=== PATIENT | female | born 1955 | race Caucasian/White ===

== ENCOUNTER 2016-06-07 20:05 | Emergency (ER) | payer MEDICAID ==
[~2016-06-07] VITALS: Ht 162.6 cm; Wt 102.1 kg
[~2016-06-07 20:05] MED LIST: ALBU2.5V4 INH; ALPR.5T PO; ALPR0.5T3; AMBIEN PO; AMOX500C2; AMOX500C2 PO; ASPI-587 PO; ATOR10TA66 PO; ATOR20TA66 PO; AZTH250C PO; CARV3.122 PO; CEFU500T5 PO; CLON0.5T3 PO; DOXY100C2 PO; ESZO3TAB38 PO; FURO40TA4 PO; GLAUCOMA EYE DROPS; GLYB5TAB3 PO; GLYB5TAB6 PO; HYDR-2890 PO; HYDR-34; HYDR28CR10 TP; INSU100I14; INSU100V6 SQ; LCT30U PO; LIPITOR; LTN005OP2 OU; LUNESTA PO; METF-380 PO; MTF500T; OXC5T PO; OXYC30TA76 PO; PANT40TA PO; POTA10TA PO; PROP20TA5 PO; RIFA550T PO; SPIR100T37 GT; STEROID CREAM; Spironolactone PO; ZLP10T; ZLP10T PO; ZOLP10TA5 PO
--- OUTSIDE RECORDS SUMMARY | 2016-06-07 20:11 | XMS REPORT | Continuity of Care Document ---
Author Author [facility] Organization [facility] Address Unknown Phone Unavailable Care Team Providers Care Brimming Machine Operator Name Role Phone Maria Del RosarioUmer ramirez PCP [phone] Source Comments Some departments are not documenting in the electronic medical record. If you do not see the information that you expected, contact Release of Information in the Health Information Management department at [phone] for further assistance in locating additional records.[facility] Active Allergies and Adverse Reactions Allergen Noted Date Severity Reactions Comments Maura 01/07/2013 SEE COMMENTS Pt reports hand and arm turn black at iv site Current Medications Prescription Sig. Disp. Refills Start End Date Status Date doxycycline (VIBRAMYCIN) Take 1 Tab by mouth twice 14 Tab 0 02/05/20 Active 100 mg tablet daily. 13 clonazePAM (KLONOPIN) 0.5 Take 0.5 mg by mouth Active mg tablet twice daily. zolpidem (AMBIEN) 10 mg Take 10 mg by mouth at Active tablet bedtime as needed for Sleep. glyBURIDE (DIABETA) 5 mg Take 5 mg by mouth daily Active tablet with breakfast. oxyCODONE (ROXICODONE) 5 Take 5 mg by mouth every Active mg tablet 4 hours as needed for Pain carvedilol (COREG) 3.125 Take 3.125 mg by mouth Active mg tablet twice daily with meals. pantoprazole DR Take 40 mg by mouth Active (PROTONIX) 40 mg tablet daily. lactulose 10 gram/15 mL Take 20 g by mouth three Active oral solution times daily. spironolactone Take 1.5 Tabs by mouth 135 Tab 3 02/23/20 Active (ALDACTONE) 100 mg tablet daily. 15 rifaximin (XIFAXAN) 550 Take 1 Tab by mouth twice 60 Tab 11 03/23/20 Active mg tab daily. 16 Active Problems Problem Noted Date Pulmonary hypertension (HCC) 01/25/2015 Overview: 07/19/13-Echo ([facility]): EF 60%. Normal wall motion. Moderate aortic valve sclerosis without significant aortic stenosis. Estimated pulmonary artery pressure=35 mmHg. Mild mitral and tricuspid regurgitation. 11/23/14-Echo: Normal LV function. LV appears normal in size. Mild mitral regurgitation. Moderate tricuspid regurgitation. PA pressures of 55 mmHg. Mild aortic stenosis, peak gradient was 20 mmHg. 11/24/14-Left Heart Cath([facility]): Normal LV function with mild inferior hypokinesis. Mild proximal circumflex disease. LAD and right coronaries filled relatively normal. 12/10/14-Echo([facility]): EF 60%. Diastolic dysfunction. LA 4.4 cm. Calcified aortic valve with no significant aortic valve stenosis. Mild mitral regurgitation. Moderate tricuspid regurgitation. Pulmonary hypertension with estimated pulmonary artery pressure of 50 mmHg. NSTEMI (non-ST elevated myocardial infarction) ([facility]) 01/25/2015 Overview: 11/23/14-Admitted to [facility] for chest pain. Elevated troponin of 43. Episodes of NSVT. Treated with Amiodarone during hospitalization. NSVT (nonsustained ventricular tachycardia) ([facility]) 01/25/2015 Overview: In setting of NSTEMI, 11/2014. Morbid obesity ([facility]) 01/26/2013 Thrombocytopenia ([facility]) 01/26/2013 Cellulitis 01/25/2013 End stage liver disease (HCC) ITP (idiopathic thrombocytopenic purpura) Resolved Problems Problem Noted Date Resolved Date Ventricular tachycardia (HCC) 01/25/2015 01/25/2015 Most Recent Encounters Date Type Specialty Providers Description 04/10/2016 Telephone Transplant Surgery Linh Gusman APRN Appointment Question 04/09/2016 Orders Only Transplant Surgery Pari Nunez RN 04/09/2016 Telephone Transplant Surgery Linh Gusman APRN Patient Reminder Call - Called pt to confirm jedt urszula/ Chaya on 04/15/16 @ 1:00pm, nalm. Social History Tobacco Use Types Packs/Day Years Used Date Current Every Day Smoker Cigarettes 0.5 30 Smokeless Tobacco: Never Used Alcohol Use Drinks/Week oz/Week Comments No Last Filed Vital Signs Vital Sign Reading Time Taken Blood Pressure 106/59 02/04/2013 3:58 PM CDT Pulse 54 02/04/2013 3:58 PM CDT Temperature 36.6 C (97.9 F) 02/04/2013 3:58 PM CDT Respiratory Rate - - Height 1.6 m (5' 3") 01/25/2013 3:33 PM CDT Weight 145.559 kg (320 lb 14.4 02/04/2013 5:00 AM CDT oz) Body Mass Index 56.86 02/04/2013 5:00 AM CDT Oxygen Saturation 92% 02/04/2013 3:58 PM CDT Plan of Care Health Maintenance Due Date Last Done Comments Physical (Comprehensive) 1964 Exam Pertussis Vaccine 1968 Tetanus Vaccine 1974 Cervical Cancer Screening 1978 Breast Cancer Screening 1997 Colorectal Cancer 2007 Screening Influenza Vaccine 01/18/2016 Hepatitis C Screening Completed 01/04/2015, 01/25/2013 Results from Last 3 Months Not on file
[2016-06-07] MEDS ORDERED: TRAZ-28 PO (20:37)
[2016-06-07] MEDS ORDERED: SPIR100T PO (20:37)
[2016-06-07] MEDS ORDERED: OXYC5TAB71 PO (20:37)
--- NOTE | 2016-06-07 20:57 | ED General ---
General Chief Complaint: General Problems/Pain Stated Complaint: R SIDE FACIAL SWELLING/PAIN Nursing Triage Note: Pt c/o swelling to R jaw w/ pain radiating down neck. Pt has saw PCP in office twice for this c/o and reports pain is increasing. Pt was prescribed antibiotics w/ no relief. Nursing Sepsis Screen: No Definite Risk Source of Information: Patient Exam Limitations: No Limitations History of Present Illness Time Seen by Provider: 20:57 Initial Comments 60 yo patient presents to the ED with c/o rt jaw swelling, rt lower dental pain , and rt ear pain. Patient was seen by Dr. Montgomery and was given 2 different antibiotics w/o improvement. Denies fevers, throat swelling, or tongue swelling. Timing/Duration: Other (1-2 wks.) Modifying Factors: worse with Other (palpation) Allergies and Home Medications Allergies Coded Allergies: levofloxacin (Verified Allergy, Unknown, 12/08/14) Home Medications Albuterol Sulfate 0.83 Mg/Ml Solution #150 3 ML INH TID PRN PRN SHORTNESS OF BREATH (Reported) Cephalexin 500 Mg Capsule #14 500 MG PO BID Prescribed by: UMA EGAN on 06/07/162311 Clindamycin HCl 300 Mg Capsule #28 300 MG PO QID Prescribed by: UMA EGAN on 06/07/162311 Clonazepam 0.5 Mg Tablet #30 0.5 MG PO BID (Reported) Fluconazole 100 Mg Tablet #2 150 MG PO UD Prescribed by: UMA EGAN on 06/07/162311 Furosemide 40 Mg Tablet 40 MG PO PRN (Reported) Hydrocortisone/Oatmeal/Aloe/E 28.4 Gm Cream.gm. 0Days 28.4 GM TP BID Prescribed by: DIMITRY MURO on 07/18/13 1143 Lactulose 10 Gm/15 Ml Syrp 30Days 20 GM PO 5XD Prescribed by: MITCHEL PAZ on 12/20/14 1202 Nystatin 100,000 Unit/1 Ml Oral.susp #200 5 ML PO QID Prescribed by: UMA EGAN on 06/07/162311 Oxycodone HCl 5 Mg Tablet 7.5 MG PO Q4H (Reported) Oxycodone HCl 10 Mg Tablet #20 10 MG PO Q4H PRN PRN PAIN Prescribed by: UMA EGAN on 1/20/17 2312 Pantoprazole Sodium 40 Mg Tablet.dr #30 40 MG PO DAILY (Reported) Rifaximin 550 Mg Tablet 30Days 550 MG PO BID Prescribed by: MITCHEL PAZ on 12/20/14 1202 Spironolactone 100 Mg Tablet 100 MG PO DAILY (Reported) Trazodone HCl 50 Mg Tablet 50 MG PO HS (Reported) Constitutional: No chills, No dizziness, No fever, No malaise EENTM: dental problems (rt lower dental pain) ear pain mouth pain (rt lower jaw) mouth swelling (rt lower jaw) see HPINo blurred vision, No ear discharge, No eye pain, No hearing loss, No nose congestion, No tearing, No throat pain, No throat swelling Respiratory: No cough, No short of breath, No stridor, No wheezing Cardiovascular: no symptoms reported Gastrointestinal: no symptoms reported Musculoskeletal: No neck pain Skin: no symptoms reported Psychiatric/Neurological: Denies Headache Immunological/Allergic: no symptoms reported All Other Systems Reviewed Negative Unless Noted: Yes (Negative excepted noted.) Past Xmvbtxe-Jjqhza-Yujkxn Hx Patient Social History Alcohol Use: Denies Use Recreational Drug Use: No Smoking Status: Current Everyday Smoker Type Used: Cigarettes Recent Foreign Travel: No Contact w/Someone Who Travel: No Recent Infectious Disease Expo: No Recent Hopitalizations: No Physical Abuse Screen: No Sexual Abuse: No Immunizations Up To Date PED Vaccines UTD: No Date of Pneumonia Vaccine: Feb 16, 2013 Date of Influenza Vaccine: Mar 19, 2013 Seasonal Allergies Seasonal Allergies: No Surgeries HX Surgeries: Yes (I&D OF ABSCESSES, HERNIA, HEART CATH) Surgeries: Coronary Stent Respiratory Hx Respiratory Disorders: No Cardiovascular Hx Cardiac Disorders: Yes Cardiac Disorders: Hypertension Neurological Hx Neurological Disorders: Yes Reproductive System Hx Reproductive Disorders: No Sexually Transmitted Disease: No 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 Genitourinary Hx Genitourinary Disorders: Yes Genitourinary Disorders: UTI-Chronic Gastrointestinal Hx Gastrointestinal Disorders: Yes (CHRONIC ABDOMINAL PAIN ) Gastrointestinal Disorders: Abdominal Hernia, Gastroesophageal Reflux, Liver Disease/Jaundice, Pancreatitis, Hiatal Hernia, Cirrhosis Musculoskeletal Hx Musculoskeletal Disorders: Yes (chronic lower edema, right greater than left ) Musculoskeletal Disorders: Osteoporosis, Fibromyalgia, Chronic Back Pain Endocrine Hx Endocrine Disorders: Yes Endocrine Disorders: Diabetes, Non-Insulin dep HEENT HX ENT Disorders: No Cancer Hx Cancer: No Psychosocial Hx Psychiatric Problems: Yes Behavioral Health Disorders: Anxiety, Depression Integumentary HX Skin/Integumentary Disorder: Yes (ABSCESSES. CELLULITIS-LEGS. CHRONIC LEG SORES) Blood Transfusions Hx Blood Disorders: Yes (ITP, NEUTROPENIA) Reviewed Nursing Assessment Reviewed/Agree w Nursing PMH: Yes Family Medical History Significant Family History: No Pertinent Family Hx Physical Exam Vital Signs Capillary Refill : Less Than 3 Seconds General Appearance: No Apparent Distress WD/WN HEENT: PERRL/EOMI TMs Normal Pharynx Normal Other (rt parotid swelling with tenderness. no evidence of gum swelling.) Neck: Full Range of Motion Normal Inspection Non Tender Supple Respiratory: Lungs Clear Normal Breath Sounds No Respiratory Distress Cardiovascular: Regular Rate, Rhythm No Murmur Neurologic/Psychiatric: Alert Oriented x3 Normal Mood/Affect Skin: Warm/Dry Jaundice ((patient reports she has cirrhosis)) Progress/Results/Core Measures Results/Orders My Orders Vital Signs/I&O Blood Pressure Mean: 96 Diagnostic Imaging Diagonstic Imaging: CT Plain Films/CT/US/NM/MRI: facial bones Comments FINDINGS: Examination of the soft tissues is limited as is the bone algorithm technique and no contrast was administered. However, there is a diffuse area of soft tissue prominence in the region of the right parotid gland. Within the right parotid gland there is an area of hyperdensity, peripherally, with central hypodensity. Overall, the area measures approximately 2.7 x 2.8 x 2.9 cm. The surrounding parotid gland is diffusely enlarged and heterogeneous in appearance. There is a smaller low-density area within the soft tissues overlying the right masseter muscle. This area measures 13 mm. It has fluidlike density. Multiple prominent lymph nodes are seen throughout the right neck more inferiorly. The visualized osseous structures demonstrate no acute abnormality. The visualized sinuses demonstrate mucosal thickening with no acute abnormality seen. Visualized mastoid air cells are clear. There are several prominent lymph nodes within the right submandibular region also noted. IMPRESSION: 1. Nonspecific diffuse soft tissue prominence in the right aspect of the neck, predominantly involving the parotid gland which is diffusely enlarged. It contains an internal peripherally hyperdense lesion which is centrally hypodense. This is difficult to characterize given the lack of contrast. It could represent a centrally necrotic mass or lymph node. An abscess would be considered most likely if there are symptoms of infection. Clinical correlation with symptoms recommended and if clinically warranted, CT imaging with contrast would provide further characterization. 2. Enlarged lymph nodes within the right aspect of the neck, as described in the body. This could be reactive or due to an inflammatory etiology. A metastatic process is not excluded and followup recommended to assure resolution. 3. Fluid like collection more anteriorly located in the right aspect of the face, just anterior to the parotid gland, possibly a small seroma or even early abscess formation with a necrotic lymph node also possible. Dictated by: Dictated on workstation # [id number] Reviewed: Reviewed by Me (radiology report reviewed by me) Departure Communication Progress Notes Patient case discussed with Dr. Roberson. Dr. Keyes accepted patient to her medical service for IV antibiotics, however patient refused admission. Patient states she wants to be discharged to home with outpatient treatment. I Have advised patient that the CT scan does show questionable abscess formation. All risks, benefits, possible consultations associated with leaving AGAINST MEDICAL ADVICE discussed with the patient. All questions were answered at the time of visit. Patient voices understanding and continues to refuse admission to [facility]. Dr. Yu notified of patients refusal for admission. Impression Impression: Primary Impression: Parotitis Additional Impression: abnormal ct face Disposition: AGAINST MEDICAL ADVICE Condition: Against Medical Advice Departure-Patient Inst. Decision time for Depature: 23:05 Referrals: LYNDON MENDEZ MD, RICHARD A DO (PCP/Family) Primary Care Physician RUTHY MALAGON DDS Patient Instructions: ABSCESS, Parotitis Add. Discharge Instructions: All discharge instructions reviewed with patient and/or family. Voiced understanding. Medications as instructed. Ice packs or heating pads as needed for pain and swelling. Drink plenty of fluids. Uses sour candies such as lemon drops. Return to the emergency department on Friday for a wound recheck. Follow-up with Dr. Mendez, Dr. Malagon, and Dr. Dr. Montgomery as an outpatient early this week. Call first thing Friday morning for appointment times. Return immediately to the emergency department for worsened pain, swelling, redness, fever, difficulty swallowing, difficulty breathing, vomiting, or any other concerns. Scripts Oxycodone HCl 10 Mg [id number] Mg PO Q4H PRN PAIN #20 TAB Ref 0 Prov:UMA EGAN 06/07/16 Nystatin 100,000 Unit/1 Ml Oral.susp5 Ml PO QID #200 ML Ref 0 Prov:UMA EGAN 06/07/16 Fluconazole (Diflucan)100 Mg [id number] Mg PO UD #2 TAB Ref 1 Prov:UMA EGAN 06/07/16 Cephalexin 500 Mg [id number] Mg PO BID #14 CAP Ref 0 Prov:UMA EGAN 06/07/16 Clindamycin HCl (Cleocin HCl)300 Mg [id number] Mg PO QID #28 CAP Ref 0 Prov:UMA EGAN 06/07/16 UMA EGAN Jun 07, 2016 20:57
[2016-06-07] MEDS ORDERED: morphine INJ 10 MG/ML 1ML (SYR OR VIAL) IM STA (21:07)
--- NOTE | 2016-06-07 21:58 | Diagnostic Imaging Report ---
INDICATION: Right jaw swelling with pain radiating down the neck. Recently prescribed antibiotics but symptoms are worsening. BB placed at the site of concern. EXAMINATION: CT maxillofacial, 06/07/2016. FINDINGS: Examination of the soft tissues is limited as is the bone algorithm technique and no contrast was administered. However, there is a diffuse area of soft tissue prominence in the region of the right parotid gland. Within the right parotid gland there is an area of hyperdensity, peripherally, with central hypodensity. Overall, the area measures approximately 2.7 x 2.8 x 2.9 cm. The surrounding parotid gland is diffusely enlarged and heterogeneous in appearance. There is a smaller low-density area within the soft tissues overlying the right masseter muscle. This area measures 13 mm. It has fluidlike density. Multiple prominent lymph nodes are seen throughout the right neck more inferiorly. The visualized osseous structures demonstrate no acute abnormality. The visualized sinuses demonstrate mucosal thickening with no acute abnormality seen. Visualized mastoid air cells are clear. There are several prominent lymph nodes within the right submandibular region also noted. IMPRESSION: 1. Nonspecific diffuse soft tissue prominence in the right aspect of the neck, predominantly involving the parotid gland which is diffusely enlarged. It contains an internal peripherally hyperdense lesion which is centrally hypodense. This is difficult to characterize given the lack of contrast. It could represent a centrally necrotic mass or lymph node. An abscess would be considered most likely if there are symptoms of infection. Clinical correlation with symptoms recommended and if clinically warranted, CT imaging with contrast would provide further characterization. 2. Enlarged lymph nodes within the right aspect of the neck, as described in the body. This could be reactive or due to an inflammatory etiology. A metastatic process is not excluded and followup recommended to assure resolution. 3. Fluid like collection more anteriorly located in the right aspect of the face, just anterior to the parotid gland, possibly a small seroma or even early abscess formation with a necrotic lymph node also possible. Dictated by: Dictated on workstation # [id number]
[2016-06-07] MEDS ORDERED: HYDROmorphone (DILAUDID) 2 MG/ML VIAL IM STA (22:02)
[2016-06-07] MEDS ORDERED: OXYC10TA7 PO (23:12)
[2016-06-07] MEDS ORDERED: FLUC100T PO (23:12)
[2016-06-07] MEDS ORDERED: CEPH500C PO (23:12)
[2016-06-07] MEDS ORDERED: CLIN300C3 PO (23:12)
[2016-06-07] MEDS ORDERED: NYST1000 PO (23:12)
[2016-06-07] MEDS ORDERED: CEPHALEXIN 250 MG (KEFLEX) CAP PO ONE (23:15)
[2016-06-07] MEDS ORDERED: CLINDAMYCIN 150 MG (CLEOCIN) CAP PO ONE (23:15)
[2016-06-07 23:22] VITALS: BP 150/81
== END 2016-06-07 23:23 | disposition left against medical advice (07) ==
LOC: EDUNIT# 20:05 → ER 20:06
DX: K11.21 Acute sialoadenitis (principal); R59.0 Localized enlarged lymph nodes; I10 Essential (primary) hypertension; F17.210 Nicotine dependence, cigarettes, uncomplicated; Z79.899 Other long term (current) drug therapy; Z95.5 Presence of coronary angioplasty implant and graft
CPT/HCPCS: 70486; 96372

== ENCOUNTER → 2016-06-24 | Outpatient (CLI) | payer MEDICAID ==
[~2016-06-24] MED LIST changes: +BUSP5TAB59 PO; +CEPH500C PO; +CLIN300C3 PO; +CLOT15CR5 TP; +FLUC100T PO; +FLUC100T6 PO; +HYDR25CA PO; +LACT10SO PO; +LACT20SO2 PO; +LATA2.5D5 OU; +NYST1000 PO; +OXYC10TA7 PO; +OXYC5TAB71 PO; +PANT40TA3 PO; +SPIR100T PO; +SPIR100T2 PO; +TRAZ-28 PO; +TRAZ100T92 PO
--- OUTSIDE RECORDS SUMMARY | 2016-06-24 09:03 | XMS REPORT | Continuity of Care Document ---
Author Author [facility] Organization [facility] Address Unknown Phone Unavailable Care Team Providers Care Washing Machine Assembler Name Role Phone Maria Del RosarioUmer ramirez PCP [phone] Source Comments Some departments are not documenting in the electronic medical record. If you do not see the information that you expected, contact Release of Information in the Health Information Management department at [phone] for further assistance in locating additional records.[facility] Active Allergies and Adverse Reactions Allergen Noted [...] peak gradient was 20 mmHg. 11/24/14-Left Heart Cath([facility]): Normal LV function with mild inferior hypokinesis. Mild proximal circumflex disease. LAD and right coronaries filled relatively normal. 12/10/14-Echo([facility]): EF 60%. Diastolic dysfunction. LA 4.4 cm. Calcified aortic valve with no significant aortic valve stenosis. Mild mitral regurgitation. Moderate tricuspid regurgitation. Pulmonary hypertension with estimated pulmonary artery pressure of 50 mmHg. NSTEMI (non-ST elevated myocardial infarction) ([facility]) 01/25/2015 Overview: 11/23/14-Admitted to [facility] for chest pain. Elevated troponin of 43. Episodes of NSVT. Treated with Amiodarone during hospitalization. NSVT (nonsustained ventricular tachycardia) ([facility]) 01/25/2015 Overview: In setting of NSTEMI, 11/2014. Morbid obesity ([facility]) 01/26/2013 Thrombocytopenia ([facility]) 01/26/2013 Cellulitis 01/25/2013 End stage liver disease [...]
[2016-06-24 09:45] LABS: ALBUMIN 2.7 G/DL (3.2-4.5); BILIRUBIN,TOTAL 1.7 MG/DL (0.1-1.0); CALCIUM 8.5 MG/DL (8.5-10.1); CREATININE SERUM 1.45 MG/DL (0.60-1.30); POTASSIUM 4.6 MMOL/L (3.6-5.0); TOTAL PROTEIN 6.2 G/DL (6.4-8.2)
[2016-06-24 16:13] LABS: BASOPHILS % (AUTO) 0 % (0-10); EOSINOPHILS # (AUTO) 0.1 10^3/uL (0.0-0.3); EOSINOPHILS % (AUTO) 2 % (0-10); LYMPHOCYTES # (AUTO) 0.8 X 10^3 (1.0-4.0); LYMPHOCYTES % (AUTO) 21 % (12-44); MEAN CORPUSCULAR HEMOGLOBIN 35 PG (25-34); MEAN CORPUSCULAR HGB CONC 34 G/DL (32-36); MEAN CORPUSCULAR VOLUME 101 FL (80-99); MONOCYTES # (AUTO) 0.3 X 10^3 (0.0-1.0); MONOCYTES % (AUTO) 9 % (0-12); NEUTROPHILS # (AUTO) 2.5 X 10^3 (1.8-7.8); NEUTROPHILS % (AUTO) 68 % (42-75); PLATELET COUNT 44 10^3/uL (130-400); RED BLOOD COUNT 3.56 10^6/uL (4.35-5.85); RED CELL DISTRIBUTION WIDTH 15.1 % (10.0-14.5); WHITE BLOOD COUNT 3.7 10^3/uL (4.3-11.0)
[2016-06-24 16:24] LABS: CHOLESTEROL 137 MG/DL (< 200); DIRECT LDL 89 MG/DL (1-129); TRIGLYCERIDES 89 MG/DL (<150); VLDL CHOLESTEROL 18 MG/DL (5-40)
== END ==
LOC: LAB 08:55
PROVIDERS: ATTEND Family Medicine
DX: K11.3 Abscess of salivary gland (principal); K74.60 Unspecified cirrhosis of liver; E11.9 Type 2 diabetes mellitus without complications; D69.6 Thrombocytopenia, unspecified
CPT/HCPCS: 36415; 80053; 80061; 83036; 85025

== ENCOUNTER → 2016-06-29 | Outpatient (CLI) | payer MEDICAID ==
--- OUTSIDE RECORDS SUMMARY | 2016-06-29 09:56 | XMS REPORT | Continuity of Care Document ---
Author Author [facility] Organization [facility] Address Unknown Phone Unavailable Care Team Providers Care Director Public Service Name Role Phone Maria Del RosarioUmer ramirez PCP [phone] Source Comments Some departments are not documenting in the electronic medical record. If you do not see the information that you expected, contact Release of Information in the Health Information Management department at [phone] for further assistance in locating additional records.[facility] Active Allergies and Adverse Reactions [...] peak gradient was 20 mmHg. 11/24/14-Left Heart Cath([facility]): Normal LV function with mild inferior hypokinesis. Mild proximal circumflex disease. LAD and right coronaries filled relatively normal. 12/10/14-Echo([facility]): EF 60%. Diastolic dysfunction. LA 4.4 cm. Calcified aortic valve with no significant aortic valve stenosis. Mild mitral regurgitation. Moderate tricuspid regurgitation. Pulmonary hypertension with estimated pulmonary artery pressure of 50 mmHg. NSTEMI (non-ST elevated myocardial infarction) ([facility] 01/25/2015 Overview: 11/23/14-Admitted to [facility] for chest pain. Elevated troponin of 43. Episodes of NSVT. Treated with Amiodarone during hospitalization. NSVT (nonsustained ventricular tachycardia) ([facility]) 01/25/2015 Overview: In setting of NSTEMI, 11/2014. Morbid obesity ([facility]) 01/26/2013 Thrombocytopenia ([facility]) 01/26/2013 Cellulitis 01/25/2013 End stage liver disease [...]
== END ==
LOC: RAD 09:51
PROVIDERS: ATTEND Family Medicine
DX: K74.60 Unspecified cirrhosis of liver (principal)

== ENCOUNTER → 2016-07-08 | Outpatient (CLI) | payer MEDICAID ==
[~2016-07-08] MED LIST changes: +GADOXETATE 2.5 MMOL/10 ML (EOVIST) IV ONE
--- OUTSIDE RECORDS SUMMARY | 2016-07-08 08:34 | XMS REPORT | Continuity of Care Document ---
Author Author [facility] Organization [facility] Address Unknown Phone Unavailable Care Team Providers Care Brick Carrier Name Role Phone Maria Del RosarioUmer ramirez PCP [phone] Source Comments Some departments are not documenting in the electronic medical record. If you do not see the information that you expected, contact Release of Information in the Health Information Management department at [phone] for further assistance in locating additional records.[facility] Active Allergies and Adverse Reactions [...] peak gradient was 20 mmHg. 11/24/14-Left Heart Cath([facility]): Normal LV function with mild inferior hypokinesis. Mild proximal circumflex disease. LAD and right coronaries filled relatively normal. 12/10/14-Echo([facility]): EF 60%. Diastolic dysfunction. LA 4.4 cm. Calcified aortic valve with no significant aortic valve stenosis. Mild mitral regurgitation. Moderate tricuspid regurgitation. Pulmonary hypertension with estimated pulmonary artery pressure of 50 mmHg. NSTEMI (non-ST elevated myocardial infarction) ([facility] 01/25/2015 Overview: 11/23/14-Admitted to [facility] for chest pain. Elevated troponin of 43. Episodes of NSVT. Treated with Amiodarone during hospitalization. NSVT (nonsustained ventricular tachycardia) ([facility]) 01/25/2015 Overview: In setting of NSTEMI, 11/2014. Morbid obesity ([facility]) 01/26/2013 Thrombocytopenia ([facility]) 01/26/2013 Cellulitis 01/25/2013 End stage [...]
--- NOTE | 2016-07-08 13:48 | Diagnostic Imaging Report ---
PROCEDURE: MR imaging abdomen with and without contrast. TECHNIQUE: Multiplanar, multisequence MR imaging of the abdomen was performed with and without contrast. INDICATION: Liver lesions. Study compared 07/21/2015. There are at least three discrete parenchymal lesions in the liver. A nodule within the posterior sector of the right hepatic lobe near its caudal tip has a diameter of 2.6 cm. It is vaguely hyperintense on preinjection T1 images and presents as an area of relative decreased attenuation on the delayed post injection Eovist-phased acquisitions. Similar signal intensity and enhancement are associated with a peripheral nodule more cephalad in the right hepatic lobe posteriorly and laterally measuring 2.3 cm in diameter. A third lesion is in the left lobe of the dome anteriorly measuring 2 cm. Its most conspicuous prior to contrast were its heterogeneously T1 hyperintense and subtly vaguely elevated T2 signal intensity. This may reflect elements of intralesional hemorrhage in the interim. That lesion on the delayed acquisitions following Eovist shows relative central hypointensity with a peripheral rim of T1 signal that is preserved. The comparison MRI was limited by patient pain and incomplete status without contrast. When the findings today are correlated with the CT of June 2015, they each appear to have increased in size measuring long- axes of 1.8 cm, 2.3 cm, and 1.8 cm respectively. Splenomegaly and perisplenic dilated venous collaterals are redemonstrated. There is no adrenal mass. The pancreas normal. There is no biliary ductal dilatation. Nodularity at the liver surface owing to cirrhosis is an unchanged finding. There is paraesophageal vascular collaterals and perigastric collaterals. Minute ascites adjacent to the right hepatic lobe noted as well as along the margins of the hepatic dome. There is no perisplenic free fluid evident. Aorta is nonaneurysmal. IMPRESSION: Cirrhotic-appearing liver redemonstrated. Small perihepatic ascites with stable splenomegaly and vascular collaterals presumptively owing to portal venous hypertension. At least three discrete liver nodules are present, and when a prior CT reviewed retrospectively, each is believed to be at least mildly increased in size. Given the change, consider lesional sampling which could be performed with CT guidance. The right hepatic lobe nodule posteroinferiorly would likely provide a good target site. Trace ascites. No other change. Dictated by: Dictated on workstation # [id number]
== END ==
LOC: RAD 08:31
PROVIDERS: ATTEND Family Medicine
DX: K76.9 Liver disease, unspecified (principal); K74.60 Unspecified cirrhosis of liver
CPT/HCPCS: 74183

== ENCOUNTER → 2016-07-16 | Outpatient (CLI) | payer MEDICAID ==
[~2016-07-16] MED LIST changes: -GADOXETATE 2.5 MMOL/10 ML (EOVIST) IV ONE
[2016-07-16 12:53] LABS: BASOPHILS % (AUTO) 1 % (0-10); EOSINOPHILS # (AUTO) 0.1 10^3/uL (0.0-0.3); EOSINOPHILS % (AUTO) 3 % (0-10); LYMPHOCYTES # (AUTO) 0.8 X 10^3 (1.0-4.0); LYMPHOCYTES % (AUTO) 20 % (12-44); MEAN CORPUSCULAR HEMOGLOBIN 34 PG (25-34); MEAN CORPUSCULAR HGB CONC 34 G/DL (32-36); MEAN CORPUSCULAR VOLUME 101 FL (80-99); MEAN PLATELET VOLUME 11.8 FL (7.4-10.4); MONOCYTES # (AUTO) 0.3 X 10^3 (0.0-1.0); MONOCYTES % (AUTO) 8 % (0-12); NEUTROPHILS # (AUTO) 2.8 X 10^3 (1.8-7.8); NEUTROPHILS % (AUTO) 69 % (42-75); PLATELET COUNT 45 10^3/uL (130-400); RED BLOOD COUNT 4.01 10^6/uL (4.35-5.85); RED CELL DISTRIBUTION WIDTH 14.6 % (10.0-14.5); WHITE BLOOD COUNT 4.1 10^3/uL (4.3-11.0)
[2016-07-16 13:20] LABS: ALBUMIN 2.7 G/DL (3.2-4.5); BILIRUBIN,TOTAL 1.8 MG/DL (0.1-1.0); CALCIUM 9.2 MG/DL (8.5-10.1); CREATININE SERUM 1.41 MG/DL (0.60-1.30); POTASSIUM 4.9 MMOL/L (3.6-5.0); TOTAL PROTEIN 6.3 G/DL (6.4-8.2)
== END ==
LOC: LAB 12:33
PROVIDERS: ATTEND Family Medicine
DX: K74.60 Unspecified cirrhosis of liver (principal); N28.9 Disorder of kidney and ureter, unspecified; D69.6 Thrombocytopenia, unspecified
CPT/HCPCS: 36415; 80053; 85025

== ENCOUNTER → 2016-07-18 | Outpatient (CLI) | payer MEDICAID ==
--- OUTSIDE RECORDS SUMMARY | 2016-07-18 13:10 | XMS REPORT | Continuity of Care Document ---
Author Author [facility] Organization [facility] Address Unknown Phone Unavailable Care Team Providers Care Packing Room Inspector Name Role Phone Maria Del RosarioUmer ramirez PCP [phone] Source Comments Some departments are not documenting in the electronic medical record. If you do not see the information that you expected, contact Release of Information in the Health Information Management department at [phone] for further assistance in locating additional records.[facility] Active Allergies and Adverse Reactions Allergen [...] Active Problems Problem Noted Date Pulmonary hypertension ([facility]) 01/25/2015 Overview: 07/19/13-Echo ([facility]): EF 60%. [...] mmHg. NSTEMI (non-ST elevated myocardial infarction) ([facility]) 01/25/2015 Overview: 11/23/14-Admitted to [facility] for chest pain. Elevated troponin of 43. Episodes of NSVT. Treated with Amiodarone during hospitalization. NSVT (nonsustained ventricular tachycardia) ([facility]) 01/25/2015 Overview: In setting of NSTEMI, 11/2014. Morbid obesity ([facility]) 01/26/2013 Thrombocytopenia ([facility]) 01/26/2013 Cellulitis 01/25/2013 End stage liver disease ([facility]) ITP (idiopathic thrombocytopenic purpura) Resolved Problems Problem Noted Date Resolved Date Ventricular tachycardia ([facility]) 01/25/2015 01/25/2015 Social History Tobacco Use Types Packs/Day Years [...] 1997 Colorectal Cancer 2007 Screening Influenza Vaccine 01/17/2017 Hepatitis C Screening Completed 01/04/2015, 01/25/2013 Results from Last 3 Months Not on file
[2016-07-18 13:28] LABS: MEAN PLATELET VOLUME 10.6 FL (7.4-10.4); RED BLOOD COUNT 4.1 10^6/uL (4.35-5.85); RED CELL DISTRIBUTION WIDTH 14.7 % (10.0-14.5); WHITE BLOOD COUNT 4.5 10^3/uL (4.3-11.0)
[2016-07-18 13:55] LABS: CREATININE SERUM 1.44 MG/DL (0.60-1.30)
--- NOTE | 2016-07-18 14:48 | Diagnostic Imaging Report ---
PROCEDURE: CT neck soft tissue without contrast. TECHNIQUE: Multiple contiguous axial images were obtained through the neck without the use of intravenous contrast. INDICATION: Followup of right parotid mass. COMPARISON: Comparison with 06/07/2016. FINDINGS: The soft tissue mass described on the previous exam within the majority of the right parotid gland involving both the deep and superficial lobes is again noted. This has increased slightly in size and has a slightly more irregular appearance now with mild spiculation. There is loss of tissue planes noted posteriorly and medially. There is cervical lymphadenopathy noted along the anterior lymph nodes immediately adjacent to and beneath the enlarged parotid. The parapharyngeal tissue planes superior to the parotid appear intact. The mass does extend anteriorly and inferiorly with loss of tissue plane along the geomorphology teacher muscle on the right. This overall measures approximately 4.5 x 4.1 cm transversely and 6 cm superior to inferior. The submandibular glands appear normal. The left parotid gland is normal. The nasopharynx and oropharynx shows normal tissue planes. There is noted a hypodense lesion in the left lobe of the thyroid measuring just over 1 cm. No destructive bony lesions are seen. IMPRESSION: 1. Masslike lesion is seen within the right parotid gland which does appear to have increased in size since the previous study now measuring approximately 4.5 x 4.1 x 6 cm. There is loss of adjacent tissue planes as described. There is also cervical chain adenopathy. 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 The differential would include nuchal epidermoid carcinoma, adenocystic carcinoma, non-Hodgkin's lymphoma. Biopsy is recommended. Dictated by: Dictated on workstation # [id number]
== END ==
LOC: RAD 13:06
PROVIDERS: ATTEND Otolaryngology Otolaryngology/Facial Plastic Surgery
DX: R22.1 Localized swelling, mass and lump, neck (principal)
CPT/HCPCS: 36415; 70490; 82565; 84520; 85027; 88305

== ENCOUNTER 2016-07-25 09:26 | Outpatient (CLI) | payer MEDICAID ==
[~2016-07-25] VITALS: Ht 162.6 cm; Wt 102.5 kg
[~2016-07-25 09:26] MED LIST changes: -BUSP5TAB59 PO; -CLOT15CR5 TP; -FLUC100T6 PO; -HYDR25CA PO; -LACT10SO PO; -LACT20SO2 PO; -LATA2.5D5 OU; -PANT40TA3 PO; -SPIR100T2 PO; -TRAZ100T92 PO
--- OUTSIDE RECORDS SUMMARY | 2016-07-25 09:30 | XMS REPORT | Continuity of Care Document ---
Author Author [facility] Organization [facility] Address Unknown Phone Unavailable Care Team Providers Care Charcoal Burner [employer]ive Kiln Name Role Phone Maria Del RosarioUmer ramirez PCP [phone] Source Comments Some departments are not documenting in the electronic medical record. If you do not see the information that you expected, contact Release of Information in the Health Information Management department at [phone] for further assistance in locating additional records.[facility] Active Allergies and Adverse Reactions Allergen [...] Problems Problem Noted Date Pulmonary hypertension ([facility]) 01/25/2015 Overview: 07/19/13-Echo ([facility]): EF 60%. Normal wall motion. Moderate aortic valve sclerosis without significant aortic stenosis. Estimated pulmonary artery pressure=35 mmHg. Mild mitral and tricuspid regurgitation. 11/23/14-Echo: Normal LV function. LV appears normal in size. Mild mitral regurgitation. Moderate tricuspid regurgitation. PA pressures of 55 mmHg. Mild aortic stenosis, peak gradient was 20 mmHg. 11/24/14-Left Heart Cath([facility]): Normal LV function with mild inferior hypokinesis. Mild proximal circumflex disease. LAD and right coronaries filled relatively normal. 12/10/14-Echo([facility]): EF 60%. Diastolic dysfunction. LA 4.4 cm. Calcified aortic valve with no significant aortic valve stenosis. Mild mitral regurgitation. Moderate tricuspid regurgitation. Pulmonary hypertension with estimated pulmonary artery pressure of 50 mmHg. NSTEMI (non-ST elevated myocardial infarction) ([facility]) 01/25/2015 Overview: 11/23/14-Admitted to [facility] for chest pain. Elevated troponin of 43. Episodes of NSVT. Treated with Amiodarone during hospitalization. NSVT (nonsustained ventricular tachycardia) ([facility]) 01/25/2015 Overview: In setting of NSTEMI, 11/2014. Morbid obesity ([facility]) 01/26/2013 Thrombocytopenia ([facility]) 01/26/2013 Cellulitis 01/25/2013 End stage liver disease ([facility]) ITP (idiopathic thrombocytopenic purpura) Resolved Problems Problem Noted Date Resolved Date Ventricular tachycardia ([facility]) 01/25/2015 01/25/2015 Social History Tobacco Use Types [...]
[2016-07-25] MEDS ORDERED: HYDR25CA PO (09:53)
[2016-07-25 09:58] VITALS: BP 142/65
[2016-07-25 10:33] LABS: BASOPHILS % (AUTO) 1 % (0-10); EOSINOPHILS # (AUTO) 0.2 10^3/uL (0.0-0.3); EOSINOPHILS % (AUTO) 4 % (0-10); LYMPHOCYTES # (AUTO) 0.9 X 10^3 (1.0-4.0); LYMPHOCYTES % (AUTO) 22 % (12-44); MEAN CORPUSCULAR HEMOGLOBIN 34 PG (25-34); MEAN CORPUSCULAR HGB CONC 33 G/DL (32-36); MEAN CORPUSCULAR VOLUME 101 FL (80-99); MONOCYTES # (AUTO) 0.4 X 10^3 (0.0-1.0); MONOCYTES % (AUTO) 10 % (0-12); NEUTROPHILS # (AUTO) 2.4 X 10^3 (1.8-7.8); NEUTROPHILS % (AUTO) 63 % (42-75); PLATELET COUNT 50 10^3/uL (130-400); RED BLOOD COUNT 4.09 10^6/uL (4.35-5.85); RED CELL DISTRIBUTION WIDTH 14.9 % (10.0-14.5); WHITE BLOOD COUNT 3.9 10^3/uL (4.3-11.0)
[2016-07-25 10:53] LABS: CALCIUM 8.6 MG/DL (8.5-10.1); CREATININE SERUM 1.6 MG/DL (0.60-1.30); POTASSIUM 4.6 MMOL/L (3.6-5.0)
--- NOTE | 2016-07-25 10:59 | Diagnostic Imaging Report ---
INDICATION: Preop evaluation and drainage around the right parotid abscess. FINDINGS: Frontal and lateral views of the chest demonstrate the lungs to be clear. The heart, mediastinum and pulmonary vascularity are normal. Mild degenerative changes are seen in the lumbar spine and left shoulder. IMPRESSION: There are no acute findings. Dictated by: Dictated on workstation # [id number]
--- NOTE | 2016-07-26 14:48 | Progress Note-Pre Operative ---
Pre-Operative Progress Note H&P Reviewed The H&P was reviewed, patient examined and no changes noted. Date H&P Reviewed: Jul 26, 2016 Time H&P Reviewed: 14:15 Pre-Operative Diagnosis: Right Parotid Abscess LYNDON KRAUSE MD Jul 26, 2016 2:48 pm
--- NOTE | 2016-07-27 06:12 | Progress Note-Standard ---
Standard Progress Note Progress Notes/Assess & Plan Progress/Assessment & Plan ENT-Rk Abscess drained on friday-dressing intact with mild to mod drainage diet as tolerated continue IV antibiotics prelim culture results will be out later today Final Diagnosis Right Parotid Abscess LYNDON KRAUSE MD Jul 27, 2016 6:12 am
== END 2016-07-25 15:00 | disposition home or self-care (01) ==
LOC: PREOP 09:26
PROVIDERS: ATTEND Otolaryngology Otolaryngology/Facial Plastic Surgery
DX: Z01.818 Encounter for other preprocedural examination (principal); Z01.812 Encounter for preprocedural laboratory examination; Z11.2 Encounter for screening for other bacterial diseases; K11.3 Abscess of salivary gland
CPT/HCPCS: 36415; 71020; 80048; 85025; 87081; 93005

== ENCOUNTER 2016-07-26 06:10 | Outpatient (RCR) | payer MEDICAID ==
[~2016-07-26] VITALS: Ht 165.1 cm; Wt 99.8 kg
[~2016-07-26 06:10] MED LIST changes: +HYDR25CA PO
--- OUTSIDE RECORDS SUMMARY | 2016-07-26 08:26 | XMS REPORT | Continuity of Care Document ---
Author Author [facility] Organization [facility] Address Unknown Phone Unavailable Care Team Providers Care Education Faculty Member Name Role Phone Maria Del RosarioUmer ramirez PCP [phone] Source Comments Some departments are not documenting in the electronic medical record. If you do not see the information that you expected, contact Release of Information in the Health Information Management department at [phone] for further assistance in locating additional records.[facility] Active Allergies and Adverse Reactions Allergen [...] Active Problems Problem Noted Date Pulmonary hypertension ([facility]) 01/25/2015 Overview: 07/19/13-Echo ([facility]): EF 60%. Normal wall motion. Moderate aortic valve sclerosis without significant aortic stenosis. Estimated pulmonary artery pressure=35 mmHg. Mild mitral and tricuspid regurgitation. 11/23/14-Echo: Normal LV function. LV appears normal in size. Mild mitral regurgitation. Moderate tricuspid regurgitation. PA pressures of 55 mmHg. Mild aortic stenosis, peak gradient was 20 mmHg. 11/24/14-Left Heart Cath([facility]): Normal LV function with mild inferior hypokinesis. Mild proximal circumflex disease. LAD and right coronaries filled relatively normal. 12/10/14-Echo([facility]): EF 60%. Diastolic dysfunction. LA 4.4 cm. Calcified aortic valve with no significant aortic valve stenosis. Mild mitral regurgitation. Moderate tricuspid regurgitation. Pulmonary hypertension with estimated pulmonary artery pressure of 50 mmHg. NSTEMI (non-ST elevated myocardial infarction) ([facility]) 01/25/2015 Overview: 11/23/14-Admitted to [facility] for chest pain. Elevated troponin of 43. Episodes of NSVT. Treated with Amiodarone during hospitalization. NSVT (nonsustained ventricular tachycardia) ([facility]) 01/25/2015 Overview: In setting of NSTEMI, 11/2014. Morbid obesity ([facility]) 01/26/2013 Thrombocytopenia ([facility]) 01/26/2013 Cellulitis 01/25/2013 End stage liver disease ([facility]) ITP (idiopathic thrombocytopenic purpura) Resolved Problems Problem Noted Date Resolved Date Ventricular tachycardia ([facility]) 01/25/2015 01/25/2015 Social History Tobacco Use Types [...]
--- OUTSIDE RECORDS SUMMARY | 2016-07-26 08:26 | XMS REPORT | Continuity of Care Document ---
Author Author [facility] Organization [facility] Address Unknown Phone Unavailable Care Team Providers Care Veneer Taper Name Role Phone Maria Del RosarioUmer ramirez PCP [phone] Source Comments Some departments are not documenting in the electronic medical record. If you do not see the information that you expected, contact Release of Information in the Health Information Management department at [phone] for further assistance in locating additional records.[facility] Active Allergies and Adverse Reactions [...] Active Problems Problem Noted Date Pulmonary hypertension ([facility]) 01/25/2015 Overview: 07/19/13-Echo ([facility]): EF 60%. Normal wall motion. Moderate aortic valve sclerosis without significant aortic stenosis. Estimated pulmonary artery pressure=35 mmHg. Mild mitral and tricuspid regurgitation. 11/23/14-Echo: Normal LV function. LV appears normal in size. Mild mitral regurgitation. Moderate tricuspid regurgitation. PA pressures of 55 mmHg. Mild aortic stenosis, peak gradient was 20 mmHg. 11/24/14-Left Heart Cath([facility]): Normal LV function with mild inferior hypokinesis. Mild proximal circumflex disease. LAD and right coronaries filled relatively normal. 12/10/14-Echo([facility]): EF 60%. Diastolic dysfunction. LA 4.4 cm. Calcified aortic valve with no significant aortic valve stenosis. Mild mitral regurgitation. Moderate tricuspid regurgitation. Pulmonary hypertension with estimated pulmonary artery pressure of 50 mmHg. NSTEMI (non-ST elevated myocardial infarction) ([facility]) 01/25/2015 Overview: 11/23/14-Admitted to [facility] for chest pain. Elevated troponin of 43. Episodes of NSVT. Treated with Amiodarone during hospitalization. NSVT (nonsustained ventricular tachycardia) ([facility]) 01/25/2015 Overview: In setting of NSTEMI, 11/2014. Morbid obesity ([facility]) 01/26/2013 Thrombocytopenia ([facility]) 01/26/2013 Cellulitis 01/25/2013 End stage liver disease ([facility]) ITP (idiopathic thrombocytopenic purpura) Resolved Problems Problem Noted Date Resolved Date Ventricular tachycardia ([facility]) 01/25/2015 01/25/2015 Social History Tobacco Use Types [...]
[2016-07-26 09:08] VITALS: BP 0/0
[2016-07-26] MEDS ORDERED: VANCOMYCIN INJECTION 2,000 MG in NS IV 500 ML 500 ML IV NR (09:38)
[2016-07-26 16:25] VITALS: BP 146/63
[2016-07-26] MEDS ORDERED: FUROSEMIDE 40 MG (LASIX) TAB PO PRN (19:00)
[2016-07-26] MEDS ORDERED: NON-FORMULARY MEDICATION 1 EA EA (Oxycodone HCl 10 MG) PO PRN (19:00)
[2016-07-26 20:34] VITALS: BP 145/66
[2016-07-26] MEDS ORDERED: RIFAXIMIN 550 MG PO SCH (21:00)
[2016-07-26] MEDS: traZODone 50 MG (DESYREL) TAB PO SCH (21:00)
[2016-07-26] MEDS: LACTULOSE SYRUP 10GM/15ML (ENULOSE) 30ML UDC PO SCH (21:07)
[2016-07-27] VITALS: BP 144/67
[2016-07-27 04:00] VITALS: BP 135/63
[2016-07-27] MEDS: PANTOPRAZOLE 40 MG (PROTONIX) TAB PO SCH (06:49)
[2016-07-27] MEDS: LACTULOSE SYRUP 10GM/15ML (ENULOSE) 30ML UDC PO SCH ×5 (06:49→20:59)
[2016-07-27] MEDS: SPIRONOLACTONE 100 MG (ALDACTONE) TABLET PO SCH (09:13)
[2016-07-27] MEDS: hydrOXYzine (VISTARIL) 25 MG CAP PO SCH (09:13)
[2016-07-27] MEDS: VANCOMYCIN INJECTION 1,500 MG in NS IV 500 ML 500 ML IV SCH (11:05)
[2016-07-27 12:00] VITALS: BP 153/67
[2016-07-27 16:00] VITALS: BP 134/61
[2016-07-27 20:45] VITALS: BP 147/64
[2016-07-27] MEDS: traZODone 50 MG (DESYREL) TAB PO SCH (21:30)
[2016-07-28] VITALS: BP 143/66
[2016-07-28 04:00] VITALS: BP 140/65
[2016-07-28] MEDS: LACTULOSE SYRUP 10GM/15ML (ENULOSE) 30ML UDC PO SCH ×2 (07:00→09:00)
[2016-07-28 08:00] VITALS: BP 149/64
[2016-07-28] MEDS: PANTOPRAZOLE 40 MG (PROTONIX) TAB PO SCH (08:34)
[2016-07-28] MEDS: SPIRONOLACTONE 100 MG (ALDACTONE) TABLET PO SCH (08:35)
[2016-07-28] MEDS: hydrOXYzine (VISTARIL) 25 MG CAP PO SCH (08:35)
[2016-07-28] MEDS ORDERED: TROUGH ORDER-PHARMACY XX NR (09:00)
[2016-07-28] MEDS: VANCOMYCIN INJECTION 1,500 MG in NS IV 500 ML 500 ML IV SCH (10:34)
[2016-07-28 12:51] VITALS: BP 149/64
== END 2016-07-28 12:41 | disposition home or self-care (01) ==
LOC: SDC 06:10 → 4TH 16:37 → SDC 07-28 12:41
PROVIDERS: ATTEND Nurse Practitioner Family
DX: K11.3 Abscess of salivary gland (principal)
CPT/HCPCS: 36415; 80202

== ENCOUNTER 2016-08-12 13:41 | Outpatient (RCR) | payer MEDICAID ==
--- OUTSIDE RECORDS SUMMARY | 2016-07-29 07:52 | XMS REPORT | Continuity of Care Document ---
Author Author [facility] Organization [facility] Address Unknown Phone Unavailable Care Team Providers Care Edi Developer Name Role Phone Maria Del RosarioUmer ramirez PCP [phone] Source Comments Some departments are not documenting in the electronic medical record. If you do not see the information that you expected, contact Release of Information in the Health Information Management department at [phone] for further assistance in locating additional records.[facility] [...] Active Problems Problem Noted Date Pulmonary hypertension ([facility]) 01/25/2015 Overview: 07/19/13-Echo ([facility]): EF 60%. Normal wall motion. Moderate aortic valve sclerosis without significant aortic stenosis. Estimated pulmonary artery pressure=35 mmHg. Mild mitral and tricuspid regurgitation. 11/23/14-Echo: Normal LV function. LV appears normal in size. Mild mitral regurgitation. Moderate tricuspid regurgitation. PA pressures of 55 mmHg. Mild aortic stenosis, peak gradient was 20 mmHg. 11/24/14-Left Heart Cath([facility]): Normal LV function with mild inferior hypokinesis. Mild proximal circumflex disease. LAD and right coronaries filled relatively normal. 12/10/14-Echo([facility]): EF 60%. Diastolic dysfunction. LA 4.4 cm. Calcified aortic valve with no significant aortic valve stenosis. Mild mitral regurgitation. Moderate tricuspid regurgitation. Pulmonary hypertension with estimated pulmonary artery pressure of 50 mmHg. NSTEMI (non-ST elevated myocardial infarction) ([facility]) 01/25/2015 Overview: 11/23/14-Admitted to [facility] for chest pain. Elevated troponin of 43. Episodes of NSVT. Treated with Amiodarone during hospitalization. NSVT (nonsustained ventricular tachycardia) ([facility]) 01/25/2015 Overview: In setting of NSTEMI, 11/2014. Morbid obesity ([facility]) 01/26/2013 Thrombocytopenia ([facility]) 01/26/2013 Cellulitis 01/25/2013 End stage liver disease ([facility]) ITP (idiopathic thrombocytopenic purpura) Resolved Problems Problem Noted Date Resolved Date Ventricular tachycardia ([facility]) 01/25/2015 01/25/2015 Social History Tobacco [...]
[2016-07-29] MEDS: VANCOMYCIN 1500 MG/NS 500 ML IVPB IV SCH ×2 (08:33)
[2016-07-29 08:51] VITALS: BP 166/78
--- NOTE | 2016-07-30 08:53 | Physician Query-Final Dx ---
BRIDGETTE REA 07/30/16 0853: Clinic Account Progress/Dx Physician Query: Please give a diagnosis for the Vancomycin treatment thank you Date of Service Jul 29, 2016 at 07:48 LYNDON KRAUSE MD 07/30/16 1821: Clinic Account Progress/Dx DIAGNOSIS: Diagnosis Right Parotid Abscess BRIDGETTE REA Jul 30, 2016 08:53 LYNDON KRAUSE MD Jul 30, 2016 18:21
[2016-07-30] MEDS: VANCOMYCIN 1500 MG/NS 500 ML IVPB IV SCH ×2 (10:33)
[2016-07-30 12:46] VITALS: BP 152/70
[2016-07-31] MEDS: VANCOMYCIN 1500 MG/NS 500 ML IVPB IV SCH ×2 (10:37)
[2016-07-31 11:23] VITALS: BP 141/86
[2016-08-01] MEDS: VANCOMYCIN 1500 MG/NS 500 ML IVPB IV SCH ×2 (09:56)
[2016-08-01 10:01] VITALS: BP 138/56
[2016-08-01 11:58] VITALS: BP 138/56
[2016-08-02] MEDS: VANCOMYCIN 1500 MG/NS 500 ML IVPB IV SCH ×2 (10:10)
[2016-08-02 12:20] VITALS: BP 157/76
[2016-08-03 10:55] VITALS: BP 138/90
[2016-08-03] MEDS: VANCOMYCIN 1500 MG/NS 500 ML IVPB IV SCH ×2 (10:55)
[2016-08-04] MEDS: VANCOMYCIN 1500 MG/NS 500 ML IVPB IV SCH ×2 (12:50)
[2016-08-04 12:51] VITALS: BP 148/88
[2016-08-06 16:00] VITALS: BP 137/77
[~2016-08-12] VITALS: Ht 162.6 cm; Wt 102.5 kg
[2016-08-12 14:01] VITALS: BP 156/80
[2016-09-15] MEDS ORDERED: CLOT15CR5 TP (20:17)
[2016-09-15] MEDS ORDERED: BUSP5TAB59 PO (20:17)
[2016-09-15] MEDS ORDERED: FLUC100T6 PO (20:17)
[2016-09-16] MEDS ORDERED: OXYC10TA7 PO (11:02)
[2016-09-16] MEDS ORDERED: LACT10SO PO (11:02)
[2016-09-16] MEDS ORDERED: FURO40TA4 PO (11:02)
[2016-09-16] MEDS ORDERED: SPIR100T2 PO (11:02)
[2016-09-16] MEDS ORDERED: LATA2.5D5 OU (11:02)
[2016-09-16] MEDS ORDERED: TRAZ100T92 PO (11:02)
[2016-09-16] MEDS ORDERED: PANT40TA3 PO (11:02)
[2016-09-16] MEDS ORDERED: RIFA550T PO (11:02)
[2016-09-19] MEDS ORDERED: LACT20SO2 PO ×2 (18:53→18:55)
[2016-10-13] MEDS ORDERED: DULO30CA48 PO (17:31)
[2016-10-13] MEDS ORDERED: METF500T4 PO (17:31)
[2016-10-13] MEDS ORDERED: CLIN300C3 PO (19:33)
[2016-10-18] MEDS ORDERED: CHOL20002 PO (22:30)
[2016-10-21] MEDS ORDERED: NYST15PO2 TP (12:17)
[2016-10-21] MEDS ORDERED: ERGO50006 PO (12:17)
[2016-10-21] MEDS ORDERED: HYDR-3781 PO (12:17)
[2016-10-21] MEDS ORDERED: CLIN300C11 PO (12:17)
[2016-10-21] MEDS ORDERED: LACT10SO PO (12:17)
== END 2016-10-27 | disposition home or self-care (01) ==
LOC: 4TH RCR 13:41
PROVIDERS: ATTEND Otolaryngology Otolaryngology/Facial Plastic Surgery
DX: K11.3 Abscess of salivary gland (principal)
CPT/HCPCS: 96365; 96366; 99211

== ENCOUNTER 2016-09-15 20:00 | Inpatient (IN) | payer MEDICAID ==
[~2016-09-15] VITALS: Ht 167.6 cm; Wt 99.3 kg
[2016-09-15] MEDS ORDERED: FLUC100T6 PO (20:17)
[2016-09-15] MEDS ORDERED: BUSP5TAB59 PO (20:17)
[2016-09-15] MEDS ORDERED: CLOT15CR5 TP (20:17)
[2016-09-15] MEDS ORDERED: NS (IVPB) 250 ML IV ONE (20:22)
[2016-09-15 20:33] LABS: BASOPHILS % (AUTO) 1 % (0-10); EOSINOPHILS # (AUTO) 0.1 10^3/uL (0.0-0.3); EOSINOPHILS % (AUTO) 1 % (0-10); INR 1.5 (0.8-1.4); LYMPHOCYTES % (AUTO) 25 % (12-44); MEAN CORPUSCULAR HEMOGLOBIN 33 PG (25-34); MEAN CORPUSCULAR HGB CONC 33 G/DL (32-36); MEAN CORPUSCULAR VOLUME 100 FL (80-99); MONOCYTES # (AUTO) 0.4 X 10^3 (0.0-1.0); MONOCYTES % (AUTO) 9 % (0-12); NEUTROPHILS # (AUTO) 2.6 X 10^3 (1.8-7.8); NEUTROPHILS % (AUTO) 64 % (42-75); PROTHROMBIN TIME PATIENT 18.1 SEC (12.2-14.7); RED BLOOD COUNT 4.26 10^6/uL (4.35-5.85); WHITE BLOOD COUNT 4.2 10^3/uL (4.3-11.0)
[2016-09-15 20:34] LABS: PLATELET COUNT 35 10^3/uL (130-400)
[2016-09-15 20:42] LABS: BILIRUBIN,URINE NEGATIVE (NEGATIVE); KETONES,URINE NEGATIVE (NEGATIVE); LEUKOCYTE ESTERASE ,URINE 1+ (NEGATIVE); NITRITE,URINE NEGATIVE (NEGATIVE); PH,URINE 8 (5-9); PROTEIN,URINE NEGATIVE (NEGATIVE); UROBILINOGEN,URINE NORMAL (NORMAL)
[2016-09-15 20:49] LABS: ALANINE AMINOTRANSFERASE 34 U/L (0-55); ALBUMIN 2.7 G/DL (3.2-4.5); AMYLASE 120 U/L (25-125); ANION GAP 10 MMOL/L (5-14); ASPARTATE AMINO TRANSFERASE 54 U/L (5-34); BILIRUBIN,TOTAL 2.2 MG/DL (0.1-1.0); BLOOD UREA NITROGEN 44 MG/DL (7-18); BUN/CREATININE RATIO 23; CALCIUM 8.9 MG/DL (8.5-10.1); CARBON DIOXIDE 18 MMOL/L (21-32); CHLORIDE 111 MMOL/L (98-107); CREATINE KINASE 81 U/L (29-168); CREATININE SERUM 1.91 MG/DL (0.60-1.30); GFR ESTIMATED 27; GLUCOSE 145 MG/DL (70-105); MAGNESIUM 1.4 MG/DL (1.8-2.4); POTASSIUM 5.1 MMOL/L (3.6-5.0); SODIUM 139 MMOL/L (135-145); TOTAL PROTEIN 6.3 G/DL (6.4-8.2)
[2016-09-15 20:54] LABS: ACETAMINOPHEN < 10 UG/ML (10-30)
[2016-09-15 20:55] LABS: AMMONIA 90 UMOL/L (11-32)
[2016-09-15 20:56] LABS: ALCOHOL < 10 MG/DL (<10); TROPONIN I < 0.30 NG/ML (<0.30)
[2016-09-15 20:59] LABS: ABG BASE EXCESS -4.7 MMOL/L (-2.5-2.5); ABG HCO3 19 MMOL/L (23-27); ABG OXYGEN SATURATION 99 % (94-100); ABG PCO2 26 MMHG (35-45); ABG PH 7.47 (7.37-7.43); ABG PO2 98 MMHG (79-93); ABG TCO2 19.4 MMOL/L (21.0-31.0)
[2016-09-15 21:00] LABS: ALLENS TEST POSITIVE; PATIENT TEMP 97.3
--- NOTE | 2016-09-15 21:17 | Diagnostic Imaging Report ---
INDICATION: Unresponsive, decreased level of consciousness.. TECHNIQUE: Single view chest 900 p.m. CORRELATION STUDY: 07/26/2016 FINDINGS: Given positioning, heart size, mediastinum, and vasculature appearing unremarkable. There is what appears to be likely chronic type change about the lung parenchyma. No infiltrate. IMPRESSION: 1. Chronic type change about the lung parenchyma. Negative for acute abnormality. Dictated by: Dictated on workstation # [id number]
[2016-09-15] MEDS ORDERED: NS IV 1000 ML 1,000 ML IV ONE (21:20)
--- NOTE | 2016-09-15 21:25 | Diagnostic Imaging Report ---
PROCEDURE: CT head without contrast. TECHNIQUE: Multiple contiguous axial images were obtained through the brain without the use of intravenous contrast. INDICATION: Unresponsive, decreased level of consciousness. CORRELATION STUDY: 12/08/2014 FINDINGS: Ventricles and sulci demonstrate mild atrophic changes. Scattered areas of decreased attenuation likely owing to small vessel ischemic disease. No definitive evidence for edema. No midline shift or mass effect. No acute intracranial hemorrhage. Bony calvarium intact. The visualized paranasal sinuses and mastoid air cells relatively clear. Examination compromised by patient motion artifact. IMPRESSION: No definite evidence for acute intracranial abnormality. Generalized atrophic changes are present. Dictated by: Dictated on workstation # [id number]
[2016-09-15] MEDS ORDERED: SODIUM BICARB 8.4% 50 MEQ/50 ML (ABBOTT) SYR IV ONE (21:30)
[2016-09-15 22:10] VITALS: BP 163/73
[2016-09-15] MEDS ORDERED: D5 1/2 NS 1000 ML IV SOLUTION 1,000 ML IV ONE (22:21)
[2016-09-15 22:30] VITALS: BP 160/69
[2016-09-15 22:45] VITALS: BP 164/73
[2016-09-15 23:00] VITALS: BP 146/67
[2016-09-15 23:15] VITALS: BP 146/65
[2016-09-15] MEDS ORDERED: ONDANSETRON 4 MG/2 ML (SDV) Z0FRAN IV PRN (23:15)
[2016-09-16] VITALS (22 sets, daily range): BP systolic 133–168; BP diastolic 57–97
[2016-09-16] MEDS ORDERED: LACTULOSE SYRUP 10GM/15ML (ENULOSE) 30ML UDC ONE ×3 (00:30→04:49)
[2016-09-16] MEDS: inSUlin (REGULAR) HUMAN 1 UNIT/0.01 ML (CHARGE PER UNIT) SC SCH ×4 (00:36→22:08)
[2016-09-16] MEDS: D5 1/2 NS 1000 ML IV SOLUTION 1,000 ML IV SCH ×4 (00:37→18:57)
[2016-09-16 03:39] LABS: BASOPHILS % (AUTO) 0 % (0-10); EOSINOPHILS # (AUTO) 0.1 10^3/uL (0.0-0.3); EOSINOPHILS % (AUTO) 2 % (0-10); LYMPHOCYTES # (AUTO) 0.9 X 10^3 (1.0-4.0); LYMPHOCYTES % (AUTO) 27 % (12-44); MEAN CORPUSCULAR HEMOGLOBIN 33 PG (25-34); MEAN CORPUSCULAR HGB CONC 34 G/DL (32-36); MEAN CORPUSCULAR VOLUME 98 FL (80-99); MONOCYTES # (AUTO) 0.3 X 10^3 (0.0-1.0); MONOCYTES % (AUTO) 10 % (0-12); NEUTROPHILS # (AUTO) 1.9 X 10^3 (1.8-7.8); NEUTROPHILS % (AUTO) 60 % (42-75); RED BLOOD COUNT 3.81 10^6/uL (4.35-5.85); RED CELL DISTRIBUTION WIDTH 14.8 % (10.0-14.5); WHITE BLOOD COUNT 3.2 10^3/uL (4.3-11.0)
[2016-09-16 03:42] LABS: PLATELET COUNT 27 10^3/uL (130-400)
--- NOTE | 2016-09-16 03:42 | ED General ---
General Chief Complaint: Unresponsive Stated Complaint: HEPATIC ENCEPHALOPOTHY; END STAVE LIVER FAILURE Nursing Triage Note: Patient brought in by EMS due to patients family reporting she was unresponsive. Nursing Sepsis Screen: No Definite Risk Source of Information: Old Records (MOST PMH IS FROM OLD RECORDS, IS LIMITED HISTORIAN), Spouse (LIMITED HISTORIAN) Exam Limitations: Other (PT SEMI-OBTUNDED--UNABLE TO ANSWER ANY QUESTIONS OR FOLLOW ANY COMMANDS) History of Present Illness Time Seen by Provider: 20:22 Initial Comments PT ARRIVES VIA EMS FROM HOME REPORTS THAT PT HAS BEEN ASLEEP ALL DAY TODAY HE STATES YESTERDAY SHE WAS SLEEPY AND WALKING AND LEANING SIDEWAYS YESTERDAY HE STATES SHE BRIEFLY WOKE UP THIS MORNING AND WAS VOMITING, THEN SHE SLEPT ALL DAY. HE STATES TONIGHT FAMILY CHECKED ON HER AND "SHE WOULDN'T WAKE UP FOR SUPPER" AT 1800 TONIGHT, AND SHE HAS BEEN JERKING ALOT. PT WITH KNOWN END STAGE LIVER FAILURE AND IS SUPPOSED TO BE TAKING LACTULOSE, BUT STATES SHE HASN'T TAKEN IT FOR A COUPLE OF DAYS NO OTHER RELEVANT INFORMATION IS OBTAINABLE FROM . PCP: DR. AMOS Allergies and Home Medications Allergies Coded Allergies: levofloxacin (Verified Allergy, Unknown, 07/25/16) Home Medications Buspirone HCl 5 Mg Tablet, #30 (Reported) Clotrimazole 15 Gm Cream..g., #15 (Reported) Fluconazole 100 Mg Tablet, #7 (Reported) Furosemide 40 Mg Tablet, 40 MG PO PRN, (Reported) Hydroxyzine Pamoate 25 Mg Capsule, 25 MG PO DAILY, (Reported) Lactulose 10 Gm/15 Ml Syrp, 20 GM PO 5XD for 30 Days Prescribed by: MITCHEL PAZ on 12/20/14 1202 Oxycodone HCl 10 Mg Tablet, 10 MG PO Q4H PRN for PAIN, #20 Ref 0 Prescribed by: UMA EGAN on 06/07/16 2312 Pantoprazole Sodium 40 Mg Tablet.dr, 40 MG PO DAILY, #30 (Reported) Rifaximin 550 Mg Tablet, 550 MG PO BID for 30 Days Prescribed by: MITCHEL PAZ on 12/20/14 1202 Spironolactone 100 Mg Tablet, 100 MG PO DAILY, (Reported) Trazodone HCl 50 Mg Tablet, 50 MG PO HS, (Reported) Constitutional: see HPI, weight loss (PT HAS LOST 150 LBS--"NOT EATING" AND SLEEPING ALOT ALL THE TIME) Psychiatric/Neurological: See HPI Past Krhoozj-Nblscl-Ionhxp Hx Patient Social History Alcohol Use: Past History (HISTORY OF ALCOHOL ABUUSE IN THE PAST, BUT NOT "FOR YEARS" PER ON 09/15/16) Recreational Drug Use: Yes (HISTORY OF PERCOCET ABUSE) Smoking Status: Current Everyday Smoker (2 PPD) Type Used: Cigarettes 2nd Hand Smoke Exposure: Yes Recent Foreign Travel: No Contact w/Someone Who Travel: No Recent Infectious Disease Expo: No Recent Hopitalizations: No Physical Abuse Screen: No Sexual Abuse: No Immunizations Up To Date PED Vaccines UTD: No Date of Pneumonia Vaccine: Feb 16, 2013 Date of Influenza Vaccine: Mar 19, 2013 Seasonal Allergies Seasonal Allergies: No Surgeries HX Surgeries: Yes (MULJTIPLE I&D OF ABSCESSES -MOST RECENTLY TO RIGHT PAROTID AREA--07/26/16; HERNIA REPAIRS; X 2) Surgeries: Abdominal, Adenoidectomy, Section, Gallbladder, Tonsillectomy Respiratory Hx Respiratory Disorders: Yes (PULMONARY EDEMA) Respiratory Disorders: Pneumonia Cardiovascular Hx Cardiac Disorders: Yes Cardiac Disorders: Chronic Edema/Swelling, Coronary Artery Disease, High Cholesterol, Hypertension Neurological Hx Neurological Disorders: Yes Neurological Disorders: Headaches /Migraines, Neuropathy Reproductive System Hx Reproductive Disorders: No Sexually Transmitted Disease: No HIV/AIDS: 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 Genitourinary Hx Genitourinary Disorders: Yes (CHRONIC RENAL FAILURE/INSUFFICIENCY) Genitourinary Disorders: Renal Failure, UTI-Chronic Gastrointestinal Hx Gastrointestinal Disorders: Yes (CHRONIC ABDOMINAL PAIN; END STAGE LIVER FAILURE--DUE TO EXCESSIVE USE OF ACETOMINOPHEN + ALCOHOL ABUSE ) Gastrointestinal Disorders: Abdominal Hernia, Gastroesophageal Reflux, Liver Disease/Jaundice, Pancreatitis, Hiatal Hernia, Cirrhosis Musculoskeletal Hx Musculoskeletal Disorders: Yes Musculoskeletal Disorders: Degenerate Disk Disease, Osteoporosis, Arthritis, Fibromyalgia, Chronic Back Pain Endocrine Hx Endocrine Disorders: Yes (MORBID OBESITY. WAS ON DIABETIC MEDICATIONS, BUT IS NOT CURRENTLY TAKING ANY AFTER 150 LB WEIGHT LOSS--PER ON 09/15/16) Endocrine Disorders: Diabetes, Non-Insulin dep HEENT HX ENT Disorders: Yes (GLASSES; RIGHT PAROTID GLAND ABSCESS 07/2016; SINUSITIS) HEENT Disorders: Glaucoma Loss of Vision: Bilateral Hearing Impairment: Denies Cancer Hx Cancer: No Psychosocial Hx Psychiatric Problems: Yes Behavioral Health Disorders: Anxiety, Depression Integumentary HX Skin/Integumentary Disorder: Yes (MRSA--MULTIPLE ABSCESSES AND I&D'S; CELLULITIS-LEGS. CHRONIC LEG SORES) Blood Transfusions Hx Blood Disorders: Yes (ITP, NEUTROPENIA) Adverse Reaction to a Blood Tr: No (HAD HAD PLATELETS WITH NO REACTION) Family Medical History Significant Family History: No Pertinent Family Hx Family Medial History: Arthritis Coronary thrombosis Diabetes mellitus Glaucoma Headache disorder Physical Exam Vital Signs Vital Sign - Last 12Hours 09/15/16 09/15/16 09/16/16 20:04 22:10 00:00 Temp 97.5 Pulse 99 Resp 18 B/P (MAP) 151/94 Pulse Ox 98 O2 Delivery Room Air O2 Flow Rate 2.00 Capillary Refill : Less Than 3 Seconds General Appearance: Obese, Other (PT SEMI-OBTUNDED--DOES VERBALIZE "I'M COLD" AND REPEATEDLY STATES/MUMBLES "QUIT" AND FIGHTS CATHETER PLACEMENT, OTHERWISE IS NOT TALKING. MOSTLY KEEPS EYES CLOSED AND DOES NOT FOLLOW ANY COMMANDS. ) HEENT: PERRL/EOMI, Other (DRY ORAL MUCOSA, THRUSH PRESENT) Neck: Supple Respiratory: Normal Breath Sounds, No Accessory Muscle Use, No Respiratory Distress Cardiovascular: Regular Rate, Rhythm, No Murmur Gastrointestinal: Soft Extremity: Pedal Edema (1+BILATERALLY) Neurologic/Psychiatric: Other ([id number] RESPONSE NOTED ABOVE-- ONLY VERBALIZATION IS WITH CATHETER ATTEMPTS, AND SPEECH IS SLOW/MUMBLED AND SOMEWHAT SLURRED, DOES NOT FOLLOW ANY COMMANDS, BUT DOES MOVE ALL EXTREMITIES WHEN FIGHTING CATHTER PLACEMENT AND REQU[address] FREQUENT JERKING/SHAKING/TREMORS TO VARIOUS PARTS OF BODY--NOT TONIC-CLONIC ACTIVITY OR SYMMETRIC ) Skin: Warm/Dry, Ecchymosis (EXTENSIVE BRUISING TO MOST OF BODY OF VARIOUS AGES- -NEARLY ALL APPEAR TO BE OLD), Other (SALLOW) Progress/Results/Core Measures Results/Orders Lab Results Laboratory Tests Test 09/15/16 20:10 09/15/16 20:30 09/15/16 20:50 09/15/16 20:53 Range/Units White Blood Count 4.2 L 4.3-11.0 10^3/uL Red Blood Count 4.26 L 4.35-5.85 10^6/uL Hemoglobin 14.1 11.5-16.0 G/DL Hematocrit 43 35-52 % Mean Corpuscular Volume 100 H 80-99 FL Mean Corpuscular Hemoglobin 33 25-34 PG Mean Corpuscular Hemoglobin Concent 33 32-36 G/DL Red Cell Distribution Width 15.0 H 10.0-14.5 % Platelet Count 35 *L 130-400 10^3/uL Mean Platelet Volume 7.4-10.4 FL Neutrophils (%) (Auto) 64 42-75 % Lymphocytes (%) (Auto) 25 12-44 % Monocytes (%) (Auto) 9 0-12 % Eosinophils (%) (Auto) 1 0-10 % Basophils (%) (Auto) 1 0-10 % Neutrophils # (Auto) 2.6 1.8-7.8 X 10^3 Lymphocytes # (Auto) 1.0 1.0-4.0 X 10^3 Monocytes # (Auto) 0.4 0.0-1.0 X 10^3 Eosinophils # (Auto) 0.1 0.0-0.3 10^3/uL Basophils # (Auto) 0.0 0.0-0.1 10^3/uL Prothrombin Time 18.1 H 12.2-14.7 SEC INR Comment 1.5 H 0.8-1.4 Activated Partial Thromboplast Time 30 24-35 SEC Sodium Level 139 135-145 MMOL/L Potassium Level 5.1 H 3.6-5.0 MMOL/L Chloride Level 111 H 98-107 MMOL/L Carbon Dioxide Level 18 L 21-32 MMOL/L Anion Gap 10 5-14 MMOL/L Blood Urea Nitrogen 44 H 7-18 MG/DL Creatinine 1.91 H 0.60-1.30 MG/DL Estimat Glomerular Filtration Rate 27 BUN/Creatinine Ratio 23 Glucose Level 145 H 70-105 MG/DL Calcium Level 8.9 8.5-10.1 MG/DL Magnesium Level 1.4 L 1.8-2.4 MG/DL Total Bilirubin 2.2 H 0.1-1.0 MG/DL Aspartate Amino Transf (AST/SGOT) 54 H 5-34 U/L Alanine Aminotransferase (ALT/SGPT) 34 0-55 U/L Alkaline Phosphatase 82 40-136 U/L Ammonia 90 H 11-32 UMOL/L Total Creatine Kinase 81 29-168 U/L Creatine Kinase MB 2.4 <6.6 NG/ML Troponin I < 0.30 <0.30 NG/ML Total Protein 6.3 L 6.4-8.2 G/DL Albumin 2.7 L 3.2-4.5 G/DL Amylase Level 120 25-125 U/L TSH [place] Testing 0.84 0.35-4.94 UIU/ML Acetaminophen Level < 10 L 10-30 UG/ML Serum Alcohol < 10 <10 MG/DL Urine Color YELLOW Urine Clarity SLIGHTLY CLOUDY Urine pH 8 5-9 Urine Specific [place] 1.010 L 1.016-1.022 Urine Protein NEGATIVE NEGATIVE Urine Glucose (UA) NEGATIVE NEGATIVE Urine Ketones NEGATIVE NEGATIVE Urine Nitrite NEGATIVE NEGATIVE Urine Bilirubin NEGATIVE NEGATIVE Urine Urobilinogen NORMAL NORMAL MG/DL Urine Leukocyte Esterase 1+ H NEGATIVE Urine RBC (Auto) 3+ H NEGATIVE Urine RBC 2-5 H /HPF Urine WBC 2-5 /HPF Urine Squamous Epithelial Cells 2-5 /HPF Urine Crystals NONE /LPF Urine Bacteria TRACE /HPF Urine Casts NONE /LPF Urine Mucus NEGATIVE /LPF Urine Culture Indicated NO Urine Opiates Screen NEGATIVE NEGATIVE Urine Oxycodone Screen POSITIVE H NEGATIVE Urine Methadone Screen NEGATIVE NEGATIVE Urine Propoxyphene Screen NEGATIVE NEGATIVE Urine Barbiturates Screen NEGATIVE NEGATIVE Ur Tricyclic Antidepressants Screen NEGATIVE NEGATIVE Urine Phencyclidine Screen NEGATIVE NEGATIVE Urine Amphetamines Screen NEGATIVE NEGATIVE Urine Methamphetamines Screen NEGATIVE NEGATIVE Urine Benzodiazepines Screen NEGATIVE NEGATIVE Urine Cocaine Screen NEGATIVE NEGATIVE Urine Cannabinoids Screen NEGATIVE NEGATIVE Blood Gas Puncture Site LEFT RADIAL Blood Gas Patient Temperature 97.3 Arterial Blood pH 7.47 H 7.37-7.43 Arterial Blood Partial Pressure CO2 26 L 35-45 MMHG Arterial Blood Partial Pressure O2 98 H 79-93 MMHG Arterial Blood HCO3 19 L 23-27 MMOL/L Arterial Blood Total CO2 19.4 L 21.0-31.0 MMOL/L Arterial Blood Oxygen Saturation 99 94-100 % Arterial Blood Base Excess -4.7 L -2.5-2.5 MMOL/L Igor Test POSITIVE Blood Gas Ventilator Setting NO Blood Gas Inspired Oxygen N/A Lactic Acid Level 2.12 *H 0.50-2.00 MMOL/L Test 09/15/16 22:45 09/16/16 00:10 09/16/16 03:33 Range/Units Lactic Acid Level 2.95 *H 0.50-2.00 MMOL/L Glucometer 151 H 70-110 MG/DL White Blood Count 3.2 L 4.3-11.0 10^3/uL Red Blood Count 3.81 L 4.35-5.85 10^6/uL Hemoglobin 12.7 11.5-16.0 G/DL Hematocrit 37 35-52 % Mean Corpuscular Volume 98 80-99 FL Mean Corpuscular Hemoglobin 33 25-34 PG Mean Corpuscular Hemoglobin Concent 34 32-36 G/DL Red Cell Distribution Width 14.8 H 10.0-14.5 % Platelet Count 27 *L 130-400 10^3/uL Mean Platelet Volume 7.4-10.4 FL Neutrophils (%) (Auto) 60 42-75 % Lymphocytes (%) (Auto) 27 12-44 % Monocytes (%) (Auto) 10 0-12 % Eosinophils (%) (Auto) 2 0-10 % Basophils (%) (Auto) 0 0-10 % Neutrophils # (Auto) 1.9 1.8-7.8 X 10^3 Lymphocytes # (Auto) 0.9 L 1.0-4.0 X 10^3 Monocytes # (Auto) 0.3 0.0-1.0 X 10^3 Eosinophils # (Auto) 0.1 0.0-0.3 10^3/uL Basophils # (Auto) 0.0 0.0-0.1 10^3/uL Sodium Level 141 135-145 MMOL/L Potassium Level 4.1 3.6-5.0 MMOL/L Chloride Level 113 H 98-107 MMOL/L Carbon Dioxide Level 21 21-32 MMOL/L Anion Gap 7 5-14 MMOL/L Blood Urea Nitrogen 39 H 7-18 MG/DL Creatinine 1.62 H 0.60-1.30 MG/DL Estimat Glomerular Filtration Rate 33 BUN/Creatinine Ratio 24 Glucose Level 200 H 70-105 MG/DL Calcium Level 8.0 L 8.5-10.1 MG/DL Phosphorus Level 2.4 2.3-4.7 MG/DL Magnesium Level 1.2 L 1.8-2.4 MG/DL Total Bilirubin 2.0 H 0.1-1.0 MG/DL Aspartate Amino Transf (AST/SGOT) 41 H 5-34 U/L Alanine Aminotransferase (ALT/SGPT) 28 0-55 U/L Alkaline Phosphatase 63 40-136 U/L Ammonia 112 H 11-32 UMOL/L Total Protein 5.0 L 6.4-8.2 G/DL Albumin 2.2 L 3.2-4.5 G/DL My Orders Orders - TOMCATRACHITO Munoz DO Saline Lock/Iv-Start (09/15/16 20:22) Monitor-Rhythm Ecg Trace Only (09/15/16 20:22) Ct Head Wo (09/15/16 20:22) Acetaminophen (09/15/16 20:22) Alcohol (09/15/16 20:22) Ammonia (09/15/16 20:22) Amylase (09/15/16 20:22) Arterial Blood Gas (09/15/16 20:22) Cbc With Automated Diff (09/15/16 20:22) Comprehensive Metabolic Panel (09/15/16 20:22) Creatine Kinase (09/15/16 20:22) Creatine Kinase Mb (09/15/16 20:22) Drug Screen Stat (Urine) (09/15/16 20:22) Lactic Acid Analyzer (09/15/16 20:22) Magnesium (09/15/16 20:22) Protime With Inr (09/15/16 20:22) Partial Thromboplastin Time (09/15/16 20:22) Thyroid Analyzer (09/15/16 20:22) Troponin I (09/15/16 20:22) Ua Culture If Indicated (09/15/16 20:22) Chest 1 View, Ap/Pa Only (09/15/16 20:22) Catheter(Urinary) Insert & Ass 03,15 (09/15/16 20:22) Saline Lock/Iv-Start (09/15/16 20:22) Ns (Ivpb) (Sodium Chloride 0.9%) (09/15/16 20:22) Accucheck Stat ONCE (09/15/16 20:22) Sodium Bicarbonate 8.4% Syr (Sodium Bica (09/15/16 21:30) Saline Lock/Iv-Start (09/15/16 21:20) Ns Iv 1000 Ml (Sodium Chloride 0.9%) (09/15/16 21:20) Medications Given in ED Current Medications Medications Dose Ordered Sig/[place] Route Start Time Stop Time Status Last Admin Dose Admin Sodium Bicarbonate 100 meq ONCE ONCE IV 4/30/17 21:30 09/15/16 23:00 DC 09/15/16 21:41 100 MEQ Sodium Chloride 250 ml @ 0 mls/hr Q0M ONCE IV 09/15/16 20:22 09/15/16 20:26 DC 09/15/16 20:56 0 MLS/HR Sodium Chloride 1,000 ml @ 0 mls/hr Q0M ONCE IV 09/15/16 21:20 09/15/16 23:00 DC 09/15/16 21:41 0 MLS/HR Vital Signs/I&O Vital Sign - Last 12Hours 09/15/16 09/15/16 09/15/16 09/15/16 20:04 22:01 22:10 22:23 Temp 97.5 97.7 Pulse 99 84 94 94 Resp 18 18 21 B/P (MAP) 151/94 163/73 Pulse Ox 98 99 100 O2 Delivery Room Air 09/15/16 09/15/16 09/15/16 09/15/16 22:30 22:45 23:00 23:15 Pulse 90 86 77 82 Resp 7 11 8 18 B/P (MAP) 160/69 164/73 146/67 146/65 Pulse Ox 97 99 93 91 O2 Delivery Room Air Room Air Room Air Room Air 09/16/16 09/16/16 09/16/16 09/16/16 00:00 00:30 01:00 01:00 Pulse 82 80 78 78 Resp 18 13 21 B/P (MAP) 149/77 147/97 168/66 Pulse Ox 98 90 94 O2 Delivery Nasal Cannula Nasal Cannula Nasal Cannula O2 Flow Rate 2.00 2.00 2.00 09/16/16 09/16/16 09/16/16 01:30 02:00 03:00 Pulse 82 77 70 Resp 16 8 16 B/P (MAP) 138/60 136/59 133/58 Pulse Ox 89 89 91 O2 Delivery Nasal Cannula Nasal Cannula Nasal Cannula O2 Flow Rate 2.00 2.00 2.00 Blood Pressure Mean: 83 Point of Care Testing Finger Stick Blood Glucose: 151 Blood Glucose Action Taken: taken at 0000 Progress Note : Progress Note NO DETERIORATION IN PT'S CONDITION DURING ER STAY Diagnostic Imaging Comments CT HEAD--NO ACUTE PROCESS CXR--NO ACUTE PROCESS PER RADIOLOGIST REPORTS @ 2135 Reviewed: Reviewed by Me Departure Communication Progress Notes 2135--SPOKE WITH DR. MATHEW, ACCEPTS PT FOR ADMIT Impression Impression: Primary Impression: Hepatic encephalopathy Additional Impressions: End stage liver disease Dehydration Acute on chronic renal failure Chronic idiopathic thrombocytopenia Hypomagnesemia Hyperkalemia Non-compliance Disposition: ADMITTED INPATIENT Condition: Stable/Unchanged Decision to Admit Reason: Admit from ER (General) Decision to Admit/Date: Sep 15, 2016 Time/Decision to Admit Time: 21:35 Departure-Patient Inst. Referrals: AGUSTINA AMOS DO (PCP) Primary Care Physician CATRACHITO SANTOS DO September 16, 2016 03:42
[2016-09-16 03:59] LABS: ALBUMIN 2.2 G/DL (3.2-4.5); CREATININE SERUM 1.62 MG/DL (0.60-1.30); MAGNESIUM 1.2 MG/DL (1.8-2.4); PHOSPHORUS 2.4 MG/DL (2.3-4.7); POTASSIUM 4.1 MMOL/L (3.6-5.0)
[2016-09-16] MEDS: KCL 20 MEQ TAB (K-DUR) PO SCH (05:38)
[2016-09-16] MEDS: POTASSIUM CL 10MEQ/50ML IVPB 50 ML IV SCH (05:38)
[2016-09-16] MEDS: MAGNESIUM 1 GM/100 ML IVPB 100 ML IV SCH ×7 (05:40→11:55)
[2016-09-16] MEDS ORDERED: MAGNESIUM 1 GM/D5W 100 ML IVPB IV SCH (05:45)
--- NOTE | 2016-09-16 07:56 | History & Physicial ---
History of Present Illness History of Present Illness Reason for visit/HPI hepatic encephalopathy, end-stage liver disease. Patient arrived by EMS from home. states sleeping all day. According to the patient stopped taking the lactulose last few days. Patient also stopped taking fluids. Patient dehydrated. Patient's kidneys are not working much. Patient has acute on chronic renal failure. Hypomagnesemia. Hyperlipidemia. Noncompliance. Diabetes Date of Admission Sep 15, 2016 at 21:35 I consulted on this patient on 09/16/16 07:51 Attending Physician Umer Amos DO Admitting Physician Umer Amos DO Consult Allergies and Home Medications Allergies Coded Allergies: levofloxacin (Verified Allergy, Unknown, 07/25/16) Home Medications Buspirone HCl 5 Mg Tablet, #30 (Reported) Clotrimazole 15 Gm Cream..g., #15 (Reported) Fluconazole 100 Mg Tablet, #7 (Reported) Furosemide 40 Mg Tablet, 40 MG PO PRN, (Reported) Hydroxyzine Pamoate 25 Mg Capsule, 25 MG PO DAILY, (Reported) Lactulose 10 Gm/15 Ml Syrp, 20 GM PO 5XD for 30 Days Prescribed by: MITCHEL PAZ on 12/20/14 1202 Oxycodone HCl 10 Mg Tablet, 10 MG PO Q4H PRN for PAIN, #20 Ref 0 Prescribed by: UMA EGAN on 06/07/16 2312 Pantoprazole Sodium 40 Mg Tablet.dr, 40 MG PO DAILY, #30 (Reported) Rifaximin 550 Mg Tablet, 550 MG PO BID for 30 Days Prescribed by: MITCHEL PAZ on 12/20/14 1202 Spironolactone 100 Mg Tablet, 100 MG PO DAILY, (Reported) Trazodone HCl 50 Mg Tablet, 50 MG PO HS, (Reported) Past Asghiax-Kvhemj-Tjufel Hx Patient Social History Marrital Status: Employed/Student: unemployed Alcohol Use: Past History (HISTORY OF ALCOHOL ABUUSE IN THE PAST, BUT NOT "FOR YEARS" PER ON 09/15/16) Recreational Drug Use: Yes (HISTORY OF PERCOCET ABUSE) Smoking Status: Current Everyday Smoker (2 PPD) Type Used: Cigarettes 2nd Hand Smoke Exposure: Yes Physical Abuse Screen: No Sexual Abuse: No Recent Foreign Travel: No Contact w/other who traveled: No Recent Hopitalizations: No Recent Infectious Disease Expo: No Immunizations Up To Date Date of Pneumonia Vaccine: Feb 16, 2013 Date of Influenza Vaccine: Mar 19, 2013 Seasonal Allergies Seasonal Allergies: No Surgeries HX Surgeries: Yes (MULJTIPLE I&D OF ABSCESSES -MOST RECENTLY TO RIGHT PAROTID AREA--07/26/16; HERNIA REPAIRS; X 2) Surgeries: Abdominal, Adenoidectomy, Section, Gallbladder, Tonsillectomy Respiratory Hx Respiratory Disorders: Yes (PULMONARY EDEMA) Cardiovascular Hx Cardiovascular Disorders: Yes Cardiac Disorders: Chronic Edema/Swelling, Coronary Artery Disease, High Cholesterol, Hypertension Neurological Hx Neurological Disorders: Yes Neurological Disorders: Headaches /Migraines, Neuropathy Reproductive System Hx Reproductive Disorders: No Sexually Transmitted Disease: No HIV/AIDS: 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 Genitourinary Hx Genitourinary Disorders: Yes (CHRONIC RENAL FAILURE/INSUFFICIENCY) Genitourinary Disorders: Renal Failure, UTI-Chronic Gastrointestinal Hx Gastrointestinal Disorders: Yes (CHRONIC ABDOMINAL PAIN; END STAGE LIVER FAILURE--DUE TO EXCESSIVE USE OF ACETOMINOPHEN + ALCOHOL ABUSE ) Gastrointestinal Disorders: Abdominal Hernia, Gastroesophageal Reflux, Liver Disease/Jaundice, Pancreatitis, Hiatal Hernia, Cirrhosis Musculoskeletal Hx Musculoskeletal Disorders: Yes Musculoskeletal Disorders: Degenerate Disk Disease, Osteoporosis, Arthritis, Fibromyalgia, Chronic Back Pain Endocrine Hx Endocrine Disorders: Yes (MORBID OBESITY. WAS ON DIABETIC MEDICATIONS, BUT IS NOT CURRENTLY TAKING ANY AFTER 150 LB WEIGHT LOSS--PER ON 09/15/16) Endocrine Disorders: Diabetes, Non-Insulin dep HEENT HX ENT Disorders: Yes (GLASSES; RIGHT PAROTID GLAND ABSCESS 07/2016; SINUSITIS) HEENT Disorders: Glaucoma Loss of Vision: Bilateral Hearing Impairment: Denies Cancer Hx Cancer: No Psychosocial Hx Psychiatric Problems: Yes Behavioral Health Disorders: Anxiety, Depression Integumentary HX Skin/Integumentary Disorder: Yes (MRSA--MULTIPLE ABSCESSES AND I&D'S; CELLULITIS-LEGS. CHRONIC LEG SORES) Blood Transfusions Hx Blood Disorders: Yes (ITP, NEUTROPENIA) Adverse Reaction to a Blood Tr: No (HAD HAD PLATELETS WITH NO REACTION) Family Medical History Significant Family History: No Pertinent Family Hx Family Hx: Arthritis Coronary thrombosis Diabetes mellitus Glaucoma Headache disorder Constitutional: malaise, weakness EENTM: no symptoms reported Respiratory: no symptoms reported Cardiovascular: no symptoms reported Gastrointestinal: no symptoms reported Genitourinary: no symptoms reported Physical Exam Vital Signs Vital Sign - Last 12Hours 09/15/16 09/15/16 09/16/16 20:04 22:10 00:00 Temp 97.5 Pulse 99 Resp 18 B/P (MAP) 151/94 Pulse Ox 98 O2 Delivery Room Air O2 Flow Rate 2.00 Capillary Refill : Less Than 3 Seconds General Appearance: No Apparent Distress, WD/WN Eyes: Bilateral Eye Normal Inspection HEENT: Normal ENT Inspection Neck: Normal Inspection Respiratory: Chest Non Tender, Lungs Clear, Normal Breath Sounds, No Accessory Muscle Use, No Respiratory Distress Cardiovascular: Regular Rate, Rhythm, No Murmur Gastrointestinal: Normal Bowel Sounds, Non Tender, Soft Assessment/Plan Assessment and Plan hepatic encephalopathy. End-stage liver disease. Renal insufficiency. Diabetes. Hypomagnesemia. Hyperlipidemia. Noncompliance. Elevated serum ammonia level. Patient becoming more awake. Thrombocytopenia. Leukopenia. Problems: Clinical Quality Measures DVT/VTE Risk/Contraindication: Risk Factor Score Per Nursin RFS Level Per Nursing on Admit: 4+=Very High UMER AMOS DO September 16, 2016 07:56
[2016-09-16] MEDS ORDERED: CATHETER FLUSH 10 ML SYR IV PRN (08:00)
[2016-09-16] MEDS: LACTULOSE SYRUP 10GM/15ML (ENULOSE) 30ML UDC PO SCH ×6 (08:10→21:36)
--- NOTE | 2016-09-16 08:12 | Pulmonary Consultation ---
History of Present Illness History of Present Illness Date of Consultation 09/16/16 08:07 Date of Admission History of Present Illness 61yo with hx of endstage liver disease and hepatic encephalopathy, and CKD presented via EMS secondary to worsening lethargy. PT also has hx of noncompliance and stopped stating lactulose a few days ago. Pt has had poor appetite and appeared to be dehydrated upon admission. I am consulted for ICU management. Allergies and Home Medications Allergies Coded Allergies: levofloxacin (Verified Allergy, Unknown, 07/25/16) Home Medications Buspirone HCl 5 Mg Tablet, #30 (Reported) Clotrimazole 15 Gm Cream..g., #15 (Reported) Fluconazole 100 Mg Tablet, #7 (Reported) Furosemide 40 Mg Tablet, 40 MG PO PRN, (Reported) Hydroxyzine Pamoate 25 Mg Capsule, 25 MG PO DAILY, (Reported) Lactulose 10 Gm/15 Ml Syrp, 20 GM PO 5XD for 30 Days Prescribed by: MITCHEL PAZ on 12/20/14 1202 Oxycodone HCl 10 Mg Tablet, 10 MG PO Q4H PRN for PAIN, #20 Ref 0 Prescribed by: UMA EGAN on 06/07/16 2312 Pantoprazole Sodium 40 Mg Tablet.dr, 40 MG PO DAILY, #30 (Reported) Rifaximin 550 Mg Tablet, 550 MG PO BID for 30 Days Prescribed by: MITCHEL PAZ on 12/20/14 1202 Spironolactone 100 Mg Tablet, 100 MG PO DAILY, (Reported) Trazodone HCl 50 Mg Tablet, 50 MG PO HS, (Reported) Past Bscvtik-Zxbaum-Juivza Hx Patient Social History Alcohol Use: Past History (HISTORY OF ALCOHOL ABUUSE IN THE PAST, BUT NOT "FOR YEARS" PER ON 09/15/16) Recreational Drug Use: Yes (HISTORY OF PERCOCET ABUSE) Smoking Status: Current Everyday Smoker (2 PPD) Type Used: Cigarettes 2nd Hand Smoke Exposure: Yes Recent Foreign Travel: No Contact w/Someone Who Travel: No Recent Infectious Disease Expo: No Recent Hopitalizations: No Physical Abuse Screen: No Sexual Abuse: No Immunizations Up To Date PED Vaccines UTD: No Date of Pneumonia Vaccine: Feb 16, 2013 Date of Influenza Vaccine: Mar 19, 2013 Seasonal Allergies Seasonal Allergies: No Surgeries HX Surgeries: Yes (MULJTIPLE I&D OF ABSCESSES -MOST RECENTLY TO RIGHT PAROTID AREA--07/26/16; HERNIA REPAIRS; X 2) Surgeries: Abdominal, Adenoidectomy, Section, Gallbladder, Tonsillectomy Respiratory Hx Respiratory Disorders: Yes (PULMONARY EDEMA) Respiratory Disorders: Pneumonia Cardiovascular Hx Cardiac Disorders: Yes Cardiac Disorders: Chronic Edema/Swelling, Coronary Artery Disease, High Cholesterol, Hypertension Neurological Hx Neurological Disorders: Yes Neurological Disorders: Headaches /Migraines, Neuropathy Reproductive System Hx Reproductive Disorders: No Sexually Transmitted Disease: No HIV/AIDS: No [employer] History: Menopausal Genitourinary Hx Genitourinary Disorders: Yes (CHRONIC RENAL FAILURE/INSUFFICIENCY) Genitourinary Disorders: Renal Failure, UTI-Chronic Gastrointestinal Hx Gastrointestinal Disorders: Yes (CHRONIC ABDOMINAL PAIN; END STAGE LIVER FAILURE--DUE TO EXCESSIVE USE OF ACETOMINOPHEN + ALCOHOL ABUSE ) Gastrointestinal Disorders: Abdominal Hernia, Gastroesophageal Reflux, Liver Disease/Jaundice, Pancreatitis, Hiatal Hernia, Cirrhosis Musculoskeletal Hx Musculoskeletal Disorders: Yes Musculoskeletal Disorders: Degenerate Disk Disease, Osteoporosis, Arthritis, Fibromyalgia, Chronic Back Pain Endocrine Hx Endocrine Disorders: Yes (MORBID OBESITY. WAS ON DIABETIC MEDICATIONS, BUT IS NOT CURRENTLY TAKING ANY AFTER 150 LB WEIGHT LOSS--PER ON 09/15/16) Endocrine Disorders: Diabetes, Non-Insulin dep HEENT HX ENT Disorders: Yes (GLASSES; RIGHT PAROTID GLAND ABSCESS 07/2016; SINUSITIS) HEENT Disorders: Glaucoma Loss of Vision: Bilateral Hearing Impairment: Denies Cancer Hx Cancer: No Psychosocial Hx Psychiatric Problems: Yes Behavioral Health Disorders: Anxiety, Depression Integumentary HX Skin/Integumentary Disorder: Yes (MRSA--MULTIPLE ABSCESSES AND I&D'S; CELLULITIS-LEGS. CHRONIC LEG SORES) Blood Transfusions Hx Blood Disorders: Yes (ITP, NEUTROPENIA) Adverse Reaction to a Blood Tr: No (HAD HAD PLATELETS WITH NO REACTION) Family Medical History Significant Family History: No Pertinent Family Hx Family Medial History: Arthritis Coronary thrombosis Diabetes mellitus Glaucoma Headache disorder Exam Exam Vital Signs Date Time Temp Pulse Resp B/P (MAP) Pulse Ox O2 Delivery O2 Flow Rate FiO2 09/16/16 06:00 80 14 152/75 92 Nasal Cannula 2.00 09/16/16 05:00 69 16 149/62 91 Nasal Cannula 2.00 09/16/16 04:00 77 9 150/67 97 Nasal Cannula 2.00 09/16/16 03:00 70 16 133/58 91 Nasal Cannula 2.00 09/16/16 02:00 77 8 136/59 89 Nasal Cannula 2.00 09/16/16 01:30 82 16 138/60 89 Nasal Cannula 2.00 09/16/16 01:00 78 09/16/16 01:00 78 21 168/66 94 Nasal Cannula 2.00 09/16/16 00:30 80 13 147/97 90 Nasal Cannula 2.00 09/16/16 00:00 82 18 149/77 98 Nasal Cannula 2.00 09/15/16 23:15 82 18 146/65 91 Room Air 09/15/16 23:00 77 8 146/67 93 Room Air 09/15/16 22:45 86 11 164/73 99 Room Air 09/15/16 22:30 90 7 160/69 97 Room Air 09/15/16 22:23 94 09/15/16 22:10 97.7 94 21 163/73 100 Room Air 09/15/16 22:01 84 18 99 09/15/16 20:04 97.5 99 18 151/94 98 I & O 09/16/16 07:00 Intake Total 1410 ml Output Total 260 ml Balance 1150 ml General Appearance: No Apparent Distress, WD/WN HEENT: Normal ENT Inspection Neck: Normal Inspection Respiratory: Chest Non Tender, Lungs Clear, Normal Breath Sounds, No Accessory Muscle Use, No Respiratory Distress Cardiovascular: Regular Rate, Rhythm, No Murmur Capillary Refill: Less Than 3 Seconds Extremity: Pedal Edema (1+BILATERALLY) Neurologic/Psychiatric: Other (LHGA-[id number]-[id number] RESPONSE NOTED ABOVE-- ONLY VERBALIZATION IS WITH CATHETER ATTEMPTS, AND SPEECH IS SLOW/MUMBLED AND SOMEWHAT SLURRED, DOES NOT FOLLOW ANY COMMANDS, BUT DOES MOVE ALL EXTREMITIES WHEN FIGHTING CATHTER PLACEMENT AND REQUIRED [address] CAT[address]TER. FREQUENT JERKING/SHAKING/TREMORS TO VARIOUS PARTS OF BODY--NOT TONIC-CLONIC ACTIVITY OR SYMMETRIC ) Skin: Warm/Dry, Ecchymosis (EXTENSIVE BRUISING TO MOST OF BODY OF VARIOUS AGES- -NEARLY ALL APPEAR TO BE OLD), Other (SALLOW) Results Lab Laboratory Tests 09/15/16 20:10 09/16/16 03:33 Assessment/Plan Assessment/Plan Hepatic encephalopathy with elevated ammonia level -lactulose Thrombocytopenia HX of ITP -monitor End stage liver disease dehydration with lactic acidosis -IVF D5 1/2 NS -repeat LA Acute on chronic renal disease -monitor Clinical Quality Measures DVT/VTE Risk/Contraindication: Risk Factor Score Per Nursin RFS Level Per Nursing on Admit: 4+=Very High Contraindications-Pharm: Other *list below* ASHWIN LOPEZ DO September 16, 2016 08:12
--- NOTE | 2016-09-16 09:28 | Diagnostic Imaging Report ---
EXAMINATION: Portable upright radiograph of the chest. INDICATION: Dyspnea. COMPARISON: 09/15/2016. FINDINGS: There is mild chronic appearing interstitial thickening seen in the lungs with no focal airspace opacity. The heart size is normal. No effusion or pneumothorax. The mediastinum and martha appear unremarkable. IMPRESSION: Chronic appearing interstitial thickening. No acute process. Dictated by: Dictated on workstation # [id number]
[2016-09-16] MEDS ORDERED: FURO40TA4 PO (11:02)
[2016-09-16] MEDS ORDERED: LATA2.5D5 OU (11:02)
[2016-09-16] MEDS ORDERED: RIFA550T PO (11:02)
[2016-09-16] MEDS ORDERED: LACT10SO PO (11:02)
[2016-09-16] MEDS ORDERED: SPIR100T2 PO (11:02)
[2016-09-16] MEDS ORDERED: TRAZ100T92 PO (11:02)
[2016-09-16] MEDS ORDERED: PANT40TA3 PO (11:02)
[2016-09-16] MEDS ORDERED: OXYC10TA7 PO (11:02)
[2016-09-16 18:00] LABS: MEAN CORPUSCULAR HEMOGLOBIN 34 PG (25-34); MEAN CORPUSCULAR HGB CONC 35 G/DL (32-36); MEAN CORPUSCULAR VOLUME 97 FL (80-99); RED BLOOD COUNT 4.11 10^6/uL (4.35-5.85); RED CELL DISTRIBUTION WIDTH 14.9 % (10.0-14.5); WHITE BLOOD COUNT 4.9 10^3/uL (4.3-11.0)
[2016-09-16 18:02] LABS: PLATELET COUNT 38 10^3/uL (130-400)
[2016-09-17] VITALS (8 sets, daily range): BP systolic 124–150; BP diastolic 57–77
[2016-09-17 04:49] LABS: BASOPHILS % (AUTO) 0 % (0-10); EOSINOPHILS # (AUTO) 0.2 10^3/uL (0.0-0.3); EOSINOPHILS % (AUTO) 4 % (0-10); LYMPHOCYTES # (AUTO) 1.2 X 10^3 (1.0-4.0); LYMPHOCYTES % (AUTO) 25 % (12-44); MEAN CORPUSCULAR HEMOGLOBIN 34 PG (25-34); MEAN CORPUSCULAR HGB CONC 34 G/DL (32-36); MEAN CORPUSCULAR VOLUME 98 FL (80-99); MONOCYTES # (AUTO) 0.5 X 10^3 (0.0-1.0); MONOCYTES % (AUTO) 10 % (0-12); NEUTROPHILS # (AUTO) 2.8 X 10^3 (1.8-7.8); NEUTROPHILS % (AUTO) 61 % (42-75); RED BLOOD COUNT 3.83 10^6/uL (4.35-5.85); RED CELL DISTRIBUTION WIDTH 14.7 % (10.0-14.5); WHITE BLOOD COUNT 4.6 10^3/uL (4.3-11.0)
[2016-09-17 04:52] LABS: PLATELET COUNT 33 10^3/uL (130-400)
[2016-09-17 05:06] LABS: CALCIUM 7.9 MG/DL (8.5-10.1); CREATININE SERUM 1.43 MG/DL (0.60-1.30); MAGNESIUM 1.8 MG/DL (1.8-2.4); POTASSIUM 3.8 MMOL/L (3.6-5.0)
[2016-09-17] MEDS: POTASSIUM CL 10MEQ/50ML IVPB 50 ML IV SCH (05:43)
[2016-09-17] MEDS: KCL 20 MEQ TAB (K-DUR) PO SCH (05:43)
[2016-09-17] MEDS: MAGNESIUM 1 GM/100 ML IVPB 100 ML IV SCH (05:43)
--- NOTE | 2016-09-17 07:25 | Pulmonary Progress Note ---
Subjective Subjective/Events-last exam Pt is doing much better and is more awake. Exam Exam Vital Signs Date Time Temp Pulse Resp B/P (MAP) Pulse Ox O2 Delivery O2 Flow Rate FiO2 09/17/16 06:00 70 12 100 Nasal Cannula 2.00 09/17/16 05:00 79 13 133/70 98 Nasal Cannula 2.00 09/17/16 04:06 97.0 09/17/16 04:00 84 14 136/65 98 Nasal Cannula 2.00 09/17/16 03:00 76 11 124/57 100 Nasal Cannula 2.00 09/17/16 02:00 80 17 Nasal Cannula 2.00 09/17/16 01:00 77 17 150/67 99 Nasal Cannula 2.00 09/17/16 01:00 77 09/17/16 00:46 98.2 09/17/16 00:00 77 13 139/68 99 Nasal Cannula 2.00 09/16/16 23:00 89 13 Nasal Cannula 2.00 09/16/16 22:00 73 16 145/69 100 Nasal Cannula 2.00 09/16/16 21:00 76 15 137/59 100 Nasal Cannula 2.00 09/16/16 20:30 98.1 09/16/16 20:00 80 19 100 Nasal Cannula 2.00 09/16/16 19:00 105 10 94 Nasal Cannula 2.00 09/16/16 19:00 105 09/16/16 18:00 76 12 164/83 98 Nasal Cannula 2.00 09/16/16 17:00 75 19 100 Nasal Cannula 2.00 09/16/16 16:00 82 12 157/78 98 Nasal Cannula 2.00 09/16/16 16:00 96.5 09/16/16 15:00 83 12 163/74 97 Nasal Cannula 2.00 09/16/16 14:00 74 18 157/70 92 Nasal Cannula 2.00 09/16/16 13:00 70 09/16/16 13:00 80 21 156/70 93 Nasal Cannula 2.00 09/16/16 12:00 79 17 153/71 94 Nasal Cannula 2.00 09/16/16 12:00 98.6 09/16/16 11:00 80 15 149/57 90 Nasal Cannula 2.00 09/16/16 10:00 78 17 151/62 94 Nasal Cannula 2.00 09/16/16 09:00 83 13 157/71 95 Nasal Cannula 2.00 09/16/16 08:00 97 09/16/16 08:00 83 20 156/65 96 Nasal Cannula 2.00 I & O 09/17/16 07:00 Intake Total 3620 ml Output Total 1060 ml Balance 2560 ml General Appearance: No Apparent Distress, WD/WN HEENT: Normal ENT Inspection Neck: Normal Inspection Respiratory: Chest Non Tender, Lungs Clear, Normal Breath Sounds, No Accessory Muscle Use, No Respiratory Distress Cardiovascular: Regular Rate, Rhythm, No Murmur Capillary Refill: Less Than 3 Seconds Extremity: Pedal Edema (1+BILATERALLY) Neurologic/Psychiatric: Other ([id number]-[id number] RESPONSE NOTED ABOVE-- ONLY VERBALIZATION IS WITH CATHETER ATTEMPTS, AND SPEECH IS SLOW/MUMBLED AND SOMEWHAT SLURRED, DOES NOT FOLLOW ANY COMMANDS, BUT DOES MOVE ALL EXTREMITIES WHEN FIGHTING CATHTER PLACEMENT AND REQUIRED [address]TER. FREQUENT JERKING/SHAKING/TREMORS TO VARIOUS PARTS OF BODY--NOT TONIC-CLONIC ACTIVITY OR SYMMETRIC ) Skin: Warm/Dry, Ecchymosis (EXTENSIVE BRUISING TO MOST OF BODY OF VARIOUS AGES- -NEARLY ALL APPEAR TO BE OLD), Other (SALLOW) Results Lab Laboratory Tests 09/15/16 20:10 09/16/16 03:33 09/16/16 17:42 09/17/16 04:35 Assessment/Plan Assessment/Plan Hepatic encephalopathy with elevated ammonia level -lactulose now Q6 Thrombocytopenia HX of ITP -monitor End stage liver disease dehydration with lactic acidosis -IVF D5 /2 NS -repeat LA Acute on chronic renal disease -monitor PT is much more awake and doing better, D/C Patel and transfer to [facility]. I am going to sign off. Please call with any questions or concerns. Clinical Quality Measures DVT/VTE Risk/Contraindication: Risk Factor Score Per Nursin RFS Level Per Nursing on Admit: 4+=Very High Contraindications-Pharm: Other *list below* ASHWIN LOPEZ DO September 17, 2016 07:25
[2016-09-17] MEDS: PANTOPRAZOLE 40 MG (PROTONIX) TAB PO SCH (07:29)
--- NOTE | 2016-09-17 07:37 | Progress Note (SOAP) ---
Subjective Subjective/Events-last exam patient is awake and alert. Patient feeling much better today. Spoke to patient about taking her lactulose. End-stage liver disease. Hepatic encephalopathy. Thrombocytopenia. Dehydration with lactic acidosis. Chronic renal insufficiency. Acute renal insufficiency. Patient happy this morning Objective Exam Vital Signs Date Time Temp Pulse Resp B/P (MAP) Pulse Ox O2 Delivery O2 Flow Rate FiO2 09/17/16 06:00 70 12 100 Nasal Cannula 2.00 09/17/16 05:00 79 13 133/70 98 Nasal Cannula 2.00 09/17/16 04:06 97.0 09/17/16 04:00 84 14 136/65 98 Nasal Cannula 2.00 09/17/16 03:00 76 11 124/57 100 Nasal Cannula 2.00 09/17/16 02:00 80 17 Nasal Cannula 2.00 09/17/16 01:00 77 17 150/67 99 Nasal Cannula 2.00 09/17/16 01:00 77 09/17/16 00:46 98.2 09/17/16 00:00 77 13 139/68 99 Nasal Cannula 2.00 09/16/16 23:00 89 13 Nasal Cannula 2.00 09/16/16 22:00 73 16 145/69 100 Nasal Cannula 2.00 09/16/16 21:00 76 15 137/59 100 Nasal Cannula 2.00 09/16/16 20:30 98.1 09/16/16 20:00 80 19 100 Nasal Cannula 2.00 09/16/16 19:00 105 10 94 Nasal Cannula 2.00 09/16/16 19:00 105 09/16/16 18:00 76 12 164/83 98 Nasal Cannula 2.00 09/16/16 17:00 75 19 100 Nasal Cannula 2.00 09/16/16 16:00 82 12 157/78 98 Nasal Cannula 2.00 09/16/16 16:00 96.5 09/16/16 15:00 83 12 163/74 97 Nasal Cannula 2.00 09/16/16 14:00 74 18 157/70 92 Nasal Cannula 2.00 09/16/16 13:00 70 09/16/16 13:00 80 21 156/70 93 Nasal Cannula 2.00 09/16/16 12:00 79 17 153/71 94 Nasal Cannula 2.00 09/16/16 12:00 98.6 09/16/16 11:00 80 15 149/57 90 Nasal Cannula 2.00 09/16/16 10:00 78 17 151/62 94 Nasal Cannula 2.00 09/16/16 09:00 83 13 157/71 95 Nasal Cannula 2.00 09/16/16 08:00 97 09/16/16 08:00 83 20 156/65 96 Nasal Cannula 2.00 I & O 09/17/16 07:00 Intake Total 3620 ml Output Total 1060 ml Balance 2560 ml Capillary Refill : Less Than 3 Seconds General Appearance: No Apparent Distress, WD/WN HEENT: Normal ENT Inspection Neck: Full Range of Motion, Normal Inspection Respiratory: Chest Non Tender, Lungs Clear, Normal Breath Sounds, No Accessory Muscle Use, No Respiratory Distress Cardiovascular: Regular Rate, Rhythm, No Murmur Gastrointestinal: non tender, soft Results Lab Laboratory Tests 09/16/16 17:42 09/17/16 04:35 Laboratory Tests 09/16/16 11:57: Glucometer 260H 09/16/16 12:00: Ammonia 56H 09/16/16 17:42: White Blood Count 4.9, Red Blood Count 4.11L, Hemoglobin 14.0, Hematocrit 40, Mean Corpuscular Volume 97, Mean Corpuscular Hemoglobin 34, Mean Corpuscular Hemoglobin Concent 35, Red Cell Distribution Width 14.9H, Platelet Count 38*L, Mean Platelet Volume 09/16/16 21:44: Glucometer 210H 09/17/16 04:35: White Blood Count 4.6, Red Blood Count 3.83L, Hemoglobin 12.9, Hematocrit 38, Mean Corpuscular Volume 98, Mean Corpuscular Hemoglobin 34, Mean Corpuscular Hemoglobin Concent 34, Red Cell Distribution Width 14.7H, Platelet Count 33*L, Mean Platelet Volume , Neutrophils (%) (Auto) 61, Lymphocytes (%) (Auto) 25, Monocytes (%) (Auto) 10, Eosinophils (%) (Auto) 4, Basophils (%) (Auto) 0, Neutrophils # (Auto) 2.8, Lymphocytes # (Auto) 1.2, Monocytes # (Auto) 0.5, Eosinophils # (Auto) 0.2, Basophils # (Auto) 0.0, Sodium Level 137, Potassium Level 3.8, Chloride Level 113H, Carbon Dioxide Level 18L, Anion Gap 6, Blood Urea Nitrogen 27H, Creatinine 1.43H, Estimat Glomerular Filtration Rate 38, BUN/ Creatinine Ratio 19, Glucose Level 231H, Lactic Acid Level 1.46, Calcium Level 7.9L, Phosphorus Level 2.0L, Magnesium Level 1.8, Ammonia 54H Assessment/Plan Assessment/Plan Assess & Plan/Chief Complaint hepatic encephalopathy. Elevated serum ammonia resolved. End-stage liver disease. Thrombocytopenia. Dehydration with lactic acidosis. Acute on chronic renal insufficiency. Noncompliance not intentional Clinical Quality Measures DVT/VTE Risk/Contraindication: Risk Factor Score Per Nursin RFS Level Per Nursing on Admit: 4+=Very High Contraindications-Pharm: Other *list below* AGUSTINA AMOS DO September 17, 2016 07:36
--- NOTE | 2016-09-17 08:51 | Diagnostic Imaging Report ---
Portable upright radiograph of the chest. INDICATION: Dyspnea. FINDINGS: The lungs are hyperinflated. Mild background chronic-appearing interstitial thickening is seen. The heart size is normal. No effusion or pneumothorax. The mediastinum and martha appear unremarkable. IMPRESSION: Hyperinflated clear lungs. Dictated by: Dictated on workstation # [id number]
[2016-09-17] MEDS: PATIENT MAY USE OWN MED,SINGLE MED PO SCH ×2 (09:00→22:10)
[2016-09-17] MEDS ORDERED: SPIRONOLACTONE 100 MG (ALDACTONE) TABLET PO SCH (09:00)
[2016-09-17] MEDS: busPIRone 5 MG (BUSPAR) TAB PO SCH (09:22)
[2016-09-17] MEDS: LACTULOSE SYRUP 10GM/15ML (ENULOSE) 30ML UDC PO SCH ×4 (09:22→22:12)
[2016-09-17] MEDS: hydrOXYzine (VISTARIL) 25 MG CAP PO SCH (09:22)
[2016-09-17] MEDS: fluCOnazole (DIFLUCAN) 100 MG TAB PO SCH (09:22)
[2016-09-17] MEDS: CLOTRIMAZOLE 1% CREAM (LOTRIMIN) 30 GM TOP SCH (09:24)
[2016-09-17] MEDS: inSUlin (REGULAR) HUMAN 1 UNIT/0.01 ML (CHARGE PER UNIT) SC SCH ×3 (09:29→22:12)
[2016-09-17] MEDS: ALPRAZolam 0.25 MG (XANAX) TAB PO PRN (15:19)
[2016-09-17] MEDS: D5 1/2 NS 1000 ML IV SOLUTION 1,000 ML IV SCH (17:40)
[2016-09-17] MEDS: traZODone 100 MG (DESYREL) TAB PO SCH (22:12)
[2016-09-18 04:10] VITALS: BP 130/57
[2016-09-18 04:53] LABS: BASOPHILS % (AUTO) 0 % (0-10); EOSINOPHILS # (AUTO) 0.2 10^3/uL (0.0-0.3); EOSINOPHILS % (AUTO) 5 % (0-10); LYMPHOCYTES # (AUTO) 1.2 X 10^3 (1.0-4.0); LYMPHOCYTES % (AUTO) 25 % (12-44); MEAN CORPUSCULAR HEMOGLOBIN 34 PG (25-34); MEAN CORPUSCULAR HGB CONC 35 G/DL (32-36); MEAN CORPUSCULAR VOLUME 97 FL (80-99); MONOCYTES # (AUTO) 0.6 X 10^3 (0.0-1.0); MONOCYTES % (AUTO) 12 % (0-12); NEUTROPHILS # (AUTO) 2.7 X 10^3 (1.8-7.8); NEUTROPHILS % (AUTO) 58 % (42-75); RED BLOOD COUNT 3.89 10^6/uL (4.35-5.85); RED CELL DISTRIBUTION WIDTH 14.5 % (10.0-14.5); WHITE BLOOD COUNT 4.7 10^3/uL (4.3-11.0)
[2016-09-18 05:01] LABS: INR 1.7 (0.8-1.4); PROTHROMBIN TIME PATIENT 19.7 SEC (12.2-14.7)
[2016-09-18 05:10] LABS: ALBUMIN 2.4 G/DL (3.2-4.5); BILIRUBIN,TOTAL 1.6 MG/DL (0.1-1.0); CALCIUM 8.1 MG/DL (8.5-10.1); CREATININE SERUM 1.53 MG/DL (0.60-1.30); MAGNESIUM 1.8 MG/DL (1.8-2.4); PHOSPHORUS 2.9 MG/DL (2.3-4.7); POTASSIUM 4.5 MMOL/L (3.6-5.0); TOTAL PROTEIN 5.4 G/DL (6.4-8.2)
[2016-09-18] MEDS: PANTOPRAZOLE 40 MG (PROTONIX) TAB PO SCH (06:27)
[2016-09-18] MEDS: ALPRAZolam 0.25 MG (XANAX) TAB PO PRN (06:27)
[2016-09-18] MEDS: inSUlin (REGULAR) HUMAN 1 UNIT/0.01 ML (CHARGE PER UNIT) SC SCH ×4 (06:32→22:19)
[2016-09-18 07:51] VITALS: BP 150/66
--- NOTE | 2016-09-18 08:02 | Progress Note (SOAP) ---
Subjective Subjective/Events-last exam end-stage liver disease. Cirrhosis. Hepatic encephalopathy. Renal insufficiency. Thrombocytopenia . Serum ammonia went up. Has renal insufficiency. Platelet count 27,000. Patient awake. Objective Exam Vital Signs Date Time Temp Pulse Resp B/P (MAP) Pulse Ox O2 Delivery O2 Flow Rate FiO2 09/18/16 07:51 99.2 81 20 150/66 99 Room Air 09/18/16 04:10 98.2 96 20 130/57 99 Room Air 09/18/16 00:54 99.1 94 22 96 Room Air 09/17/16 19:47 97.0 87 20 146/73 100 Room Air 09/17/16 16:02 97.3 66 20 149/66 98 Room Air 09/17/16 13:30 97.0 84 20 147/77 98 Room Air 09/17/16 13:00 75 I & O 09/18/16 07:00 Intake Total 970 ml Output Total 250 ml Balance 720 ml Capillary Refill : Less Than 3 Seconds General Appearance: No Apparent Distress HEENT: Normal ENT Inspection Neck: Full Range of Motion, Normal Inspection Respiratory: Chest Non Tender, No Accessory Muscle Use, No Respiratory Distress Cardiovascular: Regular Rate, Rhythm, No Murmur Gastrointestinal: non tender, soft Results Lab Laboratory Tests 09/17/16 09:20: Glucometer 226H 09/17/16 14:56: Glucometer 252H 09/17/16 21:07: Glucometer 356H 09/18/16 04:35: White Blood Count 4.7, Red Blood Count 3.89L, Hemoglobin 13.1, Hematocrit 38, Mean Corpuscular Volume 97, Mean Corpuscular Hemoglobin 34, Mean Corpuscular Hemoglobin Concent 35, Red Cell Distribution Width 14.5, Platelet Count 27*L, Mean Platelet Volume , Neutrophils (%) (Auto) 58, Lymphocytes (%) (Auto) 25, Monocytes (%) (Auto) 12, Eosinophils (%) (Auto) 5, Basophils (%) (Auto) 0, Neutrophils # (Auto) 2.7, Lymphocytes # (Auto) 1.2, Monocytes # (Auto) 0.6, Eosinophils # (Auto) 0.2, Basophils # (Auto) 0.0, Prothrombin Time 19.7H, INR Comment 1.7H, Sodium Level 137, Potassium Level 4.5, Chloride Level 112H, Carbon Dioxide Level 20L, Anion Gap 5, Blood Urea Nitrogen 26H, Creatinine 1.53H , Estimat Glomerular Filtration Rate 35, BUN/Creatinine Ratio 17, Glucose Level 195H, Calcium Level 8.1L, Phosphorus Level 2.9, Magnesium Level 1.8, Total Bilirubin 1.6H, Aspartate Amino Transf (AST/SGOT) 46H, Alanine Aminotransferase (ALT/SGPT) 34, Alkaline Phosphatase 121, Ammonia 67H, Total Protein 5.4L, Albumin 2.4L Microbiology 09/15/16 MRSA Screen - Final, Complete MRSA not isolated Assessment/Plan Assessment/Plan Assess & Plan/Chief Complaint hepatic encephalopathy. Elevated serum ammonia resolved. End-stage liver disease. Thrombocytopenia. Dehydration with lactic acidosis. Acute on chronic renal insufficiency. Noncompliance not intentional. . 10/02. Hepatic encephalopathy. Serum ammonia elevating. End-stage liver disease. Thrombocytopenia. Dehydration. Clinical Quality Measures DVT/VTE Risk/Contraindication: Risk Factor Score Per Nursin RFS Level Per Nursing on Admit: 4+=Very High Contraindications-Pharm: Other *list below* AGUSTINA AMOS DO September 18, 2016 08:02
[2016-09-18] MEDS: KCL 20 MEQ TAB (K-DUR) PO SCH (08:53)
[2016-09-18] MEDS: fluCOnazole (DIFLUCAN) 100 MG TAB PO SCH (09:03)
[2016-09-18] MEDS: hydrOXYzine (VISTARIL) 25 MG CAP PO SCH (09:03)
[2016-09-18] MEDS: busPIRone 5 MG (BUSPAR) TAB PO SCH (09:03)
[2016-09-18] MEDS: PATIENT MAY USE OWN MED,SINGLE MED PO SCH (09:09)
--- NOTE | 2016-09-18 09:35 | Diagnostic Imaging Report ---
EXAMINATION: Portable upright radiograph of the chest. INDICATION: Dyspnea. FINDINGS: The lungs are hyperinflated with no focal infiltrate. The heart size is at the upper limits of normal. No effusion or pneumothorax. The mediastinum and martha appear unremarkable. IMPRESSION: COPD. Dictated by: Dictated on workstation # [id number]
[2016-09-18] MEDS: LACTULOSE SYRUP 10GM/15ML (ENULOSE) 30ML UDC PO SCH ×4 (10:18→21:52)
[2016-09-18] MEDS: RIFAXIMIN 550 MG TABLET (XIFAXAN) PO SCH ×2 (10:19→21:52)
[2016-09-18 12:00] VITALS: BP 137/64
[2016-09-18] MEDS: CLOTRIMAZOLE 1% CREAM (LOTRIMIN) 30 GM TOP SCH (12:52)
[2016-09-18 16:59] VITALS: BP 124/60
[2016-09-18] MEDS: D5 1/2 NS 1000 ML IV SOLUTION 1,000 ML IV SCH (19:07)
[2016-09-18 20:47] VITALS: BP 150/66
[2016-09-18] MEDS: traZODone 100 MG (DESYREL) TAB PO SCH (21:52)
[2016-09-19] VITALS: BP 164/71
[2016-09-19 04:15] LABS: PLATELET COUNT 27 10^3/uL (130-400)
[2016-09-19 05:57] LABS: BASOPHILS % (AUTO) 1 % (0-10); EOSINOPHILS # (AUTO) 0.2 10^3/uL (0.0-0.3); EOSINOPHILS % (AUTO) 6 % (0-10); LYMPHOCYTES % (AUTO) 28 % (12-44); MEAN CORPUSCULAR HEMOGLOBIN 33 PG (25-34); MEAN CORPUSCULAR HGB CONC 34 G/DL (32-36); MEAN CORPUSCULAR VOLUME 98 FL (80-99); MONOCYTES # (AUTO) 0.4 X 10^3 (0.0-1.0); MONOCYTES % (AUTO) 10 % (0-12); NEUTROPHILS # (AUTO) 2.1 X 10^3 (1.8-7.8); NEUTROPHILS % (AUTO) 56 % (42-75); RED CELL DISTRIBUTION WIDTH 14.4 % (10.0-14.5); WHITE BLOOD COUNT 3.7 10^3/uL (4.3-11.0)
[2016-09-19 06:02] LABS: PLATELET COUNT 26 10^3/uL (130-400)
[2016-09-19 06:04] LABS: INR 1.7 (0.8-1.4); PROTHROMBIN TIME PATIENT 19.3 SEC (12.2-14.7)
[2016-09-19 06:22] LABS: MAGNESIUM 1.5 MG/DL (1.8-2.4); PHOSPHORUS 3.1 MG/DL (2.3-4.7)
[2016-09-19 06:24] LABS: ALBUMIN 2.3 G/DL (3.2-4.5); BILIRUBIN,TOTAL 1.5 MG/DL (0.1-1.0); CALCIUM 8.2 MG/DL (8.5-10.1); CREATININE SERUM 1.5 MG/DL (0.60-1.30); POTASSIUM 4.7 MMOL/L (3.6-5.0); TOTAL PROTEIN 5.1 G/DL (6.4-8.2)
[2016-09-19] MEDS: inSUlin (REGULAR) HUMAN 1 UNIT/0.01 ML (CHARGE PER UNIT) SC SCH ×3 (06:30→16:53)
[2016-09-19] MEDS: ALPRAZolam 0.25 MG (XANAX) TAB PO PRN (06:37)
[2016-09-19] MEDS: PANTOPRAZOLE 40 MG (PROTONIX) TAB PO SCH (06:37)
[2016-09-19] MEDS: LACTULOSE SYRUP 10GM/15ML (ENULOSE) 30ML UDC PO SCH ×3 (06:38→16:06)
[2016-09-19 08:00] VITALS: BP 117/45
[2016-09-19] MEDS ORDERED: MAGNESIUM 1 GM/100 ML IVPB 100 ML IV SCH (08:00)
--- NOTE | 2016-09-19 08:26 | Diagnostic Imaging Report ---
CLINICAL INDICATION: Patient with dyspnea. EXAM: Portable chest x-ray upright view. COMPARISONS: Chest x-ray dated 09/18/2016. FINDINGS: Lungs/pleura: Stable hyperinflated lungs. Lungs are clear. There is no pneumothorax. There is no pleural effusion. Mediastinum: Unremarkable. Pulmonary vasculature: Unremarkable. Heart: Unremarkable. Bones/extrathoracic soft tissue: There are hypertrophic spurs seen throughout the thoracic spine. IMPRESSION: Stable chest x-ray exam with hyperinflated lungs. Otherwise, there is no interval radiographic evidence of acute cardiopulmonary process. Dictated by: Dictated on workstation # [id number]
[2016-09-19] MEDS: busPIRone 5 MG (BUSPAR) TAB PO SCH (08:36)
[2016-09-19] MEDS: hydrOXYzine (VISTARIL) 25 MG CAP PO SCH (08:36)
[2016-09-19] MEDS: fluCOnazole (DIFLUCAN) 100 MG TAB PO SCH (08:36)
[2016-09-19] MEDS: RIFAXIMIN 550 MG TABLET (XIFAXAN) PO SCH (08:37)
[2016-09-19] MEDS: CLOTRIMAZOLE 1% CREAM (LOTRIMIN) 30 GM TOP SCH (08:37)
[2016-09-19] MEDS ORDERED: PATIENT MAY USE OWN MED,SINGLE MED PO SCH (09:00)
[2016-09-19] MEDS: D5 1/2 NS 1000 ML IV SOLUTION 1,000 ML IV SCH (11:43)
[2016-09-19 12:00] VITALS: BP 90/55
[2016-09-19 16:27] VITALS: BP 147/68
[2016-09-19] MEDS ORDERED: LACT20SO2 PO ×2 (18:53→18:55)
[2016-09-19 19:45] VITALS: BP 144/84
--- NOTE | 2016-09-20 07:34 | CONSULTATION REPORT ---
DATE OF SERVICE: 09/19/2016 Patient is admitted to room 408. IMPRESSION: 1. A 61-year-old female admitted to the hospital because of mental status changes due to hepatic encephalopathy. 2. History of cirrhosis of liver with portal hypertension, varices and splenomegaly. 3. Thrombocytopenia due to splenomegaly. Previous bone marrow examination several years ago at [place] showed mild dysplastic changes which raised the question of an evolving myelodysplastic syndrome. 4. Acute on chronic renal failure most likely due to dehydration, currently improved. 5. Three hepatic lesions by previous MRI, rule out hepatocellular carcinoma. RECOMMENDATIONS: 1. The patient does not need platelet transfusion at the current time as the platelet count is at an appropriate level and there is no clinical evidence of bleeding. Most likely reason for the thrombocytopenia is the splenomegaly. If she is developing pancytopenia or peripheral blood features consistent with dysplasia, she may need a repeat bone marrow examination to rule out evolving myelodysplastic syndrome. 2. Continue lactulose as needed to have 3 to 4 loose stools daily to prevent hepatic encephalopathy. 3. The patient needs a repeat MRI of the liver to follow the hepatic lesions. I will also order an alpha feta protein level as the previous alpha feta protein level was normal. 4. The patient has an appointment with hepatology services at [facility] in mid September 2016 and was advised to keep this appointment. 5. Her renal function has improved with hydration and continue this cautiously and monitor renal function serially. 6. I have not scheduled her a followup appointment with me, but will be happy to see her in the future if I could be of help. BRIEF HISTORY: The patient is a 61-year-old female admitted with mental status changes secondary to hepatic encephalopathy. She has a long standing history of cirrhosis with portal hypertension and splenomegaly as well as thrombocytopenia due to this. She has been evaluated by the hepatology service at [facility] and is following there on an annual basis. She has previous episodes of hepatic encephalopathy and has been on lactulose, but was not taking adequate or recommended dose recently before the current episode of hepatic encephalopathy. Today, she is awake and oriented and answering questions appropriately. She denied any episodes of bleeding, but has tendency to bruise easy. The platelet counts have been lower than usual and hematology consultation was requested for further recommendations. PAST MEDICAL HISTORY: Significant for hypertension for a long time. She has a history of coronary artery disease requiring a stent placement in the past. She has diabetes mellitus type 2. She has chronic aches and pains which was thought to be due to fibromyalgia versus osteoporosis versus other. She gives a previous history of gastroesophageal reflux and pancreatitis. She has a history of cirrhosis with portal hypertension and jaundice in the past. The etiology for the cirrhosis was felt to be prolonged use of acetaminophen. She denied any history of hepatitis. She also has anxiety and depression. She has had cellulitis with abscess formation in her extremities in the past. SOCIAL HISTORY: The patient is and lives near [place], [place]. She has 2 children, a son who is in his early 40s and a daughter who is in her late 20s. She denied any tobacco, alcohol or other recreational drug use. She has smoked in the past, but is not smoking regularly now. MEDICATIONS AND ALLERGIES: Reviewed in the EMR. FAMILY HISTORY: Unremarkable and noncontributory. PHYSICAL EXAMINATION: GENERAL: Today, showed an elderly female, moderately obese, anxious, awake and answering questions appropriately. VITAL SIGNS: Her temperature was 98.9, pulse rate of 80, respirations 20, blood pressure 147/68, pulse oximetry 96% on room air. HEENT: Normocephalic, extraocular muscles intact, conjunctivae pink, oral mucosa moist without lesions. NECK: Supple with no JVD. Healed scar on the right upper neck. CHEST: Symmetrical. LUNGS: Slightly diminished breath sounds bilaterally without wheezes or rales. CARDIOVASCULAR: Regular in rate and rhythm with a grade II early systolic murmur. ABDOMEN: Obese, soft, nontender, with no hepatomegaly palpable, spleen was palpable just below the costal margin on deep palpation. EXTREMITIES: Showed 1+ edema with a few areas of ecchymosis on all 4 extremities. No petechiae noted. NEUROLOGIC: Showed motor strength of 4/5 bilaterally with no focal motor deficits noted. CBC done today showed a WBC count of 3.7, hemoglobin 11.8 and platelet count of 26,000 with neutrophil count of 2.1 and lymphocyte of 1.0. At the time of admission on 09/15/2016, her platelet count was 35,000 and has ranged between 26,000 to 38,000 during the current hospitalization. Previously, the platelet count has been in the 40,000 to 50,000 range. Chemistry panel done today showed normal electrolytes except chloride elevated at 113 and CO2 level of 19. BUN was 29 and creatinine 1.5 with a GFR of 36 mL per minute. Nonfasting glucose was 162. Total bilirubin was elevated at 1.5 and AST at 47. Albumin was 2.3. Serum ammonia level was 69 today and was 112 on 09/16/2016. UA done at the time of admission from the Emergency Room was unremarkable with no evidence of bacteriuria or infection. Chest x-ray done at the time of admission showed chronic changes of the lung parenchyma and was negative for any acute abnormality. CT scan of the head done at the time of admission from Emergency Room showed no definite evidence for acute intracranial abnormality, generalized atrophic changes are present. MRI of the abdomen done on 07/08/2016 showed cirrhotic appearing liver, small perihepatic ascites with stable splenomegaly and vascular collaterals due to portal venous hypertension. Three discreet liver nodules are present, the largest one in the posterior section of the right hepatic lobe near its caudal tip with a diameter of 2.6 cm. A second nodule cephalad in the right hepatic lobe posteriorly and laterally measuring 2.3 cm. Third lesion in the left lobe of the dome anteriorly measuring 2 cm. These 3 lesions were felt to have increased mildly in size when compared to a previous scan from 07/21/2015. A CT guided biopsy was recommended. Thank you for allowing me to participate in this patient's care. Job ID: [id number] DocumentID: [id number] Dictated Date: 09/19/2016 18:04:44 Nutrition Tech Date: 09/20/2016 07:33:58 Dictated By: FAITH PEREZ MD [facility]
--- NOTE | 2016-09-25 06:25 | Discharge Summary ---
Diagnosis/Chief Complaint Date of Admission Sep 15, 2016 at 21:35 Date of Discharge September 19, 2016 at 19:45 Discharge Date: September 19, 2016 Admission Diagnosis Admission Diagnosis hepatic encephalopathy. End-stage liver disease. Renal insufficiency. Diabetes. Hypomagnesemia. Hyperlipidemia. Noncompliance. Elevated serum ammonia level. Patient becoming more awake. Thrombocytopenia. Leukopenia. Discharge Diagnosis nonresponsive due to hepatic encephalopathy. Elevated serum ammonia. Noncompliance. Dehydration. Thrombocytopenia. Hypomagnesemia. Renal insufficiency. Hyperkalemia. Leukopenia. Acute kidney failure. Anxiety disorder. Coronary artery disease. Diabetes Reason Hospital Visit hepatic encephalopathy, end-stage liver disease. Patient arrived by EMS from home. states sleeping all day. According to the patient stopped taking the lactulose last few days. Patient also stopped taking fluids. Patient dehydrated. Patient's kidneys are not working much. Patient has acute on chronic renal failure. Hypomagnesemia. Hyperlipidemia. Noncompliance. Diabetes Discharge Summary Consultations hematology. Pulmonology. Discharge Physical Examination Allergies: Coded Allergies: levofloxacin (Verified Allergy, Unknown, 07/25/16) Vitals & I&Os Vital Signs Date Time Temp Pulse Resp B/P (MAP) Pulse Ox O2 Delivery O2 Flow Rate FiO2 09/19/16 19:45 93 18 144/84 98 09/19/16 16:27 98.9 Room Air Hospital Course patient did okay in hospital. Renal insufficiency improved. Serum ammonia went down. Patient alert and responsive. Labs (last 24 hrs) Laboratory Tests 09/15/16 20:10: White Blood Count 4.2L, Red Blood Count 4.26L, Hemoglobin 14.1, Hematocrit 43, Mean Corpuscular Volume 100H, Mean Corpuscular Hemoglobin 33, Mean Corpuscular Hemoglobin Concent 33, Red Cell Distribution Width 15.0H, Platelet Count 35*L, Mean Platelet Volume , Neutrophils (%) (Auto) 64, Lymphocytes (%) (Auto) 25, Monocytes (%) (Auto) 9, Eosinophils (%) (Auto) 1, Basophils (%) (Auto) 1, Neutrophils # (Auto) 2.6, Lymphocytes # (Auto) 1.0, Monocytes # (Auto) 0.4, Eosinophils # (Auto) 0.1, Basophils # (Auto) 0.0, Prothrombin Time 18.1H, INR Comment 1.5H, Activated Partial Thromboplast Time 30, Sodium Level 139, Potassium Level 5.1H, Chloride Level 111H, Carbon Dioxide Level 18L, Anion Gap 10, Blood Urea Nitrogen 44H, Creatinine 1.91H, Estimat Glomerular Filtration Rate 27, BUN/Creatinine Ratio 23, Glucose Level 145H, Calcium Level 8.9, Magnesium Level 1.4L, Total Bilirubin 2.2H, Aspartate Amino Transf (AST/SGOT) 54H, Alanine Aminotransferase (ALT/SGPT) 34, Alkaline Phosphatase 82, Ammonia 90H, Total Creatine Kinase 81, Creatine Kinase MB 2.4, Troponin I < 0.30, Total Protein 6.3L, Albumin 2.7L, Amylase Level 120, TSH [place] Testing 0.84, Acetaminophen Level < 10L, Serum Alcohol < 10 09/15/16 20:30: Urine Color YELLOW, Urine Clarity SLIGHTLY CLOUDY, Urine pH 8, Urine Specific [place] 1.010L, Urine Protein NEGATIVE, Urine Glucose (UA) NEGATIVE, Urine Ketones NEGATIVE, Urine Nitrite NEGATIVE, Urine Bilirubin NEGATIVE, Urine Urobilinogen NORMAL, Urine Leukocyte Esterase 1+H, Urine RBC (Auto) 3+H, Urine RBC 2-5H, Urine WBC 2-5, Urine Squamous Epithelial Cells 2-5, Urine Crystals NONE, Urine Bacteria TRACE, Urine Casts NONE, Urine Mucus NEGATIVE, Urine Culture Indicated NO, Urine Opiates Screen NEGATIVE, Urine Oxycodone Screen POSITIVEH, Urine Methadone Screen NEGATIVE, Urine Propoxyphene Screen NEGATIVE, Urine Barbiturates Screen NEGATIVE, Ur Tricyclic Antidepressants Screen NEGATIVE , Urine Phencyclidine Screen NEGATIVE, Urine Amphetamines Screen NEGATIVE, Urine Methamphetamines Screen NEGATIVE, Urine Benzodiazepines Screen NEGATIVE, Urine Cocaine Screen NEGATIVE, Urine Cannabinoids Screen NEGATIVE 09/15/16 20:50: Blood Gas Puncture Site LEFT RADIAL, Blood Gas Patient Temperature 97.3, Arterial Blood pH 7.47H, Arterial Blood Partial Pressure CO2 26L, Arterial Blood Partial Pressure O2 98H, Arterial Blood HCO3 19L, Arterial Blood Total CO2 19.4L, Arterial Blood Oxygen Saturation 99, Arterial Blood Base Excess -4.7L , Igor Test POSITIVE, Blood Gas Ventilator Setting NO, Blood Gas Inspired Oxygen N/A 09/15/16 20:53: Lactic Acid Level 2.12*H 09/15/16 22:45: Lactic Acid Level 2.95*H 09/16/16 00:10: Glucometer 151H 09/16/16 03:33: White Blood Count 3.2L, Red Blood Count 3.81L, Hemoglobin 12.7, Hematocrit 37, Mean Corpuscular Volume 98, Mean Corpuscular Hemoglobin 33, Mean Corpuscular Hemoglobin Concent 34, Red Cell Distribution Width 14.8H, Platelet Count 27*L, Mean Platelet Volume , Neutrophils (%) (Auto) 60, Lymphocytes (%) (Auto) 27, Monocytes (%) (Auto) 10, Eosinophils (%) (Auto) 2, Basophils (%) (Auto) 0, Neutrophils # (Auto) 1.9, Lymphocytes # (Auto) 0.9L, Monocytes # (Auto) 0.3, Eosinophils # (Auto) 0.1, Basophils # (Auto) 0.0, Sodium Level 141, Potassium Level 4.1, Chloride Level 113H, Carbon Dioxide Level 21, Anion Gap 7, Blood Urea Nitrogen 39H, Creatinine 1.62H, Estimat Glomerular Filtration Rate 33, BUN/ Creatinine Ratio 24, Glucose Level 200H, Calcium Level 8.0L, Phosphorus Level 2.4, Magnesium Level 1.2L, Total Bilirubin 2.0H, Aspartate Amino Transf (AST/ SGOT) 41H, Alanine Aminotransferase (ALT/SGPT) 28, Alkaline Phosphatase 63, Ammonia 112H, Total Protein 5.0L, Albumin 2.2L 09/16/16 11:57: Glucometer 260H 09/16/16 12:00: Ammonia 56H 09/16/16 17:42: White Blood Count 4.9, Red Blood Count 4.11L, Hemoglobin 14.0, Hematocrit 40, Mean Corpuscular Volume 97, Mean Corpuscular Hemoglobin 34, Mean Corpuscular Hemoglobin Concent 35, Red Cell Distribution Width 14.9H, Platelet Count 38*L, Mean Platelet Volume 09/16/16 21:44: Glucometer 210H 09/17/16 04:35: Ammonia 54H, White Blood Count 4.6, Red Blood Count 3.83L, Hemoglobin 12.9, Hematocrit 38, Mean Corpuscular Volume 98, Mean Corpuscular Hemoglobin 34, Mean Corpuscular Hemoglobin Concent 34, Red Cell Distribution Width 14.7H, Platelet Count 33*L, Mean Platelet Volume , Neutrophils (%) (Auto) 61, Lymphocytes (%) ( Auto) 25, Monocytes (%) (Auto) 10, Eosinophils (%) (Auto) 4, Basophils (%) (Auto ) 0, Neutrophils # (Auto) 2.8, Lymphocytes # (Auto) 1.2, Monocytes # (Auto) 0.5 , Eosinophils # (Auto) 0.2, Basophils # (Auto) 0.0, Sodium Level 137, Potassium Level 3.8, Chloride Level 113H, Carbon Dioxide Level 18L, Anion Gap 6, Blood Urea Nitrogen 27H, Creatinine 1.43H, Estimat Glomerular Filtration Rate 38, BUN/ Creatinine Ratio 19, Glucose Level 231H, Lactic Acid Level 1.46, Calcium Level 7.9L, Phosphorus Level 2.0L, Magnesium Level 1.8 09/17/16 09:20: Glucometer 226H 09/17/16 14:56: Glucometer 252H 09/17/16 21:07: Glucometer 356H 09/18/16 04:35: White Blood Count 4.7, Red Blood Count 3.89L, Hemoglobin 13.1, Hematocrit 38, Mean Corpuscular Volume 97, Mean Corpuscular Hemoglobin 34, Mean Corpuscular Hemoglobin Concent 35, Red Cell Distribution Width 14.5, Platelet Count 27*L, Mean Platelet Volume , Neutrophils (%) (Auto) 58, Lymphocytes (%) (Auto) 25, Monocytes (%) (Auto) 12, Eosinophils (%) (Auto) 5, Basophils (%) (Auto) 0, Neutrophils # (Auto) 2.7, Lymphocytes # (Auto) 1.2, Monocytes # (Auto) 0.6, Eosinophils # (Auto) 0.2, Basophils # (Auto) 0.0, Prothrombin Time 19.7H, INR Comment 1.7H, Sodium Level 137, Potassium Level 4.5, Chloride Level 112H, Carbon Dioxide Level 20L, Anion Gap 5, Blood Urea Nitrogen 26H, Creatinine 1.53H , Estimat Glomerular Filtration Rate 35, BUN/Creatinine Ratio 17, Glucose Level 195H, Calcium Level 8.1L, Phosphorus Level 2.9, Magnesium Level 1.8, Total Bilirubin 1.6H, Aspartate Amino Transf (AST/SGOT) 46H, Alanine Aminotransferase (ALT/SGPT) 34, Alkaline Phosphatase 121, Ammonia 67H, Total Protein 5.4L, Albumin 2.4L 09/18/16 10:00: Glucometer 236H 09/18/16 16:02: Glucometer 236H 09/18/16 22:04: Glucometer 205H 09/19/16 05:45: White Blood Count 3.7L, Red Blood Count 3.60L, Hemoglobin 11.8, Hematocrit 35, Mean Corpuscular Volume 98, Mean Corpuscular Hemoglobin 33, Mean Corpuscular Hemoglobin Concent 34, Red Cell Distribution Width 14.4, Platelet Count 26*L, Mean Platelet Volume , Neutrophils (%) (Auto) 56, Lymphocytes (%) (Auto) 28, Monocytes (%) (Auto) 10, Eosinophils (%) (Auto) 6, Basophils (%) (Auto) 1, Neutrophils # (Auto) 2.1, Lymphocytes # (Auto) 1.0, Monocytes # (Auto) 0.4, Eosinophils # (Auto) 0.2, Basophils # (Auto) 0.0, Prothrombin Time 19.3H, INR Comment 1.7H, Sodium Level 136, Potassium Level 4.7, Chloride Level 113H, Carbon Dioxide Level 19L, Anion Gap 4L, Blood Urea Nitrogen 29H, Creatinine 1.50H, Estimat Glomerular Filtration Rate 36, BUN/Creatinine Ratio 19, Glucose Level 162H, Calcium Level 8.2L, Phosphorus Level 3.1, Magnesium Level 1.5L, Total Bilirubin 1.5H, Aspartate Amino Transf (AST/SGOT) 47H, Alanine Aminotransferase (ALT/SGPT) 33, Alkaline Phosphatase 108, Ammonia 69H, Total Protein 5.1L, Albumin 2.3L 09/19/16 09:48: Glucometer 226H 09/19/16 15:50: Glucometer 235H Microbiology 09/15/16 MRSA Screen - Final, Complete MRSA not isolated Laboratory Tests 09/15/16 20:10 09/16/16 03:33 09/16/16 17:42 09/17/16 04:35 09/18/16 04:35 09/19/16 05:45 Pending Labs Microbiology Date/Time Source Procedure Growth Status 09/15/16 20:20 Nasal MRSA Screen - Final MRSA not isolated Complete Laboratory Tests 09/15/16 20:10: White Blood Count 4.2, Red Blood Count 4.26, Hemoglobin 14.1, Hematocrit 43, Mean Corpuscular Volume 100, Mean Corpuscular Hemoglobin 33, Mean Corpuscular Hemoglobin Concent 33, Red Cell Distribution Width 15.0, Platelet Count 35, Mean Platelet Volume , Neutrophils (%) (Auto) 64, Lymphocytes (%) (Auto) 25, Monocytes (%) (Auto) 9, Eosinophils (%) (Auto) 1, Basophils (%) (Auto) 1, Neutrophils # (Auto) 2.6, Lymphocytes # (Auto) 1.0, Monocytes # (Auto) 0.4, Eosinophils # (Auto) 0.1, Basophils # (Auto) 0.0, Prothrombin Time 18.1, INR Comment 1.5, Activated Partial Thromboplast Time 30, Sodium Level 139, Potassium Level 5.1, Chloride Level 111, Carbon Dioxide Level 18, Anion Gap 10, Blood Urea Nitrogen 44, Creatinine 1.91, Estimat Glomerular Filtration Rate 27, BUN/Creatinine Ratio 23, Glucose Level 145, Calcium Level 8.9, Magnesium Level 1.4, Total Bilirubin 2.2, Aspartate Amino Transf (AST/SGOT) 54, Alanine Aminotransferase (ALT/SGPT) 34, Alkaline Phosphatase 82, Ammonia 90, Total Creatine Kinase 81, Creatine Kinase MB 2.4, Troponin I < 0.30, Total Protein 6.3 , Albumin 2.7, Amylase Level 120, TSH [place] Testing 0.84, Acetaminophen Level < 10, Serum Alcohol < 10 09/15/16 20:30: Urine Color YELLOW, Urine Clarity SLIGHTLY CLOUDY, Urine pH 8, Urine Specific [place] 1.010, Urine Protein NEGATIVE, Urine Glucose (UA) NEGATIVE, Urine Ketones NEGATIVE, Urine Nitrite NEGATIVE, Urine Bilirubin NEGATIVE, Urine Urobilinogen NORMAL, Urine Leukocyte Esterase 1+, Urine RBC (Auto) 3+, Urine RBC 2-5, Urine WBC 2-5, Urine Squamous Epithelial Cells 2-5, Urine Crystals NONE , Urine Bacteria TRACE, Urine Casts NONE, Urine Mucus NEGATIVE, Urine Culture Indicated NO, Urine Opiates Screen NEGATIVE, Urine Oxycodone Screen POSITIVE, Urine Methadone Screen NEGATIVE, Urine Propoxyphene Screen NEGATIVE, Urine Barbiturates Screen NEGATIVE, Ur Tricyclic Antidepressants Screen NEGATIVE, Urine Phencyclidine Screen NEGATIVE, Urine Amphetamines Screen NEGATIVE, Urine Methamphetamines Screen NEGATIVE, Urine Benzodiazepines Screen NEGATIVE, Urine Cocaine Screen NEGATIVE, Urine Cannabinoids Screen NEGATIVE 09/15/16 20:50: Blood Gas Puncture Site LEFT RADIAL, Blood Gas Patient Temperature 97.3, Arterial Blood pH 7.47, Arterial Blood Partial Pressure CO2 26, Arterial Blood Partial Pressure O2 98, Arterial Blood HCO3 19, Arterial Blood Total CO2 19.4, Arterial Blood Oxygen Saturation 99, Arterial Blood Base Excess -4.7, Igor Test POSITIVE, Blood Gas Ventilator Setting NO, Blood Gas Inspired Oxygen N/A 09/15/16 20:53: Lactic Acid Level 2.12 09/15/16 22:45: Lactic Acid Level 2.95 09/16/16 00:10: Glucometer 151 09/16/16 03:33: White Blood Count 3.2, Red Blood Count 3.81, Hemoglobin 12.7, Hematocrit 37, Mean Corpuscular Volume 98, Mean Corpuscular Hemoglobin 33, Mean Corpuscular Hemoglobin Concent 34, Red Cell Distribution Width 14.8, Platelet Count 27, Mean Platelet Volume , Neutrophils (%) (Auto) 60, Lymphocytes (%) (Auto) 27, Monocytes (%) (Auto) 10, Eosinophils (%) (Auto) 2, Basophils (%) (Auto) 0, Neutrophils # (Auto) 1.9, Lymphocytes # (Auto) 0.9, Monocytes # (Auto) 0.3, Eosinophils # (Auto) 0.1, Basophils # (Auto) 0.0, Sodium Level 141, Potassium Level 4.1, Chloride Level 113, Carbon Dioxide Level 21, Anion Gap 7, Blood Urea Nitrogen 39, Creatinine 1.62, Estimat Glomerular Filtration Rate 33, BUN/ Creatinine Ratio 24, Glucose Level 200, Calcium Level 8.0, Phosphorus Level 2.4 , Magnesium Level 1.2, Total Bilirubin 2.0, Aspartate Amino Transf (AST/SGOT) 41 , Alanine Aminotransferase (ALT/SGPT) 28, Alkaline Phosphatase 63, Ammonia 112, Total Protein 5.0, Albumin 2.2 09/16/16 11:57: Glucometer 260 09/16/16 12:00: Ammonia 56 09/16/16 17:42: White Blood Count 4.9, Red Blood Count 4.11, Hemoglobin 14.0, Hematocrit 40, Mean Corpuscular Volume 97, Mean Corpuscular Hemoglobin 34, Mean Corpuscular Hemoglobin Concent 35, Red Cell Distribution Width 14.9, Platelet Count 38, Mean Platelet Volume 09/16/16 21:44: Glucometer 210 09/17/16 04:35: Ammonia 54, White Blood Count 4.6, Red Blood Count 3.83, Hemoglobin 12.9, Hematocrit 38, Mean Corpuscular Volume 98, Mean Corpuscular Hemoglobin 34, Mean Corpuscular Hemoglobin Concent 34, Red Cell Distribution Width 14.7, Platelet Count 33, Mean Platelet Volume , Neutrophils (%) (Auto) 61, Lymphocytes (%) ( Auto) 25, Monocytes (%) (Auto) 10, Eosinophils (%) (Auto) 4, Basophils (%) (Auto ) 0, Neutrophils # (Auto) 2.8, Lymphocytes # (Auto) 1.2, Monocytes # (Auto) 0.5 , Eosinophils # (Auto) 0.2, Basophils # (Auto) 0.0, Sodium Level 137, Potassium Level 3.8, Chloride Level 113, Carbon Dioxide Level 18, Anion Gap 6, Blood Urea Nitrogen 27, Creatinine 1.43, Estimat Glomerular Filtration Rate 38, BUN/ Creatinine Ratio 19, Glucose Level 231, Lactic Acid Level 1.46, Calcium Level 7.9, Phosphorus Level 2.0, Magnesium Level 1.8 09/17/16 09:20: Glucometer 226 09/17/16 14:56: Glucometer 252 09/17/16 21:07: Glucometer 356 09/18/16 04:35: White Blood Count 4.7, Red Blood Count 3.89, Hemoglobin 13.1, Hematocrit 38, Mean Corpuscular Volume 97, Mean Corpuscular Hemoglobin 34, Mean Corpuscular Hemoglobin Concent 35, Red Cell Distribution Width 14.5, Platelet Count 27, Mean Platelet Volume , Neutrophils (%) (Auto) 58, Lymphocytes (%) (Auto) 25, Monocytes (%) (Auto) 12, Eosinophils (%) (Auto) 5, Basophils (%) (Auto) 0, Neutrophils # (Auto) 2.7, Lymphocytes # (Auto) 1.2, Monocytes # (Auto) 0.6, Eosinophils # (Auto) 0.2, Basophils # (Auto) 0.0, Prothrombin Time 19.7, INR Comment 1.7, Sodium Level 137, Potassium Level 4.5, Chloride Level 112, Carbon Dioxide Level 20, Anion Gap 5, Blood Urea Nitrogen 26, Creatinine 1.53, Estimat Glomerular Filtration Rate 35, BUN/Creatinine Ratio 17, Glucose Level 195, Calcium Level 8.1, Phosphorus Level 2.9, Magnesium Level 1.8, Total Bilirubin 1.6, Aspartate Amino Transf (AST/SGOT) 46, Alanine Aminotransferase (ALT/SGPT) 34, Alkaline Phosphatase 121, Ammonia 67, Total Protein 5.4, Albumin 2.4 09/18/16 10:00: Glucometer 236 09/18/16 16:02: Glucometer 236 09/18/16 22:04: Glucometer 205 09/19/16 05:45: White Blood Count 3.7, Red Blood Count 3.60, Hemoglobin 11.8, Hematocrit 35, Mean Corpuscular Volume 98, Mean Corpuscular Hemoglobin 33, Mean Corpuscular Hemoglobin Concent 34, Red Cell Distribution Width 14.4, Platelet Count 26, Mean Platelet Volume , Neutrophils (%) (Auto) 56, Lymphocytes (%) (Auto) 28, Monocytes (%) (Auto) 10, Eosinophils (%) (Auto) 6, Basophils (%) (Auto) 1, Neutrophils # (Auto) 2.1, Lymphocytes # (Auto) 1.0, Monocytes # (Auto) 0.4, Eosinophils # (Auto) 0.2, Basophils # (Auto) 0.0, Prothrombin Time 19.3, INR Comment 1.7, Sodium Level 136, Potassium Level 4.7, Chloride Level 113, Carbon Dioxide Level 19, Anion Gap 4, Blood Urea Nitrogen 29, Creatinine 1.50, Estimat Glomerular Filtration Rate 36, BUN/Creatinine Ratio 19, Glucose Level 162, Calcium Level 8.2, Phosphorus Level 3.1, Magnesium Level 1.5, Total Bilirubin 1.5, Aspartate Amino Transf (AST/SGOT) 47, Alanine Aminotransferase (ALT/SGPT) 33, Alkaline Phosphatase 108, Ammonia 69, Total Protein 5.1, Albumin 2.3 09/19/16 09:48: Glucometer 226 09/19/16 15:50: Glucometer 235 Radiology Reviewed CAT scan of the head nothing acute. Chest x-ray nothing acute Discussion & Recommendations patient has appointment at [facility] with hepatology. Patient states this time she will keep her appointment. Patient states she will become compliant Discharge Home Medications: Active Scripts Active Lactulose 20 Gm/30 Ml Solution 30 Gm PO Q6H 10 Days Reported Trazodone HCl 100 Mg Tablet 100 Mg PO HS Furosemide 40 Mg Tablet 40 Mg PO DAILY Pantoprazole Sodium 40 Mg Tablet.dr 40 Mg PO DAILY Latanoprost 2.5 Ml Drops 1 Drop OU DAILY Oxycodone HCl 10 Mg Tablet 10 Mg PO TID PRN Xifaxan (Rifaximin) 550 Mg Tablet 550 Mg PO BID Clotrimazole 15 Gm Cream..g. TP DAILY PRN TO USE ON LIPS FOR YEAST Buspirone HCl 5 Mg Tablet 5 Mg PO BID Vistaril (Hydroxyzine Pamoate) 25 Mg Capsule 25 Mg PO DAILY Instructions to patient/family Please see electonic discharge instructions given to patient. Clinical Quality Measures DVT/VTE Risk/Contraindication: Risk Factor Score Per Nursin RFS Level Per Nursing on Admit: 4+=Very High Contraindications-Pharm: Other *list below* AGUSTINA AMOS DO September 25, 2016 06:25
== END 2016-09-19 19:45 | disposition home or self-care (01) | DRG 442 ==
LOC: EDUNIT# 20:00 → ER 20:01 → ICU 21:35 → 4TH 09-17 13:28
PROVIDERS: ADMIT Family Medicine; ATTEND Family Medicine
DX: K72.90 Hepatic failure, unspecified without coma (principal); E86.0 Dehydration; N17.9 Acute kidney failure, unspecified; E87.2 Acidosis; N18.9 Chronic kidney disease, unspecified; E83.42 Hypomagnesemia; E78.5 Hyperlipidemia, unspecified; E11.9 Type 2 diabetes mellitus without complications; K74.60 Unspecified cirrhosis of liver; Z91.19 Patient's noncompliance with other medical treatment and regimen; I25.10 Atherosclerotic heart disease of native coronary artery without angina pectoris; E78.00 Pure hypercholesterolemia, unspecified; I12.9 Hypertensive chronic kidney disease with stage 1 through stage 4 chronic kidney disease, or unspecified chronic kidney disease; F41.9 Anxiety disorder, unspecified; F32.9 Major depressive disorder, single episode, unspecified; D69.6 Thrombocytopenia, unspecified; D72.819 Decreased white blood cell count, unspecified; Z91.14 Patient's other noncompliance with medication regimen; Z87.891 Personal history of nicotine dependence; Z95.5 Presence of coronary angioplasty implant and graft
CPT/HCPCS: 36415; 51702; 70450; 71010; 80048; 80053; 80306; 80320; 80329; 81000; 82140; 82150; 82550; 82553; 82805; 82962; 83605; 83735; 84100; 84443; 84484; 85025; 85027; 85610; 85730; 87081; 93041; 96361; 96374

== ENCOUNTER → 2016-09-26 | Outpatient (CLI) | payer MEDICAID ==
[~2016-09-26] MED LIST changes: +BUSP5TAB59 PO; +CLOT15CR5 TP; +FLUC100T6 PO; +LACT10SO PO; +LACT20SO2 PO; +LATA2.5D5 OU; +PANT40TA3 PO; +SPIR100T2 PO; +TRAZ100T92 PO
[2016-09-26 18:58] LABS: MEAN CORPUSCULAR HEMOGLOBIN 33 PG (25-34); MEAN CORPUSCULAR HGB CONC 34 G/DL (32-36); MEAN CORPUSCULAR VOLUME 99 FL (80-99); RED BLOOD COUNT 3.76 10^6/uL (4.35-5.85); WHITE BLOOD COUNT 5.5 10^3/uL (4.3-11.0)
[2016-09-26 19:02] LABS: INR 1.9 (0.8-1.4); PROTHROMBIN TIME PATIENT 21.6 SEC (12.2-14.7)
[2016-09-26 19:03] LABS: PLATELET COUNT 24 10^3/uL (130-400)
[2016-09-26 19:08] LABS: ALBUMIN 2.4 G/DL (3.2-4.5); BILIRUBIN,TOTAL 1.7 MG/DL (0.1-1.0); CALCIUM 8.6 MG/DL (8.5-10.1); CREATININE SERUM 2.43 MG/DL (0.60-1.30); POTASSIUM 4.6 MMOL/L (3.6-5.0); TOTAL PROTEIN 5.4 G/DL (6.4-8.2)
== END ==
LOC: LAB 18:31
PROVIDERS: ATTEND Family Medicine
DX: K74.60 Unspecified cirrhosis of liver (principal); N28.9 Disorder of kidney and ureter, unspecified
CPT/HCPCS: 36415; 80053; 82140; 85027; 85610

== ENCOUNTER 2016-10-13 17:18 | Emergency (ER) | payer MEDICAID ==
[~2016-10-13] VITALS: Ht 165.1 cm; Wt 90.7 kg
[2016-10-13] MEDS ORDERED: DULO30CA48 (17:31)
[2016-10-13] MEDS ORDERED: METF500T4 (17:31)
--- NOTE | 2016-10-13 17:47 | ED General ---
General Chief Complaint: Lower Extremity Stated Complaint: L LEG PAIN Nursing Triage Note: C/O LEFT LOWER EXT. PAIN/SWELLING X 3 DAYS. PAIN WORSE TODAY. NO INJURY. Nursing Sepsis Screen: No Definite Risk Source of Information: Patient Exam Limitations: No Limitations History of Present Illness Time Seen by Provider: 17:47 Initial Comments 61-year-old female patient presents to the emergency department complains of left lower extremity pain and swelling for 3 days. Patient states she is concerned about having a blood clot. Denies any fever, known injury, shortness of air, chest pain. Patient is scheduled for November 04 for esophageal varices banding [facility]. Timing/Duration: 3-4 Days Modifying Factors: worse with Other (no improvement with home oxycodone. Last oxycodone dose was early this a.m.) Allergies and Home Medications Allergies Coded Allergies: levofloxacin (Verified Allergy, Unknown, 07/25/16) Home Medications Buspirone HCl 5 Mg Tablet, 5 MG PO BID, (Reported) Clindamycin HCl 300 Mg Capsule, 300 MG PO QID, #40 Ref 0 Prescribed by: UMA EGAN on 10/13/16 193 Clotrimazole 15 Gm Cream..g., TP DAILY PRN for RASH, (Reported) TO USE ON LIPS FOR YEAST Duloxetine HCl 30 Mg Capsule., #14 (Reported) Furosemide 40 Mg Tablet, 40 MG PO DAILY, (Reported) Hydroxyzine Pamoate 25 Mg Capsule, 25 MG PO DAILY, (Reported) Lactulose 20 Gm/30 Ml Solution, 30 GM PO Q6H for 10 Days Prescribed by: MILEY GONZALEZ on 09/19/16 1855 Latanoprost 2.5 Ml Drops, 1 DROP OU DAILY, (Reported) Metformin HCl 500 Mg Tablet, #60 (Reported) Oxycodone HCl 10 Mg Tablet, 10 MG PO TID PRN for PAIN-SEVERE, (Reported) Pantoprazole Sodium 40 Mg Tablet.dr, 40 MG PO DAILY, (Reported) Rifaximin 550 Mg Tablet, 550 MG PO BID, (Reported) Trazodone HCl 100 Mg Tablet, 100 MG PO HS, (Reported) Constitutional: No chills, No fever, No malaise Respiratory: No cough, No short of breath Cardiovascular: No chest pain, edema (chronic left lower extremity edema), No palpitations, No syncope Gastrointestinal: no symptoms reported Genitourinary: no symptoms reported Musculoskeletal: see HPI Skin: change in color (increased erythema and discoloration left distal leg ( patient states this is "normal" for her)) Psychiatric/Neurological: No Symptoms Reported All Other Systems Reviewed Negative Unless Noted: Yes (Negative excepted noted.) Past Vclsymc-Dxfwfj-Yetevb Hx Patient Social History Alcohol Use: Denies Use Recreational Drug Use: No Smoking Status: Current Someday Smoker Type Used: Cigarettes 2nd Hand Smoke Exposure: Yes Recent Foreign Travel: No Contact w/Someone Who Travel: No Recent Infectious Disease Expo: No Recent Hopitalizations: Yes Immunizations Up To Date Tetanus Booster (TDap): Unknown PED Vaccines UTD: No Date of Pneumonia Vaccine: Feb 16, 2013 Date of Influenza Vaccine: Mar 19, 2013 Seasonal Allergies Seasonal Allergies: No Surgeries HX Surgeries: Yes Surgeries: Abdominal, Adenoidectomy, Section, Gallbladder, Tonsillectomy Respiratory Hx Respiratory Disorders: Yes (PULMONARY EDEMA) Respiratory Disorders: Pneumonia Cardiovascular Hx Cardiac Disorders: Yes Cardiac Disorders: Chronic Edema/Swelling, Coronary Artery Disease, High Cholesterol, Hypertension Neurological Hx Neurological Disorders: Yes Neurological Disorders: Headaches /Migraines, Neuropathy Reproductive System Hx Reproductive Disorders: No Sexually Transmitted Disease: No HIV/AIDS: 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 Genitourinary Hx Genitourinary Disorders: Yes (CHRONIC RENAL FAILURE/INSUFFICIENCY) Genitourinary Disorders: Renal Failure, UTI-Chronic Gastrointestinal Hx Gastrointestinal Disorders: Yes Gastrointestinal Disorders: Abdominal Hernia, Gastroesophageal Reflux, Liver Disease/Jaundice, Pancreatitis, Hiatal Hernia, Cirrhosis Musculoskeletal Hx Musculoskeletal Disorders: Yes Musculoskeletal Disorders: Degenerate Disk Disease, Osteoporosis, Arthritis, Fibromyalgia, Chronic Back Pain Endocrine Hx Endocrine Disorders: Yes Endocrine Disorders: Diabetes, Non-Insulin dep HEENT HX ENT Disorders: Yes (GLASSES; RIGHT PAROTID GLAND ABSCESS 07/2016; SINUSITIS) HEENT Disorders: Glaucoma Loss of Vision: Bilateral Hearing Impairment: Denies Cancer Hx Cancer: No Psychosocial Hx Psychiatric Problems: Yes Behavioral Health Disorders: Anxiety, Depression Integumentary HX Skin/Integumentary Disorder: Yes (MRSA--MULTIPLE ABSCESSES AND I&D'S; CELLULITIS-LEGS. CHRONIC LEG SORES) Blood Transfusions Hx Blood Disorders: Yes (ITP, NEUTROPENIA) Adverse Reaction to a Blood Tr: No (HAD HAD PLATELETS WITH NO REACTION) Reviewed Nursing Assessment Reviewed/Agree w Nursing PMH: Yes Family Medical History Significant Family History: No Pertinent Family Hx Family Medial History: Arthritis Coronary thrombosis Diabetes mellitus Glaucoma Headache disorder Physical Exam Vital Signs Vital Sign - Last 12Hours 10/13/16 17:32 Temp 98.8 Pulse 121 Resp 18 B/P (MAP) 129/68 Pulse Ox 95 O2 Delivery Room Air Capillary Refill : Less Than 3 Seconds General Appearance: No Apparent Distress, WD/WN Respiratory: Lungs Clear, Normal Breath Sounds, No Respiratory Distress Cardiovascular: Regular Rate, Rhythm, No Murmur, Normal Peripheral Pulses ( bilateral posterior tibialis and dorsalis pedis 2+) Gastrointestinal: Non Tender, Soft, No Distended Back: Normal Inspection Extremity: Normal Capillary Refill, Normal Range of Motion, No Calf Tenderness , Inflammation (left distal leg), Pedal Edema (trace edema right lower extremity. 2+ pedal edema left lower extremity to the level of the tibial tuberosity. Venous stasis changes in the distal lt leg with increased warmth.) Neurologic/Psychiatric: Alert, Oriented x3, Normal Mood/Affect Skin: Other (trace edema right lower extremity. 2+ pedal edema left lower extremity to the level of the tibial tuberosity. Venous stasis changes in the distal lt leg with increased warmth.) Progress/Results/Core Measures Results/Orders My Orders Orders - UMA EGAN Us Venous Lower Ext Lt (10/13/16 17:40) Tibia/Fibula, Left, 2 Views (10/13/16 18:37) Foot, Left, 3 Views (10/13/16 18:37) Oxycodone Immediate Rel Tablet (Oxyir Ta (10/13/16 18:45) Rx-Clindamycin Capsule (Rx-Cleocin Capsu (10/13/16 19:34) Medications Given in ED Current Medications Medications Dose Ordered Sig/[place]esa Route Start Time Stop Time Status Last Admin Dose Admin Oxycodone HCl 10 mg ONCE ONCE PO 10/13/16 18:45 10/13/16 18:46 DC 10/13/16 18:50 10 MG Vital Signs/I&O Vital Sign - Last 12Hours 10/13/16 17:32 Temp 98.8 Pulse 121 Resp 18 B/P (MAP) 129/68 Pulse Ox 95 O2 Delivery Room Air Blood Pressure Mean: 88 Diagnostic Imaging Diagonstic Imaging: Ultrasound Plain Films/CT/US/NM/MRI: leg Comments FINDINGS: Exam demonstrates no evidence of a DVT or a fluid collection. The deep femoral vein was not imaged due to patient's pain and difficulty of positioning. IMPRESSION: There is no evidence of a DVT. The profunda femoral vein was not imaged. Dictated by: Dictated on workstation # [id number] Reviewed: Reviewed by Me (radiology report reviewed by me) Diagonstic Imaging: Xray Plain Films/CT/US/NM/MRI: leg Comments FINDINGS: Two views of the left tibia and fibula demonstrate normal ossification. No fracture is present. Mild vascular calcifications are seen. There is subcutaneous soft tissue edema. IMPRESSION: There is mild subcutaneous soft tissue edema. Dictated by: Dictated on workstation # [id number] Reviewed: Reviewed by Me (radiology report reviewed by me) Comments FINDINGS: Three views of the left foot demonstrate a plantar spur. Mild degenerative changes of the interphalangeal joints are again identified. No fracture or subluxation is present. IMPRESSION: Stable degenerative changes of the left foot. Dictated by: Dictated on workstation # [id number] Reviewed: Reviewed by Me (radiology report reviewed by me) Departure Communication Progress Notes Diagnostic findings discussed with the patient. Plan for discharge home with follow-up as an outpatient with Dr. Amos on Friday or Friday. Patient instructed to contact his office first thing Friday for appointment time. All return precautions were discussed with the patient as described in the discharge instructions of this report. Patient voices understanding and agrees with the treatment plan. Impression Impression: Primary Impression: Cellulitis of left lower extremity Additional Impression: Pedal edema Disposition: 01 HOME, SELF-CARE Condition: Improved Departure-Patient Inst. Decision time for Depature: 19:31 Referrals: AGUSTINA AMOS DO (PCP/Family) Primary Care Physician Patient Instructions: Cellulitis (Skin Infection), Adult (DC) Add. Discharge Instructions: All discharge instructions reviewed with patient and/or family. Voiced understanding. Medications as instructed. Continue usual home medications. Elevate the left lower extremity as much as possible at home. Contact your surgeon at for same Friday. Follow-up with Dr. Dr. Amos Friday or Friday for recheck, call first thing Friday. Return to the emergency department immediately for worsened swelling, discoloration, redness, fever, open wound, there, chest pain, or any other concerns. Scripts Clindamycin HCl (Cleocin HCl) 300 Mg Capsule 300 MG PO QID, #40 CAP 0 Refills Prov: UMA EGAN 10/13/16 Copy Copies To 1: AGUSTINA AMOS GRETCHEN L PA October 13, 2016 17:47
--- NOTE | 2016-10-13 18:40 | Diagnostic Imaging Report ---
INDICATION: Left lower extremity pain. FINDINGS: Exam demonstrates no evidence of a DVT or a fluid collection. The deep femoral vein was not imaged due to patient's pain and difficulty of positioning. IMPRESSION: There is no evidence of a DVT. The profunda femoral vein was not imaged. Dictated by: Dictated on workstation # [id number]
--- NOTE | 2016-10-13 18:59 | Diagnostic Imaging Report ---
INDICATION: Left lower extremity pain and swelling for three days, worse today. No known injury. COMPARISON STUDIES: None. FINDINGS: Two views of the left tibia and fibula demonstrate normal ossification. No fracture is present. Mild vascular calcifications are seen. There is subcutaneous soft tissue edema. IMPRESSION: There is mild subcutaneous soft tissue edema. Dictated by: Dictated on workstation # [id number]
--- NOTE | 2016-10-13 18:59 | Diagnostic Imaging Report ---
INDICATION: Left lower extremity pain and swelling for three days, pain worse today. COMPARISON STUDIES: Left foot dated 04/15/16. FINDINGS: Three views of the left foot demonstrate a plantar spur. Mild degenerative changes of the interphalangeal joints are again identified. No fracture or subluxation is present. IMPRESSION: Stable degenerative changes of the left foot. Dictated by: Dictated on workstation # [id number]
[2016-10-13] MEDS ORDERED: CLIN300C3 PO (19:33)
[2016-10-13] MEDS ORDERED: RX-CLINDAMYCIN 150 MG (CLEOCIN) CAP PPK#4 PO STA (19:34)
[2016-10-13 19:47] VITALS: BP 118/72
== END 2016-10-13 19:47 | disposition home or self-care (01) ==
LOC: EDUNIT# 17:18 → ER 17:20
DX: L03.116 Cellulitis of left lower limb (principal); R60.0 Localized edema; M77.32 Calcaneal spur, left foot; M19.072 Primary osteoarthritis, left ankle and foot; I10 Essential (primary) hypertension; I25.10 Atherosclerotic heart disease of native coronary artery without angina pectoris; F17.210 Nicotine dependence, cigarettes, uncomplicated; Z79.84 Long term (current) use of oral hypoglycemic drugs; Z79.899 Other long term (current) drug therapy
CPT/HCPCS: 73590; 73630; 99285

== ENCOUNTER 2016-10-18 18:04 | Inpatient (IN) | payer MEDICAID ==
[~2016-10-18] VITALS: Ht 165.1 cm; Wt 116.1 kg
[~2016-10-18 18:04] MED LIST changes: +DULO30CA48 PO; +METF500T4 PO
--- NOTE | 2016-10-18 18:13 | ED GI ---
General Stated Complaint: N/V Source of Information: Patient, EMS, Family, RN Notes Reviewed Exam Limitations: No Limitations History of Present Illness Time Seen By Provider: 18:02 Initial Comments Patient presents via EMS c/ c/o nausea and vomiting x 2. Reported poor po intake for the last 4 days. Patient has a complicated PMH including DM, liver failure, and chronic renal insufficiency. Seen here on 10/13 c/ Dx of LLE cellulitis and was started on Cleocin @ that time. Daughter wonders if the meds are making her sick. EMS reports low grade fever @ this time. Timing/Duration: 3-4 Days Severity/Quality: Moderate, Other (patient c/ chronic abdominal pain) Location: Generalized Abdomen Radiation: No Radiation Activities at Onset: None Modifying Factors: Worsens With Vomiting Associated Symptoms: Fever/Chills (???), Fatigue, Nausea/Vomiting (Nausea for last several days; vomiting x 2 today), Weakness Allergies and Home Medications Allergies Coded Allergies: levofloxacin (Verified Allergy, Unknown, 07/25/16) Home Medications Buspirone HCl 5 Mg Tablet, 5 MG PO BID, (Reported) Clindamycin HCl 300 Mg Capsule, 300 MG PO QID, #40 Ref 0 Prescribed by: UMA EGAN on 10/13/16 1933 Clotrimazole 15 Gm Cream..g., TP DAILY PRN for RASH, (Reported) TO USE ON LIPS FOR YEAST Duloxetine HCl 30 Mg Capsule., #14 (Reported) Furosemide 40 Mg Tablet, 40 MG PO DAILY, (Reported) Hydroxyzine Pamoate 25 Mg Capsule, 25 MG PO DAILY, (Reported) Lactulose 20 Gm/30 Ml Solution, 30 GM PO Q6H for 10 Days Prescribed by: MILEY GONZALEZ on 09/19/16 1855 Latanoprost 2.5 Ml Drops, 1 DROP OU DAILY, (Reported) Metformin HCl 500 Mg Tablet, #60 (Reported) Oxycodone HCl 10 Mg Tablet, 10 MG PO TID PRN for PAIN-SEVERE, (Reported) Pantoprazole Sodium 40 Mg Tablet.dr, 40 MG PO DAILY, (Reported) Rifaximin 550 Mg Tablet, 550 MG PO BID, (Reported) Trazodone HCl 100 Mg Tablet, 100 MG PO HS, (Reported) Review of Systems Constitutional: see HPI, fever (?), weakness Gastrointestinal: See HPI, Abdominal Pain, Nausea, Poor Appetite, Poor Fluid Intake, Vomiting All Other Systems Reviewed Negative Unless Noted: Yes (Negative excepted noted.) Past Cgajdzs-Oojmbs-Tgerxh Hx Patient Social History Type Used: Cigarettes 2nd Hand Smoke Exposure: Yes Recent Hopitalizations: Yes Immunizations Up To Date Tetanus Booster (TDap): Unknown PED Vaccines UTD: No Date of Pneumonia Vaccine: Feb 16, 2013 Date of Influenza Vaccine: Mar 19, 2013 Seasonal Allergies Seasonal Allergies: No Surgeries HX Surgeries: Yes Surgeries: Abdominal, Adenoidectomy, Section, Gallbladder, Tonsillectomy Respiratory Hx Respiratory Disorders: Yes (PULMONARY EDEMA) Respiratory Disorders: Pneumonia Cardiovascular Hx Cardiac Disorders: Yes Cardiac Disorders: Chronic Edema/Swelling, Coronary Artery Disease, High Cholesterol, Hypertension Neurological Hx Neurological Disorders: Yes Neurological Disorders: Headaches /Migraines, Neuropathy Reproductive System Hx Reproductive Disorders: No Sexually Transmitted Disease: No 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/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 Genitourinary Hx Genitourinary Disorders: Yes (CHRONIC RENAL FAILURE/INSUFFICIENCY) Genitourinary Disorders: Renal Failure, UTI-Chronic Gastrointestinal Hx Gastrointestinal Disorders: Yes Gastrointestinal Disorders: Abdominal Hernia, Gastroesophageal Reflux, Liver Disease/Jaundice, Pancreatitis, Hiatal Hernia, Cirrhosis Musculoskeletal Hx Musculoskeletal Disorders: Yes Musculoskeletal Disorders: Degenerate Disk Disease, Osteoporosis, Arthritis, Fibromyalgia, Chronic Back Pain Endocrine Hx Endocrine Disorders: Yes Endocrine Disorders: Diabetes, Non-Insulin dep HEENT HX ENT Disorders: Yes (GLASSES; RIGHT PAROTID GLAND ABSCESS 07/2016; SINUSITIS) HEENT Disorders: Glaucoma Loss of Vision: Bilateral Hearing Impairment: Denies Cancer Hx Cancer: No Psychosocial Hx Psychiatric Problems: Yes Behavioral Health Disorders: Anxiety, Depression Integumentary HX Skin/Integumentary Disorder: Yes (MRSA--MULTIPLE ABSCESSES AND I&D'S; CELLULITIS-LEGS. CHRONIC LEG SORES) Blood Transfusions Hx Blood Disorders: Yes (ITP, NEUTROPENIA) Adverse Reaction to a Blood Tr: No (HAD HAD PLATELETS WITH NO REACTION) Family Medical History Significant Family History: No Pertinent Family Hx Family Medial History: Arthritis Coronary thrombosis Diabetes mellitus Glaucoma Headache disorder Physical Exam Vital Signs VS - Last 72 Hours, by Label 10/18/16 18:18 Temp 98.8 Pulse 112 Resp 18 B/P (MAP) 143/94 Pulse Ox 98 Capillary Refill : General Appearance: WD/WN, no apparent distress, obese HEENT: other (oral pharynx does appear dry) Neck: normal inspection Respiratory: lungs clear, no respiratory distress Cardiovascular: regular rate, rhythm, tachycardia Gastrointestinal: soft, No rebound, tenderness (epigastric and suprapubic primarily) Rectal: deferred Extremities: swelling (BLE), other (LLE is red and slightly warm) Neurologic/Psychiatric: alert, oriented x 3, other (mood seems kind of labile; started crying for no apparent reason shortly p/ arrival.) Skin: warm/dry, other (LLE is red; (+) brawny edematous changes present as well ) Focused Exam Lactic Acid Level Laboratory Tests Test 10/18/16 18:15 Lactic Acid Level 4.44 MMOL/L (0.50-2.00) *H Progress/Results/Core Measures Results/Orders Lab Results Laboratory Tests Test 10/18/16 18:15 10/18/16 19:24 Range/Units White Blood Count 9.7 4.3-11.0 10^3/uL Red Blood Count 3.98 L 4.35-5.85 10^6/uL Hemoglobin 13.3 11.5-16.0 G/DL Hematocrit 39 35-52 % Mean Corpuscular Volume 97 80-99 FL Mean Corpuscular Hemoglobin 33 25-34 PG Mean Corpuscular Hemoglobin Concent 35 32-36 G/DL Red Cell Distribution Width 17.4 H 10.0-14.5 % Platelet Count 87 L 130-400 10^3/uL Mean Platelet Volume 7.4-10.4 FL Neutrophils (%) (Auto) 76 H 42-75 % Lymphocytes (%) (Auto) 11 L 12-44 % Monocytes (%) (Auto) 10 0-12 % Eosinophils (%) (Auto) 2 0-10 % Basophils (%) (Auto) 1 0-10 % Neutrophils # (Auto) 7.4 1.8-7.8 X 10^3 Lymphocytes # (Auto) 1.1 1.0-4.0 X 10^3 Monocytes # (Auto) 1.0 0.0-1.0 X 10^3 Eosinophils # (Auto) 0.2 0.0-0.3 10^3/uL Basophils # (Auto) 0.1 0.0-0.1 10^3/uL Sodium Level 135 135-145 MMOL/L Potassium Level 3.6 3.6-5.0 MMOL/L Chloride Level 102 98-107 MMOL/L Carbon Dioxide Level 17 L 21-32 MMOL/L Anion Gap 16 H 5-14 MMOL/L Blood Urea Nitrogen 74 H 7-18 MG/DL Creatinine 2.35 H 0.60-1.30 MG/DL Estimat Glomerular Filtration Rate 21 BUN/Creatinine Ratio 31 Glucose Level 239 H 70-105 MG/DL Lactic Acid Level 4.44 *H 0.50-2.00 MMOL/L Calcium Level 9.3 8.5-10.1 MG/DL Magnesium Level 1.8 1.8-2.4 MG/DL Total Bilirubin 2.9 H 0.1-1.0 MG/DL Aspartate Amino Transf (AST/SGOT) 48 H 5-34 U/L Alanine Aminotransferase (ALT/SGPT) 36 0-55 U/L Alkaline Phosphatase 117 40-136 U/L Ammonia 63 H 11-32 UMOL/L Troponin I < 0.30 <0.30 NG/ML Total Protein 6.5 6.4-8.2 G/DL Albumin 2.3 L 3.2-4.5 G/DL Lipase 80 H 8-78 U/L Urine Color YELLOW Urine Clarity SLIGHTLY CLOUDY Urine pH 5 5-9 Urine Specific [place] 1.015 L 1.016-1.022 Urine Protein NEGATIVE NEGATIVE Urine Glucose (UA) NEGATIVE NEGATIVE Urine Ketones NEGATIVE NEGATIVE Urine Nitrite POSITIVE H NEGATIVE Urine Bilirubin NEGATIVE NEGATIVE Urine Urobilinogen NORMAL NORMAL MG/DL Urine Leukocyte Esterase 1+ H NEGATIVE Urine RBC (Auto) 4+ H NEGATIVE Urine RBC 2-5 H /HPF Urine WBC 5-10 H /HPF Urine Squamous Epithelial Cells 2-5 /HPF Urine Crystals NONE /LPF Urine Bacteria LARGE H /HPF Urine Casts NONE /LPF Urine Mucus NEGATIVE /LPF Urine Culture Indicated YES Urine Opiates Screen NEGATIVE NEGATIVE Urine Oxycodone Screen POSITIVE H NEGATIVE Urine Methadone Screen NEGATIVE NEGATIVE Urine Propoxyphene Screen NEGATIVE NEGATIVE Urine Barbiturates Screen NEGATIVE NEGATIVE Ur Tricyclic Antidepressants Screen NEGATIVE NEGATIVE Urine Phencyclidine Screen NEGATIVE NEGATIVE Urine Amphetamines Screen NEGATIVE NEGATIVE Urine Methamphetamines Screen NEGATIVE NEGATIVE Urine Benzodiazepines Screen NEGATIVE NEGATIVE Urine Cocaine Screen NEGATIVE NEGATIVE Urine Cannabinoids Screen NEGATIVE NEGATIVE My Orders Orders - DARRELL FALK DO Saline Lock/Iv-Start (10/18/16 18:09) Ekg Tracing (10/18/16 18:09) Ammonia (10/18/16 18:09) Cbc With Automated Diff (10/18/16 18:09) Comprehensive Metabolic Panel (10/18/16 18:09) Lactic Acid Analyzer (10/18/16 18:09) Lipase (10/18/16 18:09) Magnesium (10/18/16 18:09) Troponin I (10/18/16 18:09) Ua Culture If Indicated (10/18/16 18:09) Blood Culture (10/18/16 18:09) Drug Screen Stat (Urine) (10/18/16 18:09) Chest 1 View, Ap/Pa Only (10/18/16 18:12) Famotidine Injection (Pepcid Injection) (10/18/16 18:30) Ondansetron Injection (Zofran Injectio (10/18/16 18:30) Saline Lock/Iv-Start (10/18/16 18:40) Ns Iv 1000 Ml (Sodium Chloride 0.9%) (10/18/16 18:40) Piperacillin Sodium/Tazobactam (Zosyn Vi (10/18/16 19:30) Nursing Communication (Patient (10/18/16 19:21) Urine Culture (10/18/16 19:24) Fentanyl Injection (Sublimaze Injection (10/18/16 20:08) Medications Given in ED Current Medications Medications Dose Ordered Sig/[place]esa Route Start Time Stop Time Status Last Admin Dose Admin Famotidine 20 mg ONCE ONCE IVP 10/18/16 18:30 10/18/16 18:31 DC 10/18/16 18:40 20 MG Ondansetron HCl 4 mg ONCE ONCE IVP 10/18/16 18:30 10/18/16 18:31 DC 10/18/16 18:40 4 MG Piperacillin Sod/ Tazobactam Sod 4.5 gm/Sodium Chloride 100 ml @ 200 mls/hr ONCE ONCE IV 10/18/16 19:30 10/18/16 19:59 DC 10/18/16 19:33 200 MLS/HR Sodium Chloride 1,000 ml @ 250 mls/hr Q4H ONCE IV 10/18/16 18:40 10/18/16 22:39 10/18/16 18:52 250 MLS/HR Vital Signs/I&O Vital Sign - Last 12Hours 10/18/16 18:18 Temp 98.8 Pulse 112 Resp 18 B/P (MAP) 143/94 Pulse Ox 98 ECG Initial ECG Impression Date: Oct 18, 2016 Initial ECG Impression Time: 18:24 Initial ECG Rate: 109 Initial ECG Rhythm: S.Tach Initial ECG Comparisson: Unchanged Comment probable RICKY; incomplete RBBB Diagnostic Imaging Diagonstic Imaging: Xray Plain Films/CT/US/NM/MRI: chest Reviewed: Other (nothing acute per readiologist) Departure Communication Time/Spoke to Admitting Phy: 20:35 Impression Impression: Primary Impression: Elevated lactic acid level Additional Impressions: UTI (urinary tract infection) Cellulitis of left leg Acute on chronic renal insufficiency NIDDM Elevated serum ammonia Dehydration Chronic pain Disposition: ADMITTED INPATIENT Condition: Stable Decision to Admit Reason: Admit from ER (General) Decision to Admit/Date: Oct 18, 2016 Time/Decision to Admit Time: 20:20 Departure-Patient Inst. Referrals: AGUSTINA AMOS DO (PCP/Family) Primary Care Physician DARRELL FALK DO Oct 18, 2016 18:13
[2016-10-18 18:26] LABS: BASOPHILS # (AUTO) 0.1 10^3/uL (0.0-0.1); BASOPHILS % (AUTO) 1 % (0-10); EOSINOPHILS # (AUTO) 0.2 10^3/uL (0.0-0.3); EOSINOPHILS % (AUTO) 2 % (0-10); LYMPHOCYTES # (AUTO) 1.1 X 10^3 (1.0-4.0); LYMPHOCYTES % (AUTO) 11 % (12-44); MEAN CORPUSCULAR HEMOGLOBIN 33 PG (25-34); MEAN CORPUSCULAR HGB CONC 35 G/DL (32-36); MEAN CORPUSCULAR VOLUME 97 FL (80-99); MONOCYTES % (AUTO) 10 % (0-12); NEUTROPHILS # (AUTO) 7.4 X 10^3 (1.8-7.8); NEUTROPHILS % (AUTO) 76 % (42-75); PLATELET COUNT 87 10^3/uL (130-400); RED BLOOD COUNT 3.98 10^6/uL (4.35-5.85); RED CELL DISTRIBUTION WIDTH 17.4 % (10.0-14.5); WHITE BLOOD COUNT 9.7 10^3/uL (4.3-11.0)
[2016-10-18] MEDS ORDERED: ONDANSETRON 4 MG/2 ML (SDV) Z0FRAN IVP ONE (18:30)
[2016-10-18] MEDS ORDERED: FAMOTIDINE 20MG/2ML IV (PEPCID) IVP ONE (18:30)
[2016-10-18] MEDS ORDERED: NS IV 1000 ML 1,000 ML IV ONE (18:40)
[2016-10-18 18:49] LABS: ALANINE AMINOTRANSFERASE 36 U/L (0-55); ALBUMIN 2.3 G/DL (3.2-4.5); AMMONIA 63 UMOL/L (11-32); ANION GAP 16 MMOL/L (5-14); ASPARTATE AMINO TRANSFERASE 48 U/L (5-34); BILIRUBIN,TOTAL 2.9 MG/DL (0.1-1.0); BLOOD UREA NITROGEN 74 MG/DL (7-18); BUN/CREATININE RATIO 31; CALCIUM 9.3 MG/DL (8.5-10.1); CARBON DIOXIDE 17 MMOL/L (21-32); CHLORIDE 102 MMOL/L (98-107); CREATININE SERUM 2.35 MG/DL (0.60-1.30); GFR ESTIMATED 21; GLUCOSE 239 MG/DL (70-105); LIPASE 80 U/L (8-78); MAGNESIUM 1.8 MG/DL (1.8-2.4); POTASSIUM 3.6 MMOL/L (3.6-5.0); SODIUM 135 MMOL/L (135-145); TOTAL PROTEIN 6.5 G/DL (6.4-8.2)
--- NOTE | 2016-10-18 18:52 | Diagnostic Imaging Report ---
INDICATION: Loss of appetite COMPARISON STUDY: Chest from 09/19/16. FINDINGS: Portable view of the chest demonstrates the lungs to be clear. The heart, mediastinum, and pulmonary vascularity are normal. Minimal calcifications are seen within the aorta. Mild degenerative changes are present in the glenohumeral joints. IMPRESSION: There are no acute findings. Dictated by: Dictated on workstation # [id number]
[2016-10-18 18:55] LABS: TROPONIN I < 0.30 NG/ML (<0.30)
[2016-10-18] MEDS ORDERED: PIPERACILLIN SODIUM/TAZOBACTAM 4.5 GM in NS (IVPB) 100 ML IV ONE (19:30)
[2016-10-18 19:32] LABS: BILIRUBIN,URINE NEGATIVE (NEGATIVE); KETONES,URINE NEGATIVE (NEGATIVE); LEUKOCYTE ESTERASE ,URINE 1+ (NEGATIVE); NITRITE,URINE POSITIVE (NEGATIVE); PH,URINE 5 (5-9); PROTEIN,URINE NEGATIVE (NEGATIVE); UROBILINOGEN,URINE NORMAL (NORMAL)
[2016-10-18] MEDS ORDERED: fentaNYL INJECTION 100 MCG/2 ML AMP IVP STA (20:08)
[2016-10-18] MEDS: NS IV 1000 ML 1,000 ML IV SCH (21:37)
[2016-10-18 21:40] VITALS: BP 144/84
[2016-10-18] MEDS ORDERED: ONDANSETRON 4 MG/2 ML (SDV) Z0FRAN IV PRN (21:45)
[2016-10-18] MEDS: LACTULOSE SYRUP 10GM/15ML (ENULOSE) 30ML UDC PO SCH (21:59)
[2016-10-18] MEDS ORDERED: CHOL20002 PO (22:30)
[2016-10-18] MEDS ORDERED: NON-FORMULARY MEDICATION 1 EA EA (Oxycodone HCl 10 MG) PO PRN (22:45)
[2016-10-18] MEDS ORDERED: inSUlin (REGULAR) HUMAN 1 UNIT/0.01 ML (CHARGE PER UNIT) ONE (23:54)
[2016-10-18] MEDS: inSUlin (REGULAR) HUMAN 1 UNIT/0.01 ML (CHARGE PER UNIT) SC SCH (23:59)
[2016-10-19] VITALS (7 sets, daily range): BP systolic 133–156; BP diastolic 60–82
[2016-10-19] MEDS: fentaNYL INJECTION 100 MCG/2 ML AMP IVP PRN ×2 (01:37→16:18)
[2016-10-19] MEDS: PIPERACILLIN/TAZOBACTAM 4.5 GM/NS100 ML IVPB IV SCH ×6 (01:37→17:51)
[2016-10-19] MEDS: NS IV 1000 ML 1,000 ML IV SCH ×3 (04:12→16:00)
[2016-10-19] MEDS: LACTULOSE SYRUP 10GM/15ML (ENULOSE) 30ML UDC PO SCH ×4 (04:12→21:26)
[2016-10-19 05:37] LABS: BASOPHILS % (AUTO) 0 % (0-10); EOSINOPHILS # (AUTO) 0.2 10^3/uL (0.0-0.3); EOSINOPHILS % (AUTO) 2 % (0-10); LYMPHOCYTES # (AUTO) 0.9 X 10^3 (1.0-4.0); LYMPHOCYTES % (AUTO) 10 % (12-44); MEAN CORPUSCULAR HEMOGLOBIN 33 PG (25-34); MEAN CORPUSCULAR HGB CONC 34 G/DL (32-36); MEAN CORPUSCULAR VOLUME 98 FL (80-99); MONOCYTES % (AUTO) 11 % (0-12); NEUTROPHILS # (AUTO) 6.6 X 10^3 (1.8-7.8); NEUTROPHILS % (AUTO) 77 % (42-75); PLATELET COUNT 51 10^3/uL (130-400); RED BLOOD COUNT 3.68 10^6/uL (4.35-5.85); RED CELL DISTRIBUTION WIDTH 17.3 % (10.0-14.5); WHITE BLOOD COUNT 8.6 10^3/uL (4.3-11.0)
[2016-10-19 06:03] LABS: ALBUMIN 2.2 G/DL (3.2-4.5); BILIRUBIN,TOTAL 2.7 MG/DL (0.1-1.0); CALCIUM 8.6 MG/DL (8.5-10.1); CREATININE SERUM 2.22 MG/DL (0.60-1.30); POTASSIUM 3.3 MMOL/L (3.6-5.0)
[2016-10-19] MEDS: inSUlin (REGULAR) HUMAN 1 UNIT/0.01 ML (CHARGE PER UNIT) SC SCH ×4 (06:04→21:25)
--- NOTE | 2016-10-19 08:54 | History & Physicial ---
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 SHE PRESENTED TO THE HOSPITAL YESTERDAY EVENING WITH WEAKNESS, LEG PAIN, CONFUSION. SHE HAD BEEN SEEN IN THE EMERGENCY DEPARTMENT EARLIER IN THE WEEK WITH CELLULITIS OF HER LEFT LEG (RECURRENT), AND WAS GIVEN A SCRIPT FOR AN ANTIBIOTIC. HER DAUGHTER REPORTS THAT SHE HAS BEEN GIVING HER MOM THE MEDICATION DIRECTED, BUT HER SYMPTOMS HAVE NOT IMPROVED AND HER MOM HAS NOT BEEN EATING OR DRINKING WELL OVER THE WEEK. SHE REPORTS THAT HER MOM HAS ONLY BEEN TAKING HER PAIN MEDICATION, METFORMIN, AND ANTIBIOTIC DUE TO HER POOR OVERALL INTAKE. BOBY REPORTS THAT SHE JUST FEELS FATIGUED, HAS PAIN IN HER LEG, AND DISCOMFORT WITH URINATION. FAMILY AND PATIENT WANT HER TO BE A FULL CODE. Date of Admission Oct 18, 2016 at 20:36 I consulted on this patient on 10/19/16 08:54 Attending Physician Umer Amos DO Admitting Physician KATHY MATHEW MD Consult Allergies and Home Medications Allergies Coded Allergies: levofloxacin (Verified Allergy, Unknown, 07/25/16) Home Medications Buspirone HCl 5 Mg Tablet, 5 MG PO BID, (Reported) Cholecalciferol (Vitamin D3) 2,000 Unit Capsule, 2,000 UNIT PO DAILY, #30 ( Reported) Clindamycin HCl 300 Mg Capsule, 300 MG PO QID, #40 Ref 0 Prescribed by: UMA EGAN on 10/13/16 1933 Clotrimazole 15 Gm Cream..g., TP DAILY PRN for RASH, (Reported) TO USE ON LIPS FOR YEAST Duloxetine HCl 30 Mg Capsule.dr, 30 MG PO DAILY, #14 (Reported) Hydroxyzine Pamoate 25 Mg Capsule, 25 MG PO DAILY, (Reported) Lactulose 20 Gm/30 Ml Solution, 30 GM PO Q6H for 10 Days Prescribed by: MILEY GONZALEZ on 09/19/16 185 Latanoprost 2.5 Ml Drops, 1 DROP OU DAILY, (Reported) Metformin HCl 500 Mg Tablet, 500 MG PO BIDAC, #60 (Reported) take on tablet before breakfast and on tablet before evening meal Oxycodone HCl 10 Mg Tablet, 10 MG PO TID PRN for PAIN-SEVERE, (Reported) Pantoprazole Sodium 40 Mg Tablet.dr, 40 MG PO DAILY, (Reported) Rifaximin 550 Mg Tablet, 550 MG PO BID, (Reported) Trazodone HCl 100 Mg Tablet, 100 MG PO HS, (Reported) Past Hneoakw-Cuzeqj-Xoxzws Hx Patient Social History Marrital Status: Living Status: LIVES AT HOME WITH HER DAUGHTER. Employed/Student: unemployed Alcohol Use: Denies Use Recreational Drug Use: No Smoking Status: Current Everyday Smoker Type Used: Cigarettes 2nd Hand Smoke Exposure: Yes Physical Abuse Screen: No Sexual Abuse: No Recent Foreign Travel: No Contact w/other who traveled: No Recent Hopitalizations: Yes Recent Infectious Disease Expo: No Immunizations Up To Date Tetanus Booster (TDap): Unknown Date of Pneumonia Vaccine: Feb 16, 2013 Date of Influenza Vaccine: Mar 19, 2013 Seasonal Allergies Seasonal Allergies: No Surgeries HX Surgeries: Yes Surgeries: Abdominal, Adenoidectomy, Section, Gallbladder, Tonsillectomy Respiratory Hx Respiratory Disorders: Yes (PULMONARY EDEMA) Cardiovascular Hx Cardiovascular Disorders: Yes Cardiac Disorders: Chronic Edema/Swelling, Coronary Artery Disease, High Cholesterol, Hypertension Neurological Hx Neurological Disorders: Yes Neurological Disorders: Headaches /Migraines, Neuropathy Reproductive System Hx Reproductive Disorders: No Sexually Transmitted Disease: No HIV/AIDS: No 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 Genitourinary Hx Genitourinary Disorders: Yes (CHRONIC RENAL FAILURE/INSUFFICIENCY) Genitourinary Disorders: Renal Failure, UTI-Chronic Gastrointestinal Hx Gastrointestinal Disorders: Yes Gastrointestinal Disorders: Abdominal Hernia, Gastroesophageal Reflux, Liver Disease/Jaundice, Pancreatitis, Hiatal Hernia, Cirrhosis Musculoskeletal Hx Musculoskeletal Disorders: Yes Musculoskeletal Disorders: Degenerate Disk Disease, Osteoporosis, Arthritis, Fibromyalgia, Chronic Back Pain Endocrine Hx Endocrine Disorders: Yes Endocrine Disorders: Diabetes, Non-Insulin dep HEENT HX ENT Disorders: Yes (GLASSES; RIGHT PAROTID GLAND ABSCESS 07/2016; SINUSITIS) HEENT Disorders: Glaucoma Loss of Vision: Bilateral Hearing Impairment: Hard of Hearing Cancer Hx Cancer: No Psychosocial Hx Psychiatric Problems: Yes Behavioral Health Disorders: Anxiety, Depression Integumentary HX Skin/Integumentary Disorder: Yes (MRSA--MULTIPLE ABSCESSES AND I&D'S; CELLULITIS-LEGS. CHRONIC LEG SORES) Blood Transfusions Hx Blood Disorders: Yes (ITP, NEUTROPENIA) Adverse Reaction to a Blood Tr: No (HAD HAD PLATELETS WITH NO REACTION) Reviewed Nursing Assessment Reviewed/Agree w Nursing PMH: Yes Family Medical History Significant Family History: Heart Disease, Diabetes, Hypertension Family Hx: Arthritis Coronary thrombosis Diabetes mellitus Glaucoma Headache disorder Constitutional: No chills, No fever, malaise, weakness EENTM: No mouth pain, No throat pain, No vision loss Respiratory: No cough, dyspnea on exertion, short of breath Cardiovascular: No chest pain, edema, No palpitations Gastrointestinal: No abdominal pain, No constipation, No diarrhea, loss of appetite (DECREASED APPETITE OVER THE PAST WEEK), No nausea, No vomiting Genitourinary: frequency Musculoskeletal: No back pain, muscle weakness Skin: change in color (LEFT LEG FROM ANKLE TO MID CALF - ERYTHEMA, EDEMA, TENDER TO TOUCH), No rash Psychiatric/Neurological: Anxiety, Weakness All Other Systems Reviewed Negative Unless Noted: Yes Physical Exam Vital Signs Vital Sign - Last 12Hours 10/18/16 18:18 Temp 98.8 Pulse 112 Resp 18 B/P (MAP) 143/94 Pulse Ox 98 Capillary Refill : Less Than 3 Seconds General Appearance: No Apparent Distress, WD/WN Eyes: Bilateral Eye EOMI, Bilateral Eye Normal Inspection, Bilateral Eye PERRL Neck: Supple Respiratory: Chest Non Tender, Lungs Clear, Normal Breath Sounds, No Accessory Muscle Use Cardiovascular: Regular Rate, Rhythm Gastrointestinal: Normal Bowel Sounds, No Organomegaly, Non Tender, Soft Rectal: Deferred Back: Normal Inspection, No Vertebral Tenderness Extremity: Inflammation (LEFT LEG FROM ANKLE TO MID CALF), Pedal Edema Neurologic/Psychiatric: Alert, Oriented x3, Normal Mood/Affect Skin: Erythema (LEFT LEG FROM ANKLE TO CALF) Assessment/Plan Assessment and Plan E COLI URINARY TRACT INFECTION ACUTE ON CHRONIC RENAL FAILURE CELLULITIS LEFT LOWER LEG DEHYDRATION LACTIC ACIDOSIS ELEVATED LIVER ENZYMES CHRONIC THROMBOCYTOPENIA CHRONIC HEPATIC FAILURE HYPERBILIRUBINEMIA DIABETES MELLITUS CHRONIC PAIN SYNDROME CIRRHOSIS PORTAL HYPERTENSION ESOPHAGEAL VARIES SPLENOMEGALY HEPATIC LESIONS (CURRENTLY WAITING FURTHER WORK-UP AT ) E COLI URINARY TRACT INFECTION WITH ELEVATED LACTIC ACID - THIS PICTURE IS DIFFICULT DUE TO HER LIVER FAILURE CAUSING ELEVATED LACTIC ACID - SHE MAY HAVE MILD SEPSIS - THEREFORE SEPSIS PROTOCOL WAS INITIATED - CONTINUE WITH CURRENT ANTIBIOTIC OF ZOSYN, MONITOR SYMPTOMS, WAIT FOR CULTURE REPORT. ACUTE ON CHRONIC RENAL FAILURE - HYDRATION, MONITOR LABS CELLULITIS LEFT LOWER LEG - ON ZOSYN, CONTINUE CURRENT TREATMENT. DEHYDRATION - HYDRATE, PUSH ORAL FLUIDS, MONITOR LABS. ELEVATED LIVER ENZYMES - CHRONIC - WITH CHRONIC CIRRHOSIS AND PORTAL HYPERTENSION - GIVE FLUIDS, MONITOR LABS. CHRONIC THROMBOCYTOPENIA - NOT AT A POINT WHERE SHE WILL NEED TRANSFUSION OF PLATELETS AT THIS POINT, NO CURRENT BLEEDING, HGB STABLE, MONITOR SYMPTOMS, PT CANNOT BE ON LOVENOX DUE TO HER PLATELET COUNT. DIABETES MELLITUS - HOLD METFORMIN - WOULD NOT RESTART DUE TO HER RENAL STATUS. I HAVE ORDERED SLIDING SCALE INSULIN. CHRONIC PAIN SYNDROME - CONTINUE HOME MEDICATIONS Problems: Admission Diagnosis E COLI URINARY TRACT INFECTION ACUTE ON CHRONIC RENAL FAILURE CELLULITIS LEFT LOWER LEG DEHYDRATION LACTIC ACIDOSIS ELEVATED LIVER ENZYMES CHRONIC THROMBOCYTOPENIA CHRONIC HEPATIC FAILURE HYPERBILIRUBINEMIA DIABETES MELLITUS CHRONIC PAIN SYNDROME CIRRHOSIS PORTAL HYPERTENSION ESOPHAGEAL VARIES SPLENOMEGALY HEPATIC LESIONS (CURRENTLY WAITING FURTHER WORK-UP AT ) Clinical Quality Measures DVT/VTE Risk/Contraindication: Risk Factor Score Per Nursin RFS Level Per Nursing on Admit: 4+=Very High KATHY MATHEW MD Oct 19, 2016 08:54
[2016-10-19] MEDS: hydrOXYzine (VISTARIL) 25 MG CAP PO SCH (10:58)
[2016-10-19] MEDS: LACTOBACILLUS Acidoph/Bulgar (LACTINEX/FLORANEX) TAB PO SCH ×2 (11:02→15:59)
[2016-10-19] MEDS ORDERED: FUROSEMIDE 40 MG/4 ML INJ (LASIX) IVP ONE (19:45)
[2016-10-19] MEDS: RIFAXIMIN 550 MG TABLET (XIFAXAN) PO SCH (21:18)
[2016-10-19] MEDS: traZODone 100 MG (DESYREL) TAB PO SCH (21:18)
[2016-10-19] MEDS: busPIRone 5 MG (BUSPAR) TAB PO SCH (21:18)
[2016-10-20] MEDS: NS IV 1000 ML 1,000 ML IV SCH ×4 (01:57→21:46)
[2016-10-20] MEDS: PIPERACILLIN/TAZOBACTAM 4.5 GM/NS100 ML IVPB IV SCH ×6 (01:58→17:37)
[2016-10-20] MEDS: LACTULOSE SYRUP 10GM/15ML (ENULOSE) 30ML UDC PO SCH ×4 (03:24→22:27)
[2016-10-20 04:00] VITALS: BP 149/65
[2016-10-20] MEDS: inSUlin (REGULAR) HUMAN 1 UNIT/0.01 ML (CHARGE PER UNIT) SC SCH ×4 (05:41→21:08)
[2016-10-20 05:53] LABS: MEAN CORPUSCULAR HEMOGLOBIN 34 PG (25-34); MEAN CORPUSCULAR HGB CONC 34 G/DL (32-36); MEAN CORPUSCULAR VOLUME 98 FL (80-99); PLATELET COUNT 47 10^3/uL (130-400); RED BLOOD COUNT 3.61 10^6/uL (4.35-5.85); RED CELL DISTRIBUTION WIDTH 17.5 % (10.0-14.5); WHITE BLOOD COUNT 6.7 10^3/uL (4.3-11.0)
[2016-10-20 06:17] LABS: ALBUMIN 2.1 G/DL (3.2-4.5); BILIRUBIN,TOTAL 2.8 MG/DL (0.1-1.0); CALCIUM 8.5 MG/DL (8.5-10.1); POTASSIUM 3.1 MMOL/L (3.6-5.0)
[2016-10-20] MEDS: LACTOBACILLUS Acidoph/Bulgar (LACTINEX/FLORANEX) TAB PO SCH ×3 (06:45→16:25)
[2016-10-20 08:00] VITALS: BP 152/82
--- NOTE | 2016-10-20 08:33 | Progress Note (SOAP) ---
Subjective Date Seen by Provider: Oct 20, 2016 Time Seen by Provider: 08:50 Subjective/Events-last exam PT REPORTS THAT SHE IS FEELING A LITTLE BIT BETTER. SHE HAS BEEN HAVING WEAKNESS, BUT IT HAS IMPROVED SINCE YESTERDAY. THE PATIENT REPORTS THAT SHE HAS SOME PAIN. FAMILY REPORTS THAT SHE IS A LITTLE LESS WEAK TODAY. Review of Systems General: No Chills, Fatigue, Malaise HEENT: No Head Aches, No Eye Pain Pulmonary: No Dyspnea, No Cough Cardiovascular: No: Chest Pain Gastrointestinal: No: Abdominal Pain, Nausea Genitourinary: No Dysuria Neurological: Confusion, Weakness Objective Exam Vital Signs Date Time Temp Pulse Resp B/P (MAP) Pulse Ox O2 Delivery O2 Flow Rate FiO2 10/20/16 07:00 91 10/20/16 04:00 99.6 99 22 149/65 96 10/20/16 01:00 95 10/19/16 23:50 98.4 96 22 133/60 92 10/19/16 20:00 97.5 97 20 133/66 94 10/19/16 19:00 93 10/19/16 16:00 97.5 97 20 147/82 96 10/19/16 13:00 95 10/19/16 12:00 97.2 83 18 148/67 93 I & O 10/20/16 07:00 Intake Total 540 ml Output Total 800 ml Balance -260 ml Capillary Refill : Less Than 3 Seconds General Appearance: WD/WN, Mild Distress HEENT: PERRL/EOMI, Pharynx Normal Neck: Full Range of Motion, Supple Respiratory: Chest Non Tender, Lungs Clear, Normal Breath Sounds Cardiovascular: Regular Rate, Rhythm Gastrointestinal: normal bowel sounds, non tender, soft, no organomegaly, no pulsatile mass Extremity: Pedal Edema Neurologic/Psychiatric: Other (WEAKNESS - GROGGY) Skin: Erythema (LEFT LEG AT ANKLE) Results Lab Laboratory Tests 10/19/16 10:40: Glucometer 186H 10/19/16 15:40: Glucometer 225H 10/19/16 21:02: Glucometer 208H 10/20/16 04:50: White Blood Count 6.7, Red Blood Count 3.61L, Hemoglobin 12.1, Hematocrit 35, Mean Corpuscular Volume 98, Mean Corpuscular Hemoglobin 34, Mean Corpuscular Hemoglobin Concent 34, Red Cell Distribution Width 17.5H, Platelet Count 47L, Mean Platelet Volume , Sodium Level 138, Potassium Level 3.1L, Chloride Level 109H, Carbon Dioxide Level 19L, Anion Gap 10, Blood Urea Nitrogen 63H, Creatinine 2.00H, Estimat Glomerular Filtration Rate 26, BUN/Creatinine Ratio 32 , Glucose Level 180H, Calcium Level 8.5, Total Bilirubin 2.8H, Aspartate Amino Transf (AST/SGOT) 42H, Alanine Aminotransferase (ALT/SGPT) 34, Alkaline Phosphatase 98, Total Protein 6.0L, Albumin 2.1L 10/20/16 05:03: Glucometer 179H Microbiology 10/18/16 Blood Culture - Preliminary, Resulted No growth 10/18/16 Urine Culture - Preliminary, Resulted Escherichia Coli Gram Negative Christian Assessment/Plan Assessment/Plan Assess & Plan/Chief Complaint E COLI URINARY TRACT INFECTION ACUTE ON CHRONIC RENAL FAILURE CELLULITIS LEFT LOWER LEG DEHYDRATION LACTIC ACIDOSIS ELEVATED LIVER ENZYMES CHRONIC THROMBOCYTOPENIA CHRONIC HEPATIC FAILURE HYPERBILIRUBINEMIA DIABETES MELLITUS CHRONIC PAIN SYNDROME CIRRHOSIS PORTAL HYPERTENSION ESOPHAGEAL VARIES SPLENOMEGALY HEPATIC LESIONS (CURRENTLY WAITING FURTHER WORK-UP AT ) E COLI URINARY TRACT INFECTION WITH ELEVATED LACTIC ACID - THIS PICTURE IS DIFFICULT DUE TO HER LIVER FAILURE CAUSING ELEVATED LACTIC ACID - SHE MAY HAVE MILD SEPSIS - THEREFORE SEPSIS PROTOCOL WAS INITIATED - CONTINUE WITH CURRENT ANTIBIOTIC OF ZOSYN, MONITOR SYMPTOMS. ACUTE ON CHRONIC RENAL FAILURE - HYDRATION, MONITOR LABS CELLULITIS LEFT LOWER LEG - ON ZOSYN, CONTINUE CURRENT TREATMENT. DEHYDRATION - HYDRATE, PUSH ORAL FLUIDS, MONITOR LABS. ELEVATED LIVER ENZYMES - CHRONIC - WITH CHRONIC CIRRHOSIS AND PORTAL HYPERTENSION - GIVE FLUIDS, MONITOR LABS. CHRONIC THROMBOCYTOPENIA - NOT AT A POINT WHERE SHE WILL NEED TRANSFUSION OF PLATELETS AT THIS POINT, NO CURRENT BLEEDING, HGB STABLE, MONITOR SYMPTOMS, PT CANNOT BE ON LOVENOX DUE TO HER PLATELET COUNT. DIABETES MELLITUS - HOLD METFORMIN - WOULD NOT RESTART DUE TO HER RENAL STATUS. I HAVE ORDERED SLIDING SCALE INSULIN. CHRONIC PAIN SYNDROME - CONTINUE HOME MEDICATIONS Clinical Quality Measures DVT/VTE Risk/Contraindication: Risk Factor Score Per Nursin RFS Level Per Nursing on Admit: 4+=Very High Contraindications-Pharm: Other *list below* Other: PT HAS LOW PLATELETS KATHY MATHEW MD Oct 20, 2016 08:33
[2016-10-20] MEDS: busPIRone 5 MG (BUSPAR) TAB PO SCH ×2 (09:31→21:08)
[2016-10-20] MEDS: VITAMIN D3 1,000 UNITS (CHOLECALCIFEROL) TABLET PO SCH (09:31)
[2016-10-20] MEDS: RIFAXIMIN 550 MG TABLET (XIFAXAN) PO SCH ×2 (09:31→21:09)
[2016-10-20] MEDS: DULoxetine 30 MG (CYMBALTA) CAP PO SCH (09:31)
[2016-10-20] MEDS: PANTOPRAZOLE 40 MG (PROTONIX) TAB PO SCH (09:32)
[2016-10-20] MEDS: hydrOXYzine (VISTARIL) 25 MG CAP PO SCH (09:32)
[2016-10-20 12:00] VITALS: BP 149/82
[2016-10-20 15:54] VITALS: BP 146/81
[2016-10-20 19:48] VITALS: BP 139/78
[2016-10-20] MEDS: traZODone 100 MG (DESYREL) TAB PO SCH (21:09)
[2016-10-21 00:05] VITALS: BP 138/76
[2016-10-21] MEDS: PIPERACILLIN/TAZOBACTAM 4.5 GM/NS100 ML IVPB IV SCH ×2 (02:24)
[2016-10-21] MEDS: NS IV 1000 ML 1,000 ML IV SCH ×2 (03:21→07:48)
[2016-10-21] MEDS: fentaNYL INJECTION 100 MCG/2 ML AMP IVP PRN (03:57)
[2016-10-21 04:00] VITALS: BP 142/66
[2016-10-21] MEDS: LACTULOSE SYRUP 10GM/15ML (ENULOSE) 30ML UDC PO SCH ×4 (04:00→20:57)
[2016-10-21 05:07] LABS: MEAN CORPUSCULAR HEMOGLOBIN 33 PG (25-34); MEAN CORPUSCULAR HGB CONC 33 G/DL (32-36); MEAN CORPUSCULAR VOLUME 99 FL (80-99); PLATELET COUNT 45 10^3/uL (130-400); RED BLOOD COUNT 3.55 10^6/uL (4.35-5.85); RED CELL DISTRIBUTION WIDTH 17.8 % (10.0-14.5)
[2016-10-21 05:29] LABS: BILIRUBIN,TOTAL 2.5 MG/DL (0.1-1.0); CALCIUM 8.2 MG/DL (8.5-10.1); CREATININE SERUM 1.73 MG/DL (0.60-1.30); POTASSIUM 3.1 MMOL/L (3.6-5.0); TOTAL PROTEIN 5.8 G/DL (6.4-8.2)
[2016-10-21] MEDS: inSUlin (REGULAR) HUMAN 1 UNIT/0.01 ML (CHARGE PER UNIT) SC SCH ×4 (06:04→21:46)
[2016-10-21] MEDS: LACTOBACILLUS Acidoph/Bulgar (LACTINEX/FLORANEX) TAB PO SCH ×3 (06:04→16:23)
[2016-10-21 08:00] VITALS: BP 140/77
--- NOTE | 2016-10-21 08:04 | Progress Note (SOAP) ---
Subjective Time Seen by Provider: 07:55 Subjective/Events-last exam increase lactic acid. UTI. Cellulitis of left leg. Nausea and vomiting poor oral inta. Cirrhosis. History of liver failure. Chronic renal insufficiency. diabetes. Chronic thrombocytopenia. Acute renal insufficiency. Nausea and vomiting. Inability to take fluids and food. Patient fragile. Daughter states patient not doing . Abdomen distended feels like ascites Objective Exam Vital Signs Date Time Temp Pulse Resp B/P (MAP) Pulse Ox O2 Delivery O2 Flow Rate FiO2 10/21/16 04:00 98.9 94 18 142/66 94 10/21/16 01:00 92 10/21/16 00:05 98.7 95 20 138/76 91 10/20/16 19:48 97.8 93 20 139/78 95 10/20/16 19:00 96 10/20/16 15:54 97.8 94 16 146/81 95 10/20/16 13:00 103 10/20/16 12:00 98.0 94 16 149/82 94 10/20/16 08:00 98.7 98 20 152/82 95 I & O 10/21/16 07:00 Intake Total 3000 ml Output Total 1200 ml Balance 1800 ml Capillary Refill : Less Than 3 Seconds General Appearance: WD/WN, Other (Lethargic) HEENT: Normal ENT Inspection Neck: Full Range of Motion, Normal Inspection Respiratory: Chest Non Tender, Normal Breath Sounds, No Accessory Muscle Use, No Respiratory Distress Cardiovascular: Regular Rate, Rhythm, Other (murmur) Gastrointestinal: soft, distended Results Lab Laboratory Tests 10/21/16 04:42 Laboratory Tests 10/20/16 11:35: Glucometer 238H 10/20/16 15:32: Glucometer 209H 10/20/16 20:48: Glucometer 204H 10/21/16 04:42: White Blood Count 6.0, Red Blood Count 3.55L, Hemoglobin 11.6, Hematocrit 35, Mean Corpuscular Volume 99, Mean Corpuscular Hemoglobin 33, Mean Corpuscular Hemoglobin Concent 33, Red Cell Distribution Width 17.8H, Platelet Count 45L, Mean Platelet Volume , Sodium Level 142, Potassium Level 3.1L, Chloride Level 113H, Carbon Dioxide Level 18L, Anion Gap 11, Blood Urea Nitrogen 51H, Creatinine 1.73H, Estimat Glomerular Filtration Rate 30, BUN/Creatinine Ratio 29 , Glucose Level 196H, Calcium Level 8.2L, Total Bilirubin 2.5H, Aspartate Amino Transf (AST/SGOT) 42H, Alanine Aminotransferase (ALT/SGPT) 37, Alkaline Phosphatase 93, Total Protein 5.8L, Albumin 2.0L Microbiology 10/18/16 Blood Culture - Preliminary, Resulted No growth 10/18/16 Urine Culture - Final, Complete Escherichia Coli Staph, Coag Neg (Music Internship) Assessment/Plan Assessment/Plan Assess & Plan/Chief Complaint patient fragile. Nausea and vomiting. Elevated lactic acid. Cirrhosis. Chronic thrombocytopenia. UTI. Ascites. Hypokalemia. Cellulitis of left leg Clinical Quality Measures DVT/VTE Risk/Contraindication: Risk Factor Score Per Nursin RFS Level Per Nursing on Admit: 4+=Very High Contraindications-Pharm: Other *list below* Other: PT HAS LOW PLATELETS AGUSTINA AMOS DO Oct 21, 2016 08:04
[2016-10-21] MEDS: DULoxetine 30 MG (CYMBALTA) CAP PO SCH (09:17)
[2016-10-21] MEDS: VITAMIN D3 1,000 UNITS (CHOLECALCIFEROL) TABLET PO SCH (09:17)
[2016-10-21] MEDS: RIFAXIMIN 550 MG TABLET (XIFAXAN) PO SCH ×2 (09:17→20:57)
[2016-10-21] MEDS: PANTOPRAZOLE 40 MG (PROTONIX) TAB PO SCH (09:17)
[2016-10-21] MEDS: busPIRone 5 MG (BUSPAR) TAB PO SCH ×2 (09:17→20:57)
[2016-10-21] MEDS: POTASSIUM CL 10MEQ/50ML IVPB 50 ML IV SCH ×4 (09:18→16:25)
--- NOTE | 2016-10-21 09:33 | Diagnostic Imaging Report ---
INDICATION: Ascites, elevated lactic acid. EXAMINATION: KUB at 9:13 AM There are zoey in the right upper quadrant presumably from cholecystectomy. Bowel gas pattern is normal. There are no pathologic masses or calcifications. IMPRESSION: No acute abnormalities in the abdomen. Dictated by: Dictated on workstation # [id number]
[2016-10-21] MEDS: hydrOXYzine (VISTARIL) 25 MG CAP PO SCH (10:08)
[2016-10-21 12:00] VITALS: BP_SYST 136; BP_SYST 144; BP_DIAS 76; BP_DIAS 82
[2016-10-21] MEDS ORDERED: LACT10SO PO (12:17)
[2016-10-21] MEDS ORDERED: CLIN300C11 PO (12:17)
[2016-10-21] MEDS ORDERED: ERGO50006 PO (12:17)
[2016-10-21] MEDS ORDERED: HYDR-3781 PO (12:17)
[2016-10-21] MEDS ORDERED: NYST15PO2 TP (12:17)
[2016-10-21 15:50] VITALS: BP 124/89
[2016-10-21 20:25] VITALS: BP 145/71
[2016-10-21] MEDS: traZODone 100 MG (DESYREL) TAB PO SCH (20:56)
[2016-10-22] VITALS (7 sets, daily range): BP systolic 130–158; BP diastolic 66–90
[2016-10-22] MEDS: LACTULOSE SYRUP 10GM/15ML (ENULOSE) 30ML UDC PO SCH ×5 (04:14→21:53)
[2016-10-22] MEDS: inSUlin (REGULAR) HUMAN 1 UNIT/0.01 ML (CHARGE PER UNIT) SC SCH ×4 (06:26→21:53)
[2016-10-22] MEDS: LACTOBACILLUS Acidoph/Bulgar (LACTINEX/FLORANEX) TAB PO SCH ×3 (06:27→15:16)
[2016-10-22 06:56] LABS: MEAN CORPUSCULAR HEMOGLOBIN 33 PG (25-34); MEAN CORPUSCULAR HGB CONC 33 G/DL (32-36); MEAN CORPUSCULAR VOLUME 100 FL (80-99); PLATELET COUNT 41 10^3/uL (130-400); RED BLOOD COUNT 3.71 10^6/uL (4.35-5.85); RED CELL DISTRIBUTION WIDTH 18.3 % (10.0-14.5)
[2016-10-22 07:09] LABS: ALBUMIN 1.9 G/DL (3.2-4.5); BILIRUBIN,TOTAL 2.1 MG/DL (0.1-1.0); CALCIUM 8.2 MG/DL (8.5-10.1); CREATININE SERUM 1.49 MG/DL (0.60-1.30); POTASSIUM 3.5 MMOL/L (3.6-5.0)
--- NOTE | 2016-10-22 08:32 | Progress Note (SOAP) ---
Subjective Time Seen by Provider: 08:15 Subjective/Events-last exam patient stronger today. Patient's Blood tests look better today. Cirrhosis. infection. Renal insufficiency. Thrombocytopenia. GFR improving. infection sensitive to Rocephin. Since patient is improving family wants to keep patient here instead of [facility]. This option was offered to the family Objective Exam Vital Signs Date Time Temp Pulse Resp B/P (MAP) Pulse Ox O2 Delivery O2 Flow Rate FiO2 10/22/16 07:00 103 10/22/16 03:50 98.6 102 20 139/74 92 10/22/16 01:00 103 10/22/16 00:00 98.4 99 20 155/66 92 10/21/16 20:25 98.4 102 20 145/71 93 10/21/16 19:00 89 10/21/16 15:50 98.9 92 18 124/89 95 10/21/16 13:00 92 10/21/16 12:00 97.7 94 18 136/76 99 I & O 10/22/16 07:00 Intake Total 1940 ml Output Total 1125 ml Balance 815 ml Capillary Refill : Less Than 3 Seconds General Appearance: No Apparent Distress, WD/WN HEENT: Normal ENT Inspection Neck: Full Range of Motion, Normal Inspection Respiratory: Chest Non Tender, No Accessory Muscle Use, No Respiratory Distress Cardiovascular: No Murmur Gastrointestinal: non tender, soft Results Lab Laboratory Tests 10/22/16 06:35 Laboratory Tests 10/21/16 08:40: Lactic Acid Level 1.54, Ammonia 69H 10/21/16 10:54: Glucometer 195H 10/21/16 15:48: Glucometer 184H 10/21/16 21:14: Glucometer 204H 10/22/16 05:43: Glucometer 209H 10/22/16 06:35: White Blood Count 9.0, Red Blood Count 3.71L, Hemoglobin 12.3, Hematocrit 37, Mean Corpuscular Volume 100H, Mean Corpuscular Hemoglobin 33, Mean Corpuscular Hemoglobin Concent 33, Red Cell Distribution Width 18.3H, Platelet Count 41L, Mean Platelet Volume , Sodium Level 140, Potassium Level 3.5L, Chloride Level 114H, Carbon Dioxide Level 18L, Anion Gap 8, Blood Urea Nitrogen 40H, Creatinine 1.49H, Estimat Glomerular Filtration Rate 36, BUN/Creatinine Ratio 27 , Glucose Level 231H, Lactic Acid Level 1.64, Calcium Level 8.2L, Total Bilirubin 2.1H, Aspartate Amino Transf (AST/SGOT) 41H, Alanine Aminotransferase (ALT/SGPT) 35, Alkaline Phosphatase 102, Ammonia 84H, Total Protein 6.0L, Albumin 1.9L Microbiology 10/18/16 Blood Culture - Preliminary, Resulted No growth 10/18/16 Urine Culture - Final, Complete Escherichia Coli Staph, Coag Neg (Car 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 Nausea and vomiting. Elevated lactic acid. Cirrhosis. Chronic thrombocytopenia. UTI. Ascites. Hypokalemia. Cellulitis of leg. . 10/22/16. Patient looks better today. Patient is taking more fluids. Patient more alert. Platelet count 41,000. gFR improving. Family offered to transfer mother to [facility]. Since patient improving family wants to wait Clinical Quality Measures DVT/VTE Risk/Contraindication: Risk Factor Score Per Nursin RFS Level Per Nursing on Admit: 4+=Very High Contraindications-Pharm: Other *list below* Other: PT HAS LOW PLATELETS AGUSTINA AMOS DO Oct 22, 2016 08:32
[2016-10-22] MEDS: PANTOPRAZOLE 40 MG (PROTONIX) TAB PO SCH (10:25)
[2016-10-22] MEDS: VITAMIN D3 1,000 UNITS (CHOLECALCIFEROL) TABLET PO SCH (10:25)
[2016-10-22] MEDS: RIFAXIMIN 550 MG TABLET (XIFAXAN) PO SCH ×2 (10:27→21:53)
[2016-10-22] MEDS: NS IV 1000 ML 1,000 ML IV SCH (10:30)
[2016-10-23 03:00] VITALS: BP 151/85
[2016-10-23 06:27] LABS: MEAN CORPUSCULAR HEMOGLOBIN 33 PG (25-34); MEAN CORPUSCULAR HGB CONC 33 G/DL (32-36); MEAN CORPUSCULAR VOLUME 100 FL (80-99); PLATELET COUNT 46 10^3/uL (130-400); RED BLOOD COUNT 3.51 10^6/uL (4.35-5.85); RED CELL DISTRIBUTION WIDTH 18.2 % (10.0-14.5)
[2016-10-23 06:47] LABS: ALBUMIN 1.8 G/DL (3.2-4.5); BILIRUBIN,TOTAL 1.8 MG/DL (0.1-1.0); CREATININE SERUM 1.25 MG/DL (0.60-1.30); POTASSIUM 3.4 MMOL/L (3.6-5.0); TOTAL PROTEIN 5.7 G/DL (6.4-8.2)
[2016-10-23] MEDS: inSUlin (REGULAR) HUMAN 1 UNIT/0.01 ML (CHARGE PER UNIT) SC SCH ×4 (06:52→21:43)
[2016-10-23] MEDS: LACTOBACILLUS Acidoph/Bulgar (LACTINEX/FLORANEX) TAB PO SCH ×3 (06:55→18:08)
[2016-10-23] MEDS: NS IV 1000 ML 1,000 ML IV SCH (06:55)
[2016-10-23] MEDS: LACTULOSE SYRUP 10GM/15ML (ENULOSE) 30ML UDC PO SCH ×5 (06:57→21:43)
[2016-10-23] MEDS ORDERED: KCL 10 MEQ TAB (MICRO K) PO NR (07:30)
--- NOTE | 2016-10-23 07:40 | Progress Note (SOAP) ---
Subjective Time Seen by Provider: 07:20 Subjective/Events-last exam INCREASE LACTIC ACID. cIRRHOSIS. hYPERKALEMIA. eLEVATED SERUM AMMONIA. Patient more alert. Patient ate better yesterday. Thrombocytopenia. Platelet count 46,000 increased. Potassium 3.4. Patient states she's feeling better and ate yesterday. Patient to start physical therapy Objective Exam Vital Signs Date Time Temp Pulse Resp B/P (MAP) Pulse Ox O2 Delivery O2 Flow Rate FiO2 10/23/16 03:00 98.7 97 18 151/85 96 10/23/16 01:00 97 10/22/16 23:55 98.3 102 16 130/82 95 10/22/16 20:00 97.1 101 18 150/83 96 10/22/16 20:00 96 10/22/16 19:00 93 10/22/16 16:00 96.4 93 18 143/83 97 10/22/16 13:00 99 10/22/16 12:00 97.6 102 20 158/90 98 10/22/16 08:00 96 10/22/16 08:00 98.3 97 16 157/83 95 I & O 10/23/16 07:00 Intake Total 1120 ml Output Total 900 ml Balance 220 ml Capillary Refill : Less Than 3 Seconds General Appearance: No Apparent Distress, WD/WN HEENT: Normal ENT Inspection Neck: Full Range of Motion, Normal Inspection Respiratory: Chest Non Tender, Lungs Clear, No Accessory Muscle Use, No Respiratory Distress Cardiovascular: Regular Rate, Rhythm, No Murmur Gastrointestinal: non tender, soft Results Lab Laboratory Tests 10/23/16 06:18 Laboratory Tests 10/22/16 11:03: Glucometer 208H 10/22/16 15:44: Glucometer 212H 10/22/16 20:53: Glucometer 210H 10/23/16 06:18: White Blood Count 10.0, Red Blood Count 3.51L, Hemoglobin 11.7, Hematocrit 35, Mean Corpuscular Volume 100H, Mean Corpuscular Hemoglobin 33, Mean Corpuscular Hemoglobin Concent 33, Red Cell Distribution Width 18.2H, Platelet Count 46L, Mean Platelet Volume , Sodium Level 139, Potassium Level 3.4L, Chloride Level 114H, Carbon Dioxide Level 17L, Anion Gap 8, Blood Urea Nitrogen 35H, Creatinine 1.25, Estimat Glomerular Filtration Rate 44, BUN/Creatinine Ratio 28 , Glucose Level 196H, Calcium Level 8.0L, Total Bilirubin 1.8H, Aspartate Amino Transf (AST/SGOT) 37H, Alanine Aminotransferase (ALT/SGPT) 33, Alkaline Phosphatase 92, Ammonia 81H, Total Protein 5.7L, Albumin 1.8L Microbiology 10/18/16 Blood Culture - Preliminary, Resulted No growth 10/18/16 Urine Culture - Final, Complete Escherichia Coli Staph, Coag Neg (Rv Repairer) Assessment/Plan Assessment/Plan Assess & Plan/Chief Complaint patient fragile. Nausea and vomiting. Elevated lactic acid. Cirrhosis. Chronic thrombocytopenia. UTI. Ascites. Hypokalemia. Cellulitis of leg. . 10/22/16. Patient looks better today. Patient is taking more fluids. Patient more alert. Platelet count 41,000. gFR improving. Family offered to transfer mother to [facility]. Since patient improving family wants to wait. . 10/23/16. Patient feeling better today. patient awake yesterday. GFR improving. Platelet count went to 46,0. Serum ammonia 81 came down a little. Patient has diarrhea. Patient to work in progress. Patient to start physical therapy. infection. Cirrhosis. Thrombocytopenia. More alert Clinical Quality Measures DVT/VTE Risk/Contraindication: Risk Factor Score Per Nursin RFS Level Per Nursing on Admit: 4+=Very High Contraindications-Pharm: Other *list below* Other: PT HAS LOW PLATELETS AGUSTINA AMOS DO Oct 23, 2016 07:40
[2016-10-23 08:00] VITALS: BP_SYST 143; BP_SYST 144; BP_DIAS 82; BP_DIAS 83
[2016-10-23] MEDS: VITAMIN D3 1,000 UNITS (CHOLECALCIFEROL) TABLET PO SCH (09:08)
[2016-10-23] MEDS: FUROSEMIDE 40 MG (LASIX) TAB PO SCH (09:08)
[2016-10-23] MEDS: RIFAXIMIN 550 MG TABLET (XIFAXAN) PO SCH ×2 (09:08→21:43)
[2016-10-23] MEDS: PANTOPRAZOLE 40 MG (PROTONIX) TAB PO SCH (09:09)
--- NOTE | 2016-10-23 11:19 | Physical Therapy Progress Note ---
Therapy Progress Note Date Seen by Provider: Oct 23, 2016 Time Seen by Provider: 11:15 Chart reviewed and evaluation attempted but patient refused. Apparently she just got through with bed changing, getting cleaned up, etc with nursing and was in too much pain and states she would attempt to work with PT this afternoon. MALENA LACY PT Oct 23, 2016 11:19
[2016-10-23 12:00] VITALS: BP 140/81
--- NOTE | 2016-10-23 14:35 | Occ Therapy Progress Note ---
Therapy Progress Note Date Seen by Provider: Oct 23, 2016 Time Seen by Provider: 12:55 Order received for OT eval and treat. Chart review completed. Attempted evaluation at 1355. Pt in bed, declined to participate in therapy at this time secondary to reports of 10/10 LE pain. Pt states she has just finished repositioning with assistance from nursing and wants to rest at this time. Education provided regarding role and purpose of OT. Pt states understanding, but continues to decline. Pt agreeable to attempt tomorrow. Will attempt 10/24/16. KENN ZABALA OT Oct 23, 2016 14:34
--- NOTE | 2016-10-23 15:21 | Physical Therapy Progress Note ---
Therapy Progress Note Date Seen by Provider: Oct 23, 2016 Time Seen by Provider: 15:16 Patient refused PT again this afternoon. Checked with patient the first time and she said she wanted to have the nurse aids come and help her because she says "I shit everywhere". Checked back later and patient refused due to 10/10 pain in her back, left hip and leg. Will try again tomorrow. MALENA LACY PT Oct 23, 2016 15:21
[2016-10-23 15:55] VITALS: BP 134/81
[2016-10-23 19:23] VITALS: BP 155/83
[2016-10-24] VITALS: BP 148/85
[2016-10-24 04:21] VITALS: BP 150/82
[2016-10-24 05:13] LABS: BASOPHILS % (AUTO) 0 % (0-10); EOSINOPHILS # (AUTO) 0.3 10^3/uL (0.0-0.3); EOSINOPHILS % (AUTO) 2 % (0-10); LYMPHOCYTES # (AUTO) 1.1 X 10^3 (1.0-4.0); LYMPHOCYTES % (AUTO) 9 % (12-44); MEAN CORPUSCULAR HEMOGLOBIN 34 PG (25-34); MEAN CORPUSCULAR HGB CONC 34 G/DL (32-36); MEAN CORPUSCULAR VOLUME 100 FL (80-99); MEAN PLATELET VOLUME 11.6 FL (7.4-10.4); MONOCYTES # (AUTO) 0.8 X 10^3 (0.0-1.0); MONOCYTES % (AUTO) 7 % (0-12); NEUTROPHILS # (AUTO) 9.8 X 10^3 (1.8-7.8); NEUTROPHILS % (AUTO) 81 % (42-75); PLATELET COUNT 47 10^3/uL (130-400); RED BLOOD COUNT 3.52 10^6/uL (4.35-5.85); RED CELL DISTRIBUTION WIDTH 18.1 % (10.0-14.5); WHITE BLOOD COUNT 12.1 10^3/uL (4.3-11.0)
[2016-10-24 05:32] LABS: ALBUMIN 1.8 G/DL (3.2-4.5); BILIRUBIN,TOTAL 1.9 MG/DL (0.1-1.0); CALCIUM 8.1 MG/DL (8.5-10.1); CREATININE SERUM 1.17 MG/DL (0.60-1.30); MAGNESIUM 1.4 MG/DL (1.8-2.4); POTASSIUM 3.6 MMOL/L (3.6-5.0); TOTAL PROTEIN 5.8 G/DL (6.4-8.2)
[2016-10-24] MEDS: inSUlin (REGULAR) HUMAN 1 UNIT/0.01 ML (CHARGE PER UNIT) SC SCH ×4 (06:29→21:28)
[2016-10-24] MEDS: NS IV 1000 ML 1,000 ML IV SCH ×2 (06:32→19:03)
[2016-10-24] MEDS: LACTULOSE SYRUP 10GM/15ML (ENULOSE) 30ML UDC PO SCH ×4 (06:32→16:56)
[2016-10-24] MEDS: LACTOBACILLUS Acidoph/Bulgar (LACTINEX/FLORANEX) TAB PO SCH ×3 (06:32→16:55)
--- NOTE | 2016-10-24 07:41 | Progress Note (SOAP) ---
Subjective Time Seen by Provider: 07:20 Subjective/Events-last exam cirrhosis. Increase lactic acid. UTI. Platelet count 47,000. GFR better at 47. Magnesium 1.4. Serum ammonia 67 coming down Patient not out of bed yet to walk. Patient states she's feeling much better Objective Exam Vital Signs Date Time Temp Pulse Resp B/P (MAP) Pulse Ox O2 Delivery O2 Flow Rate FiO2 10/24/16 04:21 98.6 102 19 150/82 99 10/24/16 00:00 98.6 105 19 148/85 99 10/23/16 20:00 96 10/23/16 19:23 99.0 102 22 155/83 98 10/23/16 15:55 98.6 103 22 134/81 97 10/23/16 12:00 97.8 103 16 140/81 96 10/23/16 08:00 98.9 99 20 144/82 100 I & O 10/24/16 07:00 Intake Total 1070 ml Output Total 600 ml Balance 470 ml Capillary Refill : Less Than 3 Seconds General Appearance: No Apparent Distress, WD/WN HEENT: Normal ENT Inspection Neck: Full Range of Motion Respiratory: Chest Non Tender, Lungs Clear, Normal Breath Sounds, No Accessory Muscle Use, No Respiratory Distress Cardiovascular: Regular Rate, Rhythm, No Murmur Gastrointestinal: non tender, soft Results Lab Laboratory Tests 10/24/16 04:42 Laboratory Tests 10/23/16 11:12: Glucometer 216H 10/23/16 16:13: Glucometer 254H 10/23/16 20:47: Glucometer 222H 10/24/16 04:42: White Blood Count 12.1H, Red Blood Count 3.52L, Hemoglobin 11.8, Hematocrit 35, Mean Corpuscular Volume 100H, Mean Corpuscular Hemoglobin 34, Mean Corpuscular Hemoglobin Concent 34, Red Cell Distribution Width 18.1H, Platelet Count 47L, Mean Platelet Volume 11.6H, Neutrophils (%) (Auto) 81H, Lymphocytes (%) (Auto) 9L, Monocytes (%) (Auto) 7, Eosinophils (%) (Auto) 2, Basophils (%) (Auto) 0, Neutrophils # (Auto) 9.8H, Lymphocytes # (Auto) 1.1, Monocytes # (Auto) 0.8, Eosinophils # (Auto) 0.3, Basophils # (Auto) 0.0, Sodium Level 139, Potassium Level 3.6, Chloride Level 114H, Carbon Dioxide Level 19L, Anion Gap 6, Blood Urea Nitrogen 31H, Creatinine 1.17, Estimat Glomerular Filtration Rate 47, BUN/ Creatinine Ratio 26, Glucose Level 189H, Calcium Level 8.1L, Magnesium Level 1.4L, Total Bilirubin 1.9H, Aspartate Amino Transf (AST/SGOT) 40H, Alanine Aminotransferase (ALT/SGPT) 32, Alkaline Phosphatase 97, Ammonia 67H, Total Protein 5.8L, Albumin 1.8L Microbiology 10/18/16 Blood Culture - Preliminary, Resulted No growth 10/18/16 Urine Culture - Final, Complete Escherichia Coli Staph, Coag Neg (Patient Care Representative) Assessment/Plan Assessment/Plan Assess & Plan/Chief Complaint patient fragile. Nausea and vomiting. Elevated lactic acid. Cirrhosis. Chronic thrombocytopenia. UTI. Ascites. Hypokalemia. Cellulitis of leg. . 10/22/16. Patient looks better today. Patient is taking more fluids. Patient more alert. Platelet count 41,000. gFR improving. Family offered to transfer mother to [facility]. Since patient improving family wants to wait. . 10/23/16. Patient feeling better today. patient awake yesterday. GFR improving. Platelet count went to 46,0. Serum ammonia 81 came down a little. Patient has diarrhea. Patient to work in progress. Patient to start physical therapy. infection. Cirrhosis. Thrombocytopenia. More alert. . 10/24/16. Renal insufficiency. Confusion better. Cirrhosis. Thrombocytopenia stable. infection. Elevated lactic acid resolved. See if patient can walk today get and get out of bed Clinical Quality Measures DVT/VTE Risk/Contraindication: Risk Factor Score Per Nursin RFS Level Per Nursing on Admit: 4+=Very High Contraindications-Pharm: Other *list below* Other: PT HAS LOW PLATELETS AGUSTINA AMOS DO Oct 24, 2016 07:41
[2016-10-24 08:00] VITALS: BP 156/82
[2016-10-24 08:17] LABS: BILIRUBIN,URINE NEGATIVE (NEGATIVE); KETONES,URINE NEGATIVE (NEGATIVE); LEUKOCYTE ESTERASE ,URINE 3+ (NEGATIVE); NITRITE,URINE NEGATIVE (NEGATIVE); PH,URINE 6 (5-9); PROTEIN,URINE 2+ (NEGATIVE); UROBILINOGEN,URINE NORMAL (NORMAL)
[2016-10-24 08:28] LABS: SQUAMOUS EPITHELIAL CELL,UR RARE /HPF; WBC,URINE 50-100 /HPF; YEAST,URINE MODERATE /HPF
[2016-10-24] MEDS: RIFAXIMIN 550 MG TABLET (XIFAXAN) PO SCH ×2 (09:32→21:29)
[2016-10-24] MEDS: VITAMIN D3 1,000 UNITS (CHOLECALCIFEROL) TABLET PO SCH (09:33)
[2016-10-24] MEDS: FUROSEMIDE 40 MG (LASIX) TAB PO SCH (09:33)
[2016-10-24] MEDS: PANTOPRAZOLE 40 MG (PROTONIX) TAB PO SCH (09:33)
[2016-10-24] MEDS: MAGNESIUM 1 GM/100 ML IVPB 100 ML IV SCH ×3 (09:33→15:32)
--- NOTE | 2016-10-24 11:30 | Physical Therapy Evaluation ---
PT Evaluation-General Medical Diagnosis Admission Date Oct 18, 2016 at 20:36 Medical Diagnosis: UTI/elevated lactic acid Onset Date: Oct 18, 2016 Therapy Diagnosis Therapy Diagnosis: generalized weakness/ debility Height/Weight Height (Feet): 5 Height (Inches): 5.00 Weight (Pounds): 239 Weight (Ounces): 8.0 Precautions Precautions/Isolations: Fall Prevention, Standard Precautions Weight Bear Status Weight Bearing Restriction: Weight Bearing/Tolerated Location Restriction: LE Bilateral Referral Physician: Valentina Reason for Referral: Evaluation/Treatment Medical History Pertinent Medical History: Arthritis, CAD, GERD, HTN, Neuropathy, Renal Insufficiency Additional Medical History cirrhosis; liver disease Current History multiple abscesses, cellulitis left LE; chronic leg sores Reviewed History: Yes Social History Home: Single Level Current Living Status: Children Prior/[facility] FIM Prior Level of Function Functional [place] Measure 0=Not Assessed/NA 4=Minimal Assistance 1=Total Assistance 5=Supervision or Setup 2=Maximal Assistance 6=Modified [place] 3=Moderate Assistance 7=Complete [place] Bed Mobility: 7 Transfers (B,C,W/C) (FIM): 7 Gait: 7 per patient report, was independent PLOF PT Evaluation-Current Subjective Patient is very tearful due to left LE pain from cellulitis and is very vocal with response of increasing activity. Reluctantly agrees. Pain Numeric Pain Scale: 10-Worst Possible Pain Location: Left Location Body Site: Calf Pain Description: Burning, Chronic, Sharp Objective Patient Orientation: Normal For Age Problem Solving: Fair Attachments: Patel Catheter, IV ROM/Strength ROM Lower Extremities bilateral LE WFL Strenght Lower Extremities bilateral LE WFL (no formal testing due to patient refusal to allow PT to touch LE's) Integumentary/Posture Integumentary refer to nursing notes Bladder Incontinence: Patel Cath Posture WNL Neuromuscular (Tone, Coordination, Reflexes) grossly intact Sensory Vision: Functional Hearing: Functional Sensation Right Lower Extremit: Intact Sensation Left Lower Extremity: Intact Transfers Functional [place] Measure 0=Not Assessed/NA 4=Minimal Assistance 1=Total Assistance 5=Supervision or Setup 2=Maximal Assistance 6=Modified [place] 3=Moderate Assistance 7=Complete [place] Transfers (B, C, W/C) (FIM): 4 Scootin Rollin Supine to/from Sit: 4 Sit to/from Stand: 5 patient yells and cries when asked to stand and transfer to chair Gait Mode of Locomotion: Walk Anticipated Mode of Locomotion: Walk Gait (FIM): 1 Distance (FIM): 1=up to 49 ft Distance: 5' Gait Level of Assist: 4 Gait Persons Needed: 1 Gait Assistive Device: FWW Comments/Gait Description much encouragement required to perform this task Balance Sitting Static: Normal Sitting Dynamic: Normal Standing Static: Normal Standing Dynamic: Normal Assessment/Needs 61 y.o. female, will benefit from skilled PT to address functional strength and mobility to improve current LOF and to safely return to home with family at maximum LOF. Patient self limits activity due to left LE pain from cellulitis. Rehab Potential: Fair Post Rehab Potential-Barriers: compliance PT Eligibility And Occupancy Interviewer Goals Eligibility And Occupancy Interviewer Goals PT Eligibility And Occupancy Interviewer Goals Time Frame: Oct 31, 2016 Transfers (B,C,W/C) (FIM): 5 Gait (FIM): 2 Gait distance (FIM): 9=275-56 ft Distance: 50' Gait Level of Assist: 5 Gait Assistive Device: FWW PT Plan Problem List Problem List: Activity Tolerance, Functional Strength, Safety, Balance, Gait, Transfer, Bed Mobility Treatment/Plan Treatment Plan: Continue Plan of Care Treatment Plan: Bed Mobility, Education, Functional Activity Renetta, Functional Strength, Gait, Safety, Therapeutic Exercise, Transfers Treatment Duration: Oct 31, 2016 # of days/week 6 Visits Per Week: 6 Pt/Family Agrees w/Plan: Yes Safety Risks/Education Patient Education: Safety Issues Teaching Recipient: Patient, Family Teaching Methods: Discussion Response to Teaching: Reinforcement Needed Discharge Recommendations Therapy D/C Recommendations: Home w/ Family Support Time/GCodes Time In: 1002 Time Out: 1017 Total Billed Treatment Time: 15 Total Billed Treatment 1 visit EVLow 15 min ELLE SQUIRES PT Oct 24, 2016 11:30
[2016-10-24] MEDS ORDERED: MAGNESIUM 1 GM/100 ML IVPB 200 ML IV ONE (12:20)
--- NOTE | 2016-10-24 14:30 | Occ Therapy Progress Note ---
Therapy Progress Note OT attempted evaluation, as pt. declined yesterday. Family in room. States that pt. has been up in chair, but that her left leg swelled and that she went back to bed. They would like pt. to sleep now. OT asked to see pt's leg, as family reports that it is very swollen. OT able to lift blankets without pt. waking, as family is adament that she sleep. Noted that left LE is swollen, and tight, with increased shine due to severe swelling. Noted large red area around ankle, but no wounds on foot area. OT speaks with family for quite a bit. Educate them on positioning her, as well as making sure that no pressure areas form from being in one place too long. They verbalize understanding and seem very involved in her care. They do request having a wheelchair in room in case pt. would like to go outside with them and nursing permission later on. OT obtained a reclining wheelchair with left leg extension from rehab unit. Educated family on how to use it. Let family know that if pt. wakes and does want to go outside, that this OT would be happy to come back and get her up into chair, as long as nursing informs. Family verbalizes understanding, but states that for now, they would like her to rest, as she has been up quite a bit today, and now has increased swelling. [id number] 1, visit no charge BEVERLY GRANT OT Oct 24, 2016 14:30
[2016-10-24 15:15] VITALS: BP 138/76
[2016-10-24] MEDS ORDERED: LACTULOSE SYRUP 10GM/15ML (ENULOSE) 30ML UDC PO SCH (21:00)
[2016-10-25 00:20] VITALS: BP 153/83
[2016-10-25] MEDS: inSUlin (REGULAR) HUMAN 1 UNIT/0.01 ML (CHARGE PER UNIT) SC SCH ×4 (06:01→21:46)
[2016-10-25] MEDS: LACTOBACILLUS Acidoph/Bulgar (LACTINEX/FLORANEX) TAB PO SCH ×3 (06:04→18:00)
[2016-10-25 06:38] LABS: MEAN CORPUSCULAR HEMOGLOBIN 33 PG (25-34); MEAN CORPUSCULAR HGB CONC 33 G/DL (32-36); MEAN CORPUSCULAR VOLUME 99 FL (80-99); PLATELET COUNT 45 10^3/uL (130-400); RED BLOOD COUNT 3.45 10^6/uL (4.35-5.85); WHITE BLOOD COUNT 11.2 10^3/uL (4.3-11.0)
[2016-10-25 07:06] LABS: ALBUMIN 1.6 G/DL (3.2-4.5); BILIRUBIN,TOTAL 2.1 MG/DL (0.1-1.0); CALCIUM 8.1 MG/DL (8.5-10.1); CREATININE SERUM 1.29 MG/DL (0.60-1.30); POTASSIUM 3.8 MMOL/L (3.6-5.0); TOTAL PROTEIN 5.6 G/DL (6.4-8.2)
--- NOTE | 2016-10-25 07:45 | Progress Note (SOAP) ---
Subjective Time Seen by Provider: 07:25 Subjective/Events-last exam patient feeling better and doing better Cellulitis of left leg is worse after patient dangled her legs. DC Rocephin and put on clindamycin IV. Cirrhosis. Thrombocytopenia. Increase lactic acid. UTI Objective Exam Vital Signs Date Time Temp Pulse Resp B/P (MAP) Pulse Ox O2 Delivery O2 Flow Rate FiO2 10/25/16 00:20 98.3 101 22 153/83 97 10/24/16 15:15 98.2 110 18 138/76 99 10/24/16 08:00 98.6 101 18 156/82 98 I & O 10/25/16 07:00 Intake Total 577 ml Output Total 525 ml Balance 52 ml Capillary Refill : Less Than 3 Seconds General Appearance: No Apparent Distress, WD/WN HEENT: Other (Thrush in mouth) Neck: Full Range of Motion, Normal Inspection Respiratory: Chest Non Tender, Lungs Clear, Normal Breath Sounds, No Accessory Muscle Use, No Respiratory Distress Cardiovascular: Regular Rate, Rhythm, No Murmur Gastrointestinal: non tender, soft Extremity: Other (Left leg cellulitis causing pain when walks) Results Lab Laboratory Tests 10/24/16 10:59: Glucometer 195H 10/24/16 16:12: Glucometer 263H 10/24/16 21:27: Glucometer 230H 10/25/16 05:58: Glucometer 186H 10/25/16 06:30: White Blood Count 11.2H, Red Blood Count 3.45L, Hemoglobin 11.4L, Hematocrit 34L , Mean Corpuscular Volume 99, Mean Corpuscular Hemoglobin 33, Mean Corpuscular Hemoglobin Concent 33, Red Cell Distribution Width 18.0H, Platelet Count 45L, Mean Platelet Volume , Sodium Level 135, Potassium Level 3.8, Chloride Level 111H, Carbon Dioxide Level 17L, Anion Gap 7, Blood Urea Nitrogen 30H, Creatinine 1.29, Estimat Glomerular Filtration Rate 42, BUN/Creatinine Ratio 23 , Glucose Level 203H, Calcium Level 8.1L, Total Bilirubin 2.1H, Aspartate Amino Transf (AST/SGOT) 41H, Alanine Aminotransferase (ALT/SGPT) 31, Alkaline Phosphatase 98, Ammonia 68H, Total Protein 5.6L, Albumin 1.6L Microbiology 10/18/16 Blood Culture - Preliminary, Resulted No growth 10/18/16 Urine Culture - Final, Complete Escherichia Coli Staph, Coag Neg (Roof Cement And Paint Maker Helper) Assessment/Plan Assessment/Plan Assess & Plan/Chief Complaint patient fragile. Nausea and vomiting. Elevated lactic acid. Cirrhosis. Chronic thrombocytopenia. UTI. Ascites. Hypokalemia. Cellulitis of leg. . 10/22/16. Patient looks better today. Patient is taking more fluids. Patient more alert. Platelet count 41,000. gFR improving. Family offered to transfer mother to [facility]. Since patient improving family wants to wait. . 10/23/16. Patient feeling better today. patient awake yesterday. GFR improving. Platelet count went to 46,0. Serum ammonia 81 came down a little. Patient has diarrhea. Patient to work in progress. Patient to start physical therapy. infection. Cirrhosis. Thrombocytopenia. More alert. . 10/24/16. Renal insufficiency. Confusion better. Cirrhosis. Thrombocytopenia stable. infection. Elevated lactic acid resolved. See if patient can walk today get and get out of bed. . 10/25/16. Cirrhosis. Cellulitis of left leg. Thrush in the mouth. Thrombocytopenia. Elevated lactic acid. Patient overall improving except for cellulitis of the left leg Clinical Quality Measures DVT/VTE Risk/Contraindication: Risk Factor Score Per Nursin RFS Level Per Nursing on Admit: 4+=Very High Contraindications-Pharm: Other *list below* Other: PT HAS LOW PLATELETS AGUSTINA AMOS DO Oct 25, 2016 07:45
[2016-10-25 08:00] VITALS: BP 134/79
[2016-10-25] MEDS: PANTOPRAZOLE 40 MG (PROTONIX) TAB PO SCH (08:27)
[2016-10-25] MEDS: FUROSEMIDE 40 MG (LASIX) TAB PO SCH (08:27)
[2016-10-25] MEDS: CLINDAMYCIN INJECTION 600 MG in NS (IVPB) 50 ML IV SCH ×2 (08:27→18:05)
[2016-10-25] MEDS: RIFAXIMIN 550 MG TABLET (XIFAXAN) PO SCH ×2 (08:27→20:19)
[2016-10-25] MEDS: LACTULOSE SYRUP 10GM/15ML (ENULOSE) 30ML UDC PO SCH ×3 (08:27→20:19)
[2016-10-25] MEDS: VITAMIN D3 1,000 UNITS (CHOLECALCIFEROL) TABLET PO SCH (08:30)
--- NOTE | 2016-10-25 09:55 | Physical Therapy Daily Note ---
PT Daily Note-Current Subjective Patient is in bed and lethargic. Agrees to exercise only. Pain Numeric Pain Scale: 10-Worst Possible Pain Location: Right Location Body Site: Calf Pain Description: Pressure, Sharp Mental Status Patient Orientation: Mumbles, Listless Attachments: IV Transfers Functional [place] Measure 0=Not Assessed/NA 4=Minimal Assistance 1=Total Assistance 5=Supervision or Setup 2=Maximal Assistance 6=Modified [place] 3=Moderate Assistance 7=Complete IndependenceIRFPAI Quality Coding Scale 6 Independent with activity with or without an assistive device 5 Patient requires set up or clean up by helper. Patient completes activity by themselves 4 Supervision or touching assist (CGA). [place] provide cues , steadying assist 3 The helper provides less than half the effort to complete the activity 2 The helper provides more than half the effort to complete the activity 1 Dependent. The helper does all the effort to complete an activity 7 Patient refused to complete or attempt activity 9 The patient did not perform the activity before the current illness or injury 88 Not attempted due to Medical conditions or safety concerns Transfers (B, C, W/C) (FIM): 2 Scootin Rollin patient declined OOB and on commode for toilet use. Bed murcia placed under patient. Exercises Supine Ex: Ankle pumps, Quad Set, Heel Slides Supine Reps: 10 Assessment Patient tolerates minimal activity and does not allow PT to touch right LE. Patient's family told patient, in front of PT, that she is not to walk and she is to stay in bed. PT consulted with physician which reports patient is to get up to commode and ambulate as tolerated. PT Facilities Custodian Goals Facilities Custodian Goals PT Intermediate Goals Time Frame: Oct 31, 2016 Transfers (B,C,W/C) (FIM): 5 Gait (FIM): 2 Gait distance (FIM): 4=422-53 ft Distance: 50' Gait Level of Assist: 5 Gait Assistive Device: FWW PT Plan Treatment/Plan Treatment Plan: Continue Plan of Care Treatment Plan: Bed Mobility, Education, Functional Activity Renetta, Functional Strength, Gait, Safety, Therapeutic Exercise, Transfers Treatment Duration: Oct 31, 2016 Visits Per Week: 6 Time/GCodes Time In: 910 Time Out: 920 Total Billed Treatment Time: 10 Total Billed Treatment 1 visit EX 10 min ELLE SQUIRES PT Oct 25, 2016 09:55
--- NOTE | 2016-10-25 11:24 | Occupational Therapy Eval ---
OT Evaluation-General/PLF Medical Diagnosis Admission Date Oct 18, 2016 at 20:36 Medical Diagnosis: UTI/elevated lactic acid Onset Date: Oct 18, 2016 Therapy Diagnosis Therapy Diagnosis: Weakness s/p cellulitis in left LE Height/Weight Height (Feet): 5 Height (Inches): 5.00 Weight (Pounds): 245 Weight (Ounces): 0.5 Precautions Precautions/Isolations: Fall Prevention, Standard Precautions Safety Interventions: None Weight Bear Status Weight Bearing Restriction: Weight Bearing/Tolerated Location Restriction: LE Bilateral Referral Physician: Valentina Referral Reason: Activity Tolerance, Self Care, Evaluation/Treatment, Strengthening/ROM Medical History Pertinent Medical History: Arthritis, CAD, GERD, HTN, Neuropathy, Renal Insufficiency Additional Medical History New cellulitis left leg, pulmonary edema, CAD, neuropathy, abdominal hernia, liver disease, fibromyalgia, anxiety. Current History Pt. has current bought with left LE cellulitis that is painful. Came to hospital with UTI. Reviewed History: Yes Social History Home: Single Level Current Living Status: Spouse Entry Into Home: Stairs With Railing Steps Into Home: 3 Steps Inside Home: 0 ADL-Prior Level of Function ADL PLOF Comments Pt. was ambulating through house "slowly" but without walker. Required assistance at times for ADLs due to long standing medical problems. DME/Equipment: Bedside Commode, Shower DME/Equipment Comments Pt. has a walker but states that she doesn't use it. OT Current Status Subjective Pt. does not state a pain level, but reports pain when OT gently touches her left LE. Cries throughout treatment. Appearance Pt. in bed. Alert. Declines getting out of bed, but OT encourages her to sit on the side. Family in room and state that the DrNitin has been in the room, and "does not want her to walk." Mental Status/Objective Patient Orientation: Person Attachments: IV Current Dentures/Partials: Yes Hand Dominance: Right Upper Extremity ROM Pt. is able to flex bilateral shoulders to approximately 90 degrees. Upper Extremity Strength 2+/5 bilateral UE. ADL-Treatment Functional [place] Measure 0=Not Assessed/NA 4=Minimal Assistance 1=Total Assistance 5=Supervision or Setup 2=Maximal Assistance 6=Modified [place] 3=Moderate Assistance 7=Complete IndependenceIRFPAI Quality Coding Scale 6 Independent with activity with or without an assistive device 5 Patient requires set up or clean up by helper. Patient completes activity by themselves 4 Supervision or touching assist (CGA). [place] provide cues , steadying assist 3 The helper provides less than half the effort to complete the activity 2 The helper provides more than half the effort to complete the activity 1 Dependent. The helper does all the effort to complete an activity 7 Patient refused to complete or attempt activity 9 The patient did not perform the activity before the current illness or injury 88 Not attempted due to Medical conditions or safety concerns Upper Body Dressing (FIM): 3 (Pt. requests to put on her own nightgown on side of bed. Nursing unhooks IV and pt. is able to put hands in and pull down with mod assist needed. OT has to reposition gown while laying down.) Transfers (B, C, W/C) (FIM): 1 (Pt. requires max x 2 for supine-sit, and to scoot to EOB. Dependent to lay down and for bed mobility. Pt. reports severe pain and tenderness in left LE, and does not want to use it.) Other Treatments Pt. requires encouragement. Tearful and anxious throughout treatment. Once sitting, refuses to attempt to stand. Left LE shows less swelling and decreased redness from yesterday. Education OT Patient Education: Correct positioning, Instructions to caregiver, Modified ADL techniques, Progress toward Goal/Update tx plan, Purpose of tx/functional activities, Reviewed precautions, Rehab process, Transfer techniques Teaching Recipient: Patient, Family Teaching Methods: Demonstration, Discussion Response to Teaching: Verbalize Understanding, Return Demonstration OT Short Term Goals Short Term Goals Time Frame: Nov 08, 2016 Eating(FIM): 5 Grooming(FIM): 4 Bathing(FIM): 3 Upper Body Dressing(FIM): 4 Lower Body Dressing(FIM): 3 Toileting(FIM): 3 Transfers (B,C,W/C) (FIM): 3 Toilet/Commode Transfer(FIM): 3 Additional Short Term Goals: 1-Demonstrate ADL Tasks, 2-Verbalize Understanding , 3-ImproveStrength/Renetta 1=Demonstrate adherence to instructed precautions during ADL tasks. 2=Patient will verbalize/demonstrate understanding of assistive devices/ modifications for ADL. 3=Patient will improve strength/tolerance for activity to enable patient to perform ADL's. OT Sql Ssis Developer Goals Fdc Goals Time Frame: Nov 22, 2016 Eating (FIM): 6 Grooming(FIM): 5 Bathing(FIM): 5 Upper Body Dressing(FIM): 5 Lower Body Dressing(FIM): 5 Toileting(FIM): 5 Transfers (B,C,W/C) (FIM): 5 Toilet/Commode Transfer(FIM): 5 Additional Goals: 1-Demonstrate ADL Tasks, 2-Verbalize Understanding, 3- ImproveStrength/Renetta 1=Demonstrate adherence to instructed precautions during ADL tasks. 2=Patient will verbalize/demonstrate understanding of assistive devices/ modifications for ADL. 3=Patient will improve strength/tolerance for activity to enable patient to perform ADL's. OT Education/Plan Problem List/Assessment Assessment: Decreased Activ Tolerance, Decreased UE Strength, Dependent Transfers, Impaired Bed Mobility, Impaired Funct Balance, Impaired I ADL's, Impaired Self-Care Skills, Restricted Funct UE ROM Discharge Recommendations Plan/Recommendations: Continue POC Therapy D/C Recommendations: Acute Rehab Equpiment Recommendations-D/C: Bath Chair, Hip Kit Treatment Plan/Plan of Care Treatment,Training & Education: Yes Patient would benefit from OT for education, treatment and training to promote independence in ADL's, mobility, safety and/or upper extremity function for ADL' s. Plan of Care: ADL Retraining, Caregiver Training, Functional Mobility, UE Funct Exercise/Act Treatment Duration: Nov 22, 2016 Visits Per Week: 5-6 Rehab Potential: Fair Time/GCodes Start Time: 10:50 Stop Time: 11:15 Total Time Billed (hr/min): 25 Billed Treatment Time 1, EVhigh x 10minutes, FA x 15minutes BEVERLY GRANT OT Oct 25, 2016 11:24
[2016-10-25] MEDS: NYSTATIN ORAL SUSP 5 ML UDC PO SCH ×2 (12:30→18:40)
[2016-10-25 16:30] VITALS: BP 157/81
[2016-10-26] VITALS: BP 142/83
[2016-10-26] MEDS: CLINDAMYCIN INJECTION 600 MG in NS (IVPB) 50 ML IV SCH ×2 (00:19→08:12)
[2016-10-26] MEDS: NYSTATIN ORAL SUSP 5 ML UDC PO SCH ×4 (00:21→18:07)
[2016-10-26] MEDS: LACTOBACILLUS Acidoph/Bulgar (LACTINEX/FLORANEX) TAB PO SCH ×3 (05:26→16:19)
[2016-10-26] MEDS: NS IV 1000 ML 1,000 ML IV SCH (05:29)
[2016-10-26 05:43] LABS: BASOPHILS % (AUTO) 0 % (0-10); EOSINOPHILS # (AUTO) 0.3 10^3/uL (0.0-0.3); EOSINOPHILS % (AUTO) 3 % (0-10); LYMPHOCYTES # (AUTO) 0.9 X 10^3 (1.0-4.0); LYMPHOCYTES % (AUTO) 10 % (12-44); MEAN CORPUSCULAR HEMOGLOBIN 33 PG (25-34); MEAN CORPUSCULAR HGB CONC 33 G/DL (32-36); MEAN CORPUSCULAR VOLUME 99 FL (80-99); MONOCYTES # (AUTO) 0.7 X 10^3 (0.0-1.0); MONOCYTES % (AUTO) 8 % (0-12); NEUTROPHILS # (AUTO) 7.3 X 10^3 (1.8-7.8); NEUTROPHILS % (AUTO) 79 % (42-75); PLATELET COUNT 50 10^3/uL (130-400); RED BLOOD COUNT 3.38 10^6/uL (4.35-5.85); RED CELL DISTRIBUTION WIDTH 17.7 % (10.0-14.5); WHITE BLOOD COUNT 9.2 10^3/uL (4.3-11.0)
[2016-10-26 06:29] LABS: ALBUMIN 1.8 G/DL (3.2-4.5); BILIRUBIN,TOTAL 1.8 MG/DL (0.1-1.0); CALCIUM 8.2 MG/DL (8.5-10.1); CREATININE SERUM 1.26 MG/DL (0.60-1.30); POTASSIUM 3.5 MMOL/L (3.6-5.0); TOTAL PROTEIN 5.6 G/DL (6.4-8.2)
[2016-10-26] MEDS: inSUlin (REGULAR) HUMAN 1 UNIT/0.01 ML (CHARGE PER UNIT) SC SCH ×4 (06:36→22:01)
[2016-10-26 08:00] VITALS: BP 149/83
[2016-10-26] MEDS: LACTULOSE SYRUP 10GM/15ML (ENULOSE) 30ML UDC PO SCH ×3 (08:12→20:16)
[2016-10-26] MEDS: FUROSEMIDE 40 MG (LASIX) TAB PO SCH (08:13)
[2016-10-26] MEDS: PANTOPRAZOLE 40 MG (PROTONIX) TAB PO SCH (08:13)
[2016-10-26] MEDS: RIFAXIMIN 550 MG TABLET (XIFAXAN) PO SCH ×2 (08:13→20:16)
[2016-10-26] MEDS: VITAMIN D3 1,000 UNITS (CHOLECALCIFEROL) TABLET PO SCH (08:13)
--- NOTE | 2016-10-26 11:32 | Progress Note (SOAP) ---
Subjective Date Seen by Provider: Oct 26, 2016 Time Seen by Provider: 11:27 Subjective/Events-last exam F/U Cellulitis LLE, T2D c hyperglycemia; thrombocytopenia, cirrhosis, hypomagnesemia, hypokalemia. States LLE less tender with decreased redness and swelling. Review of Systems General: No Chills, No Night Sweats, No Fatigue, No Malaise, No Appetite, No Other HEENT: No Head Aches, No Visual Changes, No Eye Pain, No Ear Pain, No Dysphasia , No Sinus Congestion, No Post Nasal Drip, No Sore Throat, No Other Pulmonary: No Dyspnea, No Cough, No Pleuritic Chest Pain, No Other Cardiovascular: No: Chest Pain, Edema, Lt Headedness, Orthopnea, Other, Palpitations, Paroxysmal Noc. Dyspnea Gastrointestinal: No: Abdominal Pain, Constipation, Diarrhea, Hematochezia, Melena, Nausea, Other, Vomiting Genitourinary: No Dysuria, No Frequency, No Incontinence, No Hematuria, No Retention, No Other Musculoskeletal: leg pain (LLE) Neurological: No: Change in speech, Confusion, Incoordination, Numbness, Other , Seizures, Weakness Objective Exam Vital Signs Date Time Temp Pulse Resp B/P (MAP) Pulse Ox O2 Delivery O2 Flow Rate FiO2 10/26/16 08:00 97.8 84 16 149/83 96 Room Air 10/26/16 00:00 99.0 103 18 142/83 98 Room Air 10/25/16 20:15 Room Air 10/25/16 16:30 98.3 102 18 157/81 98 Room Air I & O 10/26/16 07:00 Intake Total 2122 ml Output Total 200 ml Balance 1922 ml Capillary Refill : Less Than 3 Seconds General Appearance: No Apparent Distress HEENT: PERRL/EOMI Neck: Normal Inspection, Supple Respiratory: Lungs Clear, No Respiratory Distress Cardiovascular: Regular Rate, Rhythm Peripheral Pulses: 2+ Dorsalis Pedis (R), 2+ Left Dors-Pedis (L) Gastrointestinal: normal bowel sounds, non tender, soft Extremity: Pedal Edema (4+), Swelling (erythema decreased per pen marking) Neurologic/Psychiatric: Alert, Oriented x3 Skin: Normal Color (exception LLE), Erythema (LLE) Results Lab Laboratory Tests 10/25/16 16:28: Glucometer 258H 10/25/16 21:22: Glucometer 269H 10/26/16 05:33: White Blood Count 9.2, Red Blood Count 3.38L, Hemoglobin 11.2L, Hematocrit 34L, Mean Corpuscular Volume 99, Mean Corpuscular Hemoglobin 33, Mean Corpuscular Hemoglobin Concent 33, Red Cell Distribution Width 17.7H, Platelet Count 50L, Mean Platelet Volume , Neutrophils (%) (Auto) 79H, Lymphocytes (%) (Auto) 10L, Monocytes (%) (Auto) 8, Eosinophils (%) (Auto) 3, Basophils (%) (Auto) 0, Neutrophils # (Auto) 7.3, Lymphocytes # (Auto) 0.9L, Monocytes # (Auto) 0.7, Eosinophils # (Auto) 0.3, Basophils # (Auto) 0.0, Sodium Level 137, Potassium Level 3.5L, Chloride Level 111H, Carbon Dioxide Level 18L, Anion Gap 8, Blood Urea Nitrogen 29H, Creatinine 1.26, Estimat Glomerular Filtration Rate 43, BUN/ Creatinine Ratio 23, Glucose Level 227H, Calcium Level 8.2L, Total Bilirubin 1.8H, Aspartate Amino Transf (AST/SGOT) 37H, Alanine Aminotransferase (ALT/SGPT ) 31, Alkaline Phosphatase 132, Ammonia 65H, Total Protein 5.6L, Albumin 1.8L 10/26/16 11:08: Glucometer 193H Microbiology 10/18/16 Blood Culture - Final, Complete No growth 10/24/16 Urine Culture - Preliminary, Resulted Assessment/Plan Assessment/Plan Assess & Plan/Chief Complaint 1) Cellulitis LLE increase clindamycin to 900mg TID 2) T2D c Hyperglycemia- Levemir 20units qd; continue insulin SS per protocol 3) Thrombocytopenia-monitor plt counts, increased today 4) Hypomagnesemia and hypokalemia-replaced and labs ordered in AM 5) Cirrhosis- continue lactulose Clinical Quality Measures DVT/VTE Risk/Contraindication: Risk Factor Score Per Nursin RFS Level Per Nursing on Admit: 4+=Very High Contraindications-Pharm: Other *list below* Other: PT HAS LOW PLATELETS SHREYA BECKER DO Oct 26, 2016 11:32
[2016-10-26] MEDS ORDERED: KCL 20 MEQ TAB (K-DUR) PO NR (11:37)
--- NOTE | 2016-10-26 12:41 | Physical Therapy Progress Note ---
Therapy Progress Note Pt refused PT on the grounds that she had just returned from a walk with a family member. CHERIE DUGGAN PT Oct 26, 2016 12:41
[2016-10-26] MEDS: CLINDAMYCIN INJECTION 900 MG in NS (IVPB) 50 ML IV SCH ×2 (15:14→22:07)
[2016-10-26 16:01] VITALS: BP 136/64
[2016-10-26] MEDS: MAGNESIUM OXIDE (MAG-OX)400 MG TAB PO SCH (18:07)
[2016-10-26] MEDS: inSUlin DETERMIR 1 UNIT/0.01 ML (LEVEMIR) CHARGE PER UNIT SQ SCH (22:01)
[2016-10-27] VITALS: BP 125/57
[2016-10-27] MEDS: NYSTATIN ORAL SUSP 5 ML UDC PO SCH ×5 (00:46→23:21)
[2016-10-27 05:34] LABS: BASOPHILS # (AUTO) 0.1 10^3/uL (0.0-0.1); BASOPHILS % (AUTO) 1 % (0-10); EOSINOPHILS # (AUTO) 0.3 10^3/uL (0.0-0.3); EOSINOPHILS % (AUTO) 3 % (0-10); LYMPHOCYTES # (AUTO) 1.2 X 10^3 (1.0-4.0); LYMPHOCYTES % (AUTO) 12 % (12-44); MEAN CORPUSCULAR HEMOGLOBIN 33 PG (25-34); MEAN CORPUSCULAR HGB CONC 34 G/DL (32-36); MEAN CORPUSCULAR VOLUME 99 FL (80-99); MONOCYTES # (AUTO) 0.9 X 10^3 (0.0-1.0); MONOCYTES % (AUTO) 10 % (0-12); NEUTROPHILS % (AUTO) 75 % (42-75); PLATELET COUNT 50 10^3/uL (130-400); RED BLOOD COUNT 3.37 10^6/uL (4.35-5.85); RED CELL DISTRIBUTION WIDTH 17.8 % (10.0-14.5); WHITE BLOOD COUNT 9.4 10^3/uL (4.3-11.0)
[2016-10-27] MEDS: LACTOBACILLUS Acidoph/Bulgar (LACTINEX/FLORANEX) TAB PO SCH ×3 (05:35→17:03)
[2016-10-27] MEDS: CLINDAMYCIN INJECTION 900 MG in NS (IVPB) 50 ML IV SCH ×3 (05:35→21:03)
[2016-10-27 05:57] LABS: BAND NEUTROPHILS 3 %; BASOPHILS % (MANUAL) 0 %; EOSINOPHILS % (MANUAL) 5 %; LYMPHOCYTES % (MANUAL) 11 %; METAMYELOCYTES % 1 %; NEUTROPHILS % (MANUAL) 76 %
[2016-10-27 05:58] LABS: ANISOCYTOSIS MODERATE; MICROCYTOSIS SLIGHT; POLYCHROMASIA SLIGHT; TEAR DROP CELLS SLIGHT
[2016-10-27 06:31] LABS: ALBUMIN 1.6 G/DL (3.2-4.5); BILIRUBIN,TOTAL 2.1 MG/DL (0.1-1.0); CALCIUM 8.2 MG/DL (8.5-10.1); CREATININE SERUM 1.14 MG/DL (0.60-1.30); MAGNESIUM 1.2 MG/DL (1.8-2.4); POTASSIUM 3.6 MMOL/L (3.6-5.0); TOTAL PROTEIN 5.4 G/DL (6.4-8.2)
[2016-10-27] MEDS: inSUlin (REGULAR) HUMAN 1 UNIT/0.01 ML (CHARGE PER UNIT) SC SCH ×4 (06:35→21:28)
[2016-10-27 08:00] VITALS: BP 115/65
[2016-10-27] MEDS: FUROSEMIDE 40 MG (LASIX) TAB PO SCH (08:36)
[2016-10-27] MEDS: VITAMIN D3 1,000 UNITS (CHOLECALCIFEROL) TABLET PO SCH (08:36)
[2016-10-27] MEDS: LACTULOSE SYRUP 10GM/15ML (ENULOSE) 30ML UDC PO SCH ×3 (08:36→20:15)
[2016-10-27] MEDS: NS IV 1000 ML 1,000 ML IV SCH (08:36)
[2016-10-27] MEDS: RIFAXIMIN 550 MG TABLET (XIFAXAN) PO SCH ×2 (08:37→20:15)
[2016-10-27] MEDS: MAGNESIUM OXIDE (MAG-OX)400 MG TAB PO SCH ×2 (08:37→17:04)
[2016-10-27] MEDS: PANTOPRAZOLE 40 MG (PROTONIX) TAB PO SCH (08:37)
[2016-10-27] MEDS ORDERED: IOHEXOL 350 MG/ML 100 ML (OMNIPAQUE 350) VIAL IV ONE (09:30)
[2016-10-27] MEDS ORDERED: NS 100 ML (IVPB) BAG IV ONE (09:30)
--- NOTE | 2016-10-27 11:31 | Progress Note (SOAP) ---
Subjective Date Seen by Provider: Oct 27, 2016 Time Seen by Provider: 11:27 Subjective/Events-last exam F/U Cellulitis LLE, T2D c hyperglycemia; thrombocytopenia, cirrhosis, hypomagnesemia, hypokalemia. States LLE less tender with decreased redness and swelling. No new complaints. Objective Exam Vital Signs Date Time Temp Pulse Resp B/P (MAP) Pulse Ox O2 Delivery O2 Flow Rate FiO2 10/27/16 08:00 99.3 80 20 115/65 97 Room Air 10/27/16 08:00 97 Room Air 10/27/16 00:00 99.4 78 18 125/57 97 Room Air 10/26/16 20:15 Room Air 10/26/16 16:01 98.2 89 16 136/64 98 Room Air I & O 10/27/16 07:00 Intake Total 1859 ml Output Total 525 ml Balance 1334 ml Capillary Refill : Less Than 3 Seconds General Appearance: No Apparent Distress Neck: Supple Respiratory: Lungs Clear Cardiovascular: Regular Rate, Rhythm Gastrointestinal: normal bowel sounds, non tender, soft Extremity: Non Tender, No Calf Tenderness, Pedal Edema (1) Neurologic/Psychiatric: Alert, Oriented x3 Skin: Erythema (to LLE from mid calf down to ankle lessened with less swelling and less tenderness on palpation) Results Lab Laboratory Tests 10/26/16 16:27: Glucometer 278H 10/26/16 21:00: Glucometer 265H 10/27/16 05:12: White Blood Count 9.4, Red Blood Count 3.37L, Hemoglobin 11.2L, Hematocrit 33L, Mean Corpuscular Volume 99, Mean Corpuscular Hemoglobin 33, Mean Corpuscular Hemoglobin Concent 34, Red Cell Distribution Width 17.8H, Platelet Count 50L, Mean Platelet Volume , Neutrophils (%) (Auto) 75, Lymphocytes (%) (Auto) 12, Monocytes (%) (Auto) 10, Eosinophils (%) (Auto) 3, Basophils (%) (Auto) 1, Neutrophils # (Auto) 7.0, Lymphocytes # (Auto) 1.2, Monocytes # (Auto) 0.9, Eosinophils # (Auto) 0.3, Basophils # (Auto) 0.1, Neutrophils % (Manual) 76, Lymphocytes % (Manual) 11, Monocytes % (Manual) 4, Eosinophils % (Manual) 5, Basophils % (Manual) 0, Metamyelocytes % 1, Band Neutrophils 3, Toxic Granulation 1+, Polychromasia SLIGHT, Anisocytosis MODERATE, Microcytosis SLIGHT , Macrocytosis MODERATE, Tear Drop Cells SLIGHT, Sodium Level 138, Potassium Level 3.6, Chloride Level 114H, Carbon Dioxide Level 18L, Anion Gap 6, Blood Urea Nitrogen 27H, Creatinine 1.14, Estimat Glomerular Filtration Rate 49, BUN/ Creatinine Ratio 24, Glucose Level 140H, Calcium Level 8.2L, Magnesium Level 1.2L, Total Bilirubin 2.1H, Aspartate Amino Transf (AST/SGOT) 44H, Alanine Aminotransferase (ALT/SGPT) 29, Alkaline Phosphatase 107, Total Protein 5.4L, Albumin 1.6L Microbiology 10/18/16 Blood Culture - Final, Complete No growth 10/24/16 Urine Culture - Preliminary, Resulted Yeast Species Assessment/Plan Assessment/Plan Assess & Plan/Chief Complaint 1) Cellulitis LLE --continue increased dose of clindamycin at 900mg TID 2) T2D c Hyperglycemia- Levemir 20units qd added yesterday and BS down to 140 this AM; continue insulin SS per protocol 3) Thrombocytopenia--monitor plt counts,stable 4) Hypomagnesemia and hypokalemia-replace potassium orally today and replace Magnesium in IV today and labs ordered in AM 5) Cirrhosis- continue lactulose Clinical Quality Measures DVT/VTE Risk/Contraindication: Risk Factor Score Per Nursin RFS Level Per Nursing on Admit: 4+=Very High Contraindications-Pharm: Other *list below* Other: PT HAS LOW PLATELETS SHREYA BECKER DO Oct 27, 2016 11:31
[2016-10-27] MEDS ORDERED: KCL 10 MEQ TAB (MICRO K) PO NR (11:49)
[2016-10-27] MEDS: MAGNESIUM 1 GM/100 ML IVPB 100 ML IV SCH ×4 (12:03→17:02)
--- NOTE | 2016-10-27 13:43 | Diagnostic Imaging Report ---
PROCEDURE: CT abdomen with and without contrast. TECHNIQUE: Multiple contiguous axial CT images of the abdomen were obtained prior to and after intravenous administration of iodinated contrast. INDICATION: Increased lactic acid bloating and abdominal pain Comparison made with prior examination from 06/23/15. FINDINGS: The heart size is normal. There is some minimal right basilar atelectasis and/or pneumonitis. Left lung base is clear. The liver is somewhat small and demonstrates a macronodular appearance. There is a complex mass in the right lobe of the liver which appears to demonstrate some enhancement. Possibility of underlying neoplasm cannot be excluded. There is no obvious biliary ductal dilatation. Gallbladder is surgically absent. There is splenomegaly. The pancreas and adrenal glands unremarkable. Kidneys are grossly normal in appearance. There is some atherosclerotic calcification of the aorta which is nonaneurysmal. Bowel gas pattern is nonspecific. There is no free air. There is diffuse subcutaneous edema compatible with anasarca. IMPRESSION: Macronodular cirrhotic appearance of liver with complex partially enhancing mass in the right lobe. Possibility of underlying neoplasm cannot be excluded. This could conceivably reflect regenerating nodule however is slightly more apparent than on the prior examination. Splenomegaly and ascites compatible with portal venous hypertension. Diffuse subcutaneous edema compatible with anasarca. Minimal right basilar atelectasis and/or pneumonitis. Dictated by: Dictated on workstation # [id number]
[2016-10-27] MEDS: ALBUMIN 25% 25 GM/100 ML 50 ML IV SCH ×2 (15:07→21:56)
[2016-10-27 15:46] VITALS: BP 137/79
[2016-10-27] MEDS: inSUlin DETERMIR 1 UNIT/0.01 ML (LEVEMIR) CHARGE PER UNIT SQ SCH (21:28)
[2016-10-27] MEDS: fentaNYL INJECTION 100 MCG/2 ML AMP IVP PRN (22:01)
[2016-10-28] VITALS: BP 125/61
[2016-10-28 05:19] LABS: BASOPHILS % (AUTO) 1 % (0-10); EOSINOPHILS # (AUTO) 0.2 10^3/uL (0.0-0.3); EOSINOPHILS % (AUTO) 3 % (0-10); LYMPHOCYTES % (AUTO) 14 % (12-44); MEAN CORPUSCULAR HEMOGLOBIN 33 PG (25-34); MEAN CORPUSCULAR HGB CONC 34 G/DL (32-36); MEAN CORPUSCULAR VOLUME 99 FL (80-99); MONOCYTES # (AUTO) 0.7 X 10^3 (0.0-1.0); MONOCYTES % (AUTO) 10 % (0-12); NEUTROPHILS # (AUTO) 5.2 X 10^3 (1.8-7.8); NEUTROPHILS % (AUTO) 73 % (42-75); PLATELET COUNT 66 10^3/uL (130-400); RED BLOOD COUNT 3.27 10^6/uL (4.35-5.85); RED CELL DISTRIBUTION WIDTH 17.9 % (10.0-14.5); WHITE BLOOD COUNT 7.1 10^3/uL (4.3-11.0)
[2016-10-28] MEDS: CLINDAMYCIN INJECTION 900 MG in NS (IVPB) 50 ML IV SCH ×3 (05:19→21:55)
[2016-10-28] MEDS: LACTOBACILLUS Acidoph/Bulgar (LACTINEX/FLORANEX) TAB PO SCH ×3 (05:25→18:41)
[2016-10-28] MEDS: KCL 10 MEQ TAB (MICRO K) PO SCH (05:25)
[2016-10-28] MEDS: NYSTATIN ORAL SUSP 5 ML UDC PO SCH ×4 (05:25→23:55)
[2016-10-28 05:50] LABS: ALBUMIN 2.1 G/DL (3.2-4.5); BILIRUBIN,TOTAL 1.9 MG/DL (0.1-1.0); CALCIUM 8.3 MG/DL (8.5-10.1); CREATININE SERUM 1.25 MG/DL (0.60-1.30); POTASSIUM 3.7 MMOL/L (3.6-5.0); TOTAL PROTEIN 5.7 G/DL (6.4-8.2)
[2016-10-28] MEDS: inSUlin (REGULAR) HUMAN 1 UNIT/0.01 ML (CHARGE PER UNIT) SC SCH ×4 (05:57→21:56)
[2016-10-28] MEDS: ALBUMIN 25% 25 GM/100 ML 50 ML IV SCH ×2 (06:18→13:38)
[2016-10-28 08:00] VITALS: BP 138/65
--- NOTE | 2016-10-28 08:43 | Progress Note (SOAP) ---
Subjective Time Seen by Provider: 08:40 Objective Exam Vital Signs Date Time Temp Pulse Resp B/P (MAP) Pulse Ox O2 Delivery O2 Flow Rate FiO2 10/28/16 00:00 98.6 76 20 125/61 98 Room Air 10/27/16 19:50 Room Air 10/27/16 15:46 98.4 82 20 137/79 99 Room Air I & O 10/28/16 07:00 Intake Total 2784 ml Output Total 800 ml Balance 1984 ml Capillary Refill : Less Than 3 Seconds General Appearance: No Apparent Distress, WD/WN HEENT: Normal ENT Inspection Neck: Normal Inspection Respiratory: Chest Non Tender, No Accessory Muscle Use, No Respiratory Distress Cardiovascular: Regular Rate, Rhythm Gastrointestinal: soft Results Lab Laboratory Tests 10/27/16 11:23: Glucometer 138H 10/27/16 16:17: Glucometer 234H 10/27/16 21:11: Glucometer 251H 10/28/16 04:50: White Blood Count 7.1, Red Blood Count 3.27L, Hemoglobin 10.9L, Hematocrit 32L, Mean Corpuscular Volume 99, Mean Corpuscular Hemoglobin 33, Mean Corpuscular Hemoglobin Concent 34, Red Cell Distribution Width 17.9H, Platelet Count 66L, Mean Platelet Volume , Neutrophils (%) (Auto) 73, Lymphocytes (%) (Auto) 14, Monocytes (%) (Auto) 10, Eosinophils (%) (Auto) 3, Basophils (%) (Auto) 1, Neutrophils # (Auto) 5.2, Lymphocytes # (Auto) 1.0, Monocytes # (Auto) 0.7, Eosinophils # (Auto) 0.2, Basophils # (Auto) 0.0, Sodium Level 137, Potassium Level 3.7, Chloride Level 113H, Carbon Dioxide Level 16L, Anion Gap 8, Blood Urea Nitrogen 26H, Creatinine 1.25, Estimat Glomerular Filtration Rate 44, BUN/ Creatinine Ratio 21, Glucose Level 161H, Calcium Level 8.3L, Magnesium Level 2.0 , Total Bilirubin 1.9H, Aspartate Amino Transf (AST/SGOT) 49H, Alanine Aminotransferase (ALT/SGPT) 29, Alkaline Phosphatase 125, Total Protein 5.7L, Albumin 2.1L Microbiology 10/18/16 Blood Culture - Final, Complete No growth 10/24/16 Urine Culture - Preliminary, Resulted Yeast Species Assessment/Plan Assessment/Plan Assess & Plan/Chief Complaint patient fragile. Nausea and vomiting. Elevated lactic acid. Cirrhosis. Chronic thrombocytopenia. UTI. Ascites. Hypokalemia. Cellulitis of leg. . 10/22/16. Patient looks better today. Patient is taking more fluids. Patient more alert. Platelet count 41,000. gFR improving. Family offered to transfer mother to [facility]. Since patient improving family wants to wait. . 10/23/16. Patient feeling better today. patient awake yesterday. GFR improving. Platelet count went to 46,0. Serum ammonia 81 came down a little. Patient has diarrhea. Patient to work in progress. Patient to start physical therapy. infection. Cirrhosis. Thrombocytopenia. More alert. . 10/24/16. Renal insufficiency. Confusion better. Cirrhosis. Thrombocytopenia stable. infection. Elevated lactic acid resolved. See if patient can walk today get and get out of bed. . 10/25/16. Cirrhosis. Cellulitis of left leg. Thrush in the mouth. Thrombocytopenia. Elevated lactic acid. Patient overall improving except for cellulitis of the left leg. . 10/28/16. Cirrhosis. Lesion right lobe of liver. Cellulitis of left leg. To get in touch with the [facility] liver specialist Clinical Quality Measures DVT/VTE Risk/Contraindication: Risk Factor Score Per Nursin RFS Level Per Nursing on Admit: 4+=Very High Contraindications-Pharm: Other *list below* Other: PT HAS LOW PLATELETS AGUSTINA AMOS DO Oct 28, 2016 08:43
[2016-10-28] MEDS: LACTULOSE SYRUP 10GM/15ML (ENULOSE) 30ML UDC PO SCH ×3 (08:54→21:55)
[2016-10-28] MEDS: MAGNESIUM OXIDE (MAG-OX)400 MG TAB PO SCH ×2 (08:54→18:41)
[2016-10-28] MEDS: RIFAXIMIN 550 MG TABLET (XIFAXAN) PO SCH ×2 (08:54→21:55)
[2016-10-28] MEDS: PANTOPRAZOLE 40 MG (PROTONIX) TAB PO SCH (08:54)
[2016-10-28] MEDS: FUROSEMIDE 40 MG (LASIX) TAB PO SCH (08:54)
[2016-10-28] MEDS: VITAMIN D3 1,000 UNITS (CHOLECALCIFEROL) TABLET PO SCH (08:55)
--- NOTE | 2016-10-28 11:13 | Occupational Ther Daily Note ---
OT Current Status-Daily Note Subjective Pt. states that she does not want to get up. However, does agree with encouragement. Appearance Pt. in bed. Left LE is propped on pillow with wound seeping on top. Noted drainage coming out of it. Mental Status/Objective Patient Orientation: Person Functional [place] Measure 0=Not Assessed/NA 4=Minimal Assistance 1=Total Assistance 5=Supervision or Setup 2=Maximal Assistance 6=Modified [place] 3=Moderate Assistance 7=Complete [place] ADL-Treatment Toileting (FIM): 1 (Pt. requests to urinate, but refuses to get to BSC. Rolls with max assist for bed murcia placement. Dependent with cleansing area as well.) Transfers (B, C, W/C) (FIM): 2 (Max assist needed to roll and transfer to side of bed. Max to scoot to side of bed.) Other Treatment Pt. agreed to transfer to side of bed. Sat on side of bed approximately 15 minutes. Noted that wound on left LE began to drain. Drainage purulent. OT placed towels under leg and allowed to drain. Nursing notified of drainage. Pt. able to hold self up on side of bed. Required dependent assist to transfer back to supine, and then for bed mobility. Pt. soiled sheets with drainage, so OT and tech assisted pt. to roll while bed was changed. Pt. requests bed murcia. Required increased time to urinate once it was placed. All needs were met in room and pt. was educated on importance of getting up and sitting on side of bed. Pt. verbalizes understanding. Education OT Patient Education: Correct positioning, Modified ADL techniques, Progress toward Goal/Update tx plan, Purpose of tx/functional activities, Reviewed precautions, Rehab process, Transfer techniques Teaching Recipient: Patient, Family Teaching Methods: Demonstration, Discussion Response to Teaching: Verbalize Understanding, Return Demonstration OT Short Term Goals Short Term Goals Time Frame: Nov 08, 2016 Eating(FIM): 5 Grooming(FIM): 4 Bathing(FIM): 3 Upper Body Dressing(FIM): 4 Lower Body Dressing(FIM): 3 Toileting(FIM): 3 Transfers (B,C,W/C) (FIM): 3 Toilet/Commode Transfer(FIM): 3 Additional Short Term Goals: 1-Demonstrate ADL Tasks, 2-Verbalize Understanding , 3-ImproveStrength/Renetta 1=Demonstrate adherence to instructed precautions during ADL tasks. 2=Patient will verbalize/demonstrate understanding of assistive devices/ modifications for ADL. 3=Patient will improve strength/tolerance for activity to enable patient to perform ADL's. OT Penitentiary Goals Penitentiary Goals Time Frame: Nov 22, 2016 Eating (FIM): 6 Grooming(FIM): 5 Bathing(FIM): 5 Upper Body Dressing(FIM): 5 Lower Body Dressing(FIM): 5 Toileting(FIM): 5 Transfers (B,C,W/C) (FIM): 5 Toilet/Commode Transfer(FIM): 5 Additional Goals: 1-Demonstrate ADL Tasks, 2-Verbalize Understanding, 3- ImproveStrength/Renetta 1=Demonstrate adherence to instructed precautions during ADL tasks. 2=Patient will verbalize/demonstrate understanding of assistive devices/ modifications for ADL. 3=Patient will improve strength/tolerance for activity to enable patient to perform ADL's. OT Education/Plan Problem List/Assessment Assessment: Decreased Activ Tolerance, Decreased Safety Aware, Decreased UE Strength, Dependent Transfers, Impaired Bed Mobility, Impaired Funct Balance, Impaired I ADL's, Impaired Self-Care Skills Discharge Recommendations Plan/Recommendations: Continue POC Therapy D/C Recommendations: 24 hr Supervision Treatment Plan/Plan of Care Treatment,Training & Education: Yes Patient would benefit from OT for education, treatment and training to promote independence in ADL's, mobility, safety and/or upper extremity function for ADL' s. Plan of Care: ADL Retraining, Caregiver Training, Functional Mobility, UE Funct Exercise/Act Treatment Duration: Nov 22, 2016 Visits Per Week: 5-6 Rehab Potential: Fair Time/GCodes Start Time: 09:30 Stop Time: 10:10 Total Time Billed (hr/min): 40 Billed Treatment Time 1, FA x 3 BEVERLY GRANT OT Oct 28, 2016 11:13
--- NOTE | 2016-10-28 13:41 | Physical Therapy Progress Note ---
Therapy Progress Note Patient declined PT this a.m. due to left LE pain. PT educated patient on importance of participating with therapy to decrease possible negative side effects, however, patient continued to decline PT. Will attempt in a.m. 1 ref ([id number]) ELLE SQUIRES PT Oct 28, 2016 13:41
[2016-10-28 16:07] VITALS: BP 128/60
[2016-10-28] MEDS: inSUlin DETERMIR 1 UNIT/0.01 ML (LEVEMIR) CHARGE PER UNIT SQ SCH (21:55)
[2016-10-29] VITALS: BP 151/72
[2016-10-29] MEDS: NYSTATIN ORAL SUSP 5 ML UDC PO SCH ×4 (05:47→23:56)
[2016-10-29] MEDS: LACTOBACILLUS Acidoph/Bulgar (LACTINEX/FLORANEX) TAB PO SCH ×3 (05:47→16:36)
[2016-10-29] MEDS: CLINDAMYCIN INJECTION 900 MG in NS (IVPB) 50 ML IV SCH ×3 (05:48→21:03)
[2016-10-29 05:52] LABS: MEAN CORPUSCULAR HEMOGLOBIN 34 PG (25-34); MEAN CORPUSCULAR HGB CONC 34 G/DL (32-36); MEAN CORPUSCULAR VOLUME 100 FL (80-99); RED BLOOD COUNT 3.11 10^6/uL (4.35-5.85); WHITE BLOOD COUNT 6.5 10^3/uL (4.3-11.0)
[2016-10-29 05:55] LABS: ALBUMIN 2.2 G/DL (3.2-4.5); BILIRUBIN,TOTAL 2.4 MG/DL (0.1-1.0); CALCIUM 8.4 MG/DL (8.5-10.1); CREATININE SERUM 1.19 MG/DL (0.60-1.30); POTASSIUM 3.6 MMOL/L (3.6-5.0); TOTAL PROTEIN 5.1 G/DL (6.4-8.2)
[2016-10-29 06:03] LABS: PLATELET COUNT 35 10^3/uL (130-400)
[2016-10-29] MEDS: inSUlin (REGULAR) HUMAN 1 UNIT/0.01 ML (CHARGE PER UNIT) SC SCH ×4 (06:11→21:03)
[2016-10-29] MEDS: KCL 10 MEQ TAB (MICRO K) PO SCH (06:14)
--- NOTE | 2016-10-29 07:37 | Progress Note (SOAP) ---
Subjective Time Seen by Provider: 07:10 Subjective/Events-last exam patient clinically feeling better. Patient is eating. Patient alert. Patient unable to walk due to pain in left leg. Left leg has cellulitis and draining Platelet count went down to 35,000 from 66,000. Patient put on Diflucan for Casi of urine. I will call hepatology today to see what they want me to do. I would like transfer Spoke to patient and daughter about this Objective Exam Vital Signs Date Time Temp Pulse Resp B/P (MAP) Pulse Ox O2 Delivery O2 Flow Rate FiO2 10/29/16 00:00 97.8 88 20 151/72 93 Room Air 10/28/16 20:00 Room Air 10/28/16 16:07 97.9 79 20 128/60 96 Room Air 10/28/16 08:00 98.2 80 20 138/65 97 Room Air I & O 10/29/16 07:00 Intake Total 1552 ml Output Total 250 ml Balance 1302 ml Capillary Refill : Less Than 3 Seconds General Appearance: No Apparent Distress, WD/WN HEENT: Normal ENT Inspection Neck: Full Range of Motion, Normal Inspection Respiratory: Chest Non Tender, Lungs Clear, Normal Breath Sounds, No Accessory Muscle Use, No Respiratory Distress Cardiovascular: Regular Rate, Rhythm, No Murmur Gastrointestinal: non tender, no organomegaly Extremity: Other (Cellulitis left leg) Results Lab Laboratory Tests 10/28/16 11:01: Glucometer 174H 10/28/16 16:16: Glucometer 190H 10/28/16 21:10: Glucometer 274H 10/29/16 05:15: White Blood Count 6.5, Red Blood Count 3.11L, Hemoglobin 10.7L, Hematocrit 31L, Mean Corpuscular Volume 100H, Mean Corpuscular Hemoglobin 34, Mean Corpuscular Hemoglobin Concent 34, Red Cell Distribution Width 18.0H, Platelet Count 35*L, Mean Platelet Volume , Sodium Level 139, Potassium Level 3.6, Chloride Level 113H, Carbon Dioxide Level 18L, Anion Gap 8, Blood Urea Nitrogen 26H, Creatinine 1.19, Estimat Glomerular Filtration Rate 46, BUN/Creatinine Ratio 22 , Glucose Level 156H, Calcium Level 8.4L, Total Bilirubin 2.4H, Aspartate Amino Transf (AST/SGOT) 32, Alanine Aminotransferase (ALT/SGPT) 25, Alkaline Phosphatase 109, Ammonia 49H, Total Protein 5.1L, Albumin 2.2L 10/29/16 06:09: Glucometer 143H Microbiology 10/18/16 Blood Culture - Final, Complete No growth 10/24/16 Urine Culture - Final, Complete Casi [place] Assessment/Plan Assessment/Plan Assess & Plan/Chief Complaint patient fragile. Nausea and vomiting. Elevated lactic acid. Cirrhosis. Chronic thrombocytopenia. UTI. Ascites. Hypokalemia. Cellulitis of leg. . 10/22/16. Patient looks better today. Patient is taking more fluids. Patient more alert. Platelet count 41,000. gFR improving. Family offered to transfer mother to [facility]. Since patient improving family wants to wait. . 10/23/16. Patient feeling better today. patient awake yesterday. GFR improving. Platelet count went to 46,0. Serum ammonia 81 came down a little. Patient has diarrhea. Patient to work in progress. Patient to start physical therapy. infection. Cirrhosis. Thrombocytopenia. More alert. . 10/24/16. Renal insufficiency. Confusion better. Cirrhosis. Thrombocytopenia stable. infection. Elevated lactic acid resolved. See if patient can walk today get and get out of bed. . 10/25/16. Cirrhosis. Cellulitis of left leg. Thrush in the mouth. Thrombocytopenia. Elevated lactic acid. Patient overall improving except for cellulitis of the left leg. . 10/28/16. Cirrhosis. Lesion right lobe of liver. Cellulitis of left leg. To get in touch with the [facility] liver specialist. . 10/29/16. Cirrhosis. Thrombocytopenia worse. Cellulitis of left leg Patient unable to walk. Lesion in right lobe of liver Casi of urine Clinical Quality Measures DVT/VTE Risk/Contraindication: Risk Factor Score Per Nursin RFS Level Per Nursing on Admit: 4+=Very High Contraindications-Pharm: Other *list below* Other: PT HAS LOW PLATELETS AGUSTINA AMOS DO Oct 29, 2016 07:37
[2016-10-29 08:00] VITALS: BP 130/60
--- NOTE | 2016-10-29 09:28 | Physical Therapy Daily Note ---
PT Daily Note-Current Subjective Patient states, "This hospital can kiss my ass." This was after PT request for patient to actively participate with therapy and perform OOB activity. Pain Numeric Pain Scale: 10-Worst Possible Pain Location: Left, Soft Tissue Location Body Site: Ankle Pain Description: Pressure, Burning, Sharp Mental Status Patient Orientation: Person, Time, Situation Transfers Functional [place] Measure 0=Not Assessed/NA 4=Minimal Assistance 1=Total Assistance 5=Supervision or Setup 2=Maximal Assistance 6=Modified [place] 3=Moderate Assistance 7=Complete IndependenceIRFPAI Quality Coding Scale 6 Independent with activity with or without an assistive device 5 Patient requires set up or clean up by helper. Patient completes activity by themselves 4 Supervision or touching assist (CGA). [place] provide cues , steadying assist 3 The helper provides less than half the effort to complete the activity 2 The helper provides more than half the effort to complete the activity 1 Dependent. The helper does all the effort to complete an activity 7 Patient refused to complete or attempt activity 9 The patient did not perform the activity before the current illness or injury 88 Not attempted due to Medical conditions or safety concerns Transfers (B, C, W/C) (FIM): 4 Scootin Rollin Supine to/from Sit: 4 Sit to/from Stand: 4 Patient declined up in chair and stood to allow RECORDAK OPERATOR to change bedding due to patient's left LE drainage. Patient is very tearful and hateful during treatment session. Weight Bearing Weight Bearing Restriction: Weight Bearing/Tolerated Location Restriction: LE Bilateral Exercises Seated Therapy Exercises: Ankle pumps, Long arc quads Seated Reps: 10 (2 sets) Assessment Current Status: Poor Progress Patient continues to self limit with activity. Exercises, bed mobility and transfers performed to increase strength and mobility to return to home. PT Short Term Goals Short Term Goals Transfers (B,C,W/C) (FIM): 3 PT Toby Maker Goals Prison Goals PT Toby Maker Goals Time Frame: Oct 31, 2016 Transfers (B,C,W/C) (FIM): 5 Gait (FIM): 2 Gait distance (FIM): 5=339-68 ft Distance: 50' Gait Level of Assist: 5 Gait Assistive Device: FWW PT Plan Treatment/Plan Treatment Plan: Continue Plan of Care Treatment Plan: Bed Mobility, Education, Functional Activity Renetta, Functional Strength, Gait, Safety, Therapeutic Exercise, Transfers Treatment Duration: Oct 31, 2016 Visits Per Week: 6 Safety Risks/Education Patient Education: Disease Process Teaching Recipient: Patient Teaching Methods: Discussion Response to Teaching: Reinforcement Needed Time/GCodes Time In: 815 Time Out: 840 Total Billed Treatment Time: 25 Total Billed Treatment 1 visit FA 15 min EX10 min ELLE SQUIRES PT Oct 29, 2016 09:28
[2016-10-29] MEDS: FUROSEMIDE 40 MG (LASIX) TAB PO SCH (09:35)
[2016-10-29] MEDS: fluCOnazole (DIFLUCAN) 100 MG TAB PO SCH (09:35)
[2016-10-29] MEDS: VITAMIN D3 1,000 UNITS (CHOLECALCIFEROL) TABLET PO SCH (09:35)
[2016-10-29] MEDS: MAGNESIUM OXIDE (MAG-OX)400 MG TAB PO SCH ×2 (09:35→16:36)
[2016-10-29] MEDS: LACTULOSE SYRUP 10GM/15ML (ENULOSE) 30ML UDC PO SCH ×3 (09:35→21:03)
[2016-10-29] MEDS: RIFAXIMIN 550 MG TABLET (XIFAXAN) PO SCH ×2 (09:35→21:03)
[2016-10-29] MEDS: PANTOPRAZOLE 40 MG (PROTONIX) TAB PO SCH (09:35)
[2016-10-29] MEDS: SPIRONOLACTONE 25 MG (ALDACTONE) TAB PO SCH (10:43)
[2016-10-29 15:30] VITALS: BP 126/65
--- NOTE | 2016-10-29 16:28 | Occupational Ther Daily Note ---
OT Current Status-Daily Note Subjective "I don't want to do much honey." Appearance Pt. in bed. Granddaughter feeding her soup. Nursing giving her medication. Mental Status/Objective Patient Orientation: Person Functional [place] Measure 0=Not Assessed/NA 4=Minimal Assistance 1=Total Assistance 5=Supervision or Setup 2=Maximal Assistance 6=Modified [place] 3=Moderate Assistance 7=Complete [place] Other Treatment Pt. declines all out of bed activity at this time, stating that she was up earlier and that her foot "just oozed." Pt. is issued theraband and hand sponge to increase overall strength with UE. Pt. completes 20 bilateral hand squeezes, and 2 exercises x 15 reps each with red theraband in different plains. Pt. is strongly educated on importance of keeping her hand and arm strength, as she will be using these more when getting up onto walker. pt. is also encouraged to do more for herself, such as feeding self, brushing her hair , and washing herself. Pt. states, "I have been doing that." Education OT Patient Education: Correct positioning, Exercise program, Modified ADL techniques Teaching Recipient: Patient, Family Teaching Methods: Demonstration, Discussion Response to Teaching: Verbalize Understanding, Return Demonstration OT Short Term Goals Short Term Goals Time Frame: Nov 08, 2016 Eating(FIM): 5 Grooming(FIM): 4 Bathing(FIM): 3 Upper Body Dressing(FIM): 4 Lower Body Dressing(FIM): 3 Toileting(FIM): 3 Transfers (B,C,W/C) (FIM): 3 Toilet/Commode Transfer(FIM): 3 Additional Short Term Goals: 1-Demonstrate ADL Tasks, 2-Verbalize Understanding , 3-ImproveStrength/Renetta 1=Demonstrate adherence to instructed precautions during ADL tasks. 2=Patient will verbalize/demonstrate understanding of assistive devices/ modifications for ADL. 3=Patient will improve strength/tolerance for activity to enable patient to perform ADL's. OT Care Home Goals Gear Shaver Set Up Operator Goals Time Frame: Nov 22, 2016 Eating (FIM): 6 Grooming(FIM): 5 Bathing(FIM): 5 Upper Body Dressing(FIM): 5 Lower Body Dressing(FIM): 5 Toileting(FIM): 5 Transfers (B,C,W/C) (FIM): 5 Toilet/Commode Transfer(FIM): 5 Additional Goals: 1-Demonstrate ADL Tasks, 2-Verbalize Understanding, 3- ImproveStrength/Renetta 1=Demonstrate adherence to instructed precautions during ADL tasks. 2=Patient will verbalize/demonstrate understanding of assistive devices/ modifications for ADL. 3=Patient will improve strength/tolerance for activity to enable patient to perform ADL's. OT Education/Plan Problem List/Assessment Assessment: Decreased Activ Tolerance, Decreased UE Strength, Dependent Transfers, Impaired Bed Mobility, Impaired Cognition, Impaired Funct Balance, Impaired I ADL's, Impaired Self-Care Skills, Restricted Funct UE ROM Discharge Recommendations Plan/Recommendations: Continue POC Therapy D/C Recommendations: 24 hr Supervision Treatment Plan/Plan of Care Treatment,Training & Education: Yes Patient would benefit from OT for education, treatment and training to promote independence in ADL's, mobility, safety and/or upper extremity function for ADL' s. Plan of Care: ADL Retraining, Caregiver Training, Functional Mobility, UE Funct Exercise/Act Treatment Duration: Nov 22, 2016 Visits Per Week: 5-6 Rehab Potential: Fair Time/GCodes Start Time: 13:25 Stop Time: 13:40 Total Time Billed (hr/min): 15 Billed Treatment Time 1, EX BEVERLY GRANT OT Oct 29, 2016 16:28
--- NOTE | 2016-10-29 18:27 | Wound Care Progress Note ---
Subjective Subjective Subjective/Events-last exam The patient is a 61-year-old female admitted 10 days ago with lactic acidosis, with persistent swelling and pain in her left calf. Venous Doppler evaluation on 10/13/16 demonstrated no evidence of DVT. The patient has multiple medical problems with advanced cirrhosis of the liver, esophageal varices, chronic renal failure, pulmonary edema and debility. Patient has a limited ability to walk. The patient complains of weeping from the calf when sitting or standing. There is right medial calf excoriation, but no open ulcer. Left calf is flattened by laying in bed for long periods of time. Past Medical History: Coronary artery disease, pulmonary edema, hypertension, chronic renal failure, current urinary tract infections, end-stage cirrhosis of the liver, with portal hypertension, with esophageal varices with bleeding, splenomegaly, thrombocytopenia, diabetes mellitus, history of multiple MRSA abscesses with drainage, fibromyalgia, migraine headaches, arthritis with debility. Family History: Positive for heart disease diabetes and hypertension. Social History: The patient is , lives with her daughter, and smokes. Review of Systems Date Seen by Provider: Oct 29, 2016 Time Seen by Provider: 18:15 General: Fatigue, Malaise HEENT: Head Aches Pulmonary: No Dyspnea Cardiovascular: No: Chest Pain Gastrointestinal: Abdominal Pain Musculoskeletal: leg pain Neurological: Weakness Skin: Age from legs when up. endocrine on insulin for diabetes. Objective Exam Last Set of Vital Signs Vital Signs Date Time Temp Pulse Resp B/P (MAP) Pulse Ox O2 Delivery O2 Flow Rate FiO2 10/29/16 15:30 98.2 72 20 126/65 99 Room Air Capillary Refill : Less Than 3 Seconds I&O Intake and Output 10/29/16 00:00 Intake Total 1438 ml Output Total 350 ml Balance 1088 ml Intake Oral 1282 ml IV Total 156 ml Output Urine Total 350 ml # Voids 7 # Bowel Movements 8 General: Alert, Oriented X3, Cooperative HEENT: Atraumatic Neck: No JVD Lungs: Clear to Auscultation, Normal Air Movement Heart: Regular Rate, No Murmurs Abdomen: Normal Bowel Sounds, Other (massive hepatosplenomegaly with the liver to handbreadths below the costal margin and tender.) Extremities: Other (massive edema of the lower extremities, left worse than right.) Skin: Other (hemosiderin staining of the left calf in a gaiter distribution, consistent with chronic venous insufficiency.) Neuro: Normal Speech Psych/Mental Status: Mental Status NL, Mood NL Other Physical Findings no pedal pulses palpable. No calf tenderness. Results Lab Laboratory Tests 10/28/16 21:10: Glucometer 274H 10/29/16 05:15: White Blood Count 6.5, Red Blood Count 3.11L, Hemoglobin 10.7L, Hematocrit 31L, Mean Corpuscular Volume 100H, Mean Corpuscular Hemoglobin 34, Mean Corpuscular Hemoglobin Concent 34, Red Cell Distribution Width 18.0H, Platelet Count 35*L, Mean Platelet Volume , Sodium Level 139, Potassium Level 3.6, Chloride Level 113H, Carbon Dioxide Level 18L, Anion Gap 8, Blood Urea Nitrogen 26H, Creatinine 1.19, Estimat Glomerular Filtration Rate 46, BUN/Creatinine Ratio 22 , Glucose Level 156H, Calcium Level 8.4L, Total Bilirubin 2.4H, Aspartate Amino Transf (AST/SGOT) 32, Alanine Aminotransferase (ALT/SGPT) 25, Alkaline Phosphatase 109, Ammonia 49H, Total Protein 5.1L, Albumin 2.2L 10/29/16 06:09: Glucometer 143H 10/29/16 10:54: Glucometer 155H 10/29/16 16:23: Glucometer 213H Microbiology 10/18/16 Blood Culture - Final, Complete No growth 10/24/16 Urine Culture - Final, Complete Casi Glabrata Assessment/Plan Assessment/Plan Assessment/Plan 1. Persistent swelling of the left leg, greater than right, in a setting of anasarca. 2. Cirrhosis with sequelae of hepatosplenomegaly, portal hypertension, esophageal varices, thrombocytopenia. 3. Coronary artery disease with history of pulmonary edema. 4. chronic renal failure Plan: Will order segmental arterial pressures to evaluate perfusion. This is adequate, in the face of a negative deep vein thrombosis screening test, we can begin compression to a cyst and removal of the edema. In the meantime, I plan to elevate the legs as tolerated from a pulmonary standpoint LYNDON PRESCOTT MD Oct 29, 2016 18:27
[2016-10-29] MEDS: inSUlin DETERMIR 1 UNIT/0.01 ML (LEVEMIR) CHARGE PER UNIT SQ SCH (21:04)
[2016-10-30 00:38] VITALS: BP 149/67
[2016-10-30] MEDS: fentaNYL INJECTION 100 MCG/2 ML AMP IVP PRN (02:07)
[2016-10-30] MEDS: inSUlin (REGULAR) HUMAN 1 UNIT/0.01 ML (CHARGE PER UNIT) SC SCH ×4 (05:16→21:01)
[2016-10-30 05:26] LABS: BASOPHILS # (AUTO) 0.1 10^3/uL (0.0-0.1); BASOPHILS % (AUTO) 1 % (0-10); EOSINOPHILS # (AUTO) 0.2 10^3/uL (0.0-0.3); EOSINOPHILS % (AUTO) 3 % (0-10); LYMPHOCYTES # (AUTO) 0.8 X 10^3 (1.0-4.0); LYMPHOCYTES % (AUTO) 12 % (12-44); MEAN CORPUSCULAR HEMOGLOBIN 33 PG (25-34); MEAN CORPUSCULAR HGB CONC 33 G/DL (32-36); MEAN CORPUSCULAR VOLUME 100 FL (80-99); MONOCYTES # (AUTO) 0.6 X 10^3 (0.0-1.0); MONOCYTES % (AUTO) 10 % (0-12); NEUTROPHILS % (AUTO) 75 % (42-75); RED BLOOD COUNT 3.19 10^6/uL (4.35-5.85); RED CELL DISTRIBUTION WIDTH 18.4 % (10.0-14.5); WHITE BLOOD COUNT 6.7 10^3/uL (4.3-11.0)
[2016-10-30 05:32] LABS: PLATELET COUNT 36 10^3/uL (130-400)
[2016-10-30 05:44] LABS: BILIRUBIN,TOTAL 2.1 MG/DL (0.1-1.0); CALCIUM 8.5 MG/DL (8.5-10.1); CREATININE SERUM 1.19 MG/DL (0.60-1.30); POTASSIUM 3.4 MMOL/L (3.6-5.0); TOTAL PROTEIN 5.5 GM/DL (6.4-8.2)
[2016-10-30] MEDS: NYSTATIN ORAL SUSP 5 ML UDC PO SCH ×4 (05:51→23:23)
[2016-10-30] MEDS: CLINDAMYCIN INJECTION 900 MG in NS (IVPB) 50 ML IV SCH ×3 (05:51→21:01)
[2016-10-30] MEDS: LACTOBACILLUS Acidoph/Bulgar (LACTINEX/FLORANEX) TAB PO SCH ×3 (05:51→17:23)
[2016-10-30] MEDS: KCL 10 MEQ TAB (MICRO K) PO SCH (06:24)
[2016-10-30] MEDS ORDERED: KCL 10 MEQ TAB (MICRO K) PO NR (07:45)
--- NOTE | 2016-10-30 07:52 | Progress Note (SOAP) ---
Subjective Time Seen by Provider: 07:45 Subjective/Events-last exam patient feeling better except for pain in left leg. I spoke to [facility] hepatology yesterday. They told me when patient is discharged they will see her as an outpatient Cirrhosis. Pain in left leg. Patient being seen by wound care. Culture and sensitivity not back y. Thrombocytopenia Objective Exam Vital Signs Date Time Temp Pulse Resp B/P (MAP) Pulse Ox O2 Delivery O2 Flow Rate FiO2 10/30/16 00:38 99.2 77 18 149/67 95 Room Air 10/29/16 20:00 Room Air 10/29/16 15:30 98.2 72 20 126/65 99 Room Air 10/29/16 08:30 Room Air 10/29/16 08:00 96.8 76 16 130/60 98 Room Air I & O 10/30/16 07:00 Intake Total 1380 ml Output Total 725 ml Balance 655 ml Capillary Refill : Less Than 3 Seconds General Appearance: No Apparent Distress, WD/WN HEENT: Normal ENT Inspection Neck: Full Range of Motion, Normal Inspection Respiratory: Chest Non Tender, No Accessory Muscle Use, No Respiratory Distress Cardiovascular: Regular Rate, Rhythm, No Murmur Gastrointestinal: non tender, soft Neurologic/Psychiatric: Other (Left leg cellulitis) Results Lab Laboratory Tests 10/30/16 05:13 Laboratory Tests 10/29/16 10:54: Glucometer 155H 10/29/16 16:23: Glucometer 213H 10/29/16 20:50: Glucometer 210H 10/30/16 05:12: Glucometer 159H 10/30/16 05:13: White Blood Count 6.7, Red Blood Count 3.19L, Hemoglobin 10.6L, Hematocrit 32L, Mean Corpuscular Volume 100H, Mean Corpuscular Hemoglobin 33, Mean Corpuscular Hemoglobin Concent 33, Red Cell Distribution Width 18.4H, Platelet Count 36*L, Mean Platelet Volume , Neutrophils (%) (Auto) 75, Lymphocytes (%) (Auto) 12, Monocytes (%) (Auto) 10, Eosinophils (%) (Auto) 3, Basophils (%) (Auto) 1, Neutrophils # (Auto) 5.0, Lymphocytes # (Auto) 0.8L, Monocytes # (Auto) 0.6, Eosinophils # (Auto) 0.2, Basophils # (Auto) 0.1, Sodium Level 140, Potassium Level 3.4L, Chloride Level 114H, Carbon Dioxide Level 19L, Anion Gap 7, Blood Urea Nitrogen 24H, Creatinine 1.19, Estimat Glomerular Filtration Rate 46, BUN/ Creatinine Ratio 20, Glucose Level 167H, Calcium Level 8.5, Total Bilirubin 2.1H , Aspartate Amino Transf (AST/SGOT) 34, Alanine Aminotransferase (ALT/SGPT) 24, Alkaline Phosphatase 94, Ammonia 42H, Total Protein 5.5L, Albumin 2.0L Microbiology 10/18/16 Blood Culture - Final, Complete No growth 10/24/16 Urine Culture - Final, Complete Casi Glabrata Assessment/Plan Assessment/Plan Assess & Plan/Chief Complaint patient fragile. Nausea and vomiting. Elevated lactic acid. Cirrhosis. Chronic thrombocytopenia. UTI. Ascites. Hypokalemia. Cellulitis of leg. . 10/22/16. Patient looks better today. Patient is taking more fluids. Patient more alert. Platelet count 41,000. gFR improving. Family offered to transfer mother to [facility]. Since patient improving family wants to wait. . 10/23/16. Patient feeling better today. patient awake yesterday. GFR improving. Platelet count went to 46,0. Serum ammonia 81 came down a little. Patient has diarrhea. Patient to work in progress. Patient to start physical therapy. infection. Cirrhosis. Thrombocytopenia. More alert. . 10/24/16. Renal insufficiency. Confusion better. Cirrhosis. Thrombocytopenia stable. infection. Elevated lactic acid resolved. See if patient can walk today get and get out of bed. . 10/25/16. Cirrhosis. Cellulitis of left leg. Thrush in the mouth. Thrombocytopenia. Elevated lactic acid. Patient overall improving except for cellulitis of the left leg. . 10/28/16. Cirrhosis. Lesion right lobe of liver. Cellulitis of left leg. To get in touch with the [facility] liver specialist. . 10/29/16. Cirrhosis. Thrombocytopenia worse. Cellulitis of left leg Patient unable to walk. Lesion in right lobe of liver Casi of urine. . 10/30/16. Cirrhosis. Lesion right liver. Thrombocytopenia. wants to see patient when she gets discharged Clinical Quality Measures DVT/VTE Risk/Contraindication: Risk Factor Score Per Nursin RFS Level Per Nursing on Admit: 4+=Very High Contraindications-Pharm: Other *list below* Other: PT HAS LOW PLATELETS AGUSTINA AMOS DO Oct 30, 2016 07:52
[2016-10-30 08:00] VITALS: BP 106/54
[2016-10-30] MEDS: RIFAXIMIN 550 MG TABLET (XIFAXAN) PO SCH ×2 (09:08→21:00)
[2016-10-30] MEDS: FUROSEMIDE 40 MG (LASIX) TAB PO SCH (09:08)
[2016-10-30] MEDS: PANTOPRAZOLE 40 MG (PROTONIX) TAB PO SCH (09:08)
[2016-10-30] MEDS: MAGNESIUM OXIDE (MAG-OX)400 MG TAB PO SCH ×2 (09:09→17:23)
[2016-10-30] MEDS: LACTULOSE SYRUP 10GM/15ML (ENULOSE) 30ML UDC PO SCH ×3 (09:09→21:00)
[2016-10-30] MEDS: VITAMIN D3 1,000 UNITS (CHOLECALCIFEROL) TABLET PO SCH (09:09)
[2016-10-30] MEDS: SPIRONOLACTONE 25 MG (ALDACTONE) TAB PO SCH (09:09)
[2016-10-30] MEDS: fluCOnazole (DIFLUCAN) 100 MG TAB PO SCH (09:09)
--- NOTE | 2016-10-30 11:58 | Occ Therapy Progress Note ---
Therapy Progress Note 1150 Pt seen in room, stating, "go away." Family reported she just finished with "some kind of test" and was resting in bed. Will attempt this afternoon. SHARON AYALA OT Oct 30, 2016 11:58
--- NOTE | 2016-10-30 12:20 | Diagnostic Imaging Report ---
EXAMINATION: Segmental lower extremity pressure assessment and ankle brachial index measurement. Post volume recording waveforms were Also obtained in the lower extremities. INDICATION: Peripheral arterial disease. FINDINGS: The systolic pressure in the right upper extremity is not occlusive and the left upper extremity is 150 mmHg. RIGHT Lower extremity systolic pressures are: In the mid thigh nonocclusive , in the upper calf nonocclusive, and at the ankle 132 DP, and 134 PT. . LEFT Lower extremity systolic pressures are: In the mid thigh nonocclusive , in the upper calf nonocclusive, and at the ankle nonocclusive DP, and nonocclusive PT. . The BOUCHRA on the right is 0.89, and on the left is could not be measured. Pulse volume recordings waveforms demonstrate severe dampening of the waveforms on the left and mild dampening on the right side. IMPRESSION: Inability to occlude multiple vessels as described, suggestive of atherosclerotic calcifications. There are severely diminished PVR waveforms at the left ankle. The BOUCHRA on the right side is 0.89. Dictated by: Dictated on workstation # [id number]
--- NOTE | 2016-10-30 13:53 | Physical Therapy Progress Note ---
Therapy Progress Note PT attempted to see pt for PT tx at 1110, pt in room having procedure so PT came back at 1140. Pt refused tx due to procedure sharply increased pain. PT talked to both pt and nurse to coordinate PT with afternoon pain med. Nurse reported pain to be given at 1300. PT will see a little later to give pain med time to work. 1 visit, no tx. MARLEE CHAVIS MARINE EQUIPMENT SALES ENGINEER Oct 30, 2016 13:53
--- NOTE | 2016-10-30 15:30 | Physical Therapy Daily Note ---
PT Daily Note-Current Subjective Pt laying Supine in bed upon arrival. Pt had just finished visiting with Amortization Schedule Clerk and did want to participate with any Therapy. PT visited with pt and family on benefits of PT and trying to get home but needing to get up and walk before going home. Pt agreed to PT. Pain Numeric Pain Scale: 10-Worst Possible Pain Location: Left Location Body Site: Hip Mental Status Patient Orientation: Person, Place, Situation Transfers Functional [place] Measure 0=Not Assessed/NA 4=Minimal Assistance 1=Total Assistance 5=Supervision or Setup 2=Maximal Assistance 6=Modified [place] 3=Moderate Assistance 7=Complete IndependenceIRFPAI Quality Coding Scale 6 Independent with activity with or without an assistive device 5 Patient requires set up or clean up by helper. Patient completes activity by themselves 4 Supervision or touching assist (CGA). [place] provide cues , steadying assist 3 The helper provides less than half the effort to complete the activity 2 The helper provides more than half the effort to complete the activity 1 Dependent. The helper does all the effort to complete an activity 7 Patient refused to complete or attempt activity 9 The patient did not perform the activity before the current illness or injury 88 Not attempted due to Medical conditions or safety concerns Transfers (B, C, W/C) (FIM): 3 Scootin Rollin Supine to/from Sit: 3 Exercises Seated Therapy Exercises: Ankle pumps, Long arc quads, Hip flexion, Kicking activity Seated Reps: 15 Treatments Pt and PT engaged in Pt ed over PT benefits, what it takes to get home, Dr order to walk and encouraged pt to not give up but get stronger to be able to go home. Pt transferred from Supine to EOB at Mod A. Pt then completed Sitting Ex as well as sitting at EOB for 15m. Nurse also completed wrap of blister that opened while sitting at EOB. Pt returned to Supine in bed at end of tx with all needs met. Assessment Current Status: Fair Progress Pt needs motivation to continue during tx and is Mod A with transfer. Pt reports will try to get stronger to get home. PT Short Term Goals Short Term Goals Transfers (B,C,W/C) (FIM): 3 PT Regional Sales Associate Goals Regional Sales Associate Goals PT Regional Sales Associate Goals Time Frame: Oct 31, 2016 Transfers (B,C,W/C) (FIM): 5 Gait (FIM): 2 Gait distance (FIM): 6=142-36 ft Distance: 50' Gait Level of Assist: 5 Gait Assistive Device: FWW PT Plan Problem List Problem List: Activity Tolerance, Functional Strength, Safety, Balance, Gait, Transfer, Bed Mobility Treatment/Plan Treatment Plan: Continue Plan of Care Treatment Plan: Bed Mobility, Education, Functional Activity Renetta, Functional Strength, Gait, Safety, Therapeutic Exercise, Transfers Treatment Duration: Oct 31, 2016 Visits Per Week: 6 Safety Risks/Education Patient Education: Transfer Techniques, Correct Positioning, Disease Process, Safety Issues Teaching Recipient: Patient, Family Teaching Methods: Discussion Response to Teaching: Verbalize Understanding Time/GCodes Time In: 1415 Time Out: 1455 Total Billed Treatment Time: 40 Total Billed Treatment visit, EX (15m) & FA x2 (30m) MARLEE CHAVIS BRASS RECLAIMER Oct 30, 2016 15:30
--- NOTE | 2016-10-30 15:31 | Occupational Ther Daily Note ---
OT Current Status-Daily Note Subjective Pt seen in room, agreeable to UE exercise in bed. Stated that she had just gotten back into bed from sitting EOB with PT. No pain mentioned. Appearance Alert, cooperative Mental Status/Objective Functional [place] Measure 0=Not Assessed/NA 4=Minimal Assistance 1=Total Assistance 5=Supervision or Setup 2=Maximal Assistance 6=Modified [place] 3=Moderate Assistance 7=Complete [place] Other Treatment Pt did 10 reps bilat UE squeezes with foam block. Also did 10 reps three different bila UE ex with red theraband, working on shoulders, elbows - muscles needed for pushing up to sit EOB ad to stand for transfers and ADLs. Pt educ on the different exercises and skilled cues provided to maintain correct movements. Pt encouraged to cont to do exercises on her own with theraband. Pt left up in bed, all needs met. Education OT Patient Education: Exercise program, Purpose of tx/functional activities Teaching Methods: Discussion Response to Teaching: Verbalize Understanding OT Short Term Goals Short Term Goals Time Frame: Nov 08, 2016 Eating(FIM): 5 Grooming(FIM): 4 Bathing(FIM): 3 Upper Body Dressing(FIM): 4 Lower Body Dressing(FIM): 3 Toileting(FIM): 3 Transfers (B,C,W/C) (FIM): 3 Toilet/Commode Transfer(FIM): 3 Additional Short Term Goals: 1-Demonstrate ADL Tasks, 2-Verbalize Understanding , 3-ImproveStrength/Renetta 1=Demonstrate adherence to instructed precautions during ADL tasks. 2=Patient will verbalize/demonstrate understanding of assistive devices/ modifications for ADL. 3=Patient will improve strength/tolerance for activity to enable patient to perform ADL's. OT Trucking Contractor Goals Prison Goals Time Frame: Nov 22, 2016 Eating (FIM): 6 Grooming(FIM): 5 Bathing(FIM): 5 Upper Body Dressing(FIM): 5 Lower Body Dressing(FIM): 5 Toileting(FIM): 5 Transfers (B,C,W/C) (FIM): 5 Toilet/Commode Transfer(FIM): 5 Additional Goals: 1-Demonstrate ADL Tasks, 2-Verbalize Understanding, 3- ImproveStrength/Renetta 1=Demonstrate adherence to instructed precautions during ADL tasks. 2=Patient will verbalize/demonstrate understanding of assistive devices/ modifications for ADL. 3=Patient will improve strength/tolerance for activity to enable patient to perform ADL's. OT Education/Plan Discharge Recommendations Plan/Recommendations: Continue POC Treatment Plan/Plan of Care Patient would benefit from OT for education, treatment and training to promote independence in ADL's, mobility, safety and/or upper extremity function for ADL' s. Plan of Care: ADL Retraining, Caregiver Training, Functional Mobility, UE Funct Exercise/Act Treatment Duration: Nov 22, 2016 Visits Per Week: 5-6 Rehab Potential: Fair Time/GCodes Start Time: 15:10 Stop Time: 15:23 Total Time Billed (hr/min): 13 Billed Treatment Time visit, 13 minutes exercise SHARON AYALA OT Oct 30, 2016 15:30
[2016-10-30 16:02] VITALS: BP 155/88
--- NOTE | 2016-10-30 16:15 | Wound Care Progress Note ---
Subjective Subjective Subjective/Events-last exam 61-year-old female with diabetes venous insufficiency liver failure and lymphedema. Has new ulceration of left medial calf running of lymphedema. There are no recent arterial studies. We [id number] one today, but the patient was unable to tolerate the cuff on the leg due to pain. Her arterial status in the left leg is indeterminate, preventing the use of compression dressings. Patient is unable to ambulate significantly. It is explained to the patient that all we have to treat her swelling in her leg at this time is elevation. She is encouraged to do this. Past Medical History: Coronary artery disease with congestive heart failure, liver failure, renal failure, diabetes mellitus, obesity. Review of Systems Date Seen by Provider: Oct 30, 2016 Time Seen by Provider: 16:10 General: Fatigue Pulmonary: No Dyspnea Cardiovascular: No: Chest Pain Skin: L leg wound has opened up. Objective Exam Last Set of Vital Signs Vital Signs Date Time Temp Pulse Resp B/P (MAP) Pulse Ox O2 Delivery O2 Flow Rate FiO2 10/30/16 08:30 Room Air 10/30/16 08:00 97.3 80 16 106/54 94 Capillary Refill : Less Than 3 Seconds I&O Intake and Output 10/30/16 00:00 Intake Total 1596 ml Output Total 725 ml Balance 871 ml Intake Oral 1540 ml IV Total 56 ml Output Urine Total 725 ml # Voids 4 # Bowel Movements 1 General: Other (drowsy.) HEENT: Atraumatic Lungs: Normal Air Movement Skin: Other (left leg dressed.) Results Lab Laboratory Tests 10/29/16 16:23: Glucometer 213H 10/29/16 20:50: Glucometer 210H 10/30/16 05:12: Glucometer 159H 10/30/16 05:13: White Blood Count 6.7, Red Blood Count 3.19L, Hemoglobin 10.6L, Hematocrit 32L, Mean Corpuscular Volume 100H, Mean Corpuscular Hemoglobin 33, Mean Corpuscular Hemoglobin Concent 33, Red Cell Distribution Width 18.4H, Platelet Count 36*L, Mean Platelet Volume , Neutrophils (%) (Auto) 75, Lymphocytes (%) (Auto) 12, Monocytes (%) (Auto) 10, Eosinophils (%) (Auto) 3, Basophils (%) (Auto) 1, Neutrophils # (Auto) 5.0, Lymphocytes # (Auto) 0.8L, Monocytes # (Auto) 0.6, Eosinophils # (Auto) 0.2, Basophils # (Auto) 0.1, Sodium Level 140, Potassium Level 3.4L, Chloride Level 114H, Carbon Dioxide Level 19L, Anion Gap 7, Blood Urea Nitrogen 24H, Creatinine 1.19, Estimat Glomerular Filtration Rate 46, BUN/ Creatinine Ratio 20, Glucose Level 167H, Calcium Level 8.5, Total Bilirubin 2.1H , Aspartate Amino Transf (AST/SGOT) 34, Alanine Aminotransferase (ALT/SGPT) 24, Alkaline Phosphatase 94, Ammonia 42H, Total Protein 5.5L, Albumin 2.0L 10/30/16 10:42: Glucometer 141H Microbiology 10/18/16 Blood Culture - Final, Complete No growth 10/24/16 Urine Culture - Final, Complete Casi Glabrata 10/29/16 Gram Stain - Final, Resulted 10/29/16 Wound Culture - Preliminary, Resulted Staph, Coag Neg (Knitting Machine Operator Helper) Probable E.coli Assessment/Plan Assessment/Plan Assessment/Plan 1. Ulcer left leg, calf, full-thickness without exposed support structures. 2. Is insufficiency, left leg with ulcer. 3. Edema. 4. Alterable significant comorbidities. Plan: Without interpretable arterial study of left leg, we will be unable to compress. Elevation is recommended, topical dressings are use, and the patient will be followed up in the clinic. LYNDON PRESCOTT MD Oct 30, 2016 16:15
[2016-10-30] MEDS: inSUlin DETERMIR 1 UNIT/0.01 ML (LEVEMIR) CHARGE PER UNIT SQ SCH (21:01)
[2016-10-31] VITALS: BP 140/82
[2016-10-31] MEDS: NYSTATIN ORAL SUSP 5 ML UDC PO SCH ×2 (04:55→13:04)
[2016-10-31] MEDS: LACTOBACILLUS Acidoph/Bulgar (LACTINEX/FLORANEX) TAB PO SCH ×2 (04:55→13:04)
[2016-10-31] MEDS: KCL 10 MEQ TAB (MICRO K) PO SCH (04:55)
[2016-10-31] MEDS: CLINDAMYCIN INJECTION 900 MG in NS (IVPB) 50 ML IV SCH (04:56)
[2016-10-31 05:00] LABS: MEAN CORPUSCULAR HEMOGLOBIN 34 PG (25-34); MEAN CORPUSCULAR HGB CONC 33 G/DL (32-36); MEAN CORPUSCULAR VOLUME 101 FL (80-99); RED BLOOD COUNT 3.19 10^6/uL (4.35-5.85); RED CELL DISTRIBUTION WIDTH 18.6 % (10.0-14.5); WHITE BLOOD COUNT 7.8 10^3/uL (4.3-11.0)
[2016-10-31] MEDS: inSUlin (REGULAR) HUMAN 1 UNIT/0.01 ML (CHARGE PER UNIT) SC SCH ×2 (05:00→12:52)
[2016-10-31 05:06] LABS: PLATELET COUNT 32 10^3/uL (130-400)
[2016-10-31 05:32] LABS: CALCIUM 8.4 MG/DL (8.5-10.1); CREATININE SERUM 1.15 MG/DL (0.60-1.30); ICTERUS 1.5 (0-1.9); POTASSIUM 3.8 MMOL/L (3.6-5.0); TOTAL PROTEIN 4.9 GM/DL (6.4-8.2)
--- NOTE | 2016-10-31 07:50 | Progress Note (SOAP) ---
Subjective Time Seen by Provider: 07:20 Subjective/Events-last exam patient feeling better today. Patient has appointment at this Friday. Patient ready to go home. Wound care wants to see patient in one week. Wound care states okay for patient to be discharged today area Cirrhosis. Renal insufficiency better. Thrombocytopenia. Cellulitis of leg improving. Diabetes Objective Exam Vital Signs Date Time Temp Pulse Resp B/P (MAP) Pulse Ox O2 Delivery O2 Flow Rate FiO2 10/31/16 00:00 97.4 86 19 140/82 97 Room Air 10/30/16 20:00 Room Air 10/30/16 16:02 97.1 78 22 155/88 97 Room Air 10/30/16 08:30 Room Air 10/30/16 08:00 97.3 80 16 106/54 94 Room Air I & O 10/31/16 07:00 Intake Total 2128 ml Output Total 100 ml Balance 2028 ml Capillary Refill : Less Than 3 Seconds General Appearance: No Apparent Distress, WD/WN HEENT: Normal ENT Inspection Neck: Full Range of Motion, Normal Inspection Results Lab Laboratory Tests 10/31/16 04:53 Laboratory Tests 10/30/16 10:42: Glucometer 141H 10/30/16 16:11: Glucometer 184H 10/30/16 20:26: Glucometer 206H 10/31/16 04:53: Glucometer 241H, White Blood Count 7.8, Red Blood Count 3.19L, Hemoglobin 10.7L , Hematocrit 32L, Mean Corpuscular Volume 101H, Mean Corpuscular Hemoglobin 34, Mean Corpuscular Hemoglobin Concent 33, Red Cell Distribution Width 18.6H, Platelet Count 32*L, Mean Platelet Volume , Sodium Level 138, Potassium Level 3.8, Chloride Level 114H, Carbon Dioxide Level 16L, Anion Gap 8, Blood Urea Nitrogen 23H, Creatinine 1.15, Estimat Glomerular Filtration Rate 48, BUN/ Creatinine Ratio 20, Glucose Level 257H, Calcium Level 8.4L, Total Bilirubin 2.0H, Aspartate Amino Transf (AST/SGOT) 35H, Alanine Aminotransferase (ALT/SGPT ) 24, Alkaline Phosphatase 123, Total Protein 4.9L, Albumin 2.0L Microbiology 10/18/16 Blood Culture - Final, Complete No growth 10/24/16 Urine Culture - Final, Complete Casi Glabrata 10/29/16 Gram Stain - Final, Resulted 10/29/16 Wound Culture - Preliminary, Resulted Staph, Coag Neg (Leaf Size Picker) Probable E.coli Assessment/Plan Assessment/Plan Assess & Plan/Chief Complaint patient fragile. Nausea and vomiting. Elevated lactic acid. Cirrhosis. Chronic thrombocytopenia. UTI. Ascites. Hypokalemia. Cellulitis of leg. . 10/22/16. Patient looks better today. Patient is taking more fluids. Patient more alert. Platelet count 41,000. gFR improving. Family offered to transfer mother to [facility]. Since patient improving family wants to wait. . 10/23/16. Patient feeling better today. patient awake yesterday. GFR improving. Platelet count went to 46,0. Serum ammonia 81 came down a little. Patient has diarrhea. Patient to work in progress. Patient to start physical therapy. infection. Cirrhosis. Thrombocytopenia. More alert. . 10/24/16. Renal insufficiency. Confusion better. Cirrhosis. Thrombocytopenia stable. infection. Elevated lactic acid resolved. See if patient can walk today get and get out of bed. . 10/25/16. Cirrhosis. Cellulitis of left leg. Thrush in the mouth. Thrombocytopenia. Elevated lactic acid. Patient overall improving except for cellulitis of the left leg. . 10/28/16. Cirrhosis. Lesion right lobe of liver. Cellulitis of left leg. To get in touch with the [facility] liver specialist. . 10/29/16. Cirrhosis. Thrombocytopenia worse. Cellulitis of left leg Patient unable to walk. Lesion in right lobe of liver Casi of urine. . 10/30/16. Cirrhosis. Lesion right liver. Thrombocytopenia. wants to see patient when she gets discharged. . 10/31/16. Cirrhosis. Lesion like liver Thrombocytopenia.. Plan to discharge today. To on Friday. To wound care in one week Clinical Quality Measures DVT/VTE Risk/Contraindication: Risk Factor Score Per Nursin RFS Level Per Nursing on Admit: 4+=Very High Contraindications-Pharm: Other *list below* Other: PT HAS LOW PLATELETS AGUSTINA AMOS DO Oct 31, 2016 7:50 am
[2016-10-31 08:00] VITALS: BP 140/60
[2016-10-31] MEDS: PANTOPRAZOLE 40 MG (PROTONIX) TAB PO SCH (08:05)
[2016-10-31] MEDS: LACTULOSE SYRUP 10GM/15ML (ENULOSE) 30ML UDC PO SCH ×2 (08:05→13:04)
[2016-10-31] MEDS: FUROSEMIDE 40 MG (LASIX) TAB PO SCH (08:05)
[2016-10-31] MEDS: MAGNESIUM OXIDE (MAG-OX)400 MG TAB PO SCH (08:05)
[2016-10-31] MEDS: fluCOnazole (DIFLUCAN) 100 MG TAB PO SCH (08:05)
[2016-10-31] MEDS: VITAMIN D3 1,000 UNITS (CHOLECALCIFEROL) TABLET PO SCH (08:06)
[2016-10-31] MEDS: RIFAXIMIN 550 MG TABLET (XIFAXAN) PO SCH (08:06)
[2016-10-31] MEDS ORDERED: SPIRONOLACTONE 25 MG (ALDACTONE) TAB PO SCH (09:00)
--- NOTE | 2016-10-31 09:55 | Physical Therapy Daily Note ---
PT Daily Note-Current Subjective Patient adamantly declined PT and OOB on commode and demanded a bed murcia. Patient states, "I'm going home and I'm not doing anything." Transfers Functional [place] Measure 0=Not Assessed/NA 4=Minimal Assistance 1=Total Assistance 5=Supervision or Setup 2=Maximal Assistance 6=Modified [place] 3=Moderate Assistance 7=Complete IndependenceIRFPAI Quality Coding Scale 6 Independent with activity with or without an assistive device 5 Patient requires set up or clean up by helper. Patient completes activity by themselves 4 Supervision or touching assist (CGA). Novelty provide cues , steadying assist 3 The helper provides less than half the effort to complete the activity 2 The helper provides more than half the effort to complete the activity 1 Dependent. The helper does all the effort to complete an activity 7 Patient refused to complete or attempt activity 9 The patient did not perform the activity before the current illness or injury 88 Not attempted due to Medical conditions or safety concerns Assessment PT attempted to encourage patient to participate with therapy, however, patient continued to decline and became agitated. PT educated patient on importance of increasing her activity level to prevent possible negative side effects, however , patient continued to decline treatment. Per RN, patient's daughter has been feeding her. Patient appears so self limit. DC at this time. PT Short Term Goals Short Term Goals Transfers (B,C,W/C) (FIM): 3 PT Information Security Goals Information Security Goals PT Information Security Goals Time Frame: Oct 31, 2016 Transfers (B,C,W/C) (FIM): 5 Gait (FIM): 2 Gait distance (FIM): 1=085-98 ft Distance: 50' Gait Level of Assist: 5 Gait Assistive Device: FWW PT Plan Treatment/Plan Treatment Plan: Discontinue PT Treatment Plan: Bed Mobility, Education, Functional Activity Renetta, Functional Strength, Gait, Safety, Therapeutic Exercise, Transfers Treatment Duration: Oct 31, 2016 Visits Per Week: 6 Time/GCodes Time In: 945 Time Out: 955 Total Billed Treatment Time: 5 Total Billed Treatment 1 visit ref ELLE SQUIRES PT Oct 31, 2016 09:55
[2016-10-31] MEDS ORDERED: FURO40TA4 PO (13:35)
[2016-10-31] MEDS ORDERED: POTA10TA6 PO (13:35)
[2016-10-31] MEDS ORDERED: CEFD300C3 PO (13:35)
[2016-10-31] MEDS ORDERED: SPIR25TA3 PO (13:35)
[2016-10-31] MEDS ORDERED: METF500T4 PO (13:38)
--- NOTE | 2016-10-31 13:55 | Occ Therapy Progress Note ---
Therapy Progress Note 1340 Pt declined OT, indicating that she was getting ready to go home and "I' ll do it there". Pt was up in w/c with family. DC OT. Goals not met SHARON AYALA OT Oct 31, 2016 13:55
[2016-10-31 14:13] VITALS: BP 140/60
--- OUTSIDE RECORDS SUMMARY | 2016-11-01 08:34 | XMS REPORT | Continuity of Care Document ---
Author Author [facility] Organization [facility] Address Unknown Phone Unavailable Care Team Providers Care Liquor Store Manager Name Role Phone Maria Del RosarioUmer ramirez PCP [phone] Source Comments Some departments are not documenting in the electronic medical record. If you do not see the information that you expected, contact Release of Information in the Health Information Management department at [phone] for further assistance in locating additional records.[facility] Active Allergies and Adverse Reactions Allergen Noted Date Severity Reactions Comments Maura 01/07/2013 SEE COMMENTS Pt reports hand and arm turn black at iv site Current Medications Prescription Sig. Disp. Refills Start End Date Status Date oxyCODONE (ROXICODONE) 5 Take 2 Tabs by mouth Active mg tablet every 4 hours as needed for Pain pantoprazole DR Take 40 mg by mouth Active (PROTONIX) 40 mg tablet daily. lactulose 10 gram/15 mL Take 20 g by mouth three Active oral solution times daily. rifAXIMin (XIFAXAN) 550 Take 1 Tab by mouth twice 60 Tab 0 08/16/19 Active mg tablet daily. Patient must come 17 in for office visit for refills of this medication duloxetine DR (CYMBALTA) Take 30 mg by mouth Active 30 mg capsule daily. traZODone (DESYREL) 50 mg Take 50 mg by mouth at Active tablet bedtime daily. busPIRone (BUSPAR) 5 mg Take 5 mg by mouth twice Active tablet daily. hydrOXYzine (ATARAX) 25 Take 25 mg by mouth twice Active mg tablet daily. Indications: ANXIETY ergocalciferol (VITAMIN Take 1 Cap by mouth every 4 Cap 2 10/02/19 12/19/19 Active D-2) 50,000 unit capsule 7 days for 12 doses. 17 17 Indications: VITAMIN D DEFICIENCY (HIGH DOSE THERAPY) cholecalciferol (VITAMIN Take 2 Tabs by mouth 90 Tab 10/02/19 Active D-3) 1,000 units tablet daily. Indications: 17 VITAMIN D DEFICIENCY nystatin (NYSTOP) 100,000 To affected areas 60 g 2 10/02/19 Active unit/g topical powder 17 Active Problems Problem Noted Date Secondary esophageal varices without bleeding (HCC) 09/30/2016 Bilateral lower extremity edema 09/30/2016 Ascites 09/30/2016 Anxiety and depression 09/30/2016 Skin candidiasis 09/30/2016 Insomnia due to medical condition 09/30/2016 Chronic pain syndrome 09/30/2016 Liver lesion 09/30/2016 Pulmonary hypertension (HCC) 01/25/2015 Overview: 07/19/13-Echo ([facility]): EF 60%. Normal wall motion. Moderate aortic valve sclerosis without significant aortic stenosis. Estimated pulmonary artery pressure=35 mmHg. Mild mitral and tricuspid regurgitation. 11/23/14-Echo: Normal LV function. LV appears normal in size. Mild mitral regurgitation. Moderate tricuspid regurgitation. PA pressures of 55 mmHg. Mild aortic stenosis, peak gradient was 20 mmHg. 11/24/14-Left Heart Cath([facility]): Normal LV function with mild inferior hypokinesis. Mild proximal circumflex disease. LAD and right coronaries filled relatively normal. 12/10/14-Echo([facility]): EF 60%. Diastolic dysfunction. LA 4.4 cm. Calcified aortic valve with no significant aortic valve stenosis. Mild mitral regurgitation. Moderate tricuspid regurgitation. Pulmonary hypertension with estimated pulmonary artery pressure of 50 mmHg. NSTEMI (non-ST elevated myocardial infarction) ([facility]) 01/25/2015 Overview: 11/23/14-Admitted to [facility] for chest pain. Elevated troponin of 43. Episodes of NSVT. Treated with Amiodarone during hospitalization. NSVT (nonsustained ventricular tachycardia) ([facility]) 01/25/2015 Overview: In setting of NSTEMI, 11/2014. Morbid obesity (HCC) 01/26/2013 Thrombocytopenia (HCC) 01/26/2013 Cellulitis 01/25/2013 End stage liver disease (HCC) ITP (idiopathic thrombocytopenic purpura) Resolved Problems Problem Noted Date Resolved Date Ventricular tachycardia (HCC) 01/25/2015 01/25/2015 Most Recent Encounters Date Type Specialty Providers Description 11/05/2016 Hospital Jesse Meek MD Screening for colorectal Encounter cancer 10/29/2016 Orders Only Transplant Surgery Pb, Meghna Liver lesion 10/29/2016 Telephone Transplant Surgery Pari Nunez RN Other 10/25/2016 Telephone Transplant Surgery Pari Nunez RN Other - imaging at OSH 10/25/2016 Telephone Transplant Surgery Pari Nunez RN Other - follow up 10/22/2016 Telephone Transplant Surgery Linh Gusman APRN Patient Reminder Call - Called pt to confirm appt urszula/ Chaya Naseem on 10/28/16 @ 1:00p.m., nalm. 10/21/2016 Documentation Transplant Surgery Jesse Meek MD 10/21/2016 Telephone Transplant Surgery Jesse Meek MD Worsening Symptoms 10/16/2016 Telephone Transplant Surgery Jesse Meek MD Other - Requesting Call back 10/10/2016 Ancillary Radiology Outpatient, Radiologist Diagnosis unknown Orders (Primary Dx) 10/09/2016 Documentation Transplant Surgery Linh Gusman APRN 10/07/2016 Telephone Transplant Surgery Linh Gusman APRN Results 10/07/2016 Documentation Transplant Surgery Sangita Hastings RN 10/07/2016 Telephone Transplant Surgery Pari Nunez RN Other - repeat imaging for HCC 10/07/2016 Documentation Hepatology Linh Gusman APRN 10/03/2016 Orders Only Transplant Surgery Pari Nunez RN Immunization due (Primary Dx) 10/01/2016 Telephone Transplant Surgery Pari Nunez RN Other - lab review 10/01/2016 Prep for Case Transplant Surgery Pari Nunez RN 09/30/2016 [facility] Linh Gusman APRN Nonalcoholic Encounter steatohepatitis (FRAZIER) 09/30/2016 Office Visit Transplant Surgery Linh Gusman APRN 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) (Primary Dx); Obesity (BMI 30-39.9); Hepatic encephalopathy (HCC); Secondary esophageal varices without bleeding (HCC); Bilateral lower extremity edema; Other ascites; Anxiety and depression; Liver lesion; Skin candidiasis; Insomnia due to medical condition; Chronic pain syndrome; Healthcare maintenance; Malnutrition (HCC); Vitamin D deficiency 09/30/2016 Surgery Jesse Meek MD Canceled ESOPHAGOGASTRODUODENOSCOP Y 09/30/2016 Hospital Jesse Meek MD EV (esophageal varices) Encounter (HCC) 09/30/2016 Prep for Case Transplant Surgery Pari Nunez RN 09/24/2016 Telephone Transplant Surgery Linh Gusman APRN Patient Reminder Call - Called pt to confirm appt w/ Chaya Naseem on 09/30/16 @ 2:00pm, nalm. 09/19/2016 Hospital Radiology Encounter 09/18/2016 Hospital Radiology Encounter 09/16/2016 Hospital Radiology Encounter 09/15/2016 Hospital Radiology Encounter 09/15/2016 Hospital Radiology Encounter 09/15/2016 Hospital Radiology Encounter 09/05/2016 Telephone Transplant Surgery Pari Nunez RN Error 09/05/2016 Orders Only Transplant Surgery Pari Nunez RN End stage liver disease (HCC) (Primary Dx) 08/15/2016 Telephone Transplant Surgery Pari Nunez RN Other - ov 08/15/2016 Orders Only Transplant Surgery Pari Nunez RN End stage liver disease (HCC) (Primary Dx) 08/13/2016 Refill Transplant Surgery Amy Hogue LPN 08/09/2016 Telephone Transplant Surgery Pari Nunez RN Other - med refilled 3.23 08/09/2016 Telephone Transplant Surgery Jesse Meek MD Medication Refill 08/07/2016 Ancillary Radiology Outpatient, Radiologist Diagnosis unknown Orders (Primary Dx) 08/07/2016 Documentation Transplant Surgery Linh Gusman APRN 08/06/2016 Telephone Transplant Surgery Pari Nunez RN Other - appointment Social History Tobacco Use Types Packs/Day Years Used Date Current Every Day Smoker Cigarettes 0.5 30 Smokeless Tobacco: Never Used Tobacco Cessation: Counseling Given: Yes Comments: Alcohol Use Drinks/Week oz/Week Comments No Last Filed Vital Signs Vital Sign Reading Time Taken Blood Pressure 144/74 09/30/2016 2:32 PM CDT Pulse 105 09/30/2016 2:32 PM CDT Temperature 37.2 C (98.9 F) 09/30/2016 2:32 PM CDT Respiratory Rate 20 09/30/2016 2:32 PM CDT Height 1.626 m (5' 4") 09/30/2016 2:32 PM CDT Weight 97.705 kg (215 lb 6.4 oz) 09/30/2016 2:32 PM CDT Body Mass Index 36.96 09/30/2016 2:32 PM CDT Oxygen Saturation 95% 09/30/2016 2:32 PM CDT Plan of Care Date Type Specialty Providers Description 11/05/2016 Surgery Jesse Meek MD COLONOSCOPY [address] [place] [address] [phone] (Fax) Health Maintenance Due Date Last Done Comments Physical (Comprehensive) 1964 Exam Pertussis Vaccine 1968 Tetanus Vaccine 1974 Cervical Cancer Screening 1978 Breast Cancer Screening 1997 Colorectal Cancer 2007 Screening Influenza Vaccine 01/17/2017 Hepatitis C Screening Completed 01/04/2015, 01/25/2013 Results from Last 3 Months * CT ABDOMEN WO/W CONTRAST (10/27/2016 10:21 AM) * HEPATITIS B SURFACE AB (09/30/2016 4:05 PM) Component Value Range Anti HBs <2.5Comment: mIU/ml Hepatitis B Surface Antibody Reference Ranges >12.0 Positive 8.0-12.0 Equivocal <8.0 Negative * HEPATITIS B SURFACE AG (09/30/2016 4:05 PM) Component Value Range HBsAg NEG * HEPATITIS A IGG (09/30/2016 4:05 PM) Component Value Range Hepatitis A IGG POS Note: Test type and methodology has changed. The [facility] lab has discontinued the test for Total Hep A Immunoglobulin. This test has been replaced with more specific testing. The tests for Hep A IgG and Hep A IgM are both now available and can be ordered. * 25-OH VITAMIN D (D2 + D3) (09/30/2016 4:05 PM) Component Value Range Vitamin D(25-OH)Total 16.4 (L) 30-80 NG/ML Specimen Blood * LIPID PROFILE (09/30/2016 4:05 PM) Component Value Range Cholesterol 119 <200 MG/DL Triglycerides 182 (H) <150 MG/DL HDL 13 (L) >40 MG/DL LDL 67 <100 MG/DL VLDL 36 MG/DL Non HDL Cholesterol 106Comment: MG/DL Calculated non-HDL Cholesterol (non-HDL-C) indirectly measures LDL-C, Lp(a), IDL-C, and VLDL-C. It is a surrogate marker for Apoprotein B. Non-HDL-C is a more accurate measure of atherogenic particle concentration than LDL-C in patients with hypertriglyceridemia (>200 mg/dL). This calculation is now recommended for evaluation and treatment of coronary heart disease according to the National Cholesterol Education Program Adult Treatment Protocol-III. See Ramirez et al. Am J. Cardiol. 2008, 101:6907-9555. The "goal" should be less than 130 mg/dL, but will vary according to risk factors. Specimen Blood * HEMOGLOBIN A1C (09/30/2016 4:05 PM) Component Value Range Hemoglobin A1C 7.0 (H)Comment: 4.0-6.0 % The ADA recommends that most patients with type 1 and type 2 diabetes maintain an A1c level <7%. Specimen Blood * ALPHA FETO PROTEIN (AFP) (09/30/2016 4:05 PM) Component Value Range Alpha Feto Protein 3.8 0.0-15.0 NG/ML Specimen Blood * PROTIME INR (PT) (09/30/2016 4:05 PM) Component Value Range INR 1.4 (H) 0.8-1.2 Specimen Blood * COMPREHENSIVE METABOLIC PANEL (09/30/2016 4:05 PM) Component Value Range Sodium 137 137-147 MMOL/L Potassium 4.4 3.5-5.1 MMOL/L Chloride 107 98-110 MMOL/L Glucose 222 (H) 70-100 MG/DL Blood Urea Nitrogen 46 (H) 7-25 MG/DL Creatinine 1.67 (H) 0.4-1.00 MG/DL Calcium 8.5 8.5-10.6 MG/DL Total Protein 5.8 (L) 6.0-8.0 G/DL Total Bilirubin 1.3 (H) 0.3-1.2 MG/DL Albumin 2.4 (L) 3.5-5.0 G/DL Alk Phosphatase 99 25-110 U/L AST (SGOT) 33 7-40 U/L CO2 24 21-30 MMOL/L ALT (SGPT) 27 7-56 U/L Anion Gap 6 3-12 eGFR Non 31 (L)Comment: >60 mL/min The eGFR is not validated for use in drug dosing adjustments. Continue to use estimated creatinine clearance per dosing reference text. Please contact the Clinical Pharmacist for questions. eGFR 38 (L)Comment: >60 mL/min The eGFR is not validated for use in drug dosing adjustments. Continue to use estimated creatinine clearance per dosing reference text. Please contact the Clinical Pharmacist for questions. Specimen Blood * CBC AND DIFF (09/30/2016 4:05 PM) Component Value Range White Blood Cells 4.8 4.5-11.0 K/UL RBC 3.87 (L) 4.0-5.0 M/UL Hemoglobin 12.8 12.0-15.0 GM/DL Hematocrit 38.0 36-45 % MCV 98.1 80-100 FL MCH 33.1 26-34 PG MCHC 33.7 32.0-36.0 G/DL RDW 15.9 (H) 11-15 % Platelet Count 36 (L) 150-400 K/UL MPV 10.1 7-11 FL Neutrophils 69 41-77 % Lymphocytes 17 (L) 24-44 % Monocytes 9 4-12 % Eosinophils 5 0-5 % Basophils 0 0-2 % Absolute Neutrophil Count 3.30 1.8-7.0 K/UL Absolute Lymph Count 0.80 (L) 1.0-4.8 K/UL Absolute Monocyte Count 0.40 0-0.80 K/UL Absolute Eosinophil Count 0.20 0-0.45 K/UL Absolute Basophil Count 0.00 0-0.20 K/UL Specimen Blood * GENERAL RAD CHEST EXTERNAL IMAGING (09/19/2016) Only the most recent of 5 results within the time period is included. Narrative This order has been auto finalized and does not contain a result. * CT HEAD EXTERNAL IMAGING (09/15/2016 12:30 AM) Narrative This order has been auto finalized and does not contain a result.
--- OUTSIDE RECORDS SUMMARY | 2016-11-01 08:52 | XMS REPORT | Continuity of Care Document ---
Author Author [facility] Organization [facility] Address Unknown Phone Unavailable Care Team Providers Care Acls Nurse Name Role Phone Maria Del RosarioUmer ramirez PCP [phone] Source Comments Some departments are not documenting in the electronic medical record. If you do not see the information that you expected, contact Release of Information in the Health Information Management department at [phone] for further assistance in locating additional records.[facility] Active Allergies and Adverse Reactions [...] peak gradient was 20 mmHg. 11/24/14-Left Heart Cath([facility]): Normal LV function with mild inferior hypokinesis. Mild proximal circumflex disease. LAD and right coronaries filled relatively normal. 12/10/14-Echo([facility]): EF 60%. Diastolic dysfunction. LA 4.4 cm. Calcified aortic valve with no significant aortic valve stenosis. Mild mitral regurgitation. Moderate tricuspid regurgitation. Pulmonary hypertension with estimated pulmonary artery pressure of 50 mmHg. NSTEMI (non-ST elevated myocardial infarction) ([facility]) 01/25/2015 Overview: 11/23/14-Admitted to [facility] for chest pain. Elevated troponin of 43. Episodes of NSVT. Treated with Amiodarone during hospitalization. NSVT (nonsustained ventricular tachycardia) ([facility]) 01/25/2015 Overview: In setting of NSTEMI, 11/2014. [...] Case Transplant Surgery Pari Nunez RN 09/30/2016 [facility] Linh Gusman APRN Nonalcoholic [...] 11/05/2016 Surgery Jesse Meek MD COLONOSCOPY [address] [place] [address] [phone] (Fax) Health Maintenance Due Date Last Done [...] Test type and methodology has changed. The [facility] lab has discontinued the test for [...] Ramirez et al. Am J. Cardiol. 2008, 101:8439-4645. The "goal" should be less than 130 [...]
--- NOTE | 2016-11-02 08:19 | Discharge Summary ---
Diagnosis/Chief Complaint Date of Admission Oct 18, 2016 at 20:36 Date of Discharge Oct 31, 2016 at 14:17 Discharge Date: Oct 31, 2016 Admission Diagnosis Admission Diagnosis E COLI URINARY TRACT INFECTION ACUTE ON CHRONIC RENAL FAILURE CELLULITIS LEFT LOWER LEG DEHYDRATION LACTIC ACIDOSIS ELEVATED LIVER ENZYMES CHRONIC THROMBOCYTOPENIA CHRONIC HEPATIC FAILURE HYPERBILIRUBINEMIA DIABETES MELLITUS CHRONIC PAIN SYNDROME CIRRHOSIS PORTAL HYPERTENSION ESOPHAGEAL VARIES SPLENOMEGALY HEPATIC LESIONS (CURRENTLY WAITING FURTHER WORK-UP AT ) Discharge Diagnosis Acute kidney failure. Acute on chronic kidney failure. Coronary artery disease. Elevated serum lactic acid. Cellulitis of left lower limb. Chronic kidney disease. Dehydration. Diarrhea. Cirrhosis. Hepatosplenomegaly. Portal hypertension. Esophageal varices. Thrombocytopenia. Anemia. Ascites area Diabetes. Urinary tract infection. Urine and wound culture strep coagulase negative and Escherichia coli Discharge Summary Consultations Wound care Discharge Physical Examination Allergies: Coded Allergies: levofloxacin (Verified Allergy, Unknown, 07/25/16) Vitals & I&Os Vital Signs Date Time Temp Pulse Resp B/P (MAP) Pulse Ox O2 Delivery O2 Flow Rate FiO2 10/31/16 14:13 77 20 140/60 97 Room Air 10/31/16 08:00 98.2 Hospital Course Patient in hospital did improve. Patient to go to [facility] hepatology next Friday. Patient be followed up by wound care. Appointment made for my office. Labs (last 24 hrs) Laboratory Tests 10/18/16 18:15: White Blood Count 9.7, Red Blood Count 3.98L, Hemoglobin 13.3, Hematocrit 39, Mean Corpuscular Volume 97, Mean Corpuscular Hemoglobin 33, Mean Corpuscular Hemoglobin Concent 35, Red Cell Distribution Width 17.4H, Platelet Count 87L, Mean Platelet Volume , Neutrophils (%) (Auto) 76H, Lymphocytes (%) (Auto) 11L, Monocytes (%) (Auto) 10, Eosinophils (%) (Auto) 2, Basophils (%) (Auto) 1, Neutrophils # (Auto) 7.4, Lymphocytes # (Auto) 1.1, Monocytes # (Auto) 1.0, Eosinophils # (Auto) 0.2, Basophils # (Auto) 0.1, Sodium Level 135, Potassium Level 3.6, Chloride Level 102, Carbon Dioxide Level 17L, Anion Gap 16H, Blood Urea Nitrogen 74H, Creatinine 2.35H, Estimat Glomerular Filtration Rate 21, BUN/ Creatinine Ratio 31, Glucose Level 239H, Lactic Acid Level 4.44*H, Calcium Level 9.3, Magnesium Level 1.8, Total Bilirubin 2.9H, Aspartate Amino Transf ( AST/SGOT) 48H, Alanine Aminotransferase (ALT/SGPT) 36, Alkaline Phosphatase 117 , Ammonia 63H, Troponin I < 0.30, Total Protein 6.5, Albumin 2.3L, Lipase 80H 10/18/16 19:24: Urine Color YELLOW, Urine Clarity SLIGHTLY CLOUDY, Urine pH 5, Urine Specific [place] 1.015L, Urine Protein NEGATIVE, Urine Glucose (UA) NEGATIVE, Urine Ketones NEGATIVE, Urine Nitrite POSITIVEH, Urine Bilirubin NEGATIVE, Urine Urobilinogen NORMAL, Urine Leukocyte Esterase 1+H, Urine RBC (Auto) 4+H, Urine RBC 2-5H, Urine WBC 5-10H, Urine Squamous Epithelial Cells 2-5, Urine Crystals NONE, Urine Bacteria LARGEH, Urine Casts NONE, Urine Mucus NEGATIVE, Urine Culture Indicated YES, Urine Opiates Screen NEGATIVE, Urine Oxycodone Screen POSITIVEH, Urine Methadone Screen NEGATIVE, Urine Propoxyphene Screen NEGATIVE, Urine Barbiturates Screen NEGATIVE, Ur Tricyclic Antidepressants Screen NEGATIVE , Urine Phencyclidine Screen NEGATIVE, Urine Amphetamines Screen NEGATIVE, Urine Methamphetamines Screen NEGATIVE, Urine Benzodiazepines Screen NEGATIVE, Urine Cocaine Screen NEGATIVE, Urine Cannabinoids Screen NEGATIVE 10/18/16 20:40: Lactic Acid Level 4.22*H 10/18/16 23:54: Glucometer 249H 10/19/16 05:04: White Blood Count 8.6, Red Blood Count 3.68L, Hemoglobin 12.2, Hematocrit 36, Mean Corpuscular Volume 98, Mean Corpuscular Hemoglobin 33, Mean Corpuscular Hemoglobin Concent 34, Red Cell Distribution Width 17.3H, Platelet Count 51L, Mean Platelet Volume , Neutrophils (%) (Auto) 77H, Lymphocytes (%) (Auto) 10L, Monocytes (%) (Auto) 11, Eosinophils (%) (Auto) 2, Basophils (%) (Auto) 0, Neutrophils # (Auto) 6.6, Lymphocytes # (Auto) 0.9L, Monocytes # (Auto) 1.0, Eosinophils # (Auto) 0.2, Basophils # (Auto) 0.0, Sodium Level 136, Potassium Level 3.3L, Chloride Level 106, Carbon Dioxide Level 16L, Anion Gap 14, Blood Urea Nitrogen 70H, Creatinine 2.22H, Estimat Glomerular Filtration Rate 23, BUN/ Creatinine Ratio 32, Glucose Level 262H, Calcium Level 8.6, Total Bilirubin 2.7H , Aspartate Amino Transf (AST/SGOT) 39H, Alanine Aminotransferase (ALT/SGPT) 35 , Alkaline Phosphatase 108, Total Protein 6.0L, Albumin 2.2L 10/19/16 05:39: Glucometer 227H 10/19/16 10:40: Glucometer 186H 10/19/16 15:40: Glucometer 225H 10/19/16 21:02: Glucometer 208H 10/20/16 04:50: White Blood Count 6.7, Red Blood Count 3.61L, Hemoglobin 12.1, Hematocrit 35, Mean Corpuscular Volume 98, Mean Corpuscular Hemoglobin 34, Mean Corpuscular Hemoglobin Concent 34, Red Cell Distribution Width 17.5H, Platelet Count 47L, Mean Platelet Volume , Sodium Level 138, Potassium Level 3.1L, Chloride Level 109H, Carbon Dioxide Level 19L, Anion Gap 10, Blood Urea Nitrogen 63H, Creatinine 2.00H, Estimat Glomerular Filtration Rate 26, BUN/Creatinine Ratio 32 , Glucose Level 180H, Calcium Level 8.5, Total Bilirubin 2.8H, Aspartate Amino Transf (AST/SGOT) 42H, Alanine Aminotransferase (ALT/SGPT) 34, Alkaline Phosphatase 98, Total Protein 6.0L, Albumin 2.1L 10/20/16 05:03: Glucometer 179H 10/20/16 11:35: Glucometer 238H 10/20/16 15:32: Glucometer 209H 10/20/16 20:48: Glucometer 204H 10/21/16 04:42: White Blood Count 6.0, Red Blood Count 3.55L, Hemoglobin 11.6, Hematocrit 35, Mean Corpuscular Volume 99, Mean Corpuscular Hemoglobin 33, Mean Corpuscular Hemoglobin Concent 33, Red Cell Distribution Width 17.8H, Platelet Count 45L, Mean Platelet Volume , Sodium Level 142, Potassium Level 3.1L, Chloride Level 113H, Carbon Dioxide Level 18L, Anion Gap 11, Blood Urea Nitrogen 51H, Creatinine 1.73H, Estimat Glomerular Filtration Rate 30, BUN/Creatinine Ratio 29 , Glucose Level 196H, Calcium Level 8.2L, Total Bilirubin 2.5H, Aspartate Amino Transf (AST/SGOT) 42H, Alanine Aminotransferase (ALT/SGPT) 37, Alkaline Phosphatase 93, Total Protein 5.8L, Albumin 2.0L 10/21/16 08:40: Lactic Acid Level 1.54, Ammonia 69H 10/21/16 10:54: Glucometer 195H 10/21/16 15:48: Glucometer 184H 10/21/16 21:14: Glucometer 204H 10/22/16 05:43: Glucometer 209H 10/22/16 06:35: White Blood Count 9.0, Red Blood Count 3.71L, Hemoglobin 12.3, Hematocrit 37, Mean Corpuscular Volume 100H, Mean Corpuscular Hemoglobin 33, Mean Corpuscular Hemoglobin Concent 33, Red Cell Distribution Width 18.3H, Platelet Count 41L, Mean Platelet Volume , Sodium Level 140, Potassium Level 3.5L, Chloride Level 114H, Carbon Dioxide Level 18L, Anion Gap 8, Blood Urea Nitrogen 40H, Creatinine 1.49H, Estimat Glomerular Filtration Rate 36, BUN/Creatinine Ratio 27 , Glucose Level 231H, Lactic Acid Level 1.64, Calcium Level 8.2L, Total Bilirubin 2.1H, Aspartate Amino Transf (AST/SGOT) 41H, Alanine Aminotransferase (ALT/SGPT) 35, Alkaline Phosphatase 102, Ammonia 84H, Total Protein 6.0L, Albumin 1.9L 10/22/16 11:03: Glucometer 208H 10/22/16 15:44: Glucometer 212H 10/22/16 20:53: Glucometer 210H 10/23/16 06:18: White Blood Count 10.0, Red Blood Count 3.51L, Hemoglobin 11.7, Hematocrit 35, Mean Corpuscular Volume 100H, Mean Corpuscular Hemoglobin 33, Mean Corpuscular Hemoglobin Concent 33, Red Cell Distribution Width 18.2H, Platelet Count 46L, Mean Platelet Volume , Sodium Level 139, Potassium Level 3.4L, Chloride Level 114H, Carbon Dioxide Level 17L, Anion Gap 8, Blood Urea Nitrogen 35H, Creatinine 1.25, Estimat Glomerular Filtration Rate 44, BUN/Creatinine Ratio 28 , Glucose Level 196H, Calcium Level 8.0L, Total Bilirubin 1.8H, Aspartate Amino Transf (AST/SGOT) 37H, Alanine Aminotransferase (ALT/SGPT) 33, Alkaline Phosphatase 92, Ammonia 81H, Total Protein 5.7L, Albumin 1.8L 10/23/16 11:12: Glucometer 216H 10/23/16 16:13: Glucometer 254H 10/23/16 20:47: Glucometer 222H 10/24/16 04:42: White Blood Count 12.1H, Red Blood Count 3.52L, Hemoglobin 11.8, Hematocrit 35, Mean Corpuscular Volume 100H, Mean Corpuscular Hemoglobin 34, Mean Corpuscular Hemoglobin Concent 34, Red Cell Distribution Width 18.1H, Platelet Count 47L, Mean Platelet Volume 11.6H, Neutrophils (%) (Auto) 81H, Lymphocytes (%) (Auto) 9L, Monocytes (%) (Auto) 7, Eosinophils (%) (Auto) 2, Basophils (%) (Auto) 0, Neutrophils # (Auto) 9.8H, Lymphocytes # (Auto) 1.1, Monocytes # (Auto) 0.8, Eosinophils # (Auto) 0.3, Basophils # (Auto) 0.0, Sodium Level 139, Potassium Level 3.6, Chloride Level 114H, Carbon Dioxide Level 19L, Anion Gap 6, Blood Urea Nitrogen 31H, Creatinine 1.17, Estimat Glomerular Filtration Rate 47, BUN/ Creatinine Ratio 26, Glucose Level 189H, Calcium Level 8.1L, Magnesium Level 1.4L, Total Bilirubin 1.9H, Aspartate Amino Transf (AST/SGOT) 40H, Alanine Aminotransferase (ALT/SGPT) 32, Alkaline Phosphatase 97, Ammonia 67H, Total Protein 5.8L, Albumin 1.8L 10/24/16 05:25: Urine Color YELLOW, Urine Clarity CLEAR, Urine pH 6, Urine Specific [place] 1.015L, Urine Protein 2+H, Urine Glucose (UA) NEGATIVE, Urine Ketones NEGATIVE, Urine Nitrite NEGATIVE, Urine Bilirubin NEGATIVE, Urine Urobilinogen NORMAL, Urine Leukocyte Esterase 3+H, Urine RBC (Auto) 4+H, Urine RBC 5-10H, Urine WBC 50-100H, Urine Squamous Epithelial Cells RARE, Urine Crystals NONE, Urine Bacteria TRACE, Urine Casts NONE, Urine Mucus NEGATIVE, Urine Yeast MODERATEH, Urine Culture Indicated YES 10/24/16 10:59: Glucometer 195H 10/24/16 16:12: Glucometer 263H 10/24/16 21:27: Glucometer 230H 10/25/16 05:58: Glucometer 186H 10/25/16 06:30: White Blood Count 11.2H, Red Blood Count 3.45L, Hemoglobin 11.4L, Hematocrit 34L , Mean Corpuscular Volume 99, Mean Corpuscular Hemoglobin 33, Mean Corpuscular Hemoglobin Concent 33, Red Cell Distribution Width 18.0H, Platelet Count 45L, Mean Platelet Volume , Sodium Level 135, Potassium Level 3.8, Chloride Level 111H, Carbon Dioxide Level 17L, Anion Gap 7, Blood Urea Nitrogen 30H, Creatinine 1.29, Estimat Glomerular Filtration Rate 42, BUN/Creatinine Ratio 23 , Glucose Level 203H, Calcium Level 8.1L, Total Bilirubin 2.1H, Aspartate Amino Transf (AST/SGOT) 41H, Alanine Aminotransferase (ALT/SGPT) 31, Alkaline Phosphatase 98, Ammonia 68H, Total Protein 5.6L, Albumin 1.6L 10/25/16 11:05: Glucometer 235H 10/25/16 16:28: Glucometer 258H 10/25/16 21:22: Glucometer 269H 10/26/16 05:33: White Blood Count 9.2, Red Blood Count 3.38L, Hemoglobin 11.2L, Hematocrit 34L, Mean Corpuscular Volume 99, Mean Corpuscular Hemoglobin 33, Mean Corpuscular Hemoglobin Concent 33, Red Cell Distribution Width 17.7H, Platelet Count 50L, Mean Platelet Volume , Neutrophils (%) (Auto) 79H, Lymphocytes (%) (Auto) 10L, Monocytes (%) (Auto) 8, Eosinophils (%) (Auto) 3, Basophils (%) (Auto) 0, Neutrophils # (Auto) 7.3, Lymphocytes # (Auto) 0.9L, Monocytes # (Auto) 0.7, Eosinophils # (Auto) 0.3, Basophils # (Auto) 0.0, Sodium Level 137, Potassium Level 3.5L, Chloride Level 111H, Carbon Dioxide Level 18L, Anion Gap 8, Blood Urea Nitrogen 29H, Creatinine 1.26, Estimat Glomerular Filtration Rate 43, BUN/ Creatinine Ratio 23, Glucose Level 227H, Calcium Level 8.2L, Total Bilirubin 1.8H, Aspartate Amino Transf (AST/SGOT) 37H, Alanine Aminotransferase (ALT/SGPT ) 31, Alkaline Phosphatase 132, Ammonia 65H, Total Protein 5.6L, Albumin 1.8L 10/26/16 11:08: Glucometer 193H 10/26/16 16:27: Glucometer 278H 10/26/16 21:00: Glucometer 265H 10/27/16 05:12: White Blood Count 9.4, Red Blood Count 3.37L, Hemoglobin 11.2L, Hematocrit 33L, Mean Corpuscular Volume 99, Mean Corpuscular Hemoglobin 33, Mean Corpuscular Hemoglobin Concent 34, Red Cell Distribution Width 17.8H, Platelet Count 50L, Mean Platelet Volume , Neutrophils (%) (Auto) 75, Lymphocytes (%) (Auto) 12, Monocytes (%) (Auto) 10, Eosinophils (%) (Auto) 3, Basophils (%) (Auto) 1, Neutrophils # (Auto) 7.0, Lymphocytes # (Auto) 1.2, Monocytes # (Auto) 0.9, Eosinophils # (Auto) 0.3, Basophils # (Auto) 0.1, Neutrophils % (Manual) 76, Lymphocytes % (Manual) 11, Monocytes % (Manual) 4, Eosinophils % (Manual) 5, Basophils % (Manual) 0, Metamyelocytes % 1, Band Neutrophils 3, Toxic Granulation 1+, Polychromasia SLIGHT, Anisocytosis MODERATE, Microcytosis SLIGHT , Macrocytosis MODERATE, Tear Drop Cells SLIGHT, Sodium Level 138, Potassium Level 3.6, Chloride Level 114H, Carbon Dioxide Level 18L, Anion Gap 6, Blood Urea Nitrogen 27H, Creatinine 1.14, Estimat Glomerular Filtration Rate 49, BUN/ Creatinine Ratio 24, Glucose Level 140H, Calcium Level 8.2L, Magnesium Level 1.2L, Total Bilirubin 2.1H, Aspartate Amino Transf (AST/SGOT) 44H, Alanine Aminotransferase (ALT/SGPT) 29, Alkaline Phosphatase 107, Total Protein 5.4L, Albumin 1.6L 10/27/16 11:23: Glucometer 138H 10/27/16 16:17: Glucometer 234H 10/27/16 21:11: Glucometer 251H 10/28/16 04:50: White Blood Count 7.1, Red Blood Count 3.27L, Hemoglobin 10.9L, Hematocrit 32L, Mean Corpuscular Volume 99, Mean Corpuscular Hemoglobin 33, Mean Corpuscular Hemoglobin Concent 34, Red Cell Distribution Width 17.9H, Platelet Count 66L, Mean Platelet Volume , Neutrophils (%) (Auto) 73, Lymphocytes (%) (Auto) 14, Monocytes (%) (Auto) 10, Eosinophils (%) (Auto) 3, Basophils (%) (Auto) 1, Neutrophils # (Auto) 5.2, Lymphocytes # (Auto) 1.0, Monocytes # (Auto) 0.7, Eosinophils # (Auto) 0.2, Basophils # (Auto) 0.0, Sodium Level 137, Potassium Level 3.7, Chloride Level 113H, Carbon Dioxide Level 16L, Anion Gap 8, Blood Urea Nitrogen 26H, Creatinine 1.25, Estimat Glomerular Filtration Rate 44, BUN/ Creatinine Ratio 21, Glucose Level 161H, Calcium Level 8.3L, Magnesium Level 2.0 , Total Bilirubin 1.9H, Aspartate Amino Transf (AST/SGOT) 49H, Alanine Aminotransferase (ALT/SGPT) 29, Alkaline Phosphatase 125, Total Protein 5.7L, Albumin 2.1L 10/28/16 11:01: Glucometer 174H 10/28/16 16:16: Glucometer 190H 10/28/16 21:10: Glucometer 274H 10/29/16 05:15: White Blood Count 6.5, Red Blood Count 3.11L, Hemoglobin 10.7L, Hematocrit 31L, Mean Corpuscular Volume 100H, Mean Corpuscular Hemoglobin 34, Mean Corpuscular Hemoglobin Concent 34, Red Cell Distribution Width 18.0H, Platelet Count 35*L, Mean Platelet Volume , Sodium Level 139, Potassium Level 3.6, Chloride Level 113H, Carbon Dioxide Level 18L, Anion Gap 8, Blood Urea Nitrogen 26H, Creatinine 1.19, Estimat Glomerular Filtration Rate 46, BUN/Creatinine Ratio 22 , Glucose Level 156H, Calcium Level 8.4L, Total Bilirubin 2.4H, Aspartate Amino Transf (AST/SGOT) 32, Alanine Aminotransferase (ALT/SGPT) 25, Alkaline Phosphatase 109, Ammonia 49H, Total Protein 5.1L, Albumin 2.2L 10/29/16 06:09: Glucometer 143H 10/29/16 10:54: Glucometer 155H 10/29/16 16:23: Glucometer 213H 10/29/16 20:50: Glucometer 210H 10/30/16 05:12: Glucometer 159H 10/30/16 05:13: White Blood Count 6.7, Red Blood Count 3.19L, Hemoglobin 10.6L, Hematocrit 32L, Mean Corpuscular Volume 100H, Mean Corpuscular Hemoglobin 33, Mean Corpuscular Hemoglobin Concent 33, Red Cell Distribution Width 18.4H, Platelet Count 36*L, Mean Platelet Volume , Neutrophils (%) (Auto) 75, Lymphocytes (%) (Auto) 12, Monocytes (%) (Auto) 10, Eosinophils (%) (Auto) 3, Basophils (%) (Auto) 1, Neutrophils # (Auto) 5.0, Lymphocytes # (Auto) 0.8L, Monocytes # (Auto) 0.6, Eosinophils # (Auto) 0.2, Basophils # (Auto) 0.1, Sodium Level 140, Potassium Level 3.4L, Chloride Level 114H, Carbon Dioxide Level 19L, Anion Gap 7, Blood Urea Nitrogen 24H, Creatinine 1.19, Estimat Glomerular Filtration Rate 46, BUN/ Creatinine Ratio 20, Glucose Level 167H, Calcium Level 8.5, Total Bilirubin 2.1H , Aspartate Amino Transf (AST/SGOT) 34, Alanine Aminotransferase (ALT/SGPT) 24, Alkaline Phosphatase 94, Ammonia 42H, Total Protein 5.5L, Albumin 2.0L 10/30/16 10:42: Glucometer 141H 10/30/16 16:11: Glucometer 184H 10/30/16 20:26: Glucometer 206H 10/31/16 04:53: White Blood Count 7.8, Red Blood Count 3.19L, Hemoglobin 10.7L, Hematocrit 32L, Mean Corpuscular Volume 101H, Mean Corpuscular Hemoglobin 34, Mean Corpuscular Hemoglobin Concent 33, Red Cell Distribution Width 18.6H, Platelet Count 32*L, Mean Platelet Volume , Sodium Level 138, Potassium Level 3.8, Chloride Level 114H, Carbon Dioxide Level 16L, Anion Gap 8, Blood Urea Nitrogen 23H, Creatinine 1.15, Estimat Glomerular Filtration Rate 48, BUN/Creatinine Ratio 20 , Glucose Level 257H, Glucometer 241H, Calcium Level 8.4L, Total Bilirubin 2.0H , Aspartate Amino Transf (AST/SGOT) 35H, Alanine Aminotransferase (ALT/SGPT) 24 , Alkaline Phosphatase 123, Total Protein 4.9L, Albumin 2.0L 10/31/16 11:14: Glucometer 179H Microbiology 10/18/16 Blood Culture - Final, Complete No growth 10/24/16 Urine Culture - Final, Complete Casi Glabrata 10/29/16 Gram Stain - Final, Resulted 10/29/16 Wound Culture - Preliminary, Resulted Staph, Coag Neg ([facility]) Escherichia Coli Laboratory Tests 10/18/16 18:15 10/19/16 05:04 10/20/16 04:50 10/21/16 04:42 10/22/16 06:35 10/23/16 06:18 10/24/16 04:42 10/25/16 06:30 10/26/16 05:33 10/27/16 05:12 10/28/16 04:50 10/29/16 05:15 10/30/16 05:13 10/31/16 04:53 Pending Labs Microbiology Date/Time Source Procedure Growth Status 10/18/16 19:44 Peripheral Rt Hand Blood Culture - Final No growth Complete 10/18/16 18:15 Peripheral Lt Hand Blood Culture - Final No growth Complete 10/24/16 05:25 Urine Clean Catch Urine Culture - Final Casi Gl[place]rata Complete 10/18/16 19:24 Urine Clean Catch Urine Culture - Final Escherichia Coli Staph, Coag Neg ([facility]) Complete 10/29/16 10:45 Ulcer Leg, Left Gram Stain - Final Resulted 10/29/16 10:45 Wound Culture - Preliminary Staph, Coag Neg ([facility]) Escherichia Coli Resulted Laboratory Tests 10/18/16 18:15: White Blood Count 9.7, Red Blood Count 3.98, Hemoglobin 13.3, Hematocrit 39, Mean Corpuscular Volume 97, Mean Corpuscular Hemoglobin 33, Mean Corpuscular Hemoglobin Concent 35, Red Cell Distribution Width 17.4, Platelet Count 87, Mean Platelet Volume , Neutrophils (%) (Auto) 76, Lymphocytes (%) (Auto) 11, Monocytes (%) (Auto) 10, Eosinophils (%) (Auto) 2, Basophils (%) (Auto) 1, Neutrophils # (Auto) 7.4, Lymphocytes # (Auto) 1.1, Monocytes # (Auto) 1.0, Eosinophils # (Auto) 0.2, Basophils # (Auto) 0.1, Sodium Level 135, Potassium Level 3.6, Chloride Level 102, Carbon Dioxide Level 17, Anion Gap 16, Blood Urea Nitrogen 74, Creatinine 2.35, Estimat Glomerular Filtration Rate 21, BUN/ Creatinine Ratio 31, Glucose Level 239, Lactic Acid Level 4.44, Calcium Level 9.3, Magnesium Level 1.8, Total Bilirubin 2.9, Aspartate Amino Transf (AST/SGOT ) 48, Alanine Aminotransferase (ALT/SGPT) 36, Alkaline Phosphatase 117, Ammonia 63, Troponin I < 0.30, Total Protein 6.5, Albumin 2.3, Lipase 80 10/18/16 19:24: Urine Color YELLOW, Urine Clarity SLIGHTLY CLOUDY, Urine pH 5, Urine Specific [place] 1.015, Urine Protein NEGATIVE, Urine Glucose (UA) NEGATIVE, Urine Ketones NEGATIVE, Urine Nitrite POSITIVE, Urine Bilirubin NEGATIVE, Urine Urobilinogen NORMAL, Urine Leukocyte Esterase 1+, Urine RBC (Auto) 4+, Urine RBC 2-5, Urine WBC 5-10, Urine Squamous Epithelial Cells 2-5, Urine Crystals NONE, Urine Bacteria LARGE, Urine Casts NONE, Urine Mucus NEGATIVE, Urine Culture Indicated YES, Urine Opiates Screen NEGATIVE, Urine Oxycodone Screen POSITIVE, Urine Methadone Screen NEGATIVE, Urine Propoxyphene Screen NEGATIVE, Urine Barbiturates Screen NEGATIVE, Ur Tricyclic Antidepressants Screen NEGATIVE , Urine Phencyclidine Screen NEGATIVE, Urine Amphetamines Screen NEGATIVE, Urine Methamphetamines Screen NEGATIVE, Urine Benzodiazepines Screen NEGATIVE, Urine Cocaine Screen NEGATIVE, Urine Cannabinoids Screen NEGATIVE 10/18/16 20:40: Lactic Acid Level 4.22 10/18/16 23:54: Glucometer 249 10/19/16 05:04: White Blood Count 8.6, Red Blood Count 3.68, Hemoglobin 12.2, Hematocrit 36, Mean Corpuscular Volume 98, Mean Corpuscular Hemoglobin 33, Mean Corpuscular Hemoglobin Concent 34, Red Cell Distribution Width 17.3, Platelet Count 51, Mean Platelet Volume , Neutrophils (%) (Auto) 77, Lymphocytes (%) (Auto) 10, Monocytes (%) (Auto) 11, Eosinophils (%) (Auto) 2, Basophils (%) (Auto) 0, Neutrophils # (Auto) 6.6, Lymphocytes # (Auto) 0.9, Monocytes # (Auto) 1.0, Eosinophils # (Auto) 0.2, Basophils # (Auto) 0.0, Sodium Level 136, Potassium Level 3.3, Chloride Level 106, Carbon Dioxide Level 16, Anion Gap 14, Blood Urea Nitrogen 70, Creatinine 2.22, Estimat Glomerular Filtration Rate 23, BUN/ Creatinine Ratio 32, Glucose Level 262, Calcium Level 8.6, Total Bilirubin 2.7, Aspartate Amino Transf (AST/SGOT) 39, Alanine Aminotransferase (ALT/SGPT) 35, Alkaline Phosphatase 108, Total Protein 6.0, Albumin 2.2 10/19/16 05:39: Glucometer 227 10/19/16 10:40: Glucometer 186 10/19/16 15:40: Glucometer 225 10/19/16 21:02: Glucometer 208 10/20/16 04:50: White Blood Count 6.7, Red Blood Count 3.61, Hemoglobin 12.1, Hematocrit 35, Mean Corpuscular Volume 98, Mean Corpuscular Hemoglobin 34, Mean Corpuscular Hemoglobin Concent 34, Red Cell Distribution Width 17.5, Platelet Count 47, Mean Platelet Volume , Sodium Level 138, Potassium Level 3.1, Chloride Level 109 , Carbon Dioxide Level 19, Anion Gap 10, Blood Urea Nitrogen 63, Creatinine 2.00 , Estimat Glomerular Filtration Rate 26, BUN/Creatinine Ratio 32, Glucose Level 180, Calcium Level 8.5, Total Bilirubin 2.8, Aspartate Amino Transf (AST/SGOT) 42, Alanine Aminotransferase (ALT/SGPT) 34, Alkaline Phosphatase 98, Total Protein 6.0, Albumin 2.1 10/20/16 05:03: Glucometer 179 10/20/16 11:35: Glucometer 238 10/20/16 15:32: Glucometer 209 10/20/16 20:48: Glucometer 204 10/21/16 04:42: White Blood Count 6.0, Red Blood Count 3.55, Hemoglobin 11.6, Hematocrit 35, Mean Corpuscular Volume 99, Mean Corpuscular Hemoglobin 33, Mean Corpuscular Hemoglobin Concent 33, Red Cell Distribution Width 17.8, Platelet Count 45, Mean Platelet Volume , Sodium Level 142, Potassium Level 3.1, Chloride Level 113 , Carbon Dioxide Level 18, Anion Gap 11, Blood Urea Nitrogen 51, Creatinine 1.73 , Estimat Glomerular Filtration Rate 30, BUN/Creatinine Ratio 29, Glucose Level 196, Calcium Level 8.2, Total Bilirubin 2.5, Aspartate Amino Transf (AST/SGOT) 42, Alanine Aminotransferase (ALT/SGPT) 37, Alkaline Phosphatase 93, Total Protein 5.8, Albumin 2.0 10/21/16 08:40: Lactic Acid Level 1.54, Ammonia 69 10/21/16 10:54: Glucometer 195 10/21/16 15:48: Glucometer 184 10/21/16 21:14: Glucometer 204 10/22/16 05:43: Glucometer 209 10/22/16 06:35: White Blood Count 9.0, Red Blood Count 3.71, Hemoglobin 12.3, Hematocrit 37, Mean Corpuscular Volume 100, Mean Corpuscular Hemoglobin 33, Mean Corpuscular Hemoglobin Concent 33, Red Cell Distribution Width 18.3, Platelet Count 41, Mean Platelet Volume , Sodium Level 140, Potassium Level 3.5, Chloride Level 114 , Carbon Dioxide Level 18, Anion Gap 8, Blood Urea Nitrogen 40, Creatinine 1.49 , Estimat Glomerular Filtration Rate 36, BUN/Creatinine Ratio 27, Glucose Level 231, Lactic Acid Level 1.64, Calcium Level 8.2, Total Bilirubin 2.1, Aspartate Amino Transf (AST/SGOT) 41, Alanine Aminotransferase (ALT/SGPT) 35, Alkaline Phosphatase 102, Ammonia 84, Total Protein 6.0, Albumin 1.9 10/22/16 11:03: Glucometer 208 10/22/16 15:44: Glucometer 212 10/22/16 20:53: Glucometer 210 10/23/16 06:18: White Blood Count 10.0, Red Blood Count 3.51, Hemoglobin 11.7, Hematocrit 35, Mean Corpuscular Volume 100, Mean Corpuscular Hemoglobin 33, Mean Corpuscular Hemoglobin Concent 33, Red Cell Distribution Width 18.2, Platelet Count 46, Mean Platelet Volume , Sodium Level 139, Potassium Level 3.4, Chloride Level 114 , Carbon Dioxide Level 17, Anion Gap 8, Blood Urea Nitrogen 35, Creatinine 1.25 , Estimat Glomerular Filtration Rate 44, BUN/Creatinine Ratio 28, Glucose Level 196, Calcium Level 8.0, Total Bilirubin 1.8, Aspartate Amino Transf (AST/SGOT) 37, Alanine Aminotransferase (ALT/SGPT) 33, Alkaline Phosphatase 92, Ammonia 81 , Total Protein 5.7, Albumin 1.8 10/23/16 11:12: Glucometer 216 10/23/16 16:13: Glucometer 254 10/23/16 20:47: Glucometer 222 10/24/16 04:42: White Blood Count 12.1, Red Blood Count 3.52, Hemoglobin 11.8, Hematocrit 35, Mean Corpuscular Volume 100, Mean Corpuscular Hemoglobin 34, Mean Corpuscular Hemoglobin Concent 34, Red Cell Distribution Width 18.1, Platelet Count 47, Mean Platelet Volume 11.6, Neutrophils (%) (Auto) 81, Lymphocytes (%) (Auto) 9, Monocytes (%) (Auto) 7, Eosinophils (%) (Auto) 2, Basophils (%) (Auto) 0, Neutrophils # (Auto) 9.8, Lymphocytes # (Auto) 1.1, Monocytes # (Auto) 0.8, Eosinophils # (Auto) 0.3, Basophils # (Auto) 0.0, Sodium Level 139, Potassium Level 3.6, Chloride Level 114, Carbon Dioxide Level 19, Anion Gap 6, Blood Urea Nitrogen 31, Creatinine 1.17, Estimat Glomerular Filtration Rate 47, BUN/ Creatinine Ratio 26, Glucose Level 189, Calcium Level 8.1, Magnesium Level 1.4, Total Bilirubin 1.9, Aspartate Amino Transf (AST/SGOT) 40, Alanine Aminotransferase (ALT/SGPT) 32, Alkaline Phosphatase 97, Ammonia 67, Total Protein 5.8, Albumin 1.8 10/24/16 05:25: Urine Color YELLOW, Urine Clarity CLEAR, Urine pH 6, Urine Specific [place] 1.015, Urine Protein 2+, Urine Glucose (UA) NEGATIVE, Urine Ketones NEGATIVE, Urine Nitrite NEGATIVE, Urine Bilirubin NEGATIVE, Urine Urobilinogen NORMAL, Urine Leukocyte Esterase 3+, Urine RBC (Auto) 4+, Urine RBC 5-10, Urine WBC 50- 100, Urine Squamous Epithelial Cells RARE, Urine Crystals NONE, Urine Bacteria TRACE, Urine Casts NONE, Urine Mucus NEGATIVE, Urine Yeast MODERATE, Urine Culture Indicated YES 10/24/16 10:59: Glucometer 195 10/24/16 16:12: Glucometer 263 10/24/16 21:27: Glucometer 230 10/25/16 05:58: Glucometer 186 10/25/16 06:30: White Blood Count 11.2, Red Blood Count 3.45, Hemoglobin 11.4, Hematocrit 34, Mean Corpuscular Volume 99, Mean Corpuscular Hemoglobin 33, Mean Corpuscular Hemoglobin Concent 33, Red Cell Distribution Width 18.0, Platelet Count 45, Mean Platelet Volume , Sodium Level 135, Potassium Level 3.8, Chloride Level 111 , Carbon Dioxide Level 17, Anion Gap 7, Blood Urea Nitrogen 30, Creatinine 1.29 , Estimat Glomerular Filtration Rate 42, BUN/Creatinine Ratio 23, Glucose Level 203, Calcium Level 8.1, Total Bilirubin 2.1, Aspartate Amino Transf (AST/SGOT) 41, Alanine Aminotransferase (ALT/SGPT) 31, Alkaline Phosphatase 98, Ammonia 68 , Total Protein 5.6, Albumin 1.6 10/25/16 11:05: Glucometer 235 10/25/16 16:28: Glucometer 258 10/25/16 21:22: Glucometer 269 10/26/16 05:33: White Blood Count 9.2, Red Blood Count 3.38, Hemoglobin 11.2, Hematocrit 34, Mean Corpuscular Volume 99, Mean Corpuscular Hemoglobin 33, Mean Corpuscular Hemoglobin Concent 33, Red Cell Distribution Width 17.7, Platelet Count 50, Mean Platelet Volume , Neutrophils (%) (Auto) 79, Lymphocytes (%) (Auto) 10, Monocytes (%) (Auto) 8, Eosinophils (%) (Auto) 3, Basophils (%) (Auto) 0, Neutrophils # (Auto) 7.3, Lymphocytes # (Auto) 0.9, Monocytes # (Auto) 0.7, Eosinophils # (Auto) 0.3, Basophils # (Auto) 0.0, Sodium Level 137, Potassium Level 3.5, Chloride Level 111, Carbon Dioxide Level 18, Anion Gap 8, Blood Urea Nitrogen 29, Creatinine 1.26, Estimat Glomerular Filtration Rate 43, BUN/ Creatinine Ratio 23, Glucose Level 227, Calcium Level 8.2, Total Bilirubin 1.8, Aspartate Amino Transf (AST/SGOT) 37, Alanine Aminotransferase (ALT/SGPT) 31, Alkaline Phosphatase 132, Ammonia 65, Total Protein 5.6, Albumin 1.8 10/26/16 11:08: Glucometer 193 10/26/16 16:27: Glucometer 278 10/26/16 21:00: Glucometer 265 10/27/16 05:12: White Blood Count 9.4, Red Blood Count 3.37, Hemoglobin 11.2, Hematocrit 33, Mean Corpuscular Volume 99, Mean Corpuscular Hemoglobin 33, Mean Corpuscular Hemoglobin Concent 34, Red Cell Distribution Width 17.8, Platelet Count 50, Mean Platelet Volume , Neutrophils (%) (Auto) 75, Lymphocytes (%) (Auto) 12, Monocytes (%) (Auto) 10, Eosinophils (%) (Auto) 3, Basophils (%) (Auto) 1, Neutrophils # (Auto) 7.0, Lymphocytes # (Auto) 1.2, Monocytes # (Auto) 0.9, Eosinophils # (Auto) 0.3, Basophils # (Auto) 0.1, Neutrophils % (Manual) 76, Lymphocytes % (Manual) 11, Monocytes % (Manual) 4, Eosinophils % (Manual) 5, Basophils % (Manual) 0, Metamyelocytes % 1, Band Neutrophils 3, Toxic Granulation 1+, Polychromasia SLIGHT, Anisocytosis MODERATE, Microcytosis SLIGHT , Macrocytosis MODERATE, Tear Drop Cells SLIGHT, Sodium Level 138, Potassium Level 3.6, Chloride Level 114, Carbon Dioxide Level 18, Anion Gap 6, Blood Urea Nitrogen 27, Creatinine 1.14, Estimat Glomerular Filtration Rate 49, BUN/ Creatinine Ratio 24, Glucose Level 140, Calcium Level 8.2, Magnesium Level 1.2, Total Bilirubin 2.1, Aspartate Amino Transf (AST/SGOT) 44, Alanine Aminotransferase (ALT/SGPT) 29, Alkaline Phosphatase 107, Total Protein 5.4, Albumin 1.6 10/27/16 11:23: Glucometer 138 10/27/16 16:17: Glucometer 234 10/27/16 21:11: Glucometer 251 10/28/16 04:50: White Blood Count 7.1, Red Blood Count 3.27, Hemoglobin 10.9, Hematocrit 32, Mean Corpuscular Volume 99, Mean Corpuscular Hemoglobin 33, Mean Corpuscular Hemoglobin Concent 34, Red Cell Distribution Width 17.9, Platelet Count 66, Mean Platelet Volume , Neutrophils (%) (Auto) 73, Lymphocytes (%) (Auto) 14, Monocytes (%) (Auto) 10, Eosinophils (%) (Auto) 3, Basophils (%) (Auto) 1, Neutrophils # (Auto) 5.2, Lymphocytes # (Auto) 1.0, Monocytes # (Auto) 0.7, Eosinophils # (Auto) 0.2, Basophils # (Auto) 0.0, Sodium Level 137, Potassium Level 3.7, Chloride Level 113, Carbon Dioxide Level 16, Anion Gap 8, Blood Urea Nitrogen 26, Creatinine 1.25, Estimat Glomerular Filtration Rate 44, BUN/ Creatinine Ratio 21, Glucose Level 161, Calcium Level 8.3, Magnesium Level 2.0, Total Bilirubin 1.9, Aspartate Amino Transf (AST/SGOT) 49, Alanine Aminotransferase (ALT/SGPT) 29, Alkaline Phosphatase 125, Total Protein 5.7, Albumin 2.1 10/28/16 11:01: Glucometer 174 10/28/16 16:16: Glucometer 190 10/28/16 21:10: Glucometer 274 10/29/16 05:15: White Blood Count 6.5, Red Blood Count 3.11, Hemoglobin 10.7, Hematocrit 31, Mean Corpuscular Volume 100, Mean Corpuscular Hemoglobin 34, Mean Corpuscular Hemoglobin Concent 34, Red Cell Distribution Width 18.0, Platelet Count 35, Mean Platelet Volume , Sodium Level 139, Potassium Level 3.6, Chloride Level 113 , Carbon Dioxide Level 18, Anion Gap 8, Blood Urea Nitrogen 26, Creatinine 1.19 , Estimat Glomerular Filtration Rate 46, BUN/Creatinine Ratio 22, Glucose Level 156, Calcium Level 8.4, Total Bilirubin 2.4, Aspartate Amino Transf (AST/SGOT) 32, Alanine Aminotransferase (ALT/SGPT) 25, Alkaline Phosphatase 109, Ammonia 49 , Total Protein 5.1, Albumin 2.2 10/29/16 06:09: Glucometer 143 10/29/16 10:54: Glucometer 155 10/29/16 16:23: Glucometer 213 10/29/16 20:50: Glucometer 210 10/30/16 05:12: Glucometer 159 10/30/16 05:13: White Blood Count 6.7, Red Blood Count 3.19, Hemoglobin 10.6, Hematocrit 32, Mean Corpuscular Volume 100, Mean Corpuscular Hemoglobin 33, Mean Corpuscular Hemoglobin Concent 33, Red Cell Distribution Width 18.4, Platelet Count 36, Mean Platelet Volume , Neutrophils (%) (Auto) 75, Lymphocytes (%) (Auto) 12, Monocytes (%) (Auto) 10, Eosinophils (%) (Auto) 3, Basophils (%) (Auto) 1, Neutrophils # (Auto) 5.0, Lymphocytes # (Auto) 0.8, Monocytes # (Auto) 0.6, Eosinophils # (Auto) 0.2, Basophils # (Auto) 0.1, Sodium Level 140, Potassium Level 3.4, Chloride Level 114, Carbon Dioxide Level 19, Anion Gap 7, Blood Urea Nitrogen 24, Creatinine 1.19, Estimat Glomerular Filtration Rate 46, BUN/ Creatinine Ratio 20, Glucose Level 167, Calcium Level 8.5, Total Bilirubin 2.1, Aspartate Amino Transf (AST/SGOT) 34, Alanine Aminotransferase (ALT/SGPT) 24, Alkaline Phosphatase 94, Ammonia 42, Total Protein 5.5, Albumin 2.0 10/30/16 10:42: Glucometer 141 10/30/16 16:11: Glucometer 184 10/30/16 20:26: Glucometer 206 10/31/16 04:53: White Blood Count 7.8, Red Blood Count 3.19, Hemoglobin 10.7, Hematocrit 32, Mean Corpuscular Volume 101, Mean Corpuscular Hemoglobin 34, Mean Corpuscular Hemoglobin Concent 33, Red Cell Distribution Width 18.6, Platelet Count 32, Mean Platelet Volume , Sodium Level 138, Potassium Level 3.8, Chloride Level 114 , Carbon Dioxide Level 16, Anion Gap 8, Blood Urea Nitrogen 23, Creatinine 1.15 , Estimat Glomerular Filtration Rate 48, BUN/Creatinine Ratio 20, Glucose Level 257, Glucometer 241, Calcium Level 8.4, Total Bilirubin 2.0, Aspartate Amino Transf (AST/SGOT) 35, Alanine Aminotransferase (ALT/SGPT) 24, Alkaline Phosphatase 123, Total Protein 4.9, Albumin 2.0 10/31/16 11:14: Glucometer 179 Radiology Reviewed KUB no acute abnormality. Chest x-ray no acute findings. Ultrasound of extremities BOUCHRA on the right side 0.89. CAT scan abdomen and pelvis area and cirrhotic appearance of the liver with complex partially mass in the right lobe Discussion & Recommendations Patient in the hospital improved. Patient offered the opportunity to go to [facility]. Patient has outpatient appointment with . I spoke to center receptionist Discharge Home Medications: Active Scripts Active Metformin HCl 500 Mg Tablet 500 Mg PO DAILY 30 Days Cefdinir 300 Mg Capsule 300 Mg PO BID 14 Days Furosemide 40 Mg Tablet 40 Mg PO DAILY 30 Days Klor-Con 10 (Potassium Chloride) 10 Meq Tablet.er 10 Meq PO DAILY@0700 30 Days Spironolactone 25 Mg Tablet 50 Mg PO DAILY 30 Days Reported Vitamin D2 (Ergocalciferol (Vitamin D2)) 50,000 Unit Capsule 50,000 Units PO WEEK TAKES ON FRIDAY Nyamyc (Nystatin) 15 Gm Powder TP DAILY PRN Lactulose 10 Gm/15 Ml Solution 30 Ml PO Q6H Pantoprazole Sodium 40 Mg Tablet.dr 40 Mg PO DAILY Latanoprost 2.5 Ml Drops 1 Drop OU DAILY Oxycodone HCl 10 Mg Tablet 10 Mg PO TID PRN Xifaxan (Rifaximin) 550 Mg Tablet 550 Mg PO BID Instructions to patient/family Please see electonic discharge instructions given to patient. Clinical Quality Measures DVT/VTE Risk/Contraindication: Risk Factor Score Per Nursin RFS Level Per Nursing on Admit: 4+=Very High Contraindications-Pharm: Other *list below* Other: PT HAS LOW PLATELETS AGUSTINA AMOS DO Nov 02, 2016 08:19
== END 2016-10-31 14:17 | disposition home or self-care (01) | DRG 690 ==
LOC: EDUNIT# 18:04 → ER 18:05 → 4TH 20:36
PROVIDERS: ADMIT Family Medicine; ATTEND Family Medicine
DX: N39.0 Urinary tract infection, site not specified (principal); L03.116 Cellulitis of left lower limb; L97.229 Non-pressure chronic ulcer of left calf with unspecified severity; I87.2 Venous insufficiency (chronic) (peripheral); N17.9 Acute kidney failure, unspecified; R18.8 Other ascites; K76.6 Portal hypertension; K72.90 Hepatic failure, unspecified without coma; B37.0 Candidal stomatitis; E86.0 Dehydration; D69.6 Thrombocytopenia, unspecified; E11.65 Type 2 diabetes mellitus with hyperglycemia; E11.22 Type 2 diabetes mellitus with diabetic chronic kidney disease; N18.9 Chronic kidney disease, unspecified; I12.9 Hypertensive chronic kidney disease with stage 1 through stage 4 chronic kidney disease, or unspecified chronic kidney disease; E78.5 Hyperlipidemia, unspecified; I25.10 Atherosclerotic heart disease of native coronary artery without angina pectoris; F41.9 Anxiety disorder, unspecified; F32.9 Major depressive disorder, single episode, unspecified; K21.9 Gastro-esophageal reflux disease without esophagitis; B96.20 Unspecified Escherichia coli [E. coli] as the cause of diseases classified elsewhere; K74.60 Unspecified cirrhosis of liver; G89.4 Chronic pain syndrome; E87.6 Hypokalemia; R19.7 Diarrhea, unspecified; R74.0 Nonspecific elevation of levels of transaminase and lactic acid dehydrogenase [LDH]; Z95.5 Presence of coronary angioplasty implant and graft; Z87.891 Personal history of nicotine dependence
CPT/HCPCS: 36415; 71010; 74000; 74170; 80053; 80306; 81000; 82140; 82962; 83605; 83690; 83735; 84484; 85007; 85025; 85027; 87040; 87070; 87077; 87088; 87186; 87205; 93005; 93923; 96361; 96365; 96375

== ENCOUNTER → 2016-11-20 | Outpatient (CLI) | payer MEDICAID ==
[~2016-11-20] MED LIST changes: +CEFD300C3 PO; +CHOL20002 PO; +CLIN300C11 PO; +ERGO50006 PO; +HYDR-3781 PO; +NYST15PO2 TP; +OXYC-529 PO; -OXYC5TAB71 PO; +POTA10TA10 PO; +POTA10TA6 PO; +SCOP1PAT TD; +SPIR25TA3 PO
== END ==
LOC: LAB 16:43
PROVIDERS: ATTEND Family Medicine
DX: S81.802A Unspecified open wound, left lower leg, initial encounter (principal); X58.XXXA Exposure to other specified factors, initial encounter; Y99.8 Other external cause status
CPT/HCPCS: 87070; 87186; 87205

== ENCOUNTER → 2016-11-24 | Outpatient (CLI) | payer MEDICAID ==
[~2016-11-24] MED LIST changes: -OXYC-529 PO; +OXYC5TAB71 PO; -POTA10TA10 PO; -SCOP1PAT TD
[2016-11-24 16:44] LABS: BASOPHILS % (AUTO) 1 % (0-10); EOSINOPHILS # (AUTO) 0.4 10^3/uL (0.0-0.3); EOSINOPHILS % (AUTO) 7 % (0-10); LYMPHOCYTES # (AUTO) 0.8 X 10^3 (1.0-4.0); LYMPHOCYTES % (AUTO) 14 % (12-44); MEAN CORPUSCULAR HEMOGLOBIN 33 PG (25-34); MEAN CORPUSCULAR HGB CONC 32 G/DL (32-36); MEAN CORPUSCULAR VOLUME 102 FL (80-99); MEAN PLATELET VOLUME 11.8 FL (7.4-10.4); MONOCYTES # (AUTO) 0.5 X 10^3 (0.0-1.0); MONOCYTES % (AUTO) 10 % (0-12); NEUTROPHILS # (AUTO) 3.9 X 10^3 (1.8-7.8); NEUTROPHILS % (AUTO) 70 % (42-75); PLATELET COUNT 45 10^3/uL (130-400); RED BLOOD COUNT 3.16 10^6/uL (4.35-5.85); RED CELL DISTRIBUTION WIDTH 17.2 % (10.0-14.5); WHITE BLOOD COUNT 5.6 10^3/uL (4.3-11.0)
[2016-11-24 17:08] LABS: ALBUMIN 2.1 GM/DL (3.2-4.5); BILIRUBIN,TOTAL 2.1 MG/DL (0.1-1.0); CREATININE SERUM 1.68 MG/DL (0.60-1.30); POTASSIUM 4.8 MMOL/L (3.6-5.0); TOTAL PROTEIN 6.3 GM/DL (6.4-8.2)
== END ==
LOC: LAB 16:10
PROVIDERS: ATTEND Family Medicine
DX: K74.60 Unspecified cirrhosis of liver (principal); E72.20 Disorder of urea cycle metabolism, unspecified; D69.6 Thrombocytopenia, unspecified
CPT/HCPCS: 36415; 80053; 82140; 85025

== ENCOUNTER → 2016-12-01 | Outpatient (CLI) | payer MEDICAID ==
[2016-12-01 18:33] LABS: BASOPHILS % (AUTO) 1 % (0-10); EOSINOPHILS # (AUTO) 0.3 10^3/uL (0.0-0.3); EOSINOPHILS % (AUTO) 6 % (0-10); LYMPHOCYTES # (AUTO) 0.9 X 10^3 (1.0-4.0); LYMPHOCYTES % (AUTO) 19 % (12-44); MEAN CORPUSCULAR HEMOGLOBIN 34 PG (25-34); MEAN CORPUSCULAR HGB CONC 33 G/DL (32-36); MEAN CORPUSCULAR VOLUME 103 FL (80-99); MONOCYTES # (AUTO) 0.5 X 10^3 (0.0-1.0); MONOCYTES % (AUTO) 11 % (0-12); NEUTROPHILS % (AUTO) 64 % (42-75); PLATELET COUNT 65 10^3/uL (130-400); RED BLOOD COUNT 3.07 10^6/uL (4.35-5.85); RED CELL DISTRIBUTION WIDTH 17.1 % (10.0-14.5); WHITE BLOOD COUNT 4.6 10^3/uL (4.3-11.0)
[2016-12-01 18:43] LABS: INR 1.5 (0.8-1.4); PROTHROMBIN TIME PATIENT 18.2 SEC (12.2-14.7)
[2016-12-01 18:53] LABS: BILIRUBIN,TOTAL 1.6 MG/DL (0.1-1.0); CALCIUM 8.7 MG/DL (8.5-10.1); CREATININE SERUM 1.43 MG/DL (0.60-1.30); POTASSIUM 4.2 MMOL/L (3.6-5.0); TOTAL PROTEIN 6.4 GM/DL (6.4-8.2)
== END ==
LOC: LAB 18:03
PROVIDERS: ATTEND Family Medicine
DX: K74.60 Unspecified cirrhosis of liver (principal); D69.6 Thrombocytopenia, unspecified; N28.9 Disorder of kidney and ureter, unspecified
CPT/HCPCS: 36415; 80053; 82140; 85025; 85610

== ENCOUNTER → 2016-12-08 | Outpatient (CLI) | payer MEDICAID ==
[2016-12-08 18:52] LABS: BASOPHILS % (AUTO) 0 % (0-10); EOSINOPHILS # (AUTO) 0.1 10^3/uL (0.0-0.3); EOSINOPHILS % (AUTO) 2 % (0-10); LYMPHOCYTES # (AUTO) 0.8 X 10^3 (1.0-4.0); LYMPHOCYTES % (AUTO) 17 % (12-44); MEAN CORPUSCULAR HEMOGLOBIN 34 PG (25-34); MEAN CORPUSCULAR HGB CONC 33 G/DL (32-36); MEAN CORPUSCULAR VOLUME 103 FL (80-99); MONOCYTES # (AUTO) 0.5 X 10^3 (0.0-1.0); MONOCYTES % (AUTO) 11 % (0-12); NEUTROPHILS # (AUTO) 3.3 X 10^3 (1.8-7.8); NEUTROPHILS % (AUTO) 70 % (42-75); PLATELET COUNT 49 10^3/uL (130-400); RED BLOOD COUNT 3.09 10^6/uL (4.35-5.85); RED CELL DISTRIBUTION WIDTH 17.2 % (10.0-14.5); WHITE BLOOD COUNT 4.8 10^3/uL (4.3-11.0)
[2016-12-08 19:02] LABS: INR 1.5 (0.8-1.4); PROTHROMBIN TIME PATIENT 18.2 SEC (12.2-14.7)
[2016-12-08 19:14] LABS: BILIRUBIN,TOTAL 1.5 MG/DL (0.1-1.0); CREATININE SERUM 1.29 MG/DL (0.60-1.30); POTASSIUM 4.2 MMOL/L (3.6-5.0)
== END ==
LOC: LAB 18:34
PROVIDERS: ATTEND Family Medicine
DX: K74.60 Unspecified cirrhosis of liver (principal); N28.9 Disorder of kidney and ureter, unspecified
CPT/HCPCS: 36415; 80053; 82140; 85025; 85610

== ENCOUNTER → 2016-12-30 | Outpatient (CLI) | payer MEDICAID ==
[2016-12-30 18:46] LABS: BASOPHILS % (AUTO) 1 % (0-10); EOSINOPHILS # (AUTO) 0.2 10^3/uL (0.0-0.3); EOSINOPHILS % (AUTO) 4 % (0-10); LYMPHOCYTES # (AUTO) 0.8 X 10^3 (1.0-4.0); LYMPHOCYTES % (AUTO) 21 % (12-44); MEAN CORPUSCULAR HEMOGLOBIN 33 PG (25-34); MEAN CORPUSCULAR HGB CONC 33 G/DL (32-36); MEAN CORPUSCULAR VOLUME 102 FL (80-99); MONOCYTES # (AUTO) 0.4 X 10^3 (0.0-1.0); MONOCYTES % (AUTO) 10 % (0-12); NEUTROPHILS # (AUTO) 2.5 X 10^3 (1.8-7.8); NEUTROPHILS % (AUTO) 64 % (42-75); PLATELET COUNT 67 10^3/uL (130-400); RED BLOOD COUNT 3.21 10^6/uL (4.35-5.85); RED CELL DISTRIBUTION WIDTH 16.9 % (10.0-14.5)
[2016-12-30 18:49] LABS: BILIRUBIN,URINE NEGATIVE (NEGATIVE); KETONES,URINE NEGATIVE (NEGATIVE); LEUKOCYTE ESTERASE ,URINE NEGATIVE (NEGATIVE); NITRITE,URINE NEGATIVE (NEGATIVE); PH,URINE 5 (5-9); PROTEIN,URINE NEGATIVE (NEGATIVE); UROBILINOGEN,URINE NORMAL (NORMAL)
[2016-12-30 19:15] LABS: WBC,URINE RARE /HPF
[2016-12-30 19:21] LABS: BILIRUBIN,TOTAL 1.8 MG/DL (0.1-1.0); CALCIUM 8.7 MG/DL (8.5-10.1); CREATININE SERUM 1.54 MG/DL (0.60-1.30); POTASSIUM 4.4 MMOL/L (3.6-5.0); TOTAL PROTEIN 6.6 GM/DL (6.4-8.2)
== END ==
LOC: LAB 18:12
DX: K76.9 Liver disease, unspecified (principal); K70.31 Alcoholic cirrhosis of liver with ascites
CPT/HCPCS: 36415; 80053; 80307; 81000; 82043; 82570; 84156; 85025; 87088

== ENCOUNTER → 2017-01-29 | Outpatient (CLI) | payer MEDICAID ==
[~2017-01-29] MED LIST changes: +OXYC-529 PO; -OXYC5TAB71 PO; +POTA10TA10 PO; +SCOP1PAT TD
[2017-01-29 15:31] LABS: MEAN PLATELET VOLUME 12.3 FL (7.4-10.4); RED BLOOD COUNT 3.34 10^6/uL (4.35-5.85); RED CELL DISTRIBUTION WIDTH 17.2 % (10.0-14.5); WHITE BLOOD COUNT 3.5 10^3/uL (4.3-11.0)
[2017-01-29 15:49] LABS: ALBUMIN 2.1 GM/DL (3.2-4.5); BILIRUBIN,TOTAL 1.9 MG/DL (0.1-1.0); CALCIUM 8.2 MG/DL (8.5-10.1); CREATININE SERUM 1.64 MG/DL (0.60-1.30); POTASSIUM 4.5 MMOL/L (3.6-5.0); TOTAL PROTEIN 6.6 GM/DL (6.4-8.2)
== END ==
LOC: LAB 15:16
PROVIDERS: ATTEND Radiology Diagnostic Radiology
DX: C22.0 Liver cell carcinoma (principal)
CPT/HCPCS: 36415; 80053; 85027

== ENCOUNTER → 2017-02-06 | Outpatient (CLI) | payer MEDICAID ==
[~2017-02-06] MED LIST changes: -OXYC-529 PO; +OXYC5TAB71 PO; -POTA10TA10 PO; -SCOP1PAT TD
[2017-02-06 18:01] LABS: BASOPHILS % (AUTO) 0 % (0-10); EOSINOPHILS # (AUTO) 0.1 10^3/uL (0.0-0.3); EOSINOPHILS % (AUTO) 2 % (0-10); LYMPHOCYTES % (AUTO) 20 % (12-44); MEAN CORPUSCULAR HEMOGLOBIN 33 PG (25-34); MEAN CORPUSCULAR HGB CONC 33 G/DL (32-36); MEAN CORPUSCULAR VOLUME 102 FL (80-99); MEAN PLATELET VOLUME 11.5 FL (7.4-10.4); MONOCYTES # (AUTO) 0.5 X 10^3 (0.0-1.0); MONOCYTES % (AUTO) 10 % (0-12); NEUTROPHILS # (AUTO) 3.2 X 10^3 (1.8-7.8); NEUTROPHILS % (AUTO) 67 % (42-75); PLATELET COUNT 47 10^3/uL (130-400); RED CELL DISTRIBUTION WIDTH 17.2 % (10.0-14.5); WHITE BLOOD COUNT 4.7 10^3/uL (4.3-11.0)
[2017-02-06 18:20] LABS: ALBUMIN 2.3 GM/DL (3.2-4.5); CALCIUM 9.8 MG/DL (8.5-10.1); CREATININE SERUM 1.7 MG/DL (0.60-1.30); POTASSIUM 3.9 MMOL/L (3.6-5.0); TOTAL PROTEIN 6.9 GM/DL (6.4-8.2)
== END ==
LOC: LAB 17:34
PROVIDERS: ATTEND Family Medicine
DX: R31.9 Hematuria, unspecified (principal)
CPT/HCPCS: 36415; 80053; 85025

== ENCOUNTER → 2017-04-08 | Outpatient (CLI) | payer MEDICAID ==
[~2017-04-08] MED LIST changes: +OXYC-529 PO; -OXYC5TAB71 PO; +POTA10TA10 PO; +SCOP1PAT TD
[2017-04-08 13:27] LABS: BASOPHILS # (AUTO) 0.1 10^3/uL (0.0-0.1); BASOPHILS % (AUTO) 1 % (0-10); EOSINOPHILS # (AUTO) 0.3 10^3/uL (0.0-0.3); EOSINOPHILS % (AUTO) 7 % (0-10); LYMPHOCYTES # (AUTO) 0.9 X 10^3 (1.0-4.0); LYMPHOCYTES % (AUTO) 23 % (12-44); MEAN CORPUSCULAR HEMOGLOBIN 36 PG (25-34); MEAN CORPUSCULAR HGB CONC 34 G/DL (32-36); MEAN CORPUSCULAR VOLUME 104 FL (80-99); MEAN PLATELET VOLUME 12.4 FL (7.4-10.4); MONOCYTES # (AUTO) 0.5 X 10^3 (0.0-1.0); MONOCYTES % (AUTO) 12 % (0-12); NEUTROPHILS # (AUTO) 2.3 X 10^3 (1.8-7.8); NEUTROPHILS % (AUTO) 58 % (42-75); RED BLOOD COUNT 3.28 10^6/uL (4.35-5.85); RED CELL DISTRIBUTION WIDTH 16.4 % (10.0-14.5)
[2017-04-08 13:32] LABS: PLATELET COUNT 42 10^3/uL (130-400)
[2017-04-08 13:39] LABS: INR 1.7 (0.8-1.4); PROTHROMBIN TIME PATIENT 19.6 SEC (12.2-14.7)
[2017-04-08 13:49] LABS: ALBUMIN 2.6 GM/DL (3.2-4.5); BILIRUBIN,TOTAL 2.8 MG/DL (0.1-1.0); CALCIUM 9.4 MG/DL (8.5-10.1); CREATININE SERUM 1.89 MG/DL (0.60-1.30); POTASSIUM 4.4 MMOL/L (3.6-5.0); TOTAL PROTEIN 6.4 GM/DL (6.4-8.2)
== END ==
LOC: LAB 13:05
DX: K72.90 Hepatic failure, unspecified without coma (principal)
CPT/HCPCS: 36415; 80053; 85025; 85610

== ENCOUNTER → 2017-06-06 | Outpatient (CLI) | payer MEDICAID ==
[2017-06-06 15:40] LABS: HEMATOCRIT 36 % (35-52); HEMOGLOBIN 12.4 G/DL (11.5-16.0); MEAN CORPUSCULAR HEMOGLOBIN 35 PG (25-34); MEAN CORPUSCULAR HGB CONC 34 G/DL (32-36); MEAN CORPUSCULAR VOLUME 103 FL (80-99); PLATELET COUNT 47 10^3/uL (130-400); RED BLOOD COUNT 3.53 10^6/uL (4.35-5.85); WHITE BLOOD COUNT 4.3 10^3/uL (4.3-11.0)
[2017-06-06 15:49] LABS: INR 1.5 (0.8-1.4); PROTHROMBIN TIME PATIENT 18.3 SEC (12.2-14.7)
[2017-06-06 15:59] LABS: ALBUMIN 2.6 GM/DL (3.2-4.5); BILIRUBIN,TOTAL 2.1 MG/DL (0.1-1.0); CALCIUM 8.6 MG/DL (8.5-10.1); CREATININE SERUM 1.92 MG/DL (0.60-1.30); POTASSIUM 3.7 MMOL/L (3.6-5.0); TOTAL PROTEIN 6.6 GM/DL (6.4-8.2)
== END ==
LOC: LAB 15:05
PROVIDERS: ATTEND Family Medicine
DX: K72.90 Hepatic failure, unspecified without coma (principal)
CPT/HCPCS: 36415; 80053; 82140; 85027; 85610

== ENCOUNTER → 2017-06-26 | Outpatient (CLI) | payer MEDICAID ==
[~2017-06-26] VITALS: Ht 157.5 cm; Wt 100.7 kg
[~2017-06-26] MED LIST changes: +LIDOCAINE 1% INJ 20 ML (XYLOCAINE) VIAL INJ ONE; +LIDOCAINE 1% INJ 50 ML (XYLOCAINE) VIAL ONE; +LORazepam 0.5 MG (ATIVAN) TABLET ONE; +LORazepam 1 MG (ATIVAN) TAB PO ONE
[2017-06-26 12:50] VITALS: BP 137/90
[2017-06-26] MEDS: ALBUMIN 25% 25 GM/100 ML 100 ML IV NR ×2 (13:10→13:28)
[2017-06-26 14:11] VITALS: BP 131/78
[2017-06-26 14:48] LABS: BODY FLUID APPEARENCE SLT CLDY; BODY FLUID COLOR YELLOW; BODY FLUID RBC COUNT 250 /uL; BODY FLUID SOURCE PERITON; BODY FLUID WBC TOTAL COUNT 83 /uL
[2017-06-26 14:57] LABS: BF OTHER CELLS 1 %; LYMPHOCYTES,BODY FLUID 92 %
--- NOTE | 2017-06-26 16:53 | Diagnostic Imaging Report ---
INDICATION: Ascites. PROCEDURE AND TECHNIQUE: The risks and benefits of the procedure were explained to the patient and informed consent obtained. The patient was placed supine on the ultrasound table. The left lower quadrant was prepped and draped in the usual sterile fashion. 1% lidocaine was used to anesthetize the overlying tissues. Under ultrasound guidance, a 6 Irish catheter was placed into the peritoneal cavity and approximately 6 L of fluid removed. IMPRESSION: Left lower quadrant paracentesis Dictated by: Dictated on workstation # [id number]
== END ==
LOC: RAD 11:44
PROVIDERS: ATTEND Family Medicine
DX: K72.90 Hepatic failure, unspecified without coma (principal); R18.8 Other ascites
CPT/HCPCS: 49083; 76942; 89051; 96374; 96376

== ENCOUNTER → 2017-09-24 | Outpatient (CLI) | payer MEDICAID ==
[~2017-09-24] MED LIST changes: -LIDOCAINE 1% INJ 20 ML (XYLOCAINE) VIAL INJ ONE; -LIDOCAINE 1% INJ 50 ML (XYLOCAINE) VIAL ONE; -LORazepam 0.5 MG (ATIVAN) TABLET ONE; -LORazepam 1 MG (ATIVAN) TAB PO ONE; -METF500T4 PO; +METF500T5 PO; -SCOP1PAT TD; +SCOP1PAT11 TD
[2017-09-24 14:15] LABS: CALCIUM 8.3 MG/DL (8.5-10.1); CREATININE SERUM 1.8 MG/DL (0.60-1.30); POTASSIUM 4.4 MMOL/L (3.6-5.0)
== END ==
LOC: LAB 13:44
PROVIDERS: ATTEND Nurse Practitioner Family
DX: C22.0 Liver cell carcinoma (principal)
CPT/HCPCS: 36415; 80048

== ENCOUNTER 2017-10-01 09:46 | Outpatient (RCR) | payer MEDICAID ==
[2017-09-05 12:30] LABS: BASOPHILS % (AUTO) 1 % (0-10); EOSINOPHILS # (AUTO) 0.1 10^3/uL (0.0-0.3); EOSINOPHILS % (AUTO) 4 % (0-10); HEMATOCRIT 36 % (35-52); HEMOGLOBIN 11.7 G/DL (11.5-16.0); LYMPHOCYTES # (AUTO) 0.6 X 10^3 (1.0-4.0); LYMPHOCYTES % (AUTO) 20 % (12-44); MEAN CORPUSCULAR HEMOGLOBIN 35 PG (25-34); MEAN CORPUSCULAR HGB CONC 33 G/DL (32-36); MEAN CORPUSCULAR VOLUME 105 FL (80-99); MONOCYTES # (AUTO) 0.4 X 10^3 (0.0-1.0); MONOCYTES % (AUTO) 12 % (0-12); NEUTROPHILS # (AUTO) 1.9 X 10^3 (1.8-7.8); NEUTROPHILS % (AUTO) 64 % (42-75); PLATELET COUNT 54 10^3/uL (130-400); RED BLOOD COUNT 3.38 10^6/uL (4.35-5.85); RED CELL DISTRIBUTION WIDTH 16.3 % (10.0-14.5); WHITE BLOOD COUNT 3.1 10^3/uL (4.3-11.0)
[2017-09-05 12:48] LABS: ALBUMIN 2.6 GM/DL (3.2-4.5); BILIRUBIN,TOTAL 2.4 MG/DL (0.1-1.0); CALCIUM 9.1 MG/DL (8.5-10.1); POTASSIUM 4.3 MMOL/L (3.6-5.0); TOTAL PROTEIN 6.5 GM/DL (6.4-8.2)
[~2017-10-01 09:46] MED LIST changes: -SPIR100T2 PO; +SPIR100T4 PO; -SPIR25TA3 PO; +SPIR25TA5 PO; +TRAZ-189 PO; +TRAZ-190 PO; -TRAZ-28 PO; -TRAZ100T92 PO
[2017-10-01 10:04] LABS: BASOPHILS % (AUTO) 0 % (0-10); EOSINOPHILS # (AUTO) 0.1 10^3/uL (0.0-0.3); EOSINOPHILS % (AUTO) 3 % (0-10); HEMATOCRIT 35 % (35-52); HEMOGLOBIN 11.8 G/DL (11.5-16.0); LYMPHOCYTES # (AUTO) 0.6 X 10^3 (1.0-4.0); LYMPHOCYTES % (AUTO) 18 % (12-44); MEAN CORPUSCULAR HEMOGLOBIN 35 PG (25-34); MEAN CORPUSCULAR HGB CONC 34 G/DL (32-36); MEAN CORPUSCULAR VOLUME 103 FL (80-99); MONOCYTES # (AUTO) 0.3 X 10^3 (0.0-1.0); MONOCYTES % (AUTO) 10 % (0-12); NEUTROPHILS # (AUTO) 2.2 X 10^3 (1.8-7.8); NEUTROPHILS % (AUTO) 68 % (42-75); RED BLOOD COUNT 3.36 10^6/uL (4.35-5.85); RED CELL DISTRIBUTION WIDTH 15.8 % (10.0-14.5); WHITE BLOOD COUNT 3.3 10^3/uL (4.3-11.0)
[2017-10-01 10:08] LABS: PLATELET COUNT 39 10^3/uL (130-400)
[2017-10-01 10:23] LABS: ALBUMIN 2.2 GM/DL (3.2-4.5); BILIRUBIN,TOTAL 1.8 MG/DL (0.1-1.0); CALCIUM 8.3 MG/DL (8.5-10.1); CREATININE SERUM 1.64 MG/DL (0.60-1.30); POTASSIUM 4.6 MMOL/L (3.6-5.0)
== END 2017-12-04 | disposition home or self-care (01) ==
LOC: ONC 09:46
PROVIDERS: ATTEND Internal Medicine Hematology & Oncology
DX: C22.8 Malignant neoplasm of liver, primary, unspecified as to type (principal); R18.8 Other ascites; F41.9 Anxiety disorder, unspecified; E11.22 Type 2 diabetes mellitus with diabetic chronic kidney disease; N18.9 Chronic kidney disease, unspecified; Z79.899 Other long term (current) drug therapy
CPT/HCPCS: 36415; 80053; 82105; 85025; 99213